=== PATIENT | female | born 1940 | race Caucasian/White ===

== ENCOUNTER → 2016-09-03 | Outpatient (CLI) | payer OTHER ==
[~2016-09-03] MED LIST: ACET1TAB84 PO; B-COTAB18 PO; BIOT1CAP3 PO; CALC600T9 PO; CHOL1TAB4 PO; DOCU-94 PO; GLUC1CHW PO; MISCCAP80 PO; MULT-884 PO; NAPR1TAB9 PO; OMEG10002 PO; RSTOPS OP
[2016-09-03 13:37] LABS: BASO % 0.6 %; BASO ABS # 0.05 K/uL (0-0.2); COMPLETE YES; HEMATOCRIT 38.9 % (37-47); IG% 0.1 %; LYMPH % 28.2 %; LYMPH ABS # 2.42 K/uL (1.2-3.4); MEAN CELL VOLUME 91.5 fL (80-100); MEAN CORPUSCULAR HEMOGLOBIN 30.8 pg (25-34); MEAN CORPUSCULAR HGB CONC 33.7 g/dl (32-36); MEAN PLATELET VOLUME 9.7 fL (7.4-10.4); MONO % 9.8 %; NEUT % 57.3 %; PLATELET COUNT 311 K/uL (130-400); RED BLOOD COUNT 4.25 M/uL (4.2-5.4); WHITE BLOOD COUNT 8.58 K/uL (4.8-10.8)
[2016-09-03 13:53] LABS: FERRITIN 21.4 ng/ml (8.0-388.0)
== END | disposition home or self-care (01) ==
LOC: C.LABBC 09:55
PROVIDERS: ATTEND Internal Medicine
DX: L29.9 Pruritus, unspecified (principal)

== ENCOUNTER → 2016-09-22 | Outpatient (CLI) | payer OTHER ==
[2016-09-22 15:11] LABS: URINE APPEARANCE TURBID (CLEAR); URINE BILIRUBIN NEG (NEG); URINE COLOR YELLOW; URINE NITRITE POS (NEG); URINE PH 6.5 (4.5-7.5); URINE SPECIFIC GRAVITY 1.006 (1.000-1.030); UROBILINOGEN NEG (NEG)
[2016-09-22 15:17] LABS: MANUAL MICROSCOPIC REQUIRED? YES; REVIEW REQ? NO
[2016-09-22 15:46] LABS: URINE BACTERIA 3+ (NEG); URINE WBC >30 /hpf (0-5)
== END | disposition home or self-care (01) ==
LOC: C.LABBC 11:16
PROVIDERS: ATTEND Internal Medicine
DX: N39.0 Urinary tract infection, site not specified (principal); A49.8 Other bacterial infections of unspecified site

== ENCOUNTER → 2016-09-23 | Outpatient (CLI) | payer OTHER ==
--- NOTE | 2016-09-23 14:42 | MAMMOGRAPHY REPORT ---
BILATERAL DIGITAL SCREENING MAMMOGRAM WITH CAD: 09/23/2016 CLINICAL HISTORY: Routine screening. Patient has no complaints. TECHNIQUE: Current study was also evaluated with a Computer Aided Detection (CAD) system. Bilatera l CC and MLO views were obtained. COMPARISON: Comparison is made to exams dated: 09/23/2015 mammogram, 09/20/2014 mammogram, 09/19/2013 claude mogram, 09/13/2012 mammogram, 09/08/2011 mammogram, and 08/21/2010 mammogram - [facility]. BREAST COMPOSITION: There are scattered areas of fibroglandular density in both breasts. FINDINGS: No suspicious masses, calcifications, or areas of architectural distortion are noted in e ither breast. There has been no significant interval change compared to prior exams. IMPRESSION: ACR BI-RADS CATEGORY 1: NEGATIVE There is no mammographic evidence of malignancy. A 1 year screening mammogram is recommended. The p atient will receive written notification of the results. Approximately 10% of breast cancers are not detected with mammography. A negative mammographic repor t should not delay biopsy if a clinically suggestive mass is present. Kerri Luis M.D. ah/:09/23/2016 11:53:25 Elevator Repair Mechanic: Lynnette MODI(R)(M), [facility] letter sent: Normal 1/2 BI-RADS Code: ACR BI-RADS Category 1: Negative
== END | disposition home or self-care (01) ==
LOC: C.MAMM 11:30
PROVIDERS: ATTEND Obstetrics & Gynecology
DX: Z12.31 Encounter for screening mammogram for malignant neoplasm of breast (principal)

== ENCOUNTER → 2017-04-28 | Outpatient (CLI) | payer OTHER | END | disposition home or self-care (01) | LOC: C.PAPS 09:39 | PROVIDERS: ATTEND Obstetrics & Gynecology | DX: R87.610 Atypical squamous cells of undetermined significance on cytologic smear of cervix (ASC-US) (principal); N95.2 Postmenopausal atrophic vaginitis ==

== ENCOUNTER → 2017-04-30 | Outpatient (CLI) | payer OTHER ==
--- NOTE | 2017-04-30 08:56 | DIAGNOSTIC IMAGING REPORT ---
TWO VIEW CHEST CLINICAL HISTORY: Chronic cough. FINDINGS: PA and lateral chest radiographs are compared to study dated 07/21/2010 and correlated with chest CT dated 11/02/2012. The heart is mildly enlarged and there is atherosclerotic calcification of the thoracic ureter. The pulmonary vasculature is noncongested. Chronic interstitial thickening is similar to previous. There is multifocal nodularity with more focal airspace opacities at the right lung base. A calcification containing nodule in the left lower lung measures 12 mm and was also seen by CT in 2013. Apical scarring is observed. There is no pleural effusion or pneumothorax. The skeletal structures are osteopenic. Degenerative change and S-shaped thoracal lumbar scoliosis are noted in the spine. IMPRESSION: 1. Chronic interstitial thickening and nodularity are identified and similar in appearance to the 11/02/2012 CT scan. 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 Pulmonology follow-up is recommended. 2. More streaky airspace opacities at the right lung base may represent atelectasis versus superimposed pneumonia. Radiographic follow-up to resolution is recommended. 3. Cardiomegaly and additional chronic findings as above. Electronically signed by: Betito Read M.D. 04/30/2017 8:55 AM Dictated Date/Time: 04/30/2017 8:43 AM
[2017-04-30 11:03] LABS: BASO % 0.7 %; BASO ABS # 0.05 K/uL (0-0.2); COMPLETE YES; EOS % 5.4 %; HEMATOCRIT 41.4 % (37-47); IG% 0.4 %; LYMPH % 33.9 %; LYMPH ABS # 2.57 K/uL (1.2-3.4); MEAN CELL VOLUME 92.8 fL (80-100); MEAN CORPUSCULAR HEMOGLOBIN 30.9 pg (25-34); MEAN CORPUSCULAR HGB CONC 33.3 g/dl (32-36); MEAN PLATELET VOLUME 9.4 fL (7.4-10.4); MONO % 7.6 %; PLATELET COUNT 287 K/uL (130-400); RED BLOOD COUNT 4.46 M/uL (4.2-5.4); WHITE BLOOD COUNT 7.59 K/uL (4.8-10.8)
[2017-04-30 11:31] LABS: ALT/SGPT 34 U/L (12-78); AST/SGOT 30 U/L (15-37); BLOOD UREA NITROGEN 13 mg/dl (7-18); BUN/CREATININE RATIO 19.1 (10-20); CARBON DIOXIDE 29 mmol/L (21-32); CHLORIDE 106 mmol/L (98-107); CREATININE 0.68 mg/dl (0.60-1.20); GLUCOSE 81 mg/dl (70-99); SODIUM 139 mmol/L (136-145)
[2017-04-30 11:42] LABS: ALB/GLOB RATIO 0.8 (0.9-2); ALKALINE PHOSPHATASE 107 U/L (45-117); CHOLESTEROL 181 mg/dl (0-200); CHOLESTEROL/HDL RATIO 3.1; HDL CHOLESTEROL 58 mg/dl; LDL CHOLESTEROL CALCULATED 107 mg/dl; TRIGLYCERIDES 82 mg/dl (0-150); VERY LOW DENSITY LIPOPROT CALC 16 mg/dl
== END | disposition home or self-care (01) ==
LOC: C.RADBC 08:12
PROVIDERS: ATTEND Internal Medicine
DX: R05 Cough (principal); R91.8 Other nonspecific abnormal finding of lung field; I51.7 Cardiomegaly; M85.80 Other specified disorders of bone density and structure, unspecified site; E78.5 Hyperlipidemia, unspecified; F32.9 Major depressive disorder, single episode, unspecified

== ENCOUNTER → 2017-05-10 | Outpatient (CLI) | payer OTHER ==
[2017-05-10 17:14] LABS: MANUAL MICROSCOPIC REQUIRED? YES; URINE APPEARANCE CLEAR (CLEAR); URINE BILIRUBIN NEG (NEG); URINE COLOR YELLOW; URINE NITRITE NEG (NEG); URINE PH 6.5 (4.5-7.5); URINE SPECIFIC GRAVITY <= 1.005 (1.000-1.030); UROBILINOGEN NEG (NEG)
[2017-05-10 17:18] LABS: REVIEW REQ? NO
[2017-05-10 18:12] LABS: URINE BACTERIA 1+ (NEG); URINE RBC 0-4 /hpf (0-4)
== END | disposition home or self-care (01) ==
LOC: C.LABBC 14:20
PROVIDERS: ATTEND Physician Assistant
DX: R39.9 Unspecified symptoms and signs involving the genitourinary system (principal)

== ENCOUNTER → 2017-07-15 | Outpatient (CLI) | payer OTHER ==
--- NOTE | 2017-07-15 12:20 | DIAGNOSTIC IMAGING REPORT ---
CT OF THE CHEST WITHOUT IV CONTRAST CLINICAL HISTORY: Arthritis. Cough. COMPARISON STUDY: Chest CT November 02, 2012. CT DOSE: 232.00 mGy.cm TECHNIQUE: Axial images of the chest were obtained without IV contrast. Images were reviewed in the axial, sagittal, and coronal planes. IV contrast was not administered for this examination. A dose lowering technique was utilized adhering to the principles of ALARA. FINDINGS: There has been interval development of bulky mediastinal lymphadenopathy since CT of November 02, 2012. A precarinal lymph node measures 3.9 x 2.9 cm. A subcarinal lymph node measures 3.4 x 1.8 cm. There is no axillary lymphadenopathy. The size of the heart is at upper limits of normal. There is no pericardial effusion. No pneumothorax or pleural effusion is present. There are multifocal nodular opacities, many of which are in a tree-in-bud distribution, throughout the lungs with mild bronchiectasis. Similar findings were shown on exam of October 31, 2012. A few areas have improved while others have progressed. There is no cavitation. A 1.2 cm calcified left lower lobe nodule has decreased in size. No suspicious osseous lesions are present. Upper abdomen is unremarkable on this unenhanced exam. IMPRESSION: 1. Interval development of moderate mediastinal lymphadenopathy since CT of November 02, 2012. The degree of lymphadenopathy is greater than expected for reactive lymphadenopathy. The findings are suspicious for a neoplastic process such as lymphoma. Further evaluation with tissue sampling might be considered. 2. Multifocal nodular opacities throughout the lungs, many of which are in a tree-in-bud distribution, similar to prior CTs with a waxing and waning appearance. The findings favor an atypical mycobacterial infection. Mild bronchiectasis. Electronically signed by: Bonilla Blair M.D. 07/15/2017 12:19 PM Dictated Date/Time: 07/15/2017 10:23 AM
== END | disposition home or self-care (01) ==
LOC: C.CTS 09:58
PROVIDERS: ATTEND Internal Medicine Critical Care Medicine
DX: M19.90 Unspecified osteoarthritis, unspecified site (principal); R59.0 Localized enlarged lymph nodes; R91.1 Solitary pulmonary nodule

== ENCOUNTER → 2017-09-01 | Outpatient (CLI) | payer OTHER ==
[~2017-09-01] MED LIST changes: -ACET1TAB84 PO; -CHOL1TAB4 PO; +CHOL20007 PO; +CYCL0.052 OP; +FEXO1TAB49 PO; +LOTEMAX OPB; -OMEG10002 PO; +OMEG10007 PO; +PSYL0.524 PO; -RSTOPS OP; +TRMO2580 TOP; +ZANTAC PO; +[UNRECOGNIZED DRUG - CODE] TOP
--- NOTE | 2017-09-01 10:59 | DIAGNOSTIC IMAGING REPORT ---
PET/CT HISTORY: NON SMALL CELL LUNG CANCER TECHNIQUE: PET/CT was performed from the base of the skull through the pelvis following the intravenous administration of 13.6 mCi of F18-FDG. Non-contrast CT imaging was performed over the same range without breath-hold for attenuation correction of PET images and anatomic correlation, but not for primary interpretation as it is not of standard diagnostic quality. CT DOSE: COMPARISON: Chest CT 07/15/2017. PET/CT 11/19/2010. FINDINGS: HEAD AND NECK: There is no FDG-avid disease or significant lymphadenopathy in the imaged portions of the head and the neck. CHEST: There is again noted a dominant 3.9 cm precarinal lymph node demonstrating abnormal FDG uptake with an SUV max of 10. There are 2 subcarinal lymph nodes also demonstrating abnormal FDG uptake with an SUV max of 12. No FDG avid hilar, axillary, or supraclavicular lymphadenopathy. Calcified granuloma within the left lower lobe. Scattered reticulonodular interstitial thickening is slightly improved. This favors chronic infectious process. No pleural or pericardial effusions. ABDOMEN/PELVIS: There is a 1 cm focus of moderate FDG uptake within the right hepatic dome demonstrating an SUV max of 4. No corresponding abnormality on CT. However, this concerning for an underlying hepatic lesion. Best seen on image 149 there is a 4 cm irregular hypodense lesion within the inferior aspect of the right hepatic lobe. This demonstrates an SUV max of 5.3. This is highly suspicious for metastatic focus. Possible 1 cm retrocaval FDG avid lymph node on image 152. This demonstrates an SUV max of 5. FDG avid foci in the portacaval location measuring up to 1.3 cm. These demonstrate an SUV max of 5. These are suspicious for FDG avid lymph nodes. Focus of FDG uptake along the right side the bladder on image 204 is nonspecific. This could be related to the distal ureter. MUSCULOSKELETAL: There is no FDG-avid or destructive bone lesion. IMPRESSION: 1. FDG avid mediastinal lymphadenopathy is unchanged in size. 2. A 4 cm FDG avid mass within the inferior aspect of the right hepatic lobe. This is highly suspicious for a metastatic lesion. There is also a 1 cm focus of moderate FDG uptake within the right hepatic dome. No definite corresponding lesion by CT. However, this remains suspicious for an additional metastatic lesion. 3. A few FDG avid portacaval and retroperitoneal lymph nodes as described above also likely representing metastatic disease. Electronically signed by: Rhett Serrato M.D. 09/01/2017 10:57 AM Dictated Date/Time: 09/01/2017 10:34 AM
== END | disposition home or self-care (01) ==
LOC: C.PET 08:09
PROVIDERS: ATTEND Internal Medicine Critical Care Medicine
DX: C34.92 Malignant neoplasm of unspecified part of left bronchus or lung (principal); R05 Cough

== ENCOUNTER → 2017-09-02 | Outpatient (CLI) | payer OTHER ==
--- NOTE | 2017-09-02 15:23 | DIAGNOSTIC IMAGING REPORT ---
R KNEE 3 VIEWS CLINICAL HISTORY: OSTEOARTHRITIS OF BOTH KNEES pain COMPARISON: None. DISCUSSION: Severe degenerative narrowing medial joint compartment left knee. Mild degenerative narrowing medial joint compartment right knee. Severe degenerative changes of patellofemoral joints bilaterally. Partial lateral degenerative subluxation of the right patella. Sclerosis of the articular services throughout. There is no evidence for soft tissue swelling. IMPRESSION: 1. Severe degenerative change of the patellofemoral joints bilaterally with partial lateral degenerative subluxation of the right patella as compared to the left. 2. Severe degenerative narrowing left knee medial joint compartment. The above report was generated using voice recognition software. It may contain grammatical, syntax or spelling errors. Electronically signed by: Brandon Harden M.D. 09/02/2017 3:22 PM Dictated Date/Time: 09/02/2017 3:20 PM
== END | disposition home or self-care (01) ==
LOC: C.RDSM 12:47
PROVIDERS: ATTEND Physician Assistant
DX: M17.0 Bilateral primary osteoarthritis of knee (principal)

== ENCOUNTER → 2017-09-14 | Outpatient (CLI) | payer OTHER ==
--- NOTE | 2017-09-14 08:47 | DIAGNOSTIC IMAGING REPORT ---
ABDOMINAL ULTRASOUND, RIGHT UPPER QUADRANT HISTORY: Lung cancer. Possible right lobe liver lesion. Evaluate for possible biopsy. COMPARISON: PET/CT September 01, 2017. FINDINGS: Liver morphology is normal. Note is made of a 3.9 x 3.7 x 3.5 cm predominantly echogenic inferior right hepatic lobe lesion with small anechoic focus. This corresponds to the FDG avid lesion shown on PET/CT of September 01, 2017. No additional hepatic lesions are present. The suspected right hepatic dome lesion shown on PET/CT is not visualized on this exam, likely due to technique. Pancreas is within normal limits. There is no right hydronephrosis. There is no biliary ductal dilatation status post cholecystectomy. IMPRESSION: 1. 3.9 x 3.7 x 3.5 cm inferior right hepatic lobe lesion which corresponds to the lesion shown on prior PET/CT. This is suggestive of metastatic disease. Ultrasound-guided biopsy may be difficult but could be attempted. 2. No biliary ductal dilatation status post cholecystectomy. Electronically signed by: Bonilla Blair M.D. 09/14/2017 8:46 AM Dictated Date/Time: 09/14/2017 8:33 AM
== END | disposition home or self-care (01) ==
LOC: C.ULTR 07:39
PROVIDERS: ATTEND Internal Medicine Hematology & Oncology
DX: C34.80 Malignant neoplasm of overlapping sites of unspecified bronchus and lung (principal)

== ENCOUNTER → 2017-09-29 | Outpatient (CLI) | payer OTHER ==
--- NOTE | 2017-09-30 07:56 | MAMMOGRAPHY REPORT ---
BILATERAL DIGITAL SCREENING MAMMOGRAM TOMOSYNTHESIS WITH CAD: 09/29/2017 CLINICAL HISTORY: Routine screening. Patient has no complaints. TECHNIQUE: Breast tomosynthesis in addition to standard 2D mammography was performed. Current study was also evaluated with a Computer Aided Detection (CAD) system. COMPARISON: Comparison is made to exams dated: 09/23/2016 mammogram, 09/23/2015 mammogram, 09/20/2014 mamm ogram, 09/19/2013 mammogram, 09/13/2012 mammogram, and 09/08/2011 mammogram - [facility] BREAST COMPOSITION: There are scattered areas of fibroglandular density in both breasts. FINDINGS: No suspicious masses, calcifications, or areas of architectural distortion are noted in ei ther breast. There has been no significant interval change compared to prior exams. IMPRESSION: ACR BI-RADS CATEGORY 1: NEGATIVE There is no mammographic evidence of malignancy. A 1 year screening mammogram is recommended. The pa tient will receive written notification of the results. Approximately 10% of breast cancers are not detected with mammography. A negative mammographic report should not delay biopsy if a clinically suggestive mass is present. Kerri Luis M.D. ah/:09/29/2017 12:20:25 Animal Rescuer: Sejal MODI(Shy)(M), [facility] letter sent: Normal 1/2 BI-RADS Code: ACR BI-RADS Category 1: Negative
== END | disposition home or self-care (01) ==
LOC: C.MAMM 11:04
PROVIDERS: ATTEND Obstetrics & Gynecology
DX: Z12.31 Encounter for screening mammogram for malignant neoplasm of breast (principal)

== ENCOUNTER → 2017-10-20 | Outpatient (CLI) | payer OTHER ==
[~2017-10-20] MED LIST changes: +CLBPO15 TOP
== END | disposition home or self-care (01) ==
LOC: C.PATHSPEC 10:33
PROVIDERS: ATTEND Internal Medicine Hematology & Oncology
DX: R59.0 Localized enlarged lymph nodes (principal); R91.1 Solitary pulmonary nodule

== ENCOUNTER → 2017-10-30 | Outpatient (CLI) | payer OTHER ==
[2017-10-30 11:03] LABS: BASO % 0.4 %; BASO ABS # 0.03 K/uL (0-0.2); EOS % 5.5 %; EOS ABS # 0.39 K/uL (0-0.5); HEMATOCRIT 39.5 % (37-47); HEMOGLOBIN 13.7 g/dL (12.0-16.0); IG# 0.01 K/uL (0.00-0.02); LYMPH % 32.6 %; LYMPH ABS # 2.33 K/uL (1.2-3.4); MEAN CELL VOLUME 89.4 fL (80-100); MEAN CORPUSCULAR HGB CONC 34.7 g/dl (32-36); MEAN PLATELET VOLUME 8.7 fL (7.4-10.4); MONO % 8.4 %; NEUT ABS # 3.78 K/uL (1.4-6.5); PLATELET COUNT 251 K/uL (130-400); RED CELL DISTRIBUTION WIDTH CV 14.2 % (11.5-14.5); WHITE BLOOD COUNT 7.14 K/uL (4.8-10.8)
[2017-10-30 11:18] LABS: PTT PATIENT 24.6 SECONDS (21.0-31.0)
[2017-10-30 11:31] LABS: ALT/SGPT 31 U/L (12-78); AST/SGOT 35 U/L (15-37); BLOOD UREA NITROGEN 15 mg/dl (7-18); CALCIUM 9.3 mg/dl (8.5-10.1); CARBON DIOXIDE 28 mmol/L (21-32); CREATININE 0.69 mg/dl (0.60-1.20); GLUCOSE 84 mg/dl (70-99); POTASSIUM 3.7 mmol/L (3.5-5.1); SODIUM 137 mmol/L (136-145)
[2017-10-30 11:36] LABS: ALKALINE PHOSPHATASE 98 U/L (45-117); TOTAL PROTEIN 8.4 gm/dl (6.4-8.2)
== END | disposition home or self-care (01) ==
LOC: C.LAB 10:25
PROVIDERS: ATTEND Internal Medicine Hematology & Oncology
DX: R91.1 Solitary pulmonary nodule (principal); M35.00 Sjogren syndrome, unspecified; R59.0 Localized enlarged lymph nodes

== ENCOUNTER 2018-01-31 06:20 | Day surgery (SDC) | payer OTHER ==
[2018-01-26 09:28] VITALS: BMI 32.0
[~2018-01-31] VITALS: Ht 158.8 cm; Wt 81.4 kg
[~2018-01-31 06:20] MED LIST changes: -B-COTAB18 PO; -BIOT1CAP3 PO; -CALC600T9 PO; +CEFAZOLIN 2000MG IV PUSH 15 ML IV SCH; -CLBPO15 TOP; -CYCL0.052 OP; -DOCU-94 PO; -FEXO1TAB49 PO; -GLUC1CHW PO; +LACTATED RINGER'S 1000ML 1,000 ML IV SCH; -MISCCAP80 PO; -MULT-884 PO; -NAPR1TAB9 PO
[2018-01-31 06:47] VITALS: BP 100/64; PULSE 73; TEMP 37; O2SAT 95; Ht 158.8 cm; Wt 81.4 kg
[2018-01-31] MEDS ORDERED: LIDOCAINE HCL 2% 2 ML VIAL (20MG/ML) ONE (08:12)
[2018-01-31] MEDS ORDERED: FENTANYL CITRATE INJ 50 MCG/1 ML 2 ML VIAL ONE (08:12)
[2018-01-31] MEDS ORDERED: PROPOFOL IV EMULSION 10 MG/ML 20 ML VIAL ONE (08:12)
[2018-01-31] MEDS ORDERED: MIDAZOLAM HCL 1 MG/ML 2ML VIAL ONE (08:12)
[2018-01-31] MEDS ORDERED: CEFAZOLIN SOD 1 GM VIAL ONE (08:35)
[2018-01-31] MEDS ORDERED: LIDOCAINE HCL 1% 20 ML VIAL ONE (08:35)
[2018-01-31] MEDS ORDERED: HEPARIN SOD (PORCINE) 1000 UNIT/ML 10 ML VIAL ONE (08:35)
[2018-01-31] MEDS ORDERED: THROMBIN FOR SOLN 20000 UNIT KIT ONE (08:35)
--- NOTE | 2018-01-31 08:40 | History & Physical Bridge Note ---
H&P Re-Evaluation Bridge Note: I have examined the patient, reviewed the History & Physical and in the interval since the performance of the History & Physical I have noted the following changes of clinical significance: No changes noted
[2018-01-31] MEDS ORDERED: EpHEDrine SULFATE INJ 50 MG/ML AMP IV PRN (09:00)
[2018-01-31] MEDS ORDERED: ONDANSETRON INJ 2 MG/ML 2 ML VIAL IV PRN ×2 (09:00→09:45)
[2018-01-31] MEDS ORDERED: FENTANYL CITRATE INJ 50 MCG/1 ML 2 ML VIAL IV PRN (09:00)
[2018-01-31] MEDS ORDERED: PROMETHAZINE HCL INJ 6.25 MG in SODIUM CHLORIDE 0.9% 50ML 50 ML IV PRN (09:00)
[2018-01-31] MEDS ORDERED: ATROPINE SULFATE 0.1 MG/ML 5ML SYR IV PRN (09:00)
[2018-01-31] MEDS ORDERED: ONDANSETRON INJ 2 MG/ML 2 ML VIAL ONE (09:27)
[2018-01-31] MEDS ORDERED: HYDR-5688 PO (09:34)
--- NOTE | 2018-01-31 09:34 | [facility] Operative Report ---
Operative Report Operative Date Jan 31, 2018. Pre-Operative Diagnosis Need for Long-Term Intravenous Access Post-Operative Diagnosis Need for Long-Term Intravenous Access Procedure(s) Performed Insertion of Infusaport Right Subclavian Surgeon Dr. Martínez Hat Ironer Surgeon(s) none Estimated Blood Loss 5 ml Specimens none per surgeon Drains None Anesthesia Type MAC Complication(s) none Disposition Recovery Room / PACU I attest to the content of the Intraoperative Record and any orders documented therein. Any exceptions are noted below.
--- NOTE | 2018-01-31 09:35 | Discharge Instructions ---
Discharge Instructions Date of Service Jan 31, 2018. Visit Reason for Visit: Lung Cancer Discharge Discharge Diagnosis / Problem: A-port Discharge Goals Goal(s): Therapeutic intervention Activity Recommendations Activity Limitations: as noted below Shower/Bathe: keep incision dry (for 2 days) Driving or Machine Use: resume 1 day after discharge Anesthesia . Post Anesthesia Instructions: If you have had General Anesthesia or IV Sedation: * Do not drive today. * Resume driving when surgeon permits. * Do not make important decisions or sign legal documents today. * Call surgeon for: 1. Temperature elevations greater than 101 degrees F. 2. Uncontrollable pain. 3. Excessive bleeding. 4. Persistent nausea and vomiting. 5. Medication intolerance (nausea, vomiting or rash). * For nausea and vomiting use only clear liquids such as: tea, soda, bouillon until nausea subsides, then gradually increase diet as tolerated. * If you have any concerns or questions, call your surgeon's office. If physician is unavailable and it is an emergency, call 911 or go to the nearest emergency room. . Instructions / Follow-Up Instructions / Follow-Up Dr. Martínez's office in 2 weeks for suture removal, call [phone] if you do not have an appt or have any questions Diet Recommendations Recommended Home Diet: no limitations Procedures Procedures Performed: Insertion of Infusaport Right Subclavian Pending Studies Studies pending at discharge: no Medical Emergencies . Who to Call and When: Medical Emergencies: If at any time you feel your situation is an emergency, please call 911 immediately. . Non-Emergent Contact Non-Emergency issues call your: Surgeon Call Non-Emergent contact if: you have a fever, temperature is above 101.5, your pain is not controlled, wound has increased redness, wound has increased pain, you have any medication questions . . "Provider Documentation" section prepared by Josep Jauregui. .
[2018-01-31] MEDS ORDERED: ACETAMINOPHEN 325 MG TAB PO PRN (09:45)
[2018-01-31] MEDS ORDERED: HYDROCODONE/ACETAMIN 5/325MG TAB PO PRN ×2 (09:45)
--- NOTE | 2018-01-31 10:02 | DIAGNOSTIC IMAGING REPORT ---
CHEST ONE VIEW PORTABLE CLINICAL HISTORY: port dyspnea COMPARISON STUDY: 04/30/2017 FINDINGS: Central catheter placed in the superior vena cava. No evidence for pneumothorax. All remaining components of the study are unchanged. IMPRESSION: Central catheter placed in the superior vena cava. No evidence for pneumothorax. The above report was generated using voice recognition software. It may contain grammatical, syntax or spelling errors. Electronically signed by: Brandon Harden M.D. 01/31/2018 10:00 AM Dictated Date/Time: 01/31/2018 10:00 AM
--- NOTE | 2018-01-31 10:07 | OPERATIVE REPORT ---
DATE OF OPERATION: 01/31/2018 Patient was having her port placed, and I used fluoroscopy during the procedure. I attest to the content of the Intraoperative Record and any orders documented therein. Any exception s are noted below.
--- NOTE | 2018-01-31 10:12 | OPERATIVE REPORT ---
DATE OF OPERATION: 01/31/2018 NAME OF OPERATION: Access port. PREOPERATIVE DIAGNOSIS: Adenocarcinoma. POSTOPERATIVE DIAGNOSIS: Adenocarcinoma. STAFF SURGEON: Dr. Martínez. ANESTHESIA: 1% plain lidocaine with sedation. PROCEDURE: The patient was brought in the operating room and placed on the operating table in supine position. Her chest was prepped and draped in usual fashion. A roll placed between her shoulders. 1% plain lidocaine was used to anesthetize skin and subcutaneous tissue over the right deltopectoral groove. Incision made carrying dissection down identifying a very small cephalic vein, which I was unable to use. At this point, the patient was placed in Trendelenburg position. Using a puncture technique, the right subclavian vein was localized and then a wire passed under fluoroscopy. The needle then removed. The dilator and introducer passed over the wire under fluoroscopy. The dilator and wire removed and then the catheter passed through the introducer. The introducer removed. Catheter positioned appropriately, aspirated and flushed with heparinized solution. Pocket was fashioned in the subcutaneous tissue and then the port attached using 3-0 Prolene suture to the pectoralis muscle and then irrigated with antibiotic solution. The port was aspirated and flushed with heparinized solution. Deep tissue reapproximated using 2-0 chromic suture and then the skin reapproximated using 4-0 nylon suture. The patient tolerated the procedure well and was transferred to recovery room in stable condition. I attest to the content of the Intraoperative Record and any orders documented therein. Any exception s are noted below.
--- NOTE | 2018-01-31 10:21 | Anesthesiology Progress Note ---
Anesthesia Post Op Note Date & Time Jan 31, 2018 at 10:21 Vital Signs Pain Intensity: 0 Vital Signs Past 12 Hours Date Time Temp Pulse Resp B/P (MAP) Pulse Ox O2 Delivery O2 Flow Rate FiO2 01/31/18 10:12 72 13 94 01/31/18 10:12 73 13 01/31/18 10:11 109/66 01/31/18 10:07 67 16 01/31/18 10:07 74 16 97 01/31/18 10:06 114/68 01/31/18 10:06 36.3 99 Room Air 01/31/18 10:02 76 21 01/31/18 10:02 73 21 93 01/31/18 10:01 106/62 01/31/18 10:00 73 18 01/31/18 10:00 77 18 94 01/31/18 09:56 105/65 01/31/18 09:55 76 17 96 01/31/18 09:55 74 17 01/31/18 09:51 97/66 01/31/18 09:50 77 19 93 01/31/18 09:50 74 19 01/31/18 09:46 108/63 01/31/18 09:45 75 17 98 01/31/18 09:45 74 17 01/31/18 09:41 106/62 01/31/18 09:40 76 16 01/31/18 09:40 36.3 75 16 106/62 100 Oxymask 5 01/31/18 09:40 77 16 100 01/31/18 06:47 37 73 18 100/64 (76) 95 Room Air Notes Mental Status: alert / awake / arousable, participated in evaluation Pt Amnestic to Procedure: Yes Nausea / Vomiting: adequately controlled Pain: adequately controlled Airway Patency, RR, SpO2: stable & adequate BP & HR: stable & adequate Hydration State: stable & adequate Anesthetic Complications: no major complications apparent
[2018-01-31 10:25] VITALS: BP 105/67; PULSE 75; TEMP 36.4; O2SAT 97
[2018-01-31 10:55] VITALS: BP 102/65; PULSE 83; TEMP 36.4; O2SAT 99
[2018-02-07] MEDS ORDERED: CLBPO15 TOP (09:24)
[2018-02-07] MEDS ORDERED: NAPR1TAB9 PO (09:51)
[2018-02-07] MEDS ORDERED: CYCL0.052 OPB (09:55)
[2018-02-07] MEDS ORDERED: FEXO1TAB49 PO (09:55)
[2018-02-07] MEDS ORDERED: B-COTAB18 PO (09:57)
[2018-02-07] MEDS ORDERED: CALC600T9 PO (12:04)
[2018-02-07] MEDS ORDERED: GLUC1CHW PO (12:04)
[2018-02-07] MEDS ORDERED: MULT-884 PO (12:04)
[2018-02-07] MEDS ORDERED: DOCU-94 PO (12:04)
[2018-02-07] MEDS ORDERED: MISCCAP80 PO (12:04)
[2018-02-07] MEDS ORDERED: BIOT1CAP3 PO (15:11)
== END 2018-01-31 11:20 | disposition home or self-care (01) ==
LOC: C.ACU 06:20
PROVIDERS: ATTEND Surgery
DX: C34.90 Malignant neoplasm of unspecified part of unspecified bronchus or lung (principal); K21.9 Gastro-esophageal reflux disease without esophagitis; M19.90 Unspecified osteoarthritis, unspecified site; F32.9 Major depressive disorder, single episode, unspecified; E78.5 Hyperlipidemia, unspecified; Z87.440 Personal history of urinary (tract) infections; Z88.0 Allergy status to penicillin

== ENCOUNTER 2018-02-07 18:55 | Inpatient (IN) | payer OTHER ==
[~2018-02-07] VITALS: Ht 158.8 cm; Wt 82.7 kg
[~2018-02-07 18:55] MED LIST changes: +B-COTAB18 PO; +BIOT1CAP3 PO; +CALC600T9 PO; -CEFAZOLIN 2000MG IV PUSH 15 ML IV SCH; +CLBPO15 TOP; +CYCL0.052 OPB; +DOCU-94 PO; +FEXO1TAB49 PO; +GLUC1CHW PO; +HYDR-5688 PO; -LACTATED RINGER'S 1000ML 1,000 ML IV SCH; +MISCCAP80 PO; +MULT-884 PO; +NAPR1TAB9 PO
--- NOTE | 2018-02-07 20:02 | DIAGNOSTIC IMAGING REPORT ---
CHEST ONE VIEW PORTABLE CLINICAL HISTORY: Respiratory distress. Dyspnea. Lung cancer. COMPARISON STUDY: Chest CT November 11, 2017 and chest radiograph January 31, 2018. FINDINGS: A right subclavian [id number] is in place. Cardiomediastinal silhouette is stable. No pneumothorax or pleural effusion is noted. A calcified left lower lobe lesion is again noted. Lower lung predominant reticulonodular interstitial thickening is unchanged. IMPRESSION: No significant change in appearance of the chest. Persistent lower lung reticulonodular interstitial thickening. Electronically signed by: Bonilla Blair M.D. 02/07/2018 8:01 PM Dictated Date/Time: 02/07/2018 7:59 PM
[2018-02-07] MEDS ORDERED: OPTIRAY 320 IV PRN (20:15)
[2018-02-07 20:21] LABS: ALBUMIN 3.4 gm/dl (3.4-5.0); ALKALINE PHOSPHATASE 109 U/L (45-117); ALT/SGPT 27 U/L (12-78); AST/SGOT 28 U/L (15-37); BLOOD UREA NITROGEN 15 mg/dl (7-18); CARBON DIOXIDE 26 mmol/L (21-32); CREATININE 0.78 mg/dl (0.60-1.20); GLUCOSE 90 mg/dl (70-99); HEMATOCRIT 28.3 % (37-47); HEMOGLOBIN 9.5 g/dL (12.0-16.0); MEAN CELL VOLUME 92.5 fL (80-100); MEAN CORPUSCULAR HGB CONC 33.6 g/dl (32-36); MEAN PLATELET VOLUME 8.7 fL (7.4-10.4); PLATELET COUNT 389 K/uL (130-400); RED CELL DISTRIBUTION WIDTH CV 16.8 % (11.5-14.5); RED CELL DISTRIBUTION WIDTH SD 55.6 fL (36.4-46.3); SODIUM 136 mmol/L (136-145); TOTAL PROTEIN 7.6 gm/dl (6.4-8.2); WHITE BLOOD COUNT 2.65 K/uL (4.8-10.8)
--- NOTE | 2018-02-07 21:16 | EMERGENCY ROOM VISIT NOTE ---
History First contact with patient: 19:15 Chief Complaint: SHORTNESS OF BREATH Stated Complaint: LOW OXYGEN SOB Nursing Triage Summary: Pt ambulatory to triage stating, "I was sent by Dr. Camacho because my oxygen level was low and I am sob. 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 My last treatment was a week ago ." Denies cough or fever/chills. Sx began Th. BLE edema, states worsened since she started chemo. Denies chest/abdominal discomfort. Denies sob with rest, states very sob with exertion, "especially when walking up stairs" History of Present Illness The patient is a 77 year old female who presents to the Emergency Room with complaints of shortness of breath. 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 She was being seen by Dr. Camacho in pulmonology today. An ambulatory pulse ox was performed and she states that her levels dropped into the 80s. Given this he was concerned and sent her to the emergency department for additional evaluation. The patient states she is undergoing chemotherapy. She has been dealing with her legs swelling. She denies any other symptoms. Last chemotherapy was a week ago. She does feel better with rest. She denies any pain. Pt denies LOC, headache, fevers, chills, diaphoresis, visual changes, neck pain, chest pain, nausea, vomiting, abdominal pain, back pain, melena, hematochezia, urinary symptoms, numbness, weakness, lymphadenopathy, rash, or other complaints. Review of Systems See HPI for pertinent positives and negatives. A total of ten systems were reviewed and were otherwise negative. Past Medical/Surgical History Medical Problems: (1) Cancer (2) Deep venous thrombosis of left popliteal vein (3) Pulmonary embolism Social History Smoking Status: Never Smoker Current/Historical Medications Scheduled B-Complex Vitamins (Vitamin B Complex), 1 TAB PO QPM Biotin (Biotin), 5,000 MCG PO QPM Calcium Carbonate-Vitamin D (Calcium + D), 1 TAB PO BID Cholecalciferol (Vitamin D3), 5,000 INTER.UNIT PO QAM Cyclosporine (Ophth) (Restasis), 1 DROP OPB BID Docusate Sodium (Colace), 300 MG PO Q2D Fexofenadine Hcl (Milagros Allergy), 180 MG PO QAM Glucosamine-Chondroitin (Glucosamine Chondroitin S 500-400 mg), 1 CAP PO BID Loteprednol Etabonate (Lotemax), 1 APPLN TOP OPB Multiple Vitamin (Multi Vitamin Daily), 1 TAB PO Q2D Naproxen (Aleve), 220 MG PO QAM [place]-3 Fatty Acids (Fish Oil), 2 CAP PO BID Probiotic Product (Probiotic), 1 CAP PO QAM Psyllium (Metamucil), 1 DOSE PO Q2D Ranitidine Hcl (Zantac), 75 MG PO BID Scheduled PRN Clobetasol Propionate (Clobetasol Propionate), 1 APPLN TOP BID PRN for Itching Hydrocortisone Butyrate (Hydrocortisone Butyrate), 1 APPLN TOP DAILY PRN for Dermatitis Triamcinolone Acet (Aristocort 0.1%), 1 APPLN TOP BID PRN for Dermatitis Physical Exam Vital Signs Date Time Temp Pulse Resp B/P (MAP) Pulse Ox O2 Delivery O2 Flow Rate FiO2 02/07/18 22:18 89 16 156/91 98 Room Air 02/07/18 20:51 85 20 134/84 96 Room Air 02/07/18 19:48 93 02/07/18 19:30 96 Room Air 02/07/18 19:30 96 Room Air 02/07/18 19:30 96 Room Air 02/07/18 19:05 36.7 94 20 125/78 96 Room Air Physical Exam GENERAL: Awake, alert, well-appearing, in no acute distress HENT: Normocephalic, atraumatic. Oropharynx unremarkable. EYES: Normal conjunctiva. Sclera non-icteric. NECK: Supple. No nuchal rigidity. FROM. No JVD. RESPIRATORY: Clear to auscultation. CARDIAC: Regular rate, normal rhythm. Extremities warm and well perfused. Pulses equal. ABDOMEN: Soft, non-distended. No tenderness to palpation. No rebound or guarding. No masses. MUSCULOSKELETAL: Chest examination reveals no tenderness. The back is symmetrical on inspection without obvious abnormality. There is no CVA tenderness to palpation. No joint edema. LOWER EXTREMITIES: Calves are equal size bilaterally and non-tender. 2+ edema. No discoloration. NEURO: Normal sensorium. No sensory or motor deficits noted. SKIN: No rash or jaundice noted. Medical Decision & Procedures ER Provider Diagnostic Interpretation: Imaging studies: CHEST ONE VIEW PORTABLE CLINICAL HISTORY: Respiratory distress. Dyspnea. Lung cancer. COMPARISON STUDY: Chest CT November 11, 2017 and chest radiograph January 31, 2018. FINDINGS: A right subclavian [id number]-[id number] is in place. Cardiomediastinal silhouette is stable. No pneumothorax or pleural effusion is noted. A calcified left lower lobe lesion is again noted. Lower lung predominant reticulonodular interstitial thickening is unchanged. IMPRESSION: No significant change in appearance of the chest. Persistent lower lung reticulonodular interstitial thickening. Electronically signed by: Bonilla Blair M.D. 02/07/2018 8:01 PM Dictated Date/Time: 02/07/2018 7:59 PM Ultrasound imaging of the bilateral lower extremities reveals an occlusive left popliteal DVT. No right-sided DVT is noted. CT ANGIOGRAPHY OF THE CHEST, PULMONARY EMBOLUS PROTOCOL CLINICAL HISTORY: Shortness of breath. Hypoxia. Lung cancer. COMPARISON STUDY: Chest CT November 11, 2017 and chest radiograph performed earlier today. TECHNIQUE: Following IV administration of 91 mL of Optiray-320, helical axial images of the chest were obtained utilizing the pulmonary embolus protocol. Maximal intensity projections and sagittal and coronal reformats were viewed on an independent 3D workstation. IV contrast was administered without complication. A dose lowering technique was utilized adhering to the principles of ALARA. CT DOSE: 275.76 mGy.cm FINDINGS: Multiple segmental bilateral pulmonary emboli are noted. There is no central pulmonary embolus. No CT evidence for right heart strain. Right-sided Hlrkez-l-Dhwe is in place. There is no pericardial effusion. Multiple mediastinal lymph nodes have decreased in size since CT of November 11, 2017. A subcarinal lymph node measures approximately 2.5 x 1.7 cm. A previous measured 2.9 x 1.7 cm. A precarinal lymph node measures approximately 3 x 1.9 cm. It previously measured 3 x 2.2 cm. Lower lung predominant nodules have slightly increased since prior exam. These are indeterminate. Calcified left lower lobe nodule is noted. There is no pneumothorax or pleural effusion. No suspicious lesions within the bony thorax are noted. Bilateral hilar lymphadenopathy is similar to previous exam. IMPRESSION: 1. Multiple segmental bilateral pulmonary emboli. No CT evidence for right heart strain. 2. Mild interval decrease in mediastinal lymphadenopathy since CT of November 11, 2017. 3. Lower lung predominant nodules which have slightly increased. However, these nodules are indeterminate and the appearance raises the possibility of an infectious/inflammatory etiology. Metastatic disease remains within the differential. Electronically signed by: Bonilla Blair M.D. 02/07/2018 9:32 PM Dictated Date/Time: 02/07/2018 9:19 PM Laboratory Results 02/07/18 19:30 Red Blood Count 3.06, Mean Corpuscular Volume 92.5, Mean Corpuscular Hemoglobin 31.0, Mean Corpuscular Hemoglobin Concent 33.6, Mean Platelet Volume 8.7, Neutrophils (%) (Auto) 31.0, Lymphocytes (%) (Auto) 57.7, Monocytes (%) (Auto) 5.3, Eosinophils (%) (Auto) 2.6, Basophils (%) (Auto) 0.8, Neutrophils # (Auto) 0.82, Lymphocytes # (Auto) 1.53, Monocytes # (Auto) 0.14, Eosinophils # (Auto) 0.07, Basophils # (Auto) 0.02 02/07/18 19:30 Test 02/07/18 19:30 White Blood Count 2.65 K/uL (4.8-10.8) Red Blood Count 3.06 M/uL (4.2-5.4) Hemoglobin 9.5 g/dL (12.0-16.0) Hematocrit 28.3 % (37-47) Mean Corpuscular Volume 92.5 fL (80-100) Mean Corpuscular Hemoglobin 31.0 pg (25-34) Mean Corpuscular Hemoglobin Concent 33.6 g/dl (32-36) Platelet Count 389 K/uL (130-400) Mean Platelet Volume 8.7 fL (7.4-10.4) Neutrophils (%) (Auto) 31.0 % Lymphocytes (%) (Auto) 57.7 % Monocytes (%) (Auto) 5.3 % Eosinophils (%) (Auto) 2.6 % Basophils (%) (Auto) 0.8 % Neutrophils # (Auto) 0.82 K/uL (1.4-6.5) Lymphocytes # (Auto) 1.53 K/uL (1.2-3.4) Monocytes # (Auto) 0.14 K/uL (0.11-0.59) Eosinophils # (Auto) 0.07 K/uL (0-0.5) Basophils # (Auto) 0.02 K/uL (0-0.2) RDW Standard Deviation 55.6 fL (36.4-46.3) RDW Coefficient of Variation 16.8 % (11.5-14.5) Immature Granulocyte % (Auto) 2.6 % Immature Granulocyte # (Auto) 0.07 K/uL (0.00-0.02) Prothrombin Time 10.1 SECONDS (9.0-12.0) Prothromb Time International Ratio 1.0 (0.9-1.1) Activated Partial Thromboplast Time 24.3 SECONDS (21.0-31.0) Partial Thromboplastin Ratio 0.9 Urine Color YELLOW Urine Appearance CLEAR (CLEAR) Urine pH 7.5 (4.5-7.5) Urine Specific [place] 1.020 (1.000-1.030) Urine Protein NEG (NEG) Urine Glucose (UA) NEG (NEG) Urine Ketones NEG (NEG) Urine Occult Blood NEG (NEG) Urine Nitrite NEG (NEG) Urine Bilirubin NEG (NEG) Urine Urobilinogen NEG (NEG) Urine Leukocyte Esterase MODERATE (NEG) Urine WBC (Auto) >30 /hpf (0-5) Urine RBC (Auto) 0-4 /hpf (0-4) Urine Hyaline Casts (Auto) 1-5 /lpf (0-5) Urine Epithelial Cells (Auto) >30 /lpf (0-5) Urine Bacteria (Auto) NEG (NEG) Urine Renal Epithelial Cells 5-10 /lpf (0-5) Anion Gap 8.0 mmol/L (3-11) Est Creatinine Clear Calc Drug Dose 62.0 ml/min Estimated GFR () 85.0 Estimated GFR (Non- 73.3 BUN/Creatinine Ratio 19.7 (10-20) Calcium Level 9.0 mg/dl (8.5-10.1) Total Bilirubin 0.3 mg/dl (0.2-1) Aspartate Amino Transf (AST/SGOT) 28 U/L (15-37) Alanine Aminotransferase (ALT/SGPT) 27 U/L (12-78) Alkaline Phosphatase 109 U/L (45-117) Total Creatine Kinase 78 U/L (26-192) Creatine Kinase MB 1.0 ng/ml (0.5-3.6) Creatine Kinase MB Ratio 1.3 (0-3.0) Troponin I < 0.015 ng/ml (0-0.045) Total Protein 7.6 gm/dl (6.4-8.2) Albumin 3.4 gm/dl (3.4-5.0) Globulin 4.2 gm/dl (2.5-4.0) Albumin/Globulin Ratio 0.8 (0.9-2) Medications Administered Medications (Trade) Dose Ordered Sig/Angela Route Start Time Stop Time Status Last Admin Dose Admin Heparin Sodium/ Dextrose 500 ml @ 23 mls/hr [id number] IV 02/07/18 22:30 03/09/18 22:29 02/07/18 22:41 23 MLS/HR Heparin Sodium (Porcine) (Heparin Sq 5000 Unit/0.5ml) 5,000 unit STK-MED ONCE .ROUTE 02/07/18 22:28 02/07/18 22:29 DC 02/07/18 22:42 5,000 UNIT ECG Per My Interpretation Indication: SOB/dyspnea Rate (beats per minute): 88 Rhythm: sinus rhythm Findings: 1st degree AV block, PVC, no acute ischemic change Change: No ST elevation or depression. Medical Decision Prior records/ancillary studies reviewed. Triage Nursing notes reviewed and agree them. The patient's history was concerning for shortness of breath. Differential diagnosis: Etiologies such as pulmonary embolism,pneumonia, COPD, reactive airway disease, CHF, cardiac ischemia, pneumothorax, musculoskeletal, infections, gastrointestinal, as well as others were entertained. Physical examination: As above. Concerning for leg swelling. ER treatment provided: IV heparin drip On reassessment the patient felt better. Diagnostic interpretation by me: The electrocardiogram was negative for pathologic change. The labs revealed moderate anemia on CBC but this is not significantly different than prior. Chemistry panel unremarkable. Imaging studies: Chest x-ray, ultrasounds, and CT scan as above. The patient has a DVT and bilateral pulmonary emboli. Consultation: A consultation was placed with the hospitalist. The case was discussed and diagnostics were reviewed. The patient was evaluated in the ER for further treatment. Medication Reconcilliation Current Medication List: was personally reviewed by me Blood Pressure Screening Patient's blood pressure: Elevated blood pressure Refer to hospitalist. Impression Primary Impression: Pulmonary embolism Additional Impression: Deep venous thrombosis of left popliteal vein Critical Care I have personally spent greater than 30 minutes of critical care time in the direct management of this patient. This includes bedside care, interpretation of diagnostic studies, and testing, discussion with consultants, patient, and family members, and other required patient management activities. This 30 minutes is in excess of all separately billable procedures. Departure Information Dispostion Being Evaluated By Hospitalist Referrals Guillermo Berkowitz M.D. (PCP) Patient Instructions My [facility] Problem Qualifiers
--- NOTE | 2018-02-07 21:33 | DIAGNOSTIC IMAGING REPORT ---
CT ANGIOGRAPHY OF THE CHEST, PULMONARY EMBOLUS PROTOCOL CLINICAL HISTORY: Shortness of breath. Hypoxia. Lung cancer. COMPARISON STUDY: Chest CT November 11, 2017 and chest radiograph performed earlier today. TECHNIQUE: Following IV administration of 91 mL of Optiray-320, helical axial images of the chest were obtained utilizing the pulmonary embolus protocol. Maximal intensity projections and sagittal and coronal reformats were viewed on an independent 3D workstation. IV contrast was administered without complication. A dose lowering technique was utilized adhering to the principles of ALARA. CT DOSE: 275.76 mGy.cm FINDINGS: Multiple segmental bilateral pulmonary emboli are noted. There is no central pulmonary embolus. No CT evidence for right heart strain. Right-sided Zqjrhi-v-Kdex is in place. There is no pericardial effusion. Multiple mediastinal lymph nodes have decreased in size since CT of November 11, 2017. A subcarinal lymph node measures approximately 2.5 x 1.7 cm. A previous measured 2.9 x 1.7 cm. A precarinal lymph node measures approximately 3 x 1.9 cm. It previously measured 3 x 2.2 cm. Lower lung predominant nodules have slightly increased since prior exam. These are indeterminate. Calcified left lower lobe nodule is noted. There is no pneumothorax or pleural effusion. No suspicious lesions within the bony thorax are noted. Bilateral hilar lymphadenopathy is similar to previous exam. IMPRESSION: 1. Multiple segmental bilateral pulmonary emboli. No CT evidence for right heart strain. 2. Mild interval decrease in mediastinal lymphadenopathy since CT of November 11, 2017. 3. Lower lung predominant nodules which have slightly increased. However, these nodules are indeterminate and the appearance raises the possibility of an infectious/inflammatory etiology. Metastatic disease remains within the differential. Electronically signed by: Bonilla Blair M.D. 02/07/2018 9:32 PM Dictated Date/Time: 02/07/2018 9:19 PM
[2018-02-07 21:36] LABS: BASO % 0.8 %; BASO ABS # 0.02 K/uL (0-0.2); EOS % 2.6 %; EOS ABS # 0.07 K/uL (0-0.5); IG# 0.07 K/uL (0.00-0.02); LYMPH % 57.7 %; LYMPH ABS # 1.53 K/uL (1.2-3.4); MONO % 5.3 %; MONO ABS # 0.14 K/uL (0.11-0.59); NEUT ABS # 0.82 K/uL (1.4-6.5)
[2018-02-07 22:15] LABS: PTT PATIENT 24.3 SECONDS (21.0-31.0)
[2018-02-07] MEDS ORDERED: HEPARIN SOD 5000 UNIT/0.5 ML CARP ONE (22:28)
--- NOTE | 2018-02-07 22:29 | DIAGNOSTIC IMAGING REPORT ---
BILATERAL LOWER EXTREMITY VENOUS DOPPLER CLINICAL HISTORY: Bilateral lower extremity swelling. COMPARISON STUDY: No previous studies for comparison. TECHNIQUE: Sonography of the deep venous system of the bilateral lower extremities was performed. Compression and augmentation were evaluated. FINDINGS: There is no deep venous thrombus within the right lower extremity. Note is made of deep venous thrombus within the left popliteal vein. The vessel is expanded. This thrombus is occlusive. A small left popliteal cyst is noted. IMPRESSION: 1. Deep venous thrombus within the left popliteal vein. 2. No deep venous thrombus within the right lower extremity. Electronically signed by: Bonilla Blair M.D. 02/07/2018 10:28 PM Dictated Date/Time: 02/07/2018 10:26 PM
[2018-02-07] MEDS ORDERED: HEPARIN IV BOLUS 5,000 UNIT in SYRINGE 0 ML IV ONE (22:30)
[2018-02-07] MEDS ORDERED: HEPARIN 25,000 UNIT/500ML D5W 500 ML IV SCH (22:30)
[2018-02-07] MEDS ORDERED: PSYL48.59 PO (22:52)
[2018-02-07] MEDS ORDERED: [UNRECOGNIZED DRUG - CODE] TOP (22:52)
[2018-02-07] MEDS ORDERED: TRMCR130WC TOP (22:52)
[2018-02-07] MEDS ORDERED: [UNRECOGNIZED DRUG - CODE] TOP (22:52)
[2018-02-07] MEDS ORDERED: CHOLCAP5 PO (22:52)
[2018-02-07] MEDS ORDERED: OMEGCAP2 PO (22:52)
[2018-02-07] MEDS ORDERED: RANITAB33 PO (22:52)
[2018-02-07] MEDS ORDERED: ACETAMINOPHEN 325 MG TAB PO PRN (23:30)
[2018-02-07] MEDS ORDERED: ONDANSETRON INJ 2 MG/ML 2 ML VIAL IV PRN (23:30)
[2018-02-07] MEDS ORDERED: MAGNESIUM HYDROXIDE SUSP 30 ML UDC PO PRN (23:30)
--- NOTE | 2018-02-07 23:38 | History and Physical ---
History & Physical Date & Time of Service: Feb 07, 2018 at 23:23 Chief Complaint: Low Oxygen Sob Primary Care Physician: Guillermo Berkowitz M.D. 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 The patient states that for the last week she has been dealing with exertional shortness of breath with walking or going upstairs. She had a follow -up appointment today with Dr. Camacho of pulmonology for a recent EBUS procedure. The patient was found to be hypoxic with walking and was told to come to the emergency department. The patient also states that she has been having bilateral lower extremity swelling over the last week. Today she has been experiencing restless legs that she has not experienced before. She denies any chest pain or lower extremity pain. She has been undergoing chemotherapy since the beginning of November and has had 6 treatments. She follows with Dr. Riley of oncology. She denies any fevers, chills, palpitations, abdominal pain, or lower extremity pain. Past Medical/Surgical History Medical Problems: (1) Cancer (2) Deep venous thrombosis of left popliteal vein (3) Pulmonary embolism Family History Noncontributory Social History Smoking Status: Never Smoker Smokeless Tobacco Use: No Alcohol Use: none Drug Use: none Occupational Status: retired Immunizations History of Influenza Vaccine: Unknown History of Tetanus Vaccine?: Unknown History of Pneumococcal: Unknown History of Hepatitis B Vaccine: Unknown Allergies Coded Allergies: Tetracyclines (Verified Allergy, Intermediate, GI SYMPTOMS, RASH, SUN SENSITIVITY, 01/26/18) Tomato (Verified Allergy, Unknown, TOMATOES, CITRUS FRUIT ACIDIC FOOD-- ITCHY L EAR, HEAD, 01/26/18) Macrolides (Verified Adverse Reaction, Intermediate, GI SYMPTOMS, 01/26/18) Penicillins (Verified Adverse Reaction, Intermediate, GI SYMPTOMS, 01/26/18) Ciprofloxacin (Verified Adverse Reaction, Unknown, GI UPSET, 01/31/18) Clindamycin (Verified Adverse Reaction, Unknown, GI UPSET, 01/31/18) Levofloxacin (Verified Adverse Reaction, Unknown, tendonitis, 01/31/18) Home Medications Scheduled B-Complex Vitamins (Vitamin B Complex), 1 TAB PO QPM Biotin (Biotin), 5,000 MCG PO QPM Calcium Carbonate-Vitamin D (Calcium + D), 1 TAB PO BID Cholecalciferol (Vitamin D3), 5,000 INTER.UNIT PO QAM Cyclosporine (Ophth) (Restasis), 1 DROP OPB BID Docusate Sodium (Colace), 300 MG PO Q2D Fexofenadine Hcl (Milagros Allergy), 180 MG PO QAM Glucosamine-Chondroitin (Glucosamine Chondroitin S 500-400 mg), 1 CAP PO BID Loteprednol Etabonate (Lotemax), 1 APPLN TOP OPB Multiple Vitamin (Multi Vitamin Daily), 1 TAB PO Q2D Naproxen (Aleve), 220 MG PO QAM [place]-3 Fatty Acids (Fish Oil), 2 CAP PO BID Probiotic Product (Probiotic), 1 CAP PO QAM Psyllium (Metamucil), 1 DOSE PO Q2D Ranitidine Hcl (Zantac), 75 MG PO BID Scheduled PRN Clobetasol Propionate (Clobetasol Propionate), 1 APPLN TOP BID PRN for Itching Hydrocortisone Butyrate (Hydrocortisone Butyrate), 1 APPLN TOP DAILY PRN for Dermatitis Triamcinolone Acet (Aristocort 0.1%), 1 APPLN TOP BID PRN for Dermatitis Review of Systems Constitutional: No fever, No chills, No sweats, No weight loss, No fatigue Respiratory: + shortness of breath, + dyspnea on exertion, No cough, No sputum , No wheezing, No hemoptysis Cardiovascular: No chest pain, No orthopnea, No edema, No palpitations Abdomen: No pain, No nausea, No vomiting, No diarrhea, No constipation Musculoskeletal: + swelling (Lower extremity bilaterally), No muscle pain, No calf pain Integumentary: No rash, No new/changing skin lesions Physical Exam Vital Signs Date Time Temp Pulse Resp B/P (MAP) Pulse Ox O2 Delivery O2 Flow Rate FiO2 02/07/18 22:18 89 16 156/91 98 Room Air 02/07/18 20:51 85 20 134/84 96 Room Air 02/07/18 19:48 93 02/07/18 19:30 96 Room Air 02/07/18 19:30 96 Room Air 02/07/18 19:30 96 Room Air 02/07/18 19:05 36.7 94 20 125/78 96 Room Air General Appearance: WD/WN, no apparent distress Head: normocephalic, atraumatic Neck: supple, no carotid bruits Respiratory/Chest: chest non-tender, lungs clear, normal breath sounds, no respiratory distress, no accessory muscle use Cardiovascular: regular rate, rhythm, no edema, no gallop, no murmur Extremities/Musculoskelatal: no calf tenderness, normal range of motion, + pedal edema, + swelling (bilateral lower extremity edema, nonpiting, nontender) Neurologic/Psych: alert, normal mood/affect, oriented x 3 Skin: normal color, warm/dry, no rash Diagnostics Laboratory Results Results Past 24 Hours Test 02/07/18 19:30 Range/Units White Blood Count 2.65 4.8-10.8 K/uL Red Blood Count 3.06 4.2-5.4 M/uL Hemoglobin 9.5 12.0-16.0 g/dL Hematocrit 28.3 37-47 % Mean Corpuscular Volume 92.5 80-100 fL Mean Corpuscular Hemoglobin 31.0 25-34 pg Mean Corpuscular Hemoglobin Concent 33.6 32-36 g/dl Platelet Count 389 130-400 K/uL Mean Platelet Volume 8.7 7.4-10.4 fL Neutrophils (%) (Auto) 31.0 % Lymphocytes (%) (Auto) 57.7 % Monocytes (%) (Auto) 5.3 % Eosinophils (%) (Auto) 2.6 % Basophils (%) (Auto) 0.8 % Neutrophils # (Auto) 0.82 1.4-6.5 K/uL Lymphocytes # (Auto) 1.53 1.2-3.4 K/uL Monocytes # (Auto) 0.14 0.11-0.59 K/uL Eosinophils # (Auto) 0.07 0-0.5 K/uL Basophils # (Auto) 0.02 0-0.2 K/uL RDW Standard Deviation 55.6 36.4-46.3 fL RDW Coefficient of Variation 16.8 11.5-14.5 % Immature Granulocyte % (Auto) 2.6 % Immature Granulocyte # (Auto) 0.07 0.00-0.02 K/uL Prothrombin Time 10.1 9.0-12.0 SECONDS Prothromb Time International Ratio 1.0 0.9-1.1 Activated Partial Thromboplast Time 24.3 21.0-31.0 SECONDS Partial Thromboplastin Ratio 0.9 Urine Color YELLOW Urine Appearance CLEAR CLEAR Urine pH 7.5 4.5-7.5 Urine Specific [place] 1.020 1.000-1.030 Urine Protein NEG NEG Urine Glucose (UA) NEG NEG Urine Ketones NEG NEG Urine Occult Blood NEG NEG Urine Nitrite NEG NEG Urine Bilirubin NEG NEG Urine Urobilinogen NEG NEG Urine Leukocyte Esterase MODERATE NEG Urine WBC (Auto) >30 0-5 /hpf Urine RBC (Auto) 0-4 0-4 /hpf Urine Hyaline Casts (Auto) 1-5 0-5 /lpf Urine Epithelial Cells (Auto) >30 0-5 /lpf Urine Bacteria (Auto) NEG NEG Urine Renal Epithelial Cells 5-10 0-5 /lpf Sodium Level 136 136-145 mmol/L Potassium Level 4.0 3.5-5.1 mmol/L Chloride Level 102 98-107 mmol/L Carbon Dioxide Level 26 21-32 mmol/L Anion Gap 8.0 3-11 mmol/L Blood Urea Nitrogen 15 7-18 mg/dl Creatinine 0.78 0.60-1.20 mg/dl Est Creatinine Clear Calc Drug Dose 62.0 ml/min Estimated GFR () 85.0 Estimated GFR (Non- 73.3 BUN/Creatinine Ratio 19.7 10-20 Random Glucose 90 70-99 mg/dl Calcium Level 9.0 8.5-10.1 mg/dl Total Bilirubin 0.3 0.2-1 mg/dl Aspartate Amino Transf (AST/SGOT) 28 15-37 U/L Alanine Aminotransferase (ALT/SGPT) 27 12-78 U/L Alkaline Phosphatase 109 45-117 U/L Total Creatine Kinase 78 26-192 U/L Creatine Kinase MB 1.0 0.5-3.6 ng/ml Creatine Kinase MB Ratio 1.3 0-3.0 Troponin I < 0.015 0-0.045 ng/ml Total Protein 7.6 6.4-8.2 gm/dl Albumin 3.4 3.4-5.0 gm/dl Globulin 4.2 2.5-4.0 gm/dl Albumin/Globulin Ratio 0.8 0.9-2 Impression Assessment and Plan Patient is a 77-year-old female currently being 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 Multiple segmental bilateral pulmonary emboli. No CT evidence for right heart strain. 2. Mild interval decrease in mediastinal lymphadenopathy since CT of November 11, 2017. 3. Lower lung predominant nodules which have slightly increased. However, these nodules are indeterminate and the appearance raises the possibility of an infectious/inflammatory etiology. Metastatic disease remains within the differential - Lower Extremity Doppler US: 1. Deep venous thrombus within the left popliteal vein. 2. No deep venous thrombus within the right lower extremity. - Heparin IV Standard No Bolus - Supplemental Oxygen as needed --> Currently 96% on RA - 2-Step tomorrow to assess for home oxygen requirement - Admit Telemetry Neutropenia - secondary to current chemotherapy - Abs Neutrophil 0.82 - Neutropenic Precautions Undifferentiated Cancer - Heparin IV - Tylenol PRN for Pain - Currently following with Dr. Riley and Dr. Camacho DVT - Heparin Code Status - Full Resuscitation Attending addendum: I have physically seen this patient, have supervised the medical residents activities, and agree with the H&P unless as otherwise noted. Assessment and Plan: Bilateral pulmonary emboli/left lower extremity popliteal DVT-- Start heparin drip per protocol tonight. Convert to oral anticoagulation tomorrow. Nasal cannula 2 L oxygen titrate to keep pulse ox greater than or equal to 94%. Hypercoagulable source is likely her undifferentiated cancer. Neutropenia/chemotherapy-- Neutropenia precautions. No need for antibiotics at this time. Advanced Directives Existing Advance Directive: No Existing Living Will: No Existing Power of Salesperson Florist Supplies: No Resuscitation Status Full Code VTE Prophylaxis Will order VTE Prophylaxis: Yes Social Service Consult None Apply Resident Tracking Resident Involvement: Resident Care Provided Care Provided: Adult Hospital Medicine
[2018-02-08 00:16] VITALS: BP 145/89; PULSE 86; TEMP 36.7; O2SAT 94; Ht 158.8 cm; Wt 82.7 kg
[2018-02-08] MEDS: BACLOFEN 10 MG TAB PO SCH ×2 (01:06→08:17)
[2018-02-08 04:57] LABS: PTT PATIENT 64.4 SECONDS (21.0-31.0)
[2018-02-08 07:33] VITALS: BP 105/64; PULSE 77; TEMP 36.9; O2SAT 93
[2018-02-08] MEDS ORDERED: DOCUSATE SODIUM 100 MG CAP PO SCH (09:00)
[2018-02-08] MEDS ORDERED: FEXOFENADINE HCL 180 MG TAB PO SCH (09:00)
[2018-02-08] MEDS ORDERED: NAPROXEN 250 MG TAB PO STA (10:45)
[2018-02-08 10:56] LABS: PTT PATIENT 57.6 SECONDS (21.0-31.0)
[2018-02-08 11:29] VITALS: BP 109/66; PULSE 70; TEMP 36.5; O2SAT 96
[2018-02-08] MEDS ORDERED: RIVAROXABAN TAB 15 MG TAB PO ONE ×2 (12:02→14:30)
[2018-02-08] MEDS ORDERED: XRL15 PO ×2 (14:34→14:37)
[2018-02-08] MEDS ORDERED: RIVA1TAB4 PO (14:34)
[2018-02-08] MEDS ORDERED: OXGN (14:37)
--- NOTE | 2018-02-08 15:11 | Discharge Instructions ---
Discharge Instructions Date of Service Feb 08, 2018. Admission Reason for Admission: DVT (blood clot) Of Left Leg; Pulmonary Emboli (blood clots in lungs) Discharge Discharge Diagnosis / Problem: (1) Pulmonary embolism (2) Deep venous thrombosis of left popliteal vein VTE Date & Time Date of VTE Diagnosis: Feb 07, 2018 Time of VTE Diagnosis: 20:00 Discharge Goals Goal(s): Learn about illness, Diagnostic testing, Therapeutic intervention Activity Recommendations Activity Limitations: as noted below Over the next couple of weeks you will likely notice shortness of breath with activities. You may be limited in your activities because of the shortness of breath. Suggest light activities only; no heavy exertional activity for now. Driving is ok. . Instructions / Follow-Up Instructions / Follow-Up From Dr. Hercules: 1. DVT of left leg and pulmonary emboli - You have been diagnosed with blood clots of the left leg and the lungs. These occurred as a result of your cancer. The cancer makes you more susceptible to forming blood clots by "thickening" your blood. At this time we are treating the blood clots with "XARELTO". This is your anticoagulant (also known as a "blood thinner"). Medication Instructions: Your condition is typically treated with an anticoagulant. Anticoagulants will thin your blood to help prevent new clots. * You should take her medication exactly as directed. * Never skip a dose. * Never take a double dose. If you miss a dose, take it as soon as you remember. * TONIGHT - 02/08/18 - take the xarelto 15mg tablet that was supplied by [facility]; I would take this about 11 to 1130pm * TOMORROW - 02/09/18 - purchase/sweet pickled fruit maker the xarelto 30-day "starter pack" from [facility] * you will take 15mg twice a day for 21 days, then 20mg once daily for 9 days; simply follow the instructions in the starter pack * once the starter pack is complete please fill the xarelto 20mg prescription and take the 20mg daily thereafter * be sure to bring the xarelto 30-day free supply card to [facility] tomorrow Call your Primary Care doctor or Cancer doctor if you experience any of the following: * Swelling or Pain in your leg * Sudden, continuous pain deep in a muscle * Pain that worsens when you are active or when you stand still for a long time * Chest Pain * Sudden Shortness of Breath * Rapid or pounding heart beat * Fainting * Dizziness * Cough with blood or bloody sputum * Sweating more than normal * Bruises * Heavy or uncontrolled bleeding * Blood in your urine, stool or vomit * Black or tarry stools * Heavy nosebleeding Caring for Your Self at Home: * Avoid sitting, standing or lying down for long periods without moving your legs and feet * When traveling by car, stop to get out and move around at least once every 3 hours * On long airplane, train or bus rides, get up and move around when possible * If you can't get up, wiggle your toes and tighten your calves to keep your blood moving * When shaving your legs or underarms please use an electric shaver rather than a traditional razor; the electric shaver will be safer to use and prevent bleeding 2. Oxygen - you have been prescribed oxygen 3 liters with ACTIVITY/AMBULATION. It is most important to use the oxygen when you leave your home for appointments and errands. You can take the oxygen off when you are sitting. 3. Follow-up appointments - see separate section. 4. Return to [facility] if - * you have fever over 100.5 degrees * you have gastrointestinal or urinary bleeding * you have an uncontrollable nosebleed * you are having worsening shortness of breath or chest pain * any other concerns Current Hospital Diet Patient's current hospital diet: Regular Diet Discharge Diet Recommended Diet: Regular Diet Procedures Procedures Performed: CAT scan of lungs showing multiple blood clots. Dopplers of legs showing DVT blood clots in the left leg. Pending Studies Studies pending at discharge: no Medical Emergencies . Who to Call and When: Medical Emergencies: If at any time you feel your situation is an emergency, please call 911 immediately. . Non-Emergent Contact Non-Emergency issues call your: Primary Care Provider, Oncologist, Chief Controller Call Non-Emergent contact if: temperature is above 100.5, your pain is not controlled, your pain is worsening, your pain is unusual for you, your pain is concerning you, you have any medication questions . . "Provider Documentation" section prepared by Cosme Hercules. .
[2018-02-08 15:55] VITALS: BP 97/60; PULSE 70; TEMP 36.7; O2SAT 94
[2018-02-08 15:58] VITALS: BP 97/60; PULSE 70; TEMP 36.7; O2SAT 94
[2018-02-08] MEDS ORDERED: RIVAROXABAN TAB 15 MG TAB PO SCH (21:00)
--- NOTE | 2018-02-16 22:37 | Discharge Summary ---
Discharge Summary Date of Service Feb 16, 2018. 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 CTA chest - IMPRESSION: 1. Multiple segmental bilateral pulmonary emboli. No CT evidence for right heart strain. 2. Mild interval decrease in mediastinal lymphadenopathy since CT of November 11, 2017. 3. Lower lung predominant nodules which have slightly increased. However, these nodules are indeterminate and the appearance raises the possibility of an infectious/inflammatory etiology. Metastatic disease remains within the differential. 2. b/l LE venous dopplers - IMPRESSION: 1. Deep venous thrombus within the left popliteal vein. 2. No deep venous thrombus within the right lower extremity. Medication Reconciliation New Medications: Home O2 Therapy (Oxygen) Gas 3 LITERS NA with activity, #1 UNIT 0 Refills Rivaroxaban (Xarelto) 20 Mg Tab 1 TAB PO DAILY for 30 Days, #30 TAB 11 Refills do not begin until your 30-day "starter pack" has been completed. Rivaroxaban (Xarelto) 15 Mg Tab 15 MG PO BID for 21 Days, #42 TAB 0 Refills then 20mg po daily x 9 days (patient receiving a 30-day "starter pack") Continued Medications: B-Complex Vitamins (Vitamin B Complex) 1 Tab Tab 1 TAB PO QPM Biotin (Biotin) 5,000 Mcg Cap 5000 MCG PO QPM Calcium Carbonate-Vitamin D (Calcium + D) 1 Tab Tab 1 TAB PO BID Cholecalciferol (Vitamin D3) 5,000 Unit Cap 5000 INTER.UNIT PO QAM Clobetasol Propionate (Clobetasol Propionate) 45 Appln/15 Gm Oint 1 APPLN TOP BID PRN for Itching, GM Cyclosporine (Ophth) (Restasis) 0.05 % Emu 1 DROP OPB BID, BTL Docusate Sodium (Colace) 100 Mg Cap 300 MG PO Q2D TAKE THIS MEDICATION AT BEDTIME Fexofenadine Hcl (Milagros Allergy) 180 Mg Tab 180 MG PO QAM, TAB Glucosamine-Chondroitin (Glucosamine Chondroitin S 500-400 mg) 1 Chw Chw 1 CAP PO BID Hydrocortisone Butyrate (Hydrocortisone Butyrate) 0.1 % Cre 1 APPLN TOP DAILY PRN for Dermatitis APPLY SPARINGLY TO AFFECTED AREA(S) IN EARS DAILY IF NEEDED Loteprednol Etabonate (Lotemax) 0.5 % Oin 1 APPLN TOP OPB APPLY TO EYELIDS AT BEDTIME Multiple Vitamin (Multi Vitamin Daily) 1 Tab Tab 1 TAB PO Q2D Naproxen (Aleve) 220 Mg Tab 220 MG PO QAM, TAB [place]-3 Fatty Acids (Fish Oil) 1 Cap Cap 2 CAP PO BID Probiotic Product (Probiotic) 1 Cap Cap 1 CAP PO QAM Psyllium (Metamucil) 48.57 % Pow 1 DOSE PO Q2D ALTERNATE WITH DOCUSATE Ranitidine Hcl (Zantac) 75 Mg Tab 75 MG PO BID, TAB Triamcinolone Acet (Aristocort 0.1%) 90 Appln/30 Gm Cr 1 APPLN TOP BID PRN for Dermatitis APPLY DIRECTED TO AFFECTED AREA(S) Discharge Exam Physical Exam: General Appearance: no apparent distress ENT: pharynx normal Neck: no JVD Respiratory/Chest: lungs clear, no respiratory distress, no accessory muscle use Cardiovascular: regular rate, rhythm, no gallop, no murmur, normal peripheral pulses Abdomen / GI: normal bowel sounds, non tender, soft, no organomegaly Extremities: no pedal edema Neurologic/Psychiatric: alert, oriented x 3 Hospital Course HISTORY OF PRESENT ILLNESS: Patient is a 77-year-old female currently being 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 The patient states that for the last week she has been dealing with exertional shortness of breath with walking or going upstairs. She had a follow -up appointment today with Dr. Camacho of pulmonology for a recent EBUS procedure. The patient was found to be hypoxic with walking and was told to come to the emergency department. The patient also states that she has been having bilateral lower extremity swelling over the last week. Today she has been experiencing restless legs that she has not experienced before. She denies any chest pain or lower extremity pain. She has been undergoing chemotherapy since the beginning of November and has had 6 treatments. She follows with Dr. Riley of oncology. She denies any fevers, chills, palpitations, abdominal pain, or lower extremity pain. Work-up in the ER showed DVT of the LLE and multiple PEs on CTA chest. HOSPITAL COURSE: The patient was initially treated with heparin infusion for her DVT/PEs and was then transitioned to oral xarelto. Her VTE was felt to be due to hypercoagulability from her cancer. She remained hemodynamically stable throughout her brief stay. Social work was involved in securing ambulatory oxygen for her for after discharge. She will need 3 liters of [place] O2 with activity only. All other medical problems remained stable while hospitalized. Ms. Levy will take xarelto 15mg BID x 21 days, followed by 20mg once daily thereafter. She will likely need anticoagulation indefinitely in light of her cancer. Total Time Spent: Greater than 30 minutes This includes examination of the patient, discharge planning, medication reconciliation, and communication with other providers. Discharge Instructions Please refer to the electronic Patient Visit Report (Discharge Instructions) for additional information. Follow-Up 1. Dr. Barry Camacho on February 10 at 9:[address] Guillermo Berkowitz on WednesdayFebruary 15 at 4:15 pm. Additional Copies To Guillermo Berkowitz M.D.; Alexandru Riley MD; Collin Camacho MD
== END 2018-02-08 18:05 | disposition home or self-care (01) | DRG 814 ==
LOC: C.EDB 18:56 → C.MED 23:21 → ENRESERV 23:52
PROVIDERS: ADMIT Student in an Organized Health Care Education/Training Program; ATTEND Internal Medicine
DX: D68.69 Other thrombophilia (principal); I26.99 Other pulmonary embolism without acute cor pulmonale; I82.432 Acute embolism and thrombosis of left popliteal vein; C80.1 Malignant (primary) neoplasm, unspecified; D70.1 Agranulocytosis secondary to cancer chemotherapy; G25.81 Restless legs syndrome; T45.1X5A Adverse effect of antineoplastic and immunosuppressive drugs, initial encounter; Z79.899 Other long term (current) drug therapy; Z88.0 Allergy status to penicillin; Z88.1 Allergy status to other antibiotic agents

== ENCOUNTER 2019-04-04 12:24 | Inpatient (IN) ==
[2019-04-04] MEDS ORDERED: SODIUM CHLORIDE 0.9% 500 ML IV SCH (12:45)
--- NOTE | 2019-04-04 13:07 | XRay Report ---
XR chest 1V portable CLINICAL HISTORY: Chest Pain dyspnea COMPARISON STUDY: 03/30/2019 FINDINGS: Central catheter in the superior vena cava. Stable diffuse bilateral parenchymal interstiti al and reticulonodular type change. Diaphragms are smooth. There is slight blunting of the lateral co stophrenic angles. A component of pulmonary vascular congestion is present. IMPRESSION: 1. Pulmonary vascular congestion. 2. Trace pleural fluid lung bases. 3. Chronic interstitial and reticular nodular type change unaltered from the prior study. The above report was generated using voice recognition software. It may contain grammatical, syntax or spelling errors. Electronically signed by: Brandon Harden M.D. 04/04/2019 1:06 PM
[2019-04-04 13:19] LABS: Basophils # (auto) 0.02 K/uL (0-0.2); Basophils % (auto) 0.3 %; Eosinophils # (auto) 0.09 K/uL (0-0.5); Eosinophils % (auto) 1.3 %; Hematocrit (blood only) 28.7 % (37-47); Hemoglobin 9.3 g/dL (12.0-16.0); Immature Granulocytes # (auto) 0.02 K/uL (0.00-0.02); Immature Granulocytes % (auto) 0.3 %; Lymphocytes # (auto) 1.42 K/uL (1.2-3.4); Lymphocytes % (auto) 21.3 %; Mean Corpuscular Hemoglobin 33.8 pg (25-34); Mean Corpuscular Hgb Conc 32.4 g/dL (32-36); Mean Corpuscular Volume 104.4 fL (80-100); Mean Platelet Volume 9.3 fL (7.4-10.4); Monocytes # (auto) 0.83 K/uL (0.11-0.59); Monocytes % (auto) 12.4 %; Neutrophils # (auto) 4.29 K/uL (1.4-6.5); Neutrophils % (auto) 64.4 %; Platelet Count 209 K/uL (130-400); RDW Coefficient of Variation 14.8 % (11.5-14.5); RDW Standard Deviation 56.3 fL (36.4-46.3); Red Blood Count 2.75 M/uL (4.2-5.4); White Blood Count 6.67 K/uL (4.8-10.8)
[2019-04-04 13:31] LABS: INR 1.3 (0.9-1.1); Partial Thromboplastin Ratio 1.5; Partial Thromboplastin Time 41.2 Seconds (21.0-31.0); Prothrombin Time 13.3 Seconds (9.0-12.0)
[2019-04-04 13:35] LABS: Alanine Aminotransferase 19 U/L (12-78); Aspartate Aminotransferase 40 U/L (15-37); BUN Creatinine Ratio 16.7 (10-20); Blood Urea Nitrogen 12 mg/dl (7-18); Calcium 10.1 mg/dl (8.5-10.1); Carbon Dioxide 26 mmol/L (21-32); Chloride 102 mmol/L (98-107); Creatinine Clr Calc Pharmacy 65.4 ml/min; Est GFR (African American) 96.2; Glucose 95 mg/dl (70-99); Lipase 89 U/L (73-393); Potassium 3.5 mmol/L (3.5-5.1); Sodium 135 mmol/L (136-145)
[2019-04-04 13:40] LABS: Albumin Globulin Ratio 0.6 (0.9-2); Alkaline Phosphatase 140 U/L (45-117); Bilirubin,Total 0.5 mg/dl (0.2-1); Globulin 4.9 gm/dl (2.5-4.0); Total Protein 7.9 gm/dl (6.4-8.2); Troponin I < 0.015 ng/ml (0-0.045)
--- NOTE | 2019-04-04 14:07 | Ultrasound Report ---
US venous doppler LE BI CLINICAL HISTORY: Recent pulmonary embolism. EVALUATE FOR DVT COMPARISON STUDY: February 07, 2018 FINDINGS: Real-time and color flow Doppler imaging were performed. Flow was seen within the femoral, popliteal and calf veins with no intraluminal thrombus demonstrated. The saphenous vein is patent. Th e previously identified left popliteal vein DVT has resolved. There is a 5 cm left popliteal cyst. IMPRESSION: No evidence of lower extremity DVT. Electronically signed by: Jass Jensen M.D. 04/04/2019 2:05 PM
[2019-04-04] MEDS ORDERED: Heparin IV Standard *NO* Bolus IV ONE (15:15)
[2019-04-04] MEDS ORDERED: HEPARIN SODIUM/DEXTROSE 25,000 UNITS/500 ML BAG IV SCH (15:15)
[2019-04-04] MEDS ORDERED: HEPARIN IV BOLUS 5,000 UNITS in SYRINGE 0 ML IV ONE (15:45)
--- NOTE | 2019-04-04 16:55 | History & Physical Report ---
Date of Service April 04, 2019 Assessment & Plan (1) Pulmonary embolism on long-term anticoagulation therapy: patient found to have small lingular PE on 03/30 on CTA chest no other PE seen, this was found while on Xarelto, considered failed therapy started on Lovenox and Coumadin, INR 1.3 today back with continued dyspnea, could be that she was just hypoxic doubt the PE is contributing to hypoxia no DVT on venous doppler continue on heparin drip started by ED, continue Coumadin (2) Hypoxia: multifactorial with worsening metastatic adenocarcinoma on recent CT and some possible pneumonitis/pneumonia will use supplemental oxygen assess home need for oxygen tomorrow with two step she admits to feeling better on 2L NC here in the ED (3) Bronchial pneumonia: on Cefdinir, giving her diarrhea, has a nonproductive cough place on Rocephin for now unfortunately she has a lot of allergies, would likely benefit from Macrolide or Levaquin but cannot use Duonebs PRN (4) Metastatic adenocarcinoma: most recent CT on 03/30 with enlarging mass, bilateral nodules, increased lymphadenopathy will consult Dr. Riley she had been on Keytruda she is eating well, maintaining her weight History of Present Illness Chief Complaint: I still feel short of breath Primary Care Provider: Guillermo Berkowitz MD Patient is a 78 yo female with history of metastatic adenocarcinoma with unknown primary, evidence of disease in her lungs, who was recently diagnosed with a small acute pulmonary embolism in her lingula lobe on 03/30/19. At that time she presented to the ED with complaints of shortness of breath. She had developed the PE despite being on Xarelto for a history of DVT. Hematology was contacted from the ED, recommended Lovenox and transition to Warfarin. Incidentally, the CTA of the chest on 03/30/19 showed progression of her disease in her lungs despite ongoing chemotherapy with Keytruda. She was discharged on the Lovenox and Coumadin with plans to follow with coagulation clinic. The patient was also started on Cefdinir for a mild cough with some evidence of pneumonitis and bronchial thickening on the CT. She took the Cefdinir and developed diarrhea which initially was quite bothersome but then improved to just a small amount of loose stools. She returned to the ED today because she continued to feel short of breath despite the anticoagulation and antibiotics. She would be okay at rest but would immediately experience dyspnea with just minimal exertion. No fever or chills, no chest pain, still with the mild cough. Her appetite has been okay, no vomiting. The diarrhea has lessened in frequency and volume, no blood seen, no overwhelming foul odor. In the ED she was slightly hypoxic, low 80's saturation on room air. She says that she has been on oxygen before. She would be open to trying it again if needed. She says that she has an upcoming appointment with Dr. Riley to discuss her treatment since her CT showed some progression of disease. CBC and BMP were normal. CXR with some infiltrative changes but they are consistent with the changes seen on CT 5 days prior. Allergies Allergy/AdvReac Type Severity Reaction Status Date / Time Tetracyclines Allergy Intermediate GI Verified 04/04/19 14:10 SYMPTOMS, RASH, SUN SENSITIVITY tomato Allergy Unknown TOMATOES, Verified 04/04/19 14:10 CITRUS FRUIT ACIDIC FOOD--ITCHY L EAR, HEAD amoxicillin Allergy Verified 04/04/19 14:10 erythromycin base Allergy Verified 04/04/19 14:10 Macrolide Antibiotics AdvReac Intermediate GI SYMPTOMS Verified 04/04/19 14:10 Penicillins AdvReac Intermediate GI SYMPTOMS Verified 04/04/19 14:10 Cipro AdvReac Unknown GI UPSET Verified 01/31/18 06:42 ciprofloxacin AdvReac Unknown GI UPSET Verified 04/04/19 14:10 clindamycin AdvReac Unknown GI UPSET Verified 04/04/19 14:10 levofloxacin AdvReac Unknown tendonitis Verified 04/04/19 14:10 Home Medications Home Medications Medication Instructions Recorded Confirmed Type biotin 5 mg PO HS 06/03/18 04/04/19 History calcium carb and citrate-vitD3 600 mg PO BID 06/03/18 04/04/19 History clobetasol 1 applic TOPICAL BID PRN 06/03/18 04/04/19 History cyclosporine [Restasis] 1 drp OPB Q12H 06/03/18 04/04/19 History docusate sodium 100 mg PO HS PRN 06/03/18 04/04/19 History glucosamine-chondroitin 1 tab PO BID 06/03/18 04/04/19 History hydrocortisone butyrate 1 applic TOPICAL DAILY PRN 06/03/18 04/04/19 History lactobacillus combination no.4 0 mmu cells PO QAM 06/03/18 04/04/19 History [Probiotic] loteprednol etabonate [Lotemax] 1 applic OPB HS 06/03/18 04/04/19 History magnesium 250 mg PO HS 06/03/18 04/04/19 History multivitamin 1 tab PO Q OTHER DAY 06/03/18 04/04/19 History psyllium husk [Metamucil] 1 dose PO HS PRN 06/03/18 04/04/19 History vitamin B complex 1 tab PO QDD 06/03/18 04/04/19 History cholecalciferol (vitamin D3) 5,000 unit PO QAM 11/03/18 04/04/19 History [Vitamin D3] folic acid 1 mg PO QDD 11/03/18 04/04/19 History omega 3-[id number]-juo-fish oil [Fish Oil] 2 cap PO BID 11/03/18 04/04/19 History acetaminophen ER 650 mg 1,300 mg PO BID tab 01/30/19 04/04/19 History tablet,extended release fexofenadine 180 mg tablet 180 mg PO DAILY PRN 01/30/19 04/04/19 History triamcinolone acetonide 0.1 % 1 appln TOPICAL BID PRN gm 01/30/19 04/04/19 History topical cream cefdinir 300 mg PO BID 7 Days #14 cap 03/30/19 04/04/19 Rx omeprazole magnesium [Prilosec OTC] 20 mg PO BID 03/30/19 04/04/19 History enoxaparin [Lovenox] 120 mg SQ DAILY@1100 04/04/19 04/04/19 History warfarin 4 mg tablet 4 mg PO DAILY 30 Days #40 tab 04/04/19 04/04/19 Rx Past Med/Surg History Medical History Pneumonia (Acute) Stage 4 lung cancer Deep venous thrombosis of left popliteal vein Pulmonary embolism Anemia (Acute) Deep vein thrombosis (Acute) Depression (Acute) Hearing deficit (Acute) On anticoagulant therapy (Acute) Osteoarthritis (Acute) Urinary tract infection (Acute) Atypical squamous cells of undetermined significance (ASC-US) on cervical Pap smear History of ascites History of lymphoma History of malignant neoplasm breast Pneumonia due to Pseudomonas Surgical History H/O tubal ligation History of bronchoscopy (Acute) History of cholecystectomy (Acute) History of colonoscopy (Acute) History of cystoscopy (Acute) Hx of oral surgery S/P breast biopsy S/P bunionectomy S/P cholecystectomy Family History Daughter Breast cancer metastatic, diagnosed in 1993 and now is stage IV with salvage chemotherapy Daughter Breast cancer, Onset Age: 27 metastatic breast cancer at age 27 Brother , age 53 MVA MVA Family/Other Essential familial hypercholesterolemia Glaucoma Heart disease Macular degeneration Stroke Mother , age 85 Hypertension Hyperlipidemia Meningioma Father , "old age" 95 Hypertension Son Kidney stones Other Cancer Stroke syndrome Social History Preferred Language: British Communication Ability: Effective Director Automotive Required: No Beliefs That Will Affect Care: None Current Living Situation: Alone current occupational status: retired Other Information That Helps Us Care for You: No Feels Safe at Home: Yes Safety Concerns: Feels Safe At This Time Smoking Status: Never smoker Hx Alcohol Use: Yes Alcohol type: wine Alcohol Intake Frequency Comment: monthly Hx Substance Use: No Review of Systems Review of Systems: All systems reviewed & are unremarkable except as noted in HPI & below Physical Exam Constitutional: WD/WN, vitals as above no acute distress Eyes: PERRL, conjunctivae normal, anicteric sclerae ENMT: external ear and nose normal, oropharynx normal Neck: trachea midline, no thyromegaly Respiratory: normal respiratory effort; no respiratory distress Auscultation: + diminished lung sounds, + crackles and + rhonchi; no wheezes Cardiovascular: RRR, no murmur, no edema Gastrointestinal (Abdomen): normal bowel sounds, soft, nontender, no hepatosplenomegaly Musculoskeletal: no cyanosis or clubbing, extremities motor strength 5/5 Skin: no rashes, warm and dry Neurologic: patellar DTR's 2+ bilat, sensation intact and PERRL, EOMI, accommodation nl, no face palsy, no dysarthria Psychiatric: A+Ox3, euthymic affect Lymphatic: no cervical or axillary lymphadenopathy Results & Data Vital Signs (Past 12 Hours) Vital Signs Temp Pulse Pulse Resp BP BP Pulse Ox 04/04/19 14:46 83 L 04/04/19 14:23 95 04/04/19 14:22 87 125/74 94 04/04/19 12:40 98 04/04/19 12:25 36.5 C 101 H 20 135/81 84 L Laboratory Results Laboratory Results - last 24 hr 04/04/19 04/04/19 04/04/19 13:06 13:06 13:06 WBC 6.67 RBC 2.75 L Hgb 9.3 L Hct 28.7 L MCV 104.4 H MCH 33.8 MCHC 32.4 RDW Std Deviation 56.3 H RDW Coeff of Mary Beth 14.8 H Plt Count 209 MPV 9.3 Immature Gran % (Auto) 0.3 Neut % (Auto) 64.4 Lymph % (Auto) 21.3 [place] % (Auto) 12.4 Eos % (Auto) 1.3 Baso % (Auto) 0.3 Immature Gran # (Auto) 0.02 Neut # (Auto) 4.29 Lymph # (Auto) 1.42 [place] # (Auto) 0.83 H Eos # (Auto) 0.09 Baso # (Auto) 0.02 PT 13.3 H INR 1.3 H APTT 41.2 H PTT Ratio 1.5 Sodium 135 L Potassium 3.5 Chloride 102 Carbon Dioxide 26 Anion Gap 8.0 BUN 12 Creatinine 0.70 Est Cr Clr Drug Dosing 65.4 Est GFR ( Amer) 96.2 Est GFR (Non-Af Amer) 83.0 BUN/Creatinine Ratio 16.7 Glucose 95 Calcium 10.1 Total Bilirubin 0.5 AST 40 H ALT 19 Alkaline Phosphatase 140 H Troponin I < 0.015 Total Protein 7.9 Albumin 3.0 L Globulin 4.9 H Albumin/Globulin Ratio 0.6 L Lipase 89 Diagnostic Findings XR chest 1V portable CLINICAL HISTORY: Chest Pain dyspnea COMPARISON STUDY: 03/30/2019 FINDINGS: Central catheter in the superior vena cava. Stable diffuse bilateral parenchymal interstitial and reticulonodular type change. Diaphragms are smooth. There is slight blunting of the lateral costophrenic angles. A component of pulmonary vascular congestion is present. IMPRESSION: 1. Pulmonary vascular congestion. 2. Trace pleural fluid lung bases. 3. Chronic interstitial and reticular nodular type change unaltered from the prior study. Code Status & VTE Plan Code Status full code discussed with patient with her son at the bedside VTE Prophylaxis Plan VTE Prophylaxis will be ordered: Yes PG Care Time/CCT Total # of Minutes Spent Total Time Spent with Patient: Total time spent is greater than 50% in coordination of care (as documented) at patient's floor/unit and/or counseling patient:
[2019-04-04] MEDS ORDERED: ALBUT/IPRATROP 3MG/0.5MG NEB 3 ML VIAL NEB PRN (17:33)
[2019-04-04] MEDS ORDERED: LOTEMAX~ORDER AWAITING ACTION SCH (18:00)
[2019-04-04] MEDS ORDERED: RESTASIS~ORDER AWAITING ACTION SCH (18:00)
[2019-04-04] MEDS: WARFARIN SOD 4 MG TAB PO SCH (19:12)
[2019-04-04] MEDS: FOLIC ACID 1 MG TAB PO SCH (19:14)
[2019-04-04] MEDS: VITAMIN B COMPLEX TAB PO SCH (19:16)
[2019-04-04] MEDS: cefTRIAXone SODIUM 2,000 MG in DEXTROSE 5% 50 ML IV SCH (19:25)
[2019-04-04] MEDS ORDERED: NON-FORMULARY MEDICATION (Biotin 5 MG) PO SCH (21:00)
--- NOTE | 2019-04-04 21:21 | Emergency Department Note ---
Entered by Katy Wynn acting as a scribe for Fish Otero DO History of Present Illness General Chief complaint: Shortness of Breath/Dyspnea Stated complaint: INFECTION/BLOOD CLOT IN LUNGS, SOB, WEAK, FEVER Source: patient Mode of arrival: ambulatory Limitations: no limitations History of Present Illness Onset (ago): day(s) 5 Location: chest Radiation: non-radiation Pain Consistency: + constant Relieved By: + none Exacerbated By: + none Associated symptoms: + cough, + fever/chills, + weakness and + other (+diarrhea, -melena, leg swelling); no chest pain Treatments prior to arrival: other (Antibiotic, Warfarin, Tylenol) The patient is a 78 year old female who presents to the Emergency Room with complaints of persistent shortness of breath 5 days ago. The patient states that 5 days ago she came to the ED and was diagnosed with a PE and an infection of her lungs. She states that she was started on Cefedinir and was started to be switched from Xarelto to Coumadin. She reports that they sent her home to follow up with her PCP and the Coumadin clinic. The patient states that since then, she hasnt felt any better. She states that she still has been short of breath and is now feeling weak. She reports that she has also been having a fever of 101 in the mornings. She notes that she takes Tylenol for it and her fever goes away. She states that she came was at the Coumadin clinic today and they upped her medicine from 3 mg of Warfarin to 4 mg. The patient complains of an intermittent dry cough and diarrhea since starting the antibiotics. The patient notes that she has had a PE before and has lung cancer currently that has spread to one lymph node and her liver. The patient denies chest pain, melena, leg swelling, and being on oxygen. Home Medications Home Medications Medication Instructions Recorded Confirmed Type biotin 5 mg PO HS 06/03/18 04/04/19 History calcium carb and citrate-vitD3 600 mg PO BID 06/03/18 04/04/19 History clobetasol 1 applic TOPICAL BID PRN 06/03/18 04/04/19 History cyclosporine [Restasis] 1 drp OPB Q12H 06/03/18 04/04/19 History docusate sodium 100 mg PO HS PRN 06/03/18 04/04/19 History glucosamine-chondroitin 1 tab PO BID 06/03/18 04/04/19 History hydrocortisone butyrate 1 applic TOPICAL DAILY PRN 06/03/18 04/04/19 History lactobacillus combination no.4 0 mmu cells PO QAM 06/03/18 04/04/19 History [Probiotic] loteprednol etabonate [Lotemax] 1 applic OPB HS 06/03/18 04/04/19 History magnesium 250 mg PO HS 06/03/18 04/04/19 History multivitamin 1 tab PO Q OTHER DAY 06/03/18 04/04/19 History psyllium husk [Metamucil] 1 dose PO HS PRN 06/03/18 04/04/19 History vitamin B complex 1 tab PO QDD 06/03/18 04/04/19 History cholecalciferol (vitamin D3) 5,000 unit PO QAM 11/03/18 04/04/19 History [Vitamin D3] folic acid 1 mg PO QDD 11/03/18 04/04/19 History omega 1-pij-jqx-fish oil [Fish Oil] 2 cap PO BID 11/03/18 04/04/19 History acetaminophen ER 650 mg 1,300 mg PO BID tab 01/30/19 04/04/19 History tablet,extended release fexofenadine 180 mg tablet 180 mg PO DAILY PRN 01/30/19 04/04/19 History triamcinolone acetonide 0.1 % 1 appln TOPICAL BID PRN gm 01/30/19 04/04/19 History topical cream cefdinir 300 mg PO BID 7 Days #14 cap 03/30/19 04/04/19 Rx omeprazole magnesium [Prilosec OTC] 20 mg PO BID 03/30/19 04/04/19 History enoxaparin [Lovenox] 120 mg SQ DAILY@1100 04/04/19 04/04/19 History warfarin 4 mg tablet 4 mg PO DAILY 30 Days #40 tab 04/04/19 04/04/19 Rx Allergies Allergy/AdvReac Type Severity Reaction Status Date / Time Tetracyclines Allergy Intermediate GI Verified 04/04/19 14:10 SYMPTOMS, RASH, SUN SENSITIVITY tomato Allergy Unknown TOMATOES, Verified 04/04/19 14:10 CITRUS FRUIT ACIDIC FOOD--ITCHY L EAR, HEAD amoxicillin Allergy Verified 04/04/19 14:10 erythromycin base Allergy Verified 04/04/19 14:10 Macrolide Antibiotics AdvReac Intermediate GI SYMPTOMS Verified 04/04/19 14:10 Penicillins AdvReac Intermediate GI SYMPTOMS Verified 04/04/19 14:10 Cipro AdvReac Unknown GI UPSET Verified 01/31/18 06:42 ciprofloxacin AdvReac Unknown GI UPSET Verified 04/04/19 14:10 clindamycin AdvReac Unknown GI UPSET Verified 04/04/19 14:10 levofloxacin AdvReac Unknown tendonitis Verified 04/04/19 14:10 Past Med/Surg History Medical History Pneumonia (Acute) Stage 4 lung cancer Deep venous thrombosis of left popliteal vein Pulmonary embolism Anemia (Acute) Deep vein thrombosis (Acute) Depression (Acute) Hearing deficit (Acute) On anticoagulant therapy (Acute) Osteoarthritis (Acute) Urinary tract infection (Acute) Atypical squamous cells of undetermined significance (ASC-US) on cervical Pap smear History of ascites History of lymphoma History of malignant neoplasm breast Pneumonia due to Pseudomonas Surgical History H/O tubal ligation History of bronchoscopy (Acute) History of cholecystectomy (Acute) History of colonoscopy (Acute) History of cystoscopy (Acute) Hx of oral surgery S/P breast biopsy S/P bunionectomy S/P cholecystectomy Family History Daughter Breast cancer metastatic, diagnosed in 1993 and now is stage IV with salvage chemotherapy Daughter Breast cancer, Onset Age: 27 metastatic breast cancer at age 27 Brother , age 53 MVA MVA Family/Other Essential familial hypercholesterolemia Glaucoma Heart disease Macular degeneration Stroke Mother , age 85 Hypertension Hyperlipidemia Meningioma Father , "old age" 95 Hypertension Son Kidney stones Other Cancer Stroke syndrome Social History Preferred Language: Citizen Of [place] Communication Ability: Effective Pharmacy Laboratory Technician Required: No Beliefs That Will Affect Care: None Current Living Situation: Alone current occupational status: retired Other Information That Helps Us Care for You: No Feels Safe at Home: Yes Safety Concerns: Feels Safe At This Time Smoking Status: Never smoker Hx Alcohol Use: Yes Alcohol type: wine Alcohol Intake Frequency Comment: monthly Hx Substance Use: No Review of Systems See HPI for pertinent positives & negatives. and A total of 10 systems reviewed and were otherwise negative Physical Exam Vital Signs Vital Signs - 24 hr 04/04/19 12:25 04/04/19 12:40 04/04/19 14:22 Temperature 36.5 C Temperature Source Oral Sepsis Recent Fever Within 48 Hours No Sepsis New/Unexplained Change in Mental Status No Sepsis Action Taken by Nursing No Action Required Oxygen Flow Rate - Titration Pulse Oximetry Post Tiitration Pulse Rate 101 H Pulse Rate [Right Finger] 87 Pulse Rhythm [Right Finger] Regular Respiratory Rate 20 Blood Pressure 135/81 Blood Pressure [Right Arm] 125/74 Blood Pressure Mean 99 Blood Pressure Mean [Right Arm] 91 Blood Pressure Position [Right Arm] Lying Pulse Oximetry 84 L 98 94 Oxygen Delivery Method Room Air Nasal Cannula Nasal Cannula Oxygen Flow Rate 3 3 04/04/19 14:23 04/04/19 14:46 04/04/19 16:15 Temperature Temperature Source Sepsis Recent Fever Within 48 Hours Sepsis New/Unexplained Change in Mental Status Sepsis Action Taken by Nursing Oxygen Flow Rate - Titration 4 Pulse Oximetry Post Tiitration 99 Pulse Rate Pulse Rate [Right Finger] 85 Pulse Rhythm [Right Finger] Respiratory Rate 20 Blood Pressure Blood Pressure [Right Arm] 120/74 Blood Pressure Mean Blood Pressure Mean [Right Arm] 89 Blood Pressure Position [Right Arm] Lying Pulse Oximetry 95 83 L 97 Oxygen Delivery Method Nasal Cannula Nasal Cannula Nasal Cannula Oxygen Flow Rate 3 2 3 GENERAL: Patient is awake, alert, and in no acute distress.Patient is resting comfortably and showing no signs of anxiety EYES: The conjunctivae are clear. The pupils are round and reactive. EARS, NOSE, MOUTH AND THROAT: The nose is without any evidence of any deformity. Mucous membranes are moist.Tongue is midline NECK: The neck is nontender and supple. RESPIRATORY: Breath sounds are diminished, scattered rhonchi noted in all lung badillo. CARDIOVASCULAR: Regular rate and rhythm noted. There no murmurs rubs or gallops normal S1 normal S2 GASTROINTESTINAL: The abdomen is soft. Bowel sounds are present in all quadrants. Abdomen is nontender. MUSCULOSKELETAL/EXTREMITIES: There is no evidence of gross deformity. Full range of motion is noted in the hips and shoulders. SKIN: There is no obvious evidence of any rash. There are no petechiae, pallor or cyanosis noted. Pedal edema bilaterally. Skin is warm and dry. NEUROLOGIC: Patient is awake alert and oriented x3. Course 1244: Past medical records reviewed. The patient was evaluated in room C8. A complete history and physical exam was performed. 1455: I reevaluated the patient. She is resting comfortably. I discussed my recommendation she remain in the hospital for further evaluation and management and she is agreeable with the plan. 1517: I discussed the patient Lorie Dennis. The patient will be further evaluated. Consultations Consultation #1: I discussed the patient Lorie Dennis. The patient will be further evaluated. Time: 15:17 Administered Medications Folic Acid (Folvite) 1 mg PO QDD [facility] Stop: 05/04/19 17:59 Last Admin: 04/04/19 19:14 Dose: 1 mg Documented by: [id number] Heparin Sodium/Dextrose (Heparin Sodium/Dextrose) 25,000 units in 500 mls @ 22 mls/hr IV .[id number] [facility]; Protocol Stop: 05/04/19 15:14 Last Titration: 04/04/19 17:33 Dose: 1,100 units/hr, 22 mls/hr Documented by: [id number] Cosigned by: [id number] Admin: 04/04/19 15:45 Dose: 1,100 units/hr, 22 mls/hr Documented by: [id number] Cosigned by: [id number] Ceftriaxone Sodium 2,000 mg/ (Dextrose) 70 mls @ 100 mls/hr IV Q24H [facility] Stop: 04/11/19 17:59 Last Infusion: 04/04/19 20:10 Dose: 0 mls/hr Documented by: [id number] Admin: 04/04/19 19:25 Dose: 100 mls/hr Documented by: [id number] Miscellaneous (Order Awaiting Action) 1 ea N/A QS [facility] Stop: 05/04/19 17:59 Last Admin: 04/04/19 20:10 Dose: Not Given Documented by: [id number] Vitamin B Complex (Vitamin B Complex) 1 tab PO QDD [facility] Stop: 05/04/19 17:59 Last Admin: 04/04/19 19:16 Dose: 1 tab Documented by: [id number] Warfarin Sodium (Coumadin) 4 mg PO DAILY@1600 [facility] Stop: 05/04/19 17:59 Last Admin: 04/04/19 19:12 Dose: 4 mg Documented by: [id number] Discontinued Medications Heparin Sodium/Dextrose () 1 ea IV ONE ONE; Protocol Stop: 04/04/19 15:16 Last Admin: 04/04/19 15:44 Dose: Not Given Documented by: [id number] Sodium Chloride (Nss) 500 mls @ 999 mls/hr IV .Q31M [facility] Stop: 04/04/19 13:15 Last Infusion: 04/04/19 13:46 Dose: 0 mls/hr Documented by: [id number] Admin: 04/04/19 13:10 Dose: 999 mls/hr Documented by: [id number] Medical Decision Making Differential Diagnosis Differential diagnoses includes but is not limited to pneumonia, bronchitis, COPD/Asthma exacerbation, pneumothorax, pulmonary embolism, congestive heart fa ilure, acute coronary syndrome. Medical Records Attestation: I reviewed the patient's medical records. Home Medications Current Medication List: was personally reviewed by me Laboratory Data Attestation: I reviewed the patient's lab results. Result diagrams: 04/04/19 13:06 04/04/19 13:06 Lab Results 04/04/19 04/04/19 04/04/19 Range/Units 13:06 13:06 13:06 WBC 6.67 (4.8-10.8) K/uL RBC 2.75 L (4.2-5.4) M/uL Hgb 9.3 L (12.0-16.0) g/dL Hct 28.7 L (37-47) % MCV 104.4 H (80-100) fL MCH 33.8 (25-34) pg MCHC 32.4 (32-36) g/dL RDW Std Deviation 56.3 H (36.4-46.3) fL RDW Coeff of Mary Beth 14.8 H (11.5-14.5) % Plt Count 209 (130-400) K/uL MPV 9.3 (7.4-10.4) fL Immature Gran % (Auto) 0.3 % Neut % (Auto) 64.4 % Lymph % (Auto) 21.3 % [place] % (Auto) 12.4 % Eos % (Auto) 1.3 % Baso % (Auto) 0.3 % Immature Gran # (Auto) 0.02 (0.00-0.02) K/uL Neut # (Auto) 4.29 (1.4-6.5) K/uL Lymph # (Auto) 1.42 (1.2-3.4) K/uL [place] # (Auto) 0.83 H (0.11-0.59) K/uL Eos # (Auto) 0.09 (0-0.5) K/uL Baso # (Auto) 0.02 (0-0.2) K/uL PT 13.3 H (9.0-12.0) Seconds INR 1.3 H (0.9-1.1) APTT 41.2 H (21.0-31.0) Seconds PTT Ratio 1.5 Sodium 135 L (136-145) mmol/L Potassium 3.5 (3.5-5.1) mmol/L Chloride 102 (98-107) mmol/L Carbon Dioxide 26 (21-32) mmol/L Anion Gap 8.0 (3-11) BUN 12 (7-18) mg/dl Creatinine 0.70 (0.6-1.2) mg/dl Est Cr Clr Drug Dosing 65.4 ml/min Est GFR ( Amer) 96.2 Est GFR (Non-Af Amer) 83.0 BUN/Creatinine Ratio 16.7 (10-20) Glucose 95 (70-99) mg/dl Calcium 10.1 (8.5-10.1) mg/dl Total Bilirubin 0.5 (0.2-1) mg/dl AST 40 H (15-37) U/L ALT 19 (12-78) U/L Alkaline Phosphatase 140 H (45-117) U/L Troponin I < 0.015 (0-0.045) ng/ml Total Protein 7.9 (6.4-8.2) gm/dl Albumin 3.0 L (3.4-5.0) gm/dl Globulin 4.9 H (2.5-4.0) gm/dl Albumin/Globulin Ratio 0.6 L (0.9-2) Lipase 89 (73-393) U/L Imaging Data Radiologist's Impression: Radiology results as stated below per my review and the radiologist's interpretation: US venous doppler LE BI CLINICAL HISTORY: Recent pulmonary embolism. EVALUATE FOR DVT COMPARISON STUDY: February 07, 2018 FINDINGS: Real-time and color flow Doppler imaging were performed. Flow was seen within the femoral, popliteal and calf veins with no intraluminal thrombus demonstrated. The saphenous vein is patent. The previously identified left popliteal vein DVT has resolved. There is a 5 cm left popliteal cyst. IMPRESSION: No evidence of lower extremity DVT. Electronically signed by: Jass Jensen M.D. 04/04/2019 2:05 PM XR chest 1V portable CLINICAL HISTORY: Chest Pain dyspnea COMPARISON STUDY: 03/30/2019 FINDINGS: Central catheter in the superior vena cava. Stable diffuse bilateral parenchymal interstitial and reticulonodular type change. Diaphragms are smooth. There is slight blunting of the lateral costophrenic angles. A component of pulmonary vascular congestion is present. IMPRESSION: 1. Pulmonary vascular congestion. 2. Trace pleural fluid lung bases. 3. Chronic interstitial and reticular nodular type change unaltered from the prior study. The above report was generated using voice recognition software. It may contain grammatical, syntax or spelling errors. Electronically signed by: Brandon Harden M.D. 04/04/2019 1:06 PM ECG Data Attestation: I personally reviewed and interpreted this ECG as follows: Indication: SOB/dyspnea Rate (beats per minute): 83 Rhythm: sinus rhythm Findings: + 1st degree AV block, + Q waves (Inferior) and + ST depression (Lateral) Comparison ECG Date: from (03/30/2019) Change: no significant change MDM Narrative The patient is a 78-year-old female who was recently diagnosed with pulmonary embolism and pneumonia. Unfortunately the patient has a long history of lung cancer for which he is being treated but she presented to the emergency department last week for shortness of breath and was found to have worsening lung cancer findings as well as signs of infiltrative process as well as signs of peripheral pulmonary embolism. She was started on blood thinners but continues to have worsening symptoms. The patient was switched from a newer oral anticoagulant to Coumadin and Lovenox. I am unsure if the patient is having worsening pneumonia or worsening pulmonary embolism. Patient was started on IV heparin in the emergency department. Ultrasound of the lower extremities did not show any signs of acute DVT. I discussed the patient's laboratory and radiographic studies with the. She was hypoxic in the emergency department which was significantly improved with supplemental oxygen. Because the patient's findings I discussed her case with the [facility] hospitalist group. They have agreed to evaluate the patient in the emergency department for further management disposition. I discussed patient's laboratory and radiographic studies with her and her son. Impression & Plan Pulmonary embolism, Hypoxia, Lung cancer Critical Care Time Critical Care Time: Yes Total Critical Care Time: 40 I have personally spent 40 minutes of critical care time in the direct management of this patient. This includes bedside care, interpretation of diagnostic studies, and testing, discussion with consultants, patient, and family members, and other required patient management activities. This 40 minutes is in excess of all separately billable procedures. Discharge Plan Visit Data *Final* Discharge Date/Time: 04/04/19 17:13 Chief Complaint: Shortness of Breath/Dyspnea Stated Complaint: INFECTION/BLOOD CLOT IN LUNGS, SOB, WEAK, FEVER ED Provider: Fish Otero Discharge Problem: Pulmonary embolism, Hypoxia, Lung cancer Patient Disposition: Admitted As Inpatient Discharge Instructions Interventions: ED Discharge Assessment Last Done: 04/04/19 17:13 The scribe's documentation has been prepared under my direction and personally reviewed by me in its entirety. I confirm that the note above accurately reflects all work, treatment, procedures, and medical decision making performed by me.
[2019-04-04] MEDS: CALCIUM 600MG + VIT D 400 IU TAB PO SCH (21:43)
[2019-04-04] MEDS: MAGNESIUM OXIDE 400 MG TAB PO SCH (21:44)
[2019-04-04] MEDS: LOTEPREDNOL 0.5% OP SCH (21:44)
[2019-04-04] MEDS: PANTOprazole 40 MG TAB PO SCH (21:45)
[2019-04-04] MEDS: cycloSPORINE (RESTASIS) OP SCH (21:45)
[2019-04-04] MEDS: ACETAMINOPHEN 325 MG TAB PO PRN ×2 (21:52→23:46)
[2019-04-04 22:04] LABS: Partial Thromboplastin Ratio 2.8
[2019-04-04 22:15] LABS: Partial Thromboplastin Time 76.7 Seconds (21.0-31.0)
[2019-04-05 04:28] LABS: Hematocrit (blood only) 25.4 % (37-47); Hemoglobin 8.3 g/dL (12.0-16.0); Mean Corpuscular Hgb Conc 32.7 g/dL (32-36); Mean Corpuscular Volume 104.1 fL (80-100); Mean Platelet Volume 9.1 fL (7.4-10.4); Platelet Count 176 K/uL (130-400); RDW Standard Deviation 56.8 fL (36.4-46.3); Red Blood Count 2.44 M/uL (4.2-5.4); White Blood Count 6.38 K/uL (4.8-10.8)
[2019-04-05 04:45] LABS: BUN Creatinine Ratio 16.1 (10-20); Calcium 9.3 mg/dl (8.5-10.1); Creatinine Clr Calc Pharmacy 62.7 ml/min; Est GFR (African American) 91.4; Est GFR (Non-African American) 78.9; Potassium 3.5 mmol/L (3.5-5.1)
[2019-04-05 04:50] LABS: INR 1.4 (0.9-1.1); Partial Thromboplastin Ratio 3.2; Prothrombin Time 14.2 Seconds (9.0-12.0)
[2019-04-05 04:54] LABS: Partial Thromboplastin Time 86.1 Seconds (21.0-31.0)
[2019-04-05] MEDS: ACETAMINOPHEN 325 MG TAB PO PRN (08:23)
[2019-04-05] MEDS: PANTOprazole 40 MG TAB PO SCH ×2 (08:24→20:34)
[2019-04-05] MEDS: CALCIUM 600MG + VIT D 400 IU TAB PO SCH ×2 (08:24→20:34)
[2019-04-05] MEDS: CHOLECALCIFEROL 1,000 UNITS TAB PO SCH (08:25)
[2019-04-05] MEDS: cycloSPORINE (RESTASIS) OP SCH ×2 (08:26→20:34)
[2019-04-05 11:51] LABS: Partial Thromboplastin Time 58.4 Seconds (21.0-31.0)
[2019-04-05] MEDS ORDERED: STOP HEPARIN ORDER ONE (12:15)
[2019-04-05] MEDS ORDERED: ENOXAPARIN INJ 120 MG/0.8 ML SYR SQ ONE (12:30)
[2019-04-05 13:32] LABS: Partial Thromboplastin Ratio 2.2
--- NOTE | 2019-04-05 15:24 | Hospitalist Progress Note ---
Date of Service April 05, 2019 Assessment & Plan (1) Pneumonitis: ground glass changes in right lower lobe possibly due to Keytruda will start on Solu Medrol 125mg IV q6 Dr. Pascal will see and give recommendations (2) Pulmonary embolism on long-term anticoagulation therapy: patient found to have small lingular PE on 03/30 on CTA chest no other PE seen, this was found while on Xarelto, considered failed therapy started on Lovenox and Coumadin continue Lovenox 120mg daily at 1100 no DVT on venous doppler (3) Hypoxia: multifactorial with worsening metastatic adenocarcinoma on recent CT and some possible pneumonitis will use supplemental oxygen likely due to the pneumonitis, will treat two step shows she needs 2L at rest and 3L on exertion (4) Bronchial pneumonia: on Cefdinir, giving her diarrhea, has a nonproductive cough place on Rocephin at admission to limit side effects unfortunately she has a lot of allergies, would likely benefit from Macrolide or Levaquin but cannot use Duonebs PRN will stop antibiotics for time being as I doubt she has bacterial infection (5) Metastatic adenocarcinoma: most recent CT on 03/30 with enlarging mass, bilateral nodules, increased lymphadenopathy will consult Dr. Riley she had been on Keytruda she is eating well, maintaining her weight Subjective patient feeling better on oxygen, minimal cough she ambulated with respiratory therapy, needed 2L at rest and 3L on exertion discussed CT findings with Dr. Riley, concerns for pneumonitis in right lower lobe with ground glass opacities discussed that this could be related to Keytruda discussed with Dr. Pascal, he will see patient reviewed labs, stable less diarrhea today, doubt infectious cause, will stop Rocephin Review of Systems Review of Systems: All systems reviewed & are unremarkable except as noted in HPI & below Constitutional: + fatigue and + weakness; no fever Respiratory: + cough, + dyspnea and + dyspnea on exertion; no hemoptysis and no sputum production Physical Exam Constitutional: WD/WN, vitals as above no acute distress Eyes: PERRL, conjunctivae normal, anicteric sclerae ENMT: external ear and nose normal, oropharynx normal Neck: trachea midline, no thyromegaly Respiratory: normal respiratory effort; no respiratory distress Auscultation: + diminished lung sounds, + crackles and + rhonchi; no wheezes Cardiovascular: RRR, no murmur, no edema Gastrointestinal (Abdomen): normal bowel sounds, soft, nontender, no hepatosplenomegaly Musculoskeletal: no cyanosis or clubbing, extremities motor strength 5/5 Skin: no rashes, warm and dry Neurologic: patellar DTR's 2+ bilat, sensation intact and PERRL, EOMI, accommodation nl, no face palsy, no dysarthria Psychiatric: A+Ox3, euthymic affect Lymphatic: no cervical or axillary lymphadenopathy Results & Data Vital Signs (Past 12 Hours) Vital Signs Temp Pulse Pulse Pulse Pulse Pulse Pulse 04/05/19 12:40 96 H 118 H 116 H 110 H 92 H 04/05/19 07:16 36.7 C 81 04/05/19 04:04 36.8 C 83 Resp Resp Resp Resp Resp Resp BP 04/05/19 12:40 16 18 18 18 16 04/05/19 07:16 18 118/77 04/05/19 04:04 18 103/65 Pulse Ox Pulse Ox Pulse Ox Pulse Ox Pulse Ox Pulse Ox 04/05/19 12:40 97 90 86 L 91 86 L 04/05/19 07:16 99 04/05/19 04:04 96 Laboratory Results Laboratory Results - last 24 hr 04/04/19 04/05/19 04/05/19 21:33 04:04 04:04 WBC RBC Hgb Hct MCV MCH MCHC RDW Std Deviation RDW Coeff of Mary Beth Plt Count MPV PT 14.2 H INR 1.4 H APTT 76.7 H* 86.1 H* PTT Ratio 2.8 3.2 Sodium 137 Potassium 3.5 Chloride 104 Carbon Dioxide 29 Anion Gap 4.0 BUN 12 Creatinine 0.73 Est Cr Clr Drug Dosing 62.7 Est GFR ( Amer) 91.4 Est GFR (Non-Af Amer) 78.9 BUN/Creatinine Ratio 16.1 Glucose 93 Calcium 9.3 04/05/19 04/05/19 04:05 11:11 WBC 6.38 RBC 2.44 L Hgb 8.3 L Hct 25.4 L MCV 104.1 H MCH 34.0 MCHC 32.7 RDW Std Deviation 56.8 H RDW Coeff of Mary Beth 15.0 H Plt Count 176 MPV 9.1 PT INR APTT 58.4 H* PTT Ratio 2.2 Sodium Potassium Chloride Carbon Dioxide Anion Gap BUN Creatinine Est Cr Clr Drug Dosing Est GFR ( Amer) Est GFR (Non-Af Amer) BUN/Creatinine Ratio Glucose Calcium Medications Administered Current Inpatient Medications Acetaminophen (Tylenol) 650 mg PO Q4H PRN PRN Reason: pain/fever Stop: 05/04/19 17:32 Last Admin: 04/05/19 08:23 Dose: 650 mg Documented by: Acetaminophen (Tylenol) 1,000 mg PO BID [facility] Stop: 05/05/19 20:59 Albuterol (Duoneb) 3 ml NEB Q2R PRN PRN Reason: Dyspnea Stop: 05/04/19 17:32 Cyclosporine (Restasis) 1 drops OP BID [facility] Stop: 05/04/19 20:59 Last Admin: 04/05/19 08:26 Dose: 1 drops Documented by: Folic Acid (Folvite) 1 mg PO QDD [facility] Stop: 05/04/19 17:59 Last Admin: 04/04/19 19:14 Dose: 1 mg Documented by: Ceftriaxone Sodium 2,000 mg/ (Dextrose) 70 mls @ 100 mls/hr IV Q24H [facility] Stop: 04/11/19 17:59 Last Infusion: 04/04/19 20:10 Dose: Infused Documented by: Methylprednisolone 125 mg/ (Syringe) 2 mls @ 1.5 mls/min IV Q6 [facility] Stop: 05/05/19 17:59 Magnesium Oxide (Mag-Ox) 400 mg PO HS [facility] Stop: 05/04/19 20:59 Last Admin: 04/04/19 21:44 Dose: 400 mg Documented by: Multivitamins/Minerals (Caltrate Plus) 1 tab PO BID [facility] Stop: 05/04/19 20:59 Last Admin: 04/05/19 08:24 Dose: 1 tab Documented by: Lotemax 0.5% Eye Oint - Non-Formulary Patient's Own Med 1 ea OP HS [facility] Stop: 05/04/19 20:59 Last Admin: 04/04/19 21:44 Dose: 1 dose Documented by: Pantoprazole Sodium (Protonix) 40 mg PO BID [facility] Stop: 05/04/19 20:59 Last Admin: 04/05/19 08:24 Dose: 40 mg Documented by: Vitamin B Complex (Vitamin B Complex) 1 tab PO QDD [facility] Stop: 05/04/19 17:59 Last Admin: 04/04/19 19:16 Dose: 1 tab Documented by: Vitamin D (Vitamin D3) 5,000 units PO QAM [facility] Stop: 05/05/19 08:59 Last Admin: 04/05/19 08:25 Dose: 5,000 units Documented by: Warfarin Sodium (Coumadin) 4 mg PO DAILY@1600 [facility] Stop: 05/04/19 17:59 Last Admin: 04/04/19 19:12 Dose: 4 mg Documented by: PG Care Time/CCT Total # of Minutes Spent Total Time Spent with Patient: Total time spent is greater than 50% in coordination of care (as documented) at patient's floor/unit and/or counseling patient:
--- NOTE | 2019-04-05 16:20 | Pulmonary Consultation ---
Date of Consultation April 05, 2019 Assessment & Plan (1) Pneumonitis: Impression: 78-year-old female with adenocarcinoma which appears to be metastatic of unclear primary origin. She is currently on chemotherapy and is presenting with pulmonary infiltrates which appear both fibrotic, nodular, and some groundglass opacities. The differential is broad and would include infections including atypical infections, pulmonary hemorrhage, atypical pulmonary edema, and chemotherapy/immunotherapy induced pulmonary toxicity. Recommendations: 1. I recommended the patient undergo fiberoptic bronchoscopy with bronchioloalveolar lavage. Given her anticoagulation we will pursue an oral route. She is expressed understanding and is agreement with the plan. We will plan on performing that in the morning. N.p.o. after midnight. BAL will be sent for cytologic evaluation as well as microbiologic analysis and cell counts and differential. 2. In light of the potential diagnosis of immunotherapy related pulmonary toxicity I recommended steroids be initiated at Solu-Medrol 125 mg every 6. Look for other etiologies by sending a repeat BNP (her BNP a week ago was 550 in the emergency room), and a procalcitonin. She was initiated on antibiotics in the form of Rocephin by the admitting hospitalist service. 3. It is possible the patient may have some underlying interstitial lung disea se such as UIP/NSIP although the radiographic pattern is not entirely consistent. Again hopefully bronchoscopy may be beneficial. We will hold on serologies for now pending bronchoscopy results. 4. Pulmonary embolism: Anticoagulation under the direction of hematology oncology. (2) Bronchial pneumonia: (3) Pulmonary embolism on long-term anticoagulation therapy: (4) Lung cancer: History of Present Illness Attending Physician: Michele Polanco DO History of Present Illness Asked by the hospitalist service to evaluate this patient with a history of adenocarcinoma of unknown primary on Keytruda immunotherapy admitted with pulmonary infiltrates, cough, and hypoxemia. History is obtained from review the electronic medical record and discussion with the patient at the bedside. The patient is a very pleasant 78-year-old female who in July 2017 was diagnosed with adenocarcinoma from a endobronchial ultrasound transbronchial needle aspiration of level 4R and level 7 lymph node stations. She also had a liver biopsy at that time of a PET positive lesion which also demonstrated adenocarcinoma. Immunohistochemical typing was unable to differentiate a definitive origin, however lung was favored with cholangiocarcinoma also being in the differential. The patient was initiated on cisplatin and gemcitabine November 2017 and completed 8 cycles but did have some issues with bone marrow suppression. Repeat scans performed September of this year demonstrated progressive disease and given the fact that they tumor cells were 40% positive for PDL 1, she was initiated on carbo [place], pemetrexed, and Keytruda on September 2018. The patient reports that she had pulmonary issues with shortness of breath and a dry nonproductive cough going on for several weeks. She was seen in the emergency room on March 30 for these complaints and diagnosed with bronchopneumonia and given a prescription for second-generation cephalosporin. She was also to found to have a small acute filling defect within the pulmonary artery concerning for PE and she was placed on anticoagulation. She took the antibiotics but had continued issues with the nonproductive cough and shortness of breath. She did not complain of any syncope or presyncope. She did experience significant diarrhea associated with the antibiotics. Due to the failure of her symptoms to improve, she presented back to the emergency room where chest x-ray showed some progression of the interstitial process and the patient was admitted to the hospital. Oncology was consulted given the potential for chemotherapy/immunotherapy related pulmonary toxicity and recommended pulmonary consultation. The patient has not had bronchoscopy previously. She is never had hemoptysis. She denies any syncope presyncope or significant lower extremity edema. She does not report fevers chills although she has had some occasional night sweats. Her appetite and energy level have been stable. Allergies Allergy/AdvReac Type Severity Reaction Status Date / Time Tetracyclines Allergy Intermediate GI Verified 04/04/19 14:10 SYMPTOMS, RASH, SUN SENSITIVITY tomato Allergy Unknown TOMATOES, Verified 04/04/19 14:10 CITRUS FRUIT ACIDIC FOOD--ITCHY L EAR, HEAD amoxicillin Allergy Verified 04/04/19 14:10 erythromycin base Allergy Verified 04/04/19 14:10 Macrolide Antibiotics AdvReac Intermediate GI SYMPTOMS Verified 04/04/19 14:10 Penicillins AdvReac Intermediate GI SYMPTOMS Verified 04/04/19 14:10 Cipro AdvReac Unknown GI UPSET Verified 01/31/18 06:42 ciprofloxacin AdvReac Unknown GI UPSET Verified 04/04/19 14:10 clindamycin AdvReac Unknown GI UPSET Verified 04/04/19 14:10 levofloxacin AdvReac Unknown tendonitis Verified 04/04/19 14:10 Home Medications Home Medications Medication Instructions Recorded Confirmed Type biotin 5 mg PO HS 06/03/18 04/04/19 History calcium carb and citrate-vitD3 600 mg PO BID 06/03/18 04/04/19 History clobetasol 1 applic TOPICAL BID PRN 06/03/18 04/04/19 History cyclosporine [Restasis] 1 drp OPB Q12H 06/03/18 04/04/19 History docusate sodium 100 mg PO HS PRN 06/03/18 04/04/19 History glucosamine-chondroitin 1 tab PO BID 06/03/18 04/04/19 History hydrocortisone butyrate 1 applic TOPICAL DAILY PRN 06/03/18 04/04/19 History lactobacillus combination no.4 0 mmu cells PO QAM 06/03/18 04/04/19 History [Probiotic] loteprednol etabonate [Lotemax] 1 applic OPB HS 06/03/18 04/04/19 History magnesium 250 mg PO HS 06/03/18 04/04/19 History multivitamin 1 tab PO Q OTHER DAY 06/03/18 04/04/19 History psyllium husk [Metamucil] 1 dose PO HS PRN 06/03/18 04/04/19 History vitamin B complex 1 tab PO QDD 06/03/18 04/04/19 History cholecalciferol (vitamin D3) 5,000 unit PO QAM 11/03/18 04/04/19 History [Vitamin D3] folic acid 1 mg PO QDD 11/03/18 04/04/19 History omega 3-xhb-fkx-fish oil [Fish Oil] 2 cap PO BID 11/03/18 04/04/19 History acetaminophen ER 650 mg 1,300 mg PO BID tab 01/30/19 04/04/19 History tablet,extended release fexofenadine 180 mg tablet 180 mg PO DAILY PRN 01/30/19 04/04/19 History triamcinolone acetonide 0.1 % 1 appln TOPICAL BID PRN gm 01/30/19 04/04/19 History topical cream cefdinir 300 mg PO BID 7 Days #14 cap 03/30/19 04/04/19 Rx omeprazole magnesium [Prilosec OTC] 20 mg PO BID 03/30/19 04/04/19 History enoxaparin [Lovenox] 120 mg SQ DAILY@1100 04/04/19 04/04/19 History warfarin 4 mg tablet 4 mg PO DAILY 30 Days #40 tab 04/04/19 04/04/19 Rx Patient History Medical History Pneumonia (Acute) Stage 4 lung cancer Deep venous thrombosis of left popliteal vein Pulmonary embolism Anemia (Acute) Deep vein thrombosis (Acute) Depression (Acute) Hearing deficit (Acute) On anticoagulant therapy (Acute) Osteoarthritis (Acute) Urinary tract infection (Acute) Atypical squamous cells of undetermined significance (ASC-US) on cervical Pap smear History of ascites History of lymphoma History of malignant neoplasm breast Pneumonia due to Pseudomonas Surgical History H/O tubal ligation History of bronchoscopy (Acute) History of cholecystectomy (Acute) History of colonoscopy (Acute) History of cystoscopy (Acute) Hx of oral surgery S/P breast biopsy S/P bunionectomy S/P cholecystectomy Family History Daughter Breast cancer metastatic, diagnosed in 1993 and now is stage IV with salvage c hemotherapy Daughter Breast cancer, Onset Age: 27 metastatic breast cancer at age 27 Brother , age 53 MVA MVA Family/Other Essential familial hypercholesterolemia Glaucoma Heart disease Macular degeneration Stroke Mother , age 85 Hypertension Hyperlipidemia Meningioma Father , "old age" 95 Hypertension Son Kidney stones Other Cancer Stroke syndrome Social History Preferred Language: Macedonian Communication Ability: Effective 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 Required: No Beliefs That Will Affect Care: None Current Living Situation: Alone current occupational status: retired Other Information That Helps Us Care for You: No Feels Safe at Home: Yes Safety Concerns: Feels Safe At This Time Smoking Status: Never smoker Hx Alcohol Use: Yes Alcohol type: wine Alcohol Intake Frequency Comment: monthly Hx Substance Use: No Review of Systems Review of Systems: All systems reviewed & are unremarkable except as noted in HPI & below Physical Exam Constitutional: WD/WN, vitals as above ENMT: external ear and nose normal, oropharynx normal Mallampati Class: II Neck: trachea midline, no thyromegaly Respiratory: Coarse breath sounds bilaterally with faint inspiratory squeaks in the right lower lobe Cardiovascular: RRR, no murmur, no edema Gastrointestinal (Abdomen): normal bowel sounds, soft, nontender, no hepatosplenomegaly Skin: no rashes, warm and dry Neurologic: Nonfocal exam Psychiatric: A+Ox3, euthymic affect Results & Data Vital Signs (Past 12 Hours) Vital Signs Temp Pulse Pulse Pulse Pulse Pulse Pulse 04/05/19 12:40 96 H 118 H 116 H 110 H 92 H 04/05/19 07:16 36.7 C 81 Resp Resp Resp Resp Resp Resp BP 04/05/19 12:40 16 18 18 18 16 04/05/19 07:16 18 118/77 Pulse Ox Pulse Ox Pulse Ox Pulse Ox Pulse Ox Pulse Ox 04/05/19 12:40 97 90 86 L 91 86 L 04/05/19 07:16 99 Laboratory Results 04/05/19 04:05 04/05/19 04:[address] of the chest independently reviewed CT ANGIOGRAM OF THE CHEST CLINICAL HISTORY: Shortness of breath. History of carcinoma. History of pulmonary embolism. History of pneumonia. COMPARISON STUDY: 12/26/2018, 11/03/2018 TECHNIQUE: Following the IV administration of 119 mL of Optiray-320, CT angiogram of the thorax was performed from the thoracic inlet to the lung bases utilizing the pulmonary embolus protocol. Images are reviewed in the axial, sagittal, and coronal planes. IV contrast was administered without complication. MIP imaging was performed. A dose lowering technique was utilized adhering to the principles of ALARA. CT DOSE: 268.02 mGy.cm FINDINGS: There is persistent mediastinal and bilateral hilar adenopathy. There was no evidence of thoracic aortic dilatation. There is a small lingular pulmonary artery filling defect indicative of a pul monary embolus. This is not visualized on the prior CT angiogram performed in October 2018. No pleural effusions are visualized. There is progressive multifocal subpleural nodularity. There are scattered groundglass pulmonary opacities. There is increasing 19 x 7 mm pleural-based opacity within the right upper lobe. There is a new more extensive area of groundglass opacity within the superior segment of the right lower lobe suspicious for a pneumonia. There is a new 11 mm right lower lobe pulmonary nodule. There is a new right lower lobe paraspinal area of parenchymal consolidation IMPRESSION: 1. New small lingular pulmonary artery filling defect consistent with an acute embolus. 2. Persistent mediastinal lymphadenopathy. 3. Increasing right hilar lymphadenopathy. 4. Enlarging 19 x 7 mm right upper lobe pleural-based opacity. 5. New multiple new/progressive nodules including an 11 mm right lower lobe pulmonary nodule. 6. Scattered groundglass pulmonary opacities including a more focal area of groundglass attenuation within the right lower lobe suspicious for a pneumonitis. 7. New right lower lobe paraspinal area of parenchymal consolidation 8. The new and enlarging bilateral pulmonary nodules must be viewed as suspicious for metastatic disease although an atypical infectious process could potentially appear similar. Clinical correlation and follow-up is advocated PG Care Time/CCT Total # of Minutes Spent Total Time Spent with Patient: Total time spent is greater than 50% in c oordination of care (as documented) at patient's floor/unit and/or counseling patient:
[2019-04-05] MEDS: WARFARIN SOD 4 MG TAB PO SCH (16:30)
[2019-04-05] MEDS ORDERED: SODIUM CHLORIDE 0.9% 500 ML IV SCH (16:30)
[2019-04-05] MEDS ORDERED: WARFARIN SOD 4 MG TAB PO ONE (16:30)
[2019-04-05] MEDS: FOLIC ACID 1 MG TAB PO SCH (18:07)
[2019-04-05] MEDS: methylPREDNISolone 125 MG in SYRINGE 0 ML IV SCH ×2 (18:08→23:44)
[2019-04-05] MEDS: VITAMIN B COMPLEX TAB PO SCH (18:08)
[2019-04-05] MEDS: cefTRIAXone SODIUM 2,000 MG in DEXTROSE 5% 50 ML IV SCH (18:12)
[2019-04-05] MEDS: ACETAMINOPHEN 500 MG TAB PO SCH (20:33)
[2019-04-05] MEDS: MAGNESIUM OXIDE 400 MG TAB PO SCH (20:33)
[2019-04-05] MEDS: LOTEPREDNOL 0.5% OP SCH (20:35)
[2019-04-06] MEDS: methylPREDNISolone 125 MG in SYRINGE 0 ML IV SCH ×2 (05:39→12:42)
[2019-04-06] MEDS: cycloSPORINE (RESTASIS) OP SCH (08:15)
[2019-04-06] MEDS: ACETAMINOPHEN 500 MG TAB PO SCH (08:22)
--- NOTE | 2019-04-06 08:48 | History & Physical Bridge Note ---
Date of Service April 06, 2019 History & Physical Bridge Note I have examined the patient, reviewed the History & Physical and in the interval since the performance of the History & Physical I have noted the following changes of clinical significance: no changes noted
--- NOTE | 2019-04-06 08:49 | Pre Anesthesia Assessment ---
Date of Service April 06, 2019 Pre Sedation Assessment Vital Signs Temp Pulse Pulse Pulse Pulse Pulse Pulse 04/06/19 08:09 36.3 C L 04/06/19 05:25 36.3 C L 78 04/05/19 22:53 36.6 C 62 04/05/19 16:16 37.0 C 88 04/05/19 12:40 96 H 118 H 116 H 110 H 92 H Pulse Resp Resp Resp Resp Resp Resp 04/06/19 08:09 72 16 04/06/19 05:25 18 04/05/19 22:53 18 04/05/19 16:16 18 04/05/19 12:40 16 18 18 18 16 BP Pulse Ox Pulse Ox Pulse Ox Pulse Ox Pulse Ox Pulse Ox 04/06/19 08:09 108/69 96 04/06/19 05:25 131/81 98 04/05/19 22:53 113/70 98 04/05/19 16:16 106/72 98 04/05/19 12:40 97 90 86 L 91 86 L Pre-Sedation Airway Assessment Smoking Status: Never smoker Hx Sleep Apnea: No Short, Thick Neck: No Thyromental Distance: > or= 3.5 Finger Breadths Oral Cavity: + WNL Mallampati Class: II ASA: ASA3 NPO Status Date of Last Intake of Fluids: 04/05/19 Time of Last Intake of Fluids: 22:30 Date of Last Intake of Solid Food: 04/06/19 Time of Last Intake of Solid Foods: 00:00 Last Intake of Solids Comment: atleast since midnight Notes The planned sedation has been discussed with the patient. Informed Consent was obtained. I have identified the patient, determined the appropriateness of sedation and have assessed the patient immediately prior to the procedure. All medicine(s) and interventions are by my order.
[2019-04-06] MEDS ORDERED: fentaNYL citrate 100 MCG/2 ML VIAL IV STA (09:20)
[2019-04-06] MEDS ORDERED: MIDAZOLAM HCL 1 MG/ML 2ML VIAL IV STA (09:20)
[2019-04-06] MEDS ORDERED: LIDOCAINE HCL 2% (LOCAL) INJ 50 ML VIAL INSTIL STA (09:20)
[2019-04-06] MEDS ORDERED: LIDOCAINE 4% INH SOLN 4 ML BTL NEB STA (09:20)
[2019-04-06] MEDS ORDERED: LIDOCAINE HCL VISCOUS SOLN 2% 15 ML UDC TOP ONE (09:20)
--- NOTE | 2019-04-06 09:26 | Post Anesthesia Assessment ---
Date of Service April 06, 2019 Post Sedation Assessment Vital Signs Temp Pulse Pulse Pulse Pulse Pulse Pulse 04/06/19 09:20 89 04/06/19 09:15 90 04/06/19 09:10 94 H 04/06/19 09:05 86 04/06/19 09:00 83 04/06/19 08:55 81 04/06/19 08:09 36.3 C L 04/06/19 05:25 36.3 C L 04/05/19 22:53 36.6 C 04/05/19 16:16 37.0 C 04/05/19 12:40 96 H 118 H 116 H 110 H 92 H Pulse Pulse Resp Resp Resp Resp Resp 04/06/19 09:20 22 04/06/19 09:15 20 04/06/19 09:10 24 04/06/19 09:05 18 04/06/19 09:00 18 04/06/19 08:55 18 04/06/19 08:09 72 16 04/06/19 05:25 78 18 04/05/19 22:53 62 18 04/05/19 16:16 88 18 04/05/19 12:40 16 18 18 18 Resp BP Pulse Ox Pulse Ox Pulse Ox Pulse Ox Pulse Ox 04/06/19 09:20 120/58 L 95 04/06/19 09:15 125/83 95 04/06/19 09:10 144/93 H 95 04/06/19 09:05 110/70 96 04/06/19 09:00 117/77 100 04/06/19 08:55 124/77 100 04/06/19 08:09 108/69 96 04/06/19 05:25 131/81 98 04/05/19 22:53 113/70 98 04/05/19 16:16 106/72 98 04/05/19 12:40 16 97 90 86 L 91 Pulse Ox 04/06/19 09:20 04/06/19 09:15 04/06/19 09:10 04/06/19 09:05 04/06/19 09:00 04/06/19 08:55 04/06/19 08:09 04/06/19 05:25 04/05/19 22:53 04/05/19 16:16 04/05/19 12:40 86 L Recovery Score Activity: Moves 4 extremities Respiration: Deep Breath/Cough Circulation: +/-20% PreAnes Value Consciousness: Arouseable (by name) Oxygen Saturation: O2 needed for >90% Post Anesthesia Score: 8 Discharge Sedation Level of Care: Fast Track Phase II Post Sedation Plan On clinical assessment, the patient appears to have tolerated the sedation without complications. Patient is recovering as anticipated. Patient will continue to be monitored by nursing and may be discharged when sedation discharge criteria are met per below protocol. Upon Completions of procedure and additional 15 minutes continue every 5 minute vital signs and the P.A.R. score; then discharge to a Phase I or Fast Track to Phase II per the following guidelines: * Discharge Patient to appropriate Phase II area if PAR is 8 or greater or return to pre- procedure baseline. The post - procedure orders will be as directed. * If PAR score is less than 8 or not return to pre-procedure baseline then patient will follow Phase I monitoring till PAR is reached for Phase II. The Phase I may be done in procedure room or may call to secure a Phase I area. * If naloxone or flumazenil are used for reversal, hold in Phase I for continued monitoring from when last reversal dose was given for a minimum of 60 minutes or longer pending the nurse and/or physician discretion of patient condition before discharge to Phase II. Please call the Sedation Physician to re-evaluate and complete post-note for discharge to Phase II area. Do NOT discharge from procedure sedation or Phase 1 until post- sedation evaluation note is complete by procedure /sedation MD Sedation Discharge Instructions to be given to the patient at discharge to home.
--- NOTE | 2019-04-06 09:44 | Procedure Note ---
Procedure Note: Bronchoscopy Procedure Procedure: Fiberoptic bronchoscopy Bronchoalveolar lavage, anterior segment right upper lobe Conscious sedation Provider: Jaydon Pascal MD Consent: Signed by patient and timeout verified prior to procedure. Sedation start: 858 Sedation end: 915 Conscious sedation: 3 mg Versed, 75 mcg fentanyl, topical lidocaine per RT protocol Procedure: Patient was brought to the bronchoscopy suite. Consent was verified. Appropriate radiographic studies had been reviewed prior to the procedure. St andard monitoring was applied. Oxygen was administered. After topical anesthesia of the airways per respiratory therapy protocol, the fiberoptic scope was advanced through the oropharynx by the bite-block. Oropharynx was unremarkable. Vocal cords were visualized and were normal and functioning.. Topical anesthesia of the cords was achieved with instillation of lidocaine through the scope. Scope was then passed through the vocal cords. The trachea was midline. Main reta was sharp. Anesthesia of the lower airways was achieved with instillation of lidocaine through the scope. A sequential and systematic examination of the lower airways was conducted. The right-sided airways were widely patent and the mucosa appeared normal with scant mucoid secretions. Left-sided airways were widely patent and the mucosa appeared a few thin secretions. The bronchoscope was then removed from the airways. The patient tolerated the procedure well without obvious complication. Patient was returned to the recovery room. Impression: 1. Normal inspection bronchoscopy. 2. Successful BAL anterior segment right upper lobe. No evidence of pulmonary hemorrhage. Fluid was sent for appropriate microbiologic and cytologic analysis. Continue steroids
--- NOTE | 2019-04-06 10:06 | Pulmonology Progress Note ---
Date of Service April 06, 2019 Assessment & Plan (1) Pneumonitis: Impression: 78-year-old female with adenocarcinoma which appears to be metastatic of unclear primary origin. She is currently on chemotherapy and is presenting with pulmonary infiltrates which appear both fibrotic, nodular, and some groundglass opacities. The differential is broad and would include infections including atypical infections, pulmonary hemorrhage, atypical pulmonary edema, and chemotherapy/immunotherapy induced pulmonary toxicity. Recommendations: 1. Fiberoptic bronchoscopy performed this morning. Airways were patent. Scant mucoid secretions present in the airways. BAL was conducted in the anterior segment of the upper lobe. Return was not consistent with pulmonary hemorrhage and did not appear overtly purulent. 2. In light of the potential diagnosis of immunotherapy related pulmonary [place] made more likely by a negative BNP and procalcitonin. Continue steroids for now. If transition to oral, prednisone 40 mg a day and P BIA prophylaxis would be appropriate. She should continue this until outpatient follow-up. I would be happy to see her back in clinic in 2 to 3 weeks with complete pulmonary function tests. Follow-up CT scan may be appropriate as well. Defer additional chemotherapy to Dr. Riley although I would avoid additional immunotherapy currently 3. It is possible the patient may have some underlying interstitial lung disease such as UIP/NSIP although the radiographic pattern is not entirely consistent. Again hopefully bronchoscopy may be beneficial. We will hold on serologies for now pending bronchoscopy results. She is not a candidate for surgical lung biopsy. 4. Pulmonary embolism: Anticoagulation under the direction of hematology oncology. From a pulmonary perspective, if she is doing well she can be dismissed from the hospital with outpatient pulmonary follow-up. Discussed with hospitalist (2) Bronchial pneumonia: (3) Pulmonary embolism on long-term anticoagulation therapy: (4) Lung cancer: Subjective Patient seen and examined prior to bronchoscopy. She had no events overnight. She remains on oxygen. She is not coughing or expectorating phlegm no chest pain or palpitations. No fevers or chills. Physical Exam Constitutional: WD/WN, vitals as above ENMT: Mallampati Class: II Neck: trachea midline, no thyromegaly Respiratory: Few coarse rhonchi bilaterally. No wheezing Cardiovascular: RRR, no murmur, no edema Gastrointestinal (Abdomen): normal bowel sounds, soft, nontender, no hepatosplenomegaly Skin: no rashes, warm and dry Psychiatric: A+Ox3, euthymic affect Results & Data Vital Signs (Past 12 Hours) Vital Signs Temp Pulse Pulse Pulse Resp BP Pulse Ox 04/06/19 09:50 36.2 C L 82 24 96/63 L 96 04/06/19 09:30 86 20 127/62 95 04/06/19 09:25 87 22 103/75 95 04/06/19 09:20 89 22 120/58 L 95 04/06/19 09:15 90 20 125/83 95 04/06/19 09:10 94 H 24 144/93 H 95 04/06/19 09:05 86 18 110/70 96 04/06/19 09:00 83 18 117/77 100 04/06/19 08:55 81 18 124/77 100 04/06/19 08:09 36.3 C L 72 16 108/69 96 04/06/19 05:25 36.3 C L 78 18 131/81 98 04/05/19 22:53 36.6 C 62 18 113/70 98 Laboratory Results 04/05/19 04:05 04/05/19 04:04 BNP 232 Procalcitonin undetectable PG Care Time/CCT Total # of Minutes Spent Total Time Spent with Patient: Total time spent is greater than 50% in coordination of care (as documented) at patient's floor/unit and/or counseling patient:
[2019-04-06 11:40] LABS: INR 2.4 (0.9-1.1); Prothrombin Time 23.5 Seconds (9.0-12.0)
[2019-04-06] MEDS: PANTOprazole 40 MG TAB PO SCH (12:06)
[2019-04-06] MEDS: CHOLECALCIFEROL 1,000 UNITS TAB PO SCH (12:06)
[2019-04-06] MEDS: CALCIUM 600MG + VIT D 400 IU TAB PO SCH (12:06)
[2019-04-06 12:09] LABS: Eosinophil Body Fluid Man 5 %; Fluid Mono/Macrophage 75 %; Lymphocyte Body Fluid Man 10 %; Neutrophil Body Fluid Man 10 %
--- NOTE | 2019-04-06 12:58 | Oncology Consultation ---
Date of Consultation April 06, 2019 Assessment & Plan (1) Pneumonitis: I suspect she has pneumonitis that is likely related to her pembrolizumab therapy. This is an immune pneumonitis that is often quite responsive to steroids, particularly if they are instituted within the first 2 weeks of symptoms. I would recommend treating her with 1 mg/kg of prednisone daily. Once her symptoms improve, we can begin a taper over 4-6 weeks, though sometimes longer, slower tapers are necessary. I agree with pulmonology that she should also be on PCP prophylaxis during this time. We will stop the pembrolizumab for now and will delay her chemotherapy next week as well. We will see her back in the office on the day of her infusion in 2 weeks to assess her progress on steroids. Present on Admission?: Yes History of Present Illness Reason for Consultation: Pneumonitis Lung cancer Attending Physician: Michele Polanco, DO History of Present Illness Ms. Levy is a 78 year old woman who is under my care for a metastatic non-small cell lung cancer. She has been receiving maintenance therapy with pemetrexed and Keytruda with her last treatment on 03/12. In the last 2 weeks or so, she has had increasing symptoms of cough and shortness of breath. She was seen in the ER on 03/30 for this issue and had a CTA that showed a small lingular PE and some changes concerning for disease progression vs pneumonia vs pneumonitis. She was started on anticoagulation and a course of cefdinir and discharged. However, she did not improve with the antibiotics and was readmitted 2 days ago. She required 2 L of nasal cannula oxygen which has made her much more comfortable. Given the appearance of her scans, I suggested we consult pulmonology for a bronch and BAL. This was done this morning and did not show any evidence of infection, though the BAL specimens are pending. She also has not had any fevers or purulent sputum. She had some diarrhea from the antibiotics. She denies any rashes, vision changes, or new or worsening headaches. Allergies Allergy/AdvReac Type Severity Reaction Status Date / Time Tetracyclines Allergy Intermediate GI Verified 04/04/19 14:10 SYMPTOMS, RASH, SUN SENSITIVITY tomato Allergy Unknown TOMATOES, Verified 04/04/19 14:10 CITRUS FRUIT ACIDIC FOOD--ITCHY L EAR, HEAD amoxicillin Allergy Verified 04/04/19 14:10 erythromycin base Allergy Verified 04/04/19 14:10 Macrolide Antibiotics AdvReac Intermediate GI SYMPTOMS Verified 04/04/19 14:10 Penicillins AdvReac Intermediate GI SYMPTOMS Verified 04/04/19 14:10 Cipro AdvReac Unknown GI UPSET Verified 01/31/18 06:42 ciprofloxacin AdvReac Unknown GI UPSET Verified 04/04/19 14:10 clindamycin AdvReac Unknown GI UPSET Verified 04/04/19 14:10 levofloxacin AdvReac Unknown tendonitis Verified 04/04/19 14:10 Home Medications Home Medications Medication Instructions Recorded Confirmed Type biotin 5 mg PO HS 06/03/18 04/04/19 History calcium carb and citrate-vitD3 600 mg PO BID 06/03/18 04/04/19 History clobetasol 1 applic TOPICAL BID PRN 06/03/18 04/04/19 History cyclosporine [Restasis] 1 drp OPB Q12H 06/03/18 04/04/19 History docusate sodium 100 mg PO HS PRN 06/03/18 04/04/19 History glucosamine-chondroitin 1 tab PO BID 06/03/18 04/04/19 History hydrocortisone butyrate 1 applic TOPICAL DAILY PRN 06/03/18 04/04/19 History lactobacillus combination no.4 0 mmu cells PO QAM 06/03/18 04/04/19 History [Probiotic] loteprednol etabonate [Lotemax] 1 applic OPB HS 06/03/18 04/04/19 History magnesium 250 mg PO HS 06/03/18 04/04/19 History multivitamin 1 tab PO Q OTHER DAY 06/03/18 04/04/19 History psyllium husk [Metamucil] 1 dose PO HS PRN 06/03/18 04/04/19 History vitamin B complex 1 tab PO QDD 06/03/18 04/04/19 History cholecalciferol (vitamin D3) 5,000 unit PO QAM 11/03/18 04/04/19 History [Vitamin D3] folic acid 1 mg PO QDD 11/03/18 04/04/19 History omega 3-zof-ahe-fish oil [Fish Oil] 2 cap PO BID 11/03/18 04/04/19 History acetaminophen ER 650 mg 1,300 mg PO BID tab 01/30/19 04/04/19 History tablet,extended release fexofenadine 180 mg tablet 180 mg PO DAILY PRN 01/30/19 04/04/19 History triamcinolone acetonide 0.1 % 1 appln TOPICAL BID PRN gm 01/30/19 04/04/19 History topical cream omeprazole magnesium [Prilosec OTC] 20 mg PO BID 03/30/19 04/04/19 History enoxaparin [Lovenox] 120 mg SQ DAILY@1100 04/04/19 04/04/19 History warfarin 4 mg tablet 4 mg PO DAILY 30 Days #40 tab 04/04/19 04/04/19 Rx Patient History Medical History Pneumonia (Acute) Deep venous thrombosis of left popliteal vein Pulmonary embolism Anemia (Acute) Deep vein thrombosis (Acute) Depression (Acute) Hearing deficit (Acute) On anticoagulant therapy (Acute) Osteoarthritis (Acute) Urinary tract infection (Acute) Atypical squamous cells of undetermined significance (ASC-US) on cervical Pap smear History of ascites History of lymphoma History of malignant neoplasm breast Pneumonia due to Pseudomonas Surgical History H/O tubal ligation History of bronchoscopy (Acute) History of cholecystectomy (Acute) History of colonoscopy (Acute) History of cystoscopy (Acute) Hx of oral surgery S/P breast biopsy S/P bunionectomy S/P cholecystectomy Family History Daughter Breast cancer metastatic, diagnosed in 1993 and now is stage IV with salvage chemotherapy Daughter Breast cancer, Onset Age: 27 metastatic breast cancer at age 27 Brother , age 53 MVA MVA Family/Other Essential familial hypercholesterolemia Glaucoma Heart disease Macular degeneration Stroke Mother , age 85 Hypertension Hyperlipidemia Meningioma Father , "old age" 95 Hypertension Son Kidney stones Other Cancer Stroke syndrome Social History Preferred Language: Kyrgyz Communication Ability: Effective 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 Beliefs That Will Affect Care: None Current Living Situation: Alone current occupational status: retired Feels Safe at Home: Yes Smoking Status: Never smoker Hx Alcohol Use: Yes Alcohol type: wine Alcohol Intake Frequency Comment: monthly Hx Substance Use: No Review of Systems Constitutional: + fatigue; no fever Eyes: no worsening vision Respiratory: as per Subjective / HPI Cardiovascular: + edema (chronic and stable); no chest pain and no palpitations Gastrointestinal: + diarrhea/loose stools (since starting antibiotics, now improving); no abdominal pain and no nausea Genitourinary: no dysuria and no hematuria Integumentary: no rash Neurologic: no dizziness and no headache(s) Physical Exam Constitutional: + ill appearing (chronically) and comfortable; no acute distress Eyes: + anicteric sclerae and EOM intact bilaterally ENMT: external ear and nose normal, oropharynx normal Respiratory: no respiratory distress and does not use accessory muscles Auscultation: + rhonchi (scattered); no wheezes Cardiovascular: Rate/Rhythm: regular rate and regular rhythm Heart Sounds: no murmur Extremities: + edema (in her ankles bilaterally) Gastrointestinal (Abdomen): Inspection/Auscultation: normal bowel sounds Percussion/Palpation: abdomen soft; abdomen nontender Skin: no rashes, warm and dry Psychiatric: A+Ox3, euthymic affect Lymphatic: no cervical or axillary lymphadenopathy Results & Data Vital Signs (Past 12 Hours) Vital Signs Temp Pulse Pulse Pulse Resp BP Pulse Ox 04/06/19 11:20 36.4 C L 76 20 105/67 100 04/06/19 10:50 36.2 C L 78 24 107/69 96 04/06/19 10:20 36.4 C L 78 18 99/66 L 98 04/06/19 09:50 36.2 C L 82 24 96/63 L 96 04/06/19 09:30 86 20 127/62 95 04/06/19 09:25 87 22 103/75 95 04/06/19 09:20 89 22 120/58 L 95 04/06/19 09:15 90 20 125/83 95 04/06/19 09:10 94 H 24 144/93 H 95 04/06/19 09:05 86 18 110/70 96 04/06/19 09:00 83 18 117/77 100 04/06/19 08:55 81 18 124/77 100 04/06/19 08:09 36.3 C L 72 16 108/69 96 04/06/19 05:25 36.3 C L 78 18 131/81 98 Laboratory Results Laboratory Results - last 24 hr 04/05/19 04/05/19 04/05/19 11:11 16:46 16:47 PT INR PTT Ratio 2.2 NT-Pro-B Natriuret Pep 232 Procalcitonin < 0.05 Fluid Neutrophils % Fluid Lymphocytes % Fluid Eosinophils % Fl Monocyt/Macrophag % Stl C. diff Tox B Gene 04/06/19 04/06/19 04/06/19 08:37 09:10 10:57 PT 23.5 H INR 2.4 H PTT Ratio NT-Pro-B Natriuret Pep Procalcitonin Fluid Neutrophils % 10 Fluid Lymphocytes % 10 Fluid Eosinophils % 5 Fl Monocyt/Macrophag % 75 Stl C. diff Tox B Gene Negative Cdiff Gene Diagnostic Findings I reviewed her CT and concur with the impression that she has pneumonitis. It is involving more than 50% of her lung parenchyma. The areas read as concerning for progressive disease could also represent pneumonitic changes.
[2019-04-06] MEDS ORDERED: ENOXAPARIN INJ 120 MG/0.8 ML SYR SQ ONE (13:00)
--- NOTE | 2019-04-06 13:58 | Discharge Summary ---
Date of Service April 06, 2019 Admission HPI Per Admitting Provider Patient is a 78 yo female with history of metastatic adenocarcinoma with unknown primary, evidence of disease in her lungs, who was recently diagnosed with a small acute pulmonary embolism in her lingula lobe on 03/30/19. At that time she presented to the ED with complaints of shortness of breath. She had developed the PE despite being on Xarelto for a history of DVT. Hematology was contacted from the ED, recommended Lovenox and transition to Warfarin. Incidentally, the CTA of the chest on 03/30/19 showed progression of her disease in her lungs despite ongoing chemotherapy with Keytruda. She was discharged on the Lovenox and Coumadin with plans to follow with coagulation clinic. The patient was also started on Cefdinir for a mild cough with some evidence of pneumonitis and bronchial thickening on the CT. She took the Cefdinir and developed diarrhea which initially was quite bothersome but then improved to just a small amount of loose stools. She returned to the ED today because she continued to feel short of breath despite the anticoagulation and antibiotics. She would be okay at rest but would immediately experience dyspnea with just minimal exertion. No fever or chills, no chest pain, still with the mild cough. Her appetite has been okay, no vomiting. The diarrhea has lessened in frequency and volume, no blood seen, no overwhelming foul odor. In the ED she was slightly hypoxic, low 80's saturation on room air. She says that she has been on oxygen before. She would be open to trying it again if needed. She says that she has an upcoming appointment with Dr. Riley to discuss her treatment since her CT showed some progression of disease. CBC and BMP were normal. CXR with some infiltrative changes but they are consistent with the changes seen on CT 5 days prior. Principal Diagnosis Pneumonitis, suspected to be due to Keytruda Discharge Exam Constitutional WD/WN, vitals as above no acute distress Eyes PERRL, conjunctivae normal, anicteric sclerae ENMT external ear and nose normal, oropharynx normal Neck trachea midline, no thyromegaly Respiratory normal respiratory effort; no respiratory distress Auscultation: + diminished lung sounds; no wheezes Cardiovascular RRR, no murmur, no edema Gastrointestinal (Abdomen) normal bowel sounds, soft, nontender, no hepatosplenomegaly Musculoskeletal no cyanosis or clubbing, extremities motor strength 5/5 Skin no rashes, warm and dry Neurologic patellar DTR's 2+ bilat, sensation intact and PERRL, EOMI, accommodation nl, no face palsy, no dysarthria Psychiatric A+Ox3, euthymic affect Lymphatic no cervical or axillary lymphadenopathy Discharge Data Allergies Allergy/AdvReac Type Severity Reaction Status Date / Time Tetracyclines Allergy Intermediate GI Verified 04/04/19 14:10 SYMPTOMS, RASH, SUN SENSITIVITY tomato Allergy Unknown TOMATOES, Verified 04/04/19 14:10 CITRUS FRUIT ACIDIC FOOD--ITCHY L EAR, HEAD amoxicillin Allergy Verified 04/04/19 14:10 erythromycin base Allergy Verified 04/04/19 14:10 Macrolide Antibiotics AdvReac Intermediate GI SYMPTOMS Verified 04/04/19 14:10 Penicillins AdvReac Intermediate GI SYMPTOMS Verified 04/04/19 14:10 Cipro AdvReac Unknown GI UPSET Verified 01/31/18 06:42 ciprofloxacin AdvReac Unknown GI UPSET Verified 04/04/19 14:10 clindamycin AdvReac Unknown GI UPSET Verified 04/04/19 14:10 levofloxacin AdvReac Unknown tendonitis Verified 04/04/19 14:10 Consultations 04/04/19 15:17 ED Decision to Admit Stat 04/05/19 15:20 Consult Pulmonology Routine 04/05/19 15:29 Consult Oncology Routine Procedures Performed Operation Date: 04/06/19 09:00 Actual Procedures p Bronchoscopy (Bilateral) - Jaydon Pascal MD Ordered Studies 04/04/19 12:49 US venous doppler [facility] Stat Hospital Course (1) Pneumonitis: ground glass changes in right lower lobe possibly due to Keytruda s/p bronchoscopy with lavage and cultures on 04/[address] Pascal treated initially with Solu Medrol 125mg IV q6 Dr. Riley would like the patient to receive 1mg/kg of Prednisone initially will send home on Prednisone 40mg BID and can be tapered under direction of Dr. Pascal or Dr. Riley will follow up on bronchial lavage cultures will be on PCP prophylaxis with Bactrim MWF (2) Pulmonary embolism on long-term anticoagulation therapy: patient found to have small lingular PE on 03/30 on CTA chest no other PE seen, this was found while on Xarelto, considered failed therapy started on Lovenox and Coumadin continue Lovenox 120mg daily at 1100 no DVT on venous doppler continue Coumadin 4mg daily, check INR tomorrow has appt with the coagulation clinic on 04/11 (3) Hypoxia: multifactorial with possible worsening metastatic adenocarcinoma on recent CT and ground glass changes consistent with pneumonitis two step shows she needs 2L at rest and 3L on exertion arranged for home oxygen (4) Metastatic adenocarcinoma: most recent CT on 03/30 with enlarging mass, bilateral nodules, increased lymphadenopathy will consult Dr. Riley she had been on Keytruda she is eating well, maintaining her weight per Dr. Riley, hold on scheduled chemotherapy next week, will follow up in two weeks and decide on further treatment plan to hold Keytruda Total Time Total Time Spent Total Time Spent (In Minutes): 35 minutes Total Time Includes: Examination of the Patient, Discharge Planning and Medication Reconciliation Discharge Plan Discharge Items Patient Disposition: Home - Self-Care Reason For Visit: HYPOXIA Discharge Diagnosis: Hypoxia Pneumonitis Condition on Discharge: Good Goals: improve breathing on Prednisone follow up with Dr. Pascal for culture results and further testing Activity: Resume your previous activity Non-emergency contact: Primary Care Provider, Oncologist and Correction Officer [employer] Call non-emergency contact if: you have any medication questions, your symptoms worsen and you have a fever Follow-up/Referrals: [facility] [Provider Group] - 04/11/19 1:00 pm (Please, follow up at [facility] (Coumadin Clinic) on WednesdayApril 11 at 1:00 pm. *The clinic is located in the rear of [facility]. Park behind the hospital in [address] and enter via [facility]. If you need to change this appointment, call the clinic at [phone].) Guillermo Berkowitz MD [Primary Care Provider] - 04/14/19 8:15 am (Please, follow up with Dr. Guillermo Berkowitz on WednesdayApril 14 at 8:15 am. *If you need to change this appointment, call the office at [phone].) Jaydon Pascal MD [Physician] - 04/11/19 2:15 pm (Please, follow up at the [facility] Pulmonology Office with Dr. Pascal on WednesdayApril 11 at 2:15 pm. *If you need to change this appointment, call the office at [phone].) Diet: Regular Addtl Attending Provider Instructions: Medications: - PREDNISONE: take 40mg (two tablets) twice a day until told to decrease by either Dr. Riley or Dr. Pascal - BACTRIM: take one tablet on mornings - COUMADIN: take 4mg this afternoon/early evening and then follow up with coagulation clinic tomorrow for INR - LOVENOX: continue on 120mg SC daily at 11am, next dose due tomorrow Pneumonitis, hypoxia still determining if this is due to Keytruda, this is a diagnosis of exclusion thus Dr. Pascal will follow up on the testing he performed during bronchoscopy, need to exclude infection will continue on Prednisone, high dose at first and then likely taper back approved for 2L of oxygen at rest and 3L on exertion Recent diagnosis of pulmonary embolism INR is still not at goal, continue Coumadin 4mg, follow up INR tomorrow continue on Lovenox 120mg daily Adenocarcinoma: no treatment next week, Dr. Riley recommends follow up in office for transfusion in two weeks Pending Studies at Discharge: Yes Studies:: bronchial lavage, cultures Stand-Alone Forms: My [facility] Medications and DC Order Prescriptions: New prednisone 20 mg tablet 40 mg PO BID 28 Days Qty: 112 RF: 0 sulfamethoxazole-trimethoprim [Bactrim DS] 800-160 mg tablet 1 tab PO 3XWK 30 Days Qty: 30 RF: 0 Continued warfarin 4 mg tablet 4 mg PO DAILY 30 Days Qty: 40 RF: 2 triamcinolone acetonide 0.1 % cream 1 appln topical BID PRN (Reason: PRN) RF: 0 folic acid 1 mg tablet 1 mg PO QDD RF: 0 cholecalciferol (vitamin D3) [Vitamin D3] 5,000 unit Tablet 5,000 unit PO QAM RF: 0 omega 0-fsy-svr-fish oil [Fish Oil] 1,000 mg (120 mg-180 mg) Capsule 2 cap PO BID RF: 0 acetaminophen [Tylenol Arthritis Pain] 650 mg tablet extended release 1,300 mg PO BID RF: 0 enoxaparin [Lovenox] 120 mg/0.8 mL syringe 120 mg SQ DAILY@1100 RF: 0 vitamin B complex Tablet 1 tab PO QDD RF: 0 multivitamin Tablet 1 tab PO Q OTHER DAY RF: 0 biotin 5 mg Capsule 5 mg PO HS RF: 0 docusate sodium 100 mg Capsule 100 mg PO HS PRN (Reason: Constipation) RF: 0 magnesium 250 mg Tablet 250 mg PO HS RF: 0 hydrocortisone butyrate 0.1 % Cream 1 applic TOPICAL DAILY PRN (Reason: Skin Irritation) RF: 0 glucosamine-chondroitin 500-400 mg Tablet 1 tab PO BID RF: 0 Restasis 0.05 % Dropperette 1 drp OPB Q12H RF: 0 Lotemax 0.5 % ointment 1 applic OPB HS RF: 0 calcium carb and citrate-vitD3 600 mg calcium- 500 unit Tablet Extended Release 600 mg PO BID RF: 0 Probiotic 3 billion cell Capsule PO QAM RF: 0 Metamucil 3.4 gram/5.4 gram Powder 1 dose PO HS PRN (Reason: Constipation) RF: 0 clobetasol 0.025 % Cream 1 applic TOPICAL BID PRN (Reason: dermatitis) RF: 0 fexofenadine [Milagros Allergy] 180 mg tablet 180 mg PO DAILY PRN (Reason: Allergy Symptoms) RF: 0 Prilosec OTC 20 mg Tablet,Delayed Release (Dr/Ec) 20 mg PO BID RF: 0 Discharge Orders: Discharge Order (Routine); Ordered 04/06/19 Ordered By: Michele Polanco Admission Data Admit Date/Time: 04/05/19 15:23 Attending Provider: Michele Polanco Admit Provider: Michele Polanco Primary Care Provider: Guillermo Berkowitz Other Providers: Josafat Dennis ; Jaydon Pascal ; Alexandru Riley Other Interventions: Discharge Summary Assessment (RN) Last Done: 04/06/19 13:45
== END 2019-04-06 14:36 | disposition home or self-care (01) | DRG 193 ==
LOC: 4W 12:24 → ED 12:24 → 4W 17:13

== ENCOUNTER 2019-04-21 19:49 | Inpatient (IN) ==
[2019-04-21] MEDS ORDERED: ONDANSETRON INJ 2 MG/ML 2 ML VIAL IV STA (20:06)
[2019-04-21] MEDS ORDERED: SODIUM CHLORIDE 0.9% 1000ML 1,000 ML IV SCH (20:15)
[2019-04-21 20:26] LABS: Basophils # (auto) 0.01 K/uL (0-0.2); Basophils % (auto) 0.1 %; Hematocrit (blood only) 30.7 % (37-47); Hemoglobin 10.1 g/dL (12.0-16.0); Immature Granulocytes # (auto) 0.07 K/uL (0.00-0.02); Immature Granulocytes % (auto) 0.4 %; Lymphocytes # (auto) 1.66 K/uL (1.2-3.4); Lymphocytes % (auto) 9.2 %; Mean Corpuscular Hemoglobin 34.1 pg (25-34); Mean Corpuscular Hgb Conc 32.9 g/dL (32-36); Mean Corpuscular Volume 103.7 fL (80-100); Mean Platelet Volume 8.8 fL (7.4-10.4); Monocytes # (auto) 0.17 K/uL (0.11-0.59); Monocytes % (auto) 0.9 %; Neutrophils # (auto) 16.14 K/uL (1.4-6.5); Neutrophils % (auto) 89.4 %; Platelet Count 284 K/uL (130-400); RDW Coefficient of Variation 15.9 % (11.5-14.5); RDW Standard Deviation 60.5 fL (36.4-46.3); Red Blood Count 2.96 M/uL (4.2-5.4); White Blood Count 18.05 K/uL (4.8-10.8)
[2019-04-21 20:36] LABS: INR 2.8 (0.9-1.1); Partial Thromboplastin Time 28.2 Seconds (21.0-31.0); Prothrombin Time 26.6 Seconds (9.0-12.0)
[2019-04-21 20:43] LABS: Alanine Aminotransferase 39 U/L (12-78); Albumin Level 3.3 gm/dl (3.4-5.0); Aspartate Aminotransferase 25 U/L (15-37); BUN Creatinine Ratio 26.5 (10-20); Blood Urea Nitrogen 31 mg/dl (7-18); Carbon Dioxide 21 mmol/L (21-32); Chloride 95 mmol/L (98-107); Est GFR (African American) 51.7; Est GFR (Non-African American) 44.6; Glucose 261 mg/dl (70-99); Lipase 120 U/L (73-393); Potassium 4.7 mmol/L (3.5-5.1); Sodium 130 mmol/L (136-145)
[2019-04-21 20:48] LABS: Albumin Globulin Ratio 0.9 (0.9-2); Alkaline Phosphatase 83 U/L (45-117); Bilirubin,Total 0.9 mg/dl (0.2-1); Globulin 3.6 gm/dl (2.5-4.0); Total Protein 6.9 gm/dl (6.4-8.2); Troponin I 0.038 ng/ml (0-0.045)
[2019-04-21] MEDS ORDERED: OPTIRAY 320 125ml IV PRN (20:52)
[2019-04-21] MEDS ORDERED: PHYTONADIONE 10 MG in SODIUM CHLORIDE 0.9% 50 ML IV ONE (21:25)
--- NOTE | 2019-04-21 21:25 | CT Scan Report ---
CT OF THE ABDOMEN AND PELVIS WITH CONTRAST CLINICAL HISTORY: Right-sided abdominal pain and swelling. Non-small cell lung cancer. COMPARISON STUDY: CT of the abdomen and pelvis December 26, 2018. TECHNIQUE: Following IV administration of 118 mL of Optiray-320, axial images of the abdomen and pelv is were obtained from the lung bases to the proximal femurs. Images were reviewed in the axial, sagit say, and coronal planes. IV contrast was administered without complication. Automated exposure contr ol was utilized for the study. A dose lowering technique was utilized adhering to the principles of ALARA. CT DOSE: 802.97 mGy.cm FINDINGS: Please note that the chest CT will be reported separately. An inferior right hepatic lobe m ass measures approximately 4.4 x 4.3 cm. This has likely increased in size since CT of December 26, 2018 a lthough comparison is difficult as this lesion is better visualized on this exam. No additional hepat ic lesions are present. There is no biliary or pancreatic ductal dilatation. The spleen, adrenal glan ds, kidneys and pancreas are unremarkable. There is no biliary ductal dilatation status post cholecys tectomy. There is no evidence for a bowel obstruction. No pneumatosis, free air or portal venous gas is present. A large acute right rectus sheath hematoma is noted. This contains a focus of active extr avasation. This hematoma measures approximately 15 x 11.5 x 5.4 cm. There is hemorrhage within the ad jacent extraperitoneal space. A pessary device is in place. There is no evidence for a bowel obstruct ion. No suspicious osseous lesions are noted. There is no abdominal or pelvic lymphadenopathy. Major vasculature is patent. IMPRESSION: 1. Large acute right rectus sheath hematoma that measures approximately 15 x 11.5 x 5.4 cm. This cont ains a focus of active extravasation. Moderate adjacent extraperitoneal hemorrhage. Discussed with Dr Rosalind Rangel at time of dictation. 2. Suspected slight increase in size of a 4.4 x 4.3 cm inferior right hepatic lobe mass since CT of J [email or web address]. Electronically signed by: Bonilla Blair M.D. 04/21/2019 9:24 PM
--- NOTE | 2019-04-21 21:25 | CT Scan Report ---
CT ANGIOGRAPHY OF THE CHEST, PULMONARY EMBOLUS PROTOCOL CLINICAL HISTORY: Chest pain. History of lung cancer. COMPARISON STUDY: Chest CT March 30, 2019. TECHNIQUE: Following IV administration of 118 mL of Optiray-320, helical axial images of the chest we re obtained utilizing the pulmonary embolus protocol. Maximal intensity projections and sagittal and coronal reformats were viewed on an independent 3D workstation. IV contrast was administered withou t complication. Automated exposure control was utilized for the study. A dose lowering technique wa s utilized adhering to the principles of ALARA. FINDINGS: No pulmonary emboli are identified. The pulmonary embolus shown on CT of March 30, 2019 is no longer visualized. The heart is mildly enlarged. There is no pericardial effusion. Mediastinal and bilateral hilar lymph nodes have decreased in size since CT of March 30, 2019. These are now no rmal in size. Multiple pulmonary nodules have also decreased in size since prior exam. An index right lower lobe nodule on image 116 of 293 measures 7 mm lung this exam. It previously measured 10 mm. No pneumothorax or pleural effusion is noted. No suspicious osseous lesions are noted. The abdomen and pelvis will be reported separately. IMPRESSION: 1. No pulmonary emboli identified. 2. Interval decrease in mediastinal and bilateral hilar lymphadenopathy and interval decrease in size of numerous pulmonary nodules. The findings favor a treatment response. Electronically signed by: Bonilla Blair M.D. 04/21/2019 9:23 PM
--- NOTE | 2019-04-21 21:38 | Emergency Department Note ---
Entered by Sandy Chen acting as a scribe for Raul Rangel DO History of Present Illness General Chief complaint: Tachycardia Stated complaint: DEHYDRATION, RAPID HEARTRATE, SWELLING/TENDER ABD Time Seen by Provider: 04/21/19 19:57 Source: patient Mode of arrival: wheelchair Limitations: no limitations History of Present Illness Onset (ago): day(s) 1 Location: chest Radiation: non-radiation Pain Consistency: + constant Maximum Pain Intensity: 0 Relieved By: + none Exacerbated By: + movement Associated symptoms: no cough, no fever/chills and no nausea/vomiting Treatments prior to arrival: none The patient is a 78 year old female who presents to the ED with complaints of shortness of breath. She notes her breathing is worsened by any exertion. She states this morning she woke up with right sided abdominal pain. She is currently on chemotherapy and had her last treatment 3 days [employer]. She can occasionally experience constipation after her treatments, but states she has had 5 bowel movements so far today. She denies any recent fevers or cough. The patient does take daily Brilinta. She admits to chronic swelling in her legs. She denies any calf pain. She denies any recent nausea or vomiting. Home Medications Home Medications Medication Instructions Recorded Confirmed Type Lotemax 1 applic OPB HS 06/03/18 04/21/19 History Metamucil 1 dose PO HS PRN 06/03/18 04/21/19 History Probiotic 0 mmu cells PO QAM 06/03/18 04/21/19 History Restasis 1 drp OPB Q12H 06/03/18 04/21/19 History biotin 5 mg PO HS 06/03/18 04/21/19 History calcium carb and citrate-vitD3 600 mg PO BID 06/03/18 04/21/19 History clobetasol 1 applic TOPICAL BID PRN 06/03/18 04/21/19 History docusate sodium 100 mg PO HS PRN 06/03/18 04/21/19 History glucosamine-chondroitin 1 tab PO BID 06/03/18 04/21/19 History hydrocortisone butyrate 1 applic TOPICAL DAILY PRN 06/03/18 04/21/19 History magnesium 250 mg PO HS 06/03/18 04/21/19 History multivitamin 1 tab PO Q OTHER DAY 06/03/18 04/21/19 History vitamin B complex 1 tab PO QDD 06/03/18 04/21/19 History cholecalciferol (vitamin D3) 5,000 unit PO QAM 11/03/18 04/21/19 History [Vitamin D3] folic acid 1 mg PO QDD 11/03/18 04/21/19 History omega 3-jwq-tcg-fish oil [Fish Oil] 2 cap PO BID 11/03/18 04/21/19 History acetaminophen ER 650 mg 1,300 mg PO BID tab 01/30/19 04/21/19 History tablet,extended release fexofenadine 180 mg tablet 180 mg PO DAILY PRN 01/30/19 04/21/19 History triamcinolone acetonide 0.1 % 1 appln TOPICAL BID PRN gm 01/30/19 04/21/19 History topical cream Prilosec OTC 20 mg PO BID 03/30/19 04/21/19 History prednisone 40 mg PO BID 28 Days #112 tab 04/06/19 04/21/19 Rx sulfamethoxazole-trimethoprim 1 tab PO 3XWK 30 Days #30 tab 04/06/19 04/21/19 Rx [Bactrim DS] warfarin 4 mg tablet 4 mg PO QPM tab 04/10/19 04/21/19 History escitalopram 10 mg tablet 10 mg PO DAILY #30 tab 04/14/19 04/21/19 Rx Allergies Allergy/AdvReac Type Severity Reaction Status Date / Time Tetracyclines Allergy Intermediate GI Verified 04/21/19 21:33 SYMPTOMS, RASH, SUN SENSITIVITY tomato Allergy Unknown TOMATOES, Verified 04/21/19 21:33 CITRUS FRUIT ACIDIC FOOD--ITCHY L EAR, HEAD amoxicillin Allergy Verified 04/21/19 21:33 erythromycin base Allergy Verified 04/21/19 21:33 Macrolide Antibiotics AdvReac Intermediate GI SYMPTOMS Verified 04/21/19 21:33 Penicillins AdvReac Intermediate GI SYMPTOMS Verified 04/21/19 21:33 Cipro AdvReac Unknown GI UPSET Verified 01/31/18 06:42 ciprofloxacin AdvReac Unknown GI UPSET Verified 04/21/19 21:33 clindamycin AdvReac Unknown GI UPSET Verified 04/21/19 21:33 levofloxacin AdvReac Unknown tendonitis Verified 04/21/19 21:33 Past Med/Surg History Medical History Pneumonia (Acute) Deep venous thrombosis of left popliteal vein Pulmonary embolism Anemia (Acute) Deep vein thrombosis (Acute) Depression (Acute) Hearing deficit (Acute) On anticoagulant therapy (Acute) Osteoarthritis (Acute) Urinary tract infection (Acute) Atypical squamous cells of undetermined significance (ASC-US) on cervical Pap smear History of ascites History of lymphoma History of malignant neoplasm breast Pneumonia due to Pseudomonas Surgical History H/O tubal ligation History of bronchoscopy (Acute) History of cholecystectomy (Acute) History of colonoscopy (Acute) History of cystoscopy (Acute) Hx of oral surgery S/P breast biopsy S/P bunionectomy S/P cholecystectomy Family History Daughter Breast cancer metastatic, diagnosed in 1993 and now is stage IV with salvage chemotherapy Daughter Breast cancer, Onset Age: 27 metastatic breast cancer at age 27 Brother , age 53 MVA MVA Family/Other Essential familial hypercholesterolemia Glaucoma Heart disease Macular degeneration Stroke Mother , age 85 Hypertension Hyperlipidemia Meningioma Father , "old age" 95 Hypertension Son Kidney stones Other Cancer Stroke syndrome Social History Preferred Language: Irish Communication Ability: Effective Visual Impairment: Limited Hearing Ability: Use of Hearing Aid Changeover Operator Required: No Beliefs That Will Affect Care: None Current Living Situation: Alone current occupational status: retired Feels Safe at Home: Yes Smoking Status: Never smoker Hx Alcohol Use: Yes Alcohol type: wine Alcohol Intake Frequency Comment: monthly Hx Substance Use: No Childhood Exposure to Second-Hand Smoke: Yes Dental Care, Regularly: Yes Physical Activity Frequency: 1-2 Times per Week Seatbelt Use: always Sunscreen Use: Yes Review of Systems See HPI for pertinent positives & negatives. and A total of 10 systems reviewed and were otherwise negative Physical Exam Vital Signs Vital Signs - 24 hr 04/21/19 19:50 04/21/19 21:08 Temperature Source Oral Sepsis Recent Fever Within 48 Hours No Sepsis Action Taken by Nursing No Action Required Pulse Rate 107 H Pulse Rate [Right Finger] 70 Pulse Rhythm Regular Pulse Strength Normal Respiratory Rate 18 18 Respiratory Effort / Characteristics Non-Labored Spontaneous Respiratory Depth Normal Blood Pressure 104/78 Blood Pressure [Right Arm] 137/73 Blood Pressure Mean 86 Blood Pressure Mean [Right Arm] 94 Blood Pressure Position Sitting Pulse Oximetry 100 100 Oxygen Delivery Method Room Air Room Air CONSTITUTIONAL/VITAL SIGNS: Reviewed / noted above. GENERAL: Non-toxic in appearance. INTEGUMENTARY: Warm, dry, and [place]. HEAD: Normocephalic. EYES: without scleral icterus or trauma. ENT/OROPHARYNX: clear and moist. LYMPHADENOPATHY/NECK: Is supple without lymphadenopathy or meningismus. RESPIRATORY: Lungs clear and equal. CARDIOVASCULAR: Mild tachycardia. Regular rhythm. GI/ABDOMEN: Soft. Swelling and tenderness to right mid-abdominal region. No organomegaly or pulsatile mass. No rebound or guarding. Normal bowel sounds. EXTREMITIES: Warm and well perfused. BACK: No CVA tenderness. NEUROLOGICAL: Intact without focal deficits. PSYCHIATRIC: normal affect. MUSCULOSKELETAL: Normally developed with good muscle tone. Course 1958: The patient was evaluated in room C1B and a complete history and physical were performed. 2119: I reevaluated the patient. She is resting comfortably. I discussed my recommendation she remain in the hospital for further evaluation and management and she is agreeable with the plan. 2122: I discussed the patients case with Dr. Domingo, [facility]. She recommends Vitamin K and an evaluation by the hospital medicine team. 2131: I discussed the patients case with Dr. Kamara, [facility]. The patient will be further evaluated. Consultations Consultation #1: I discussed the patients case with Dr. Domingo, [facility]. She recommends Vitamin K and an evaluation by the hospital medicine team. Time: 21:23 Consultation #2: I discussed the patients case with Dr. Kamara [facility]. The patient will be further evaluated. Time: 21:32 Administered Medications Ioversol (Optiray 320 125ml) 118 ml IV ONCE PRN PRN Reason: Interaction Checking Stop: 04/25/19 20:51 Last Admin: 04/21/19 20:52 Dose: 118 ml Documented by: [id number] Discontinued Medications Sodium Chloride (Nss 1000ml) 1,000 mls @ 999 mls/hr IV .Q1H1M CHANO Stop: 04/21/19 21:15 Last Infusion: 04/21/19 21:17 Dose: 0 mls/hr Documented by: [id number] Admin: 11/01/19 20:22 Dose: 999 mls/hr Documented by: [id number] Ondansetron HCl (Zofran) 4 mg IV NOW STA Stop: 04/21/19 20:07 Last Admin: 04/21/19 20:22 Dose: Not Given Documented by: [id number] Medical Decision Making Differential Diagnosis Differential diagnoses includes but is not limited to pneumonia, bronchitis, COPD/Asthma exacerbation, pneumothorax, pulmonary embolism, congestive heart failure, acute coronary syndrome. Medical Records Attestation: I reviewed the patient's medical records. Home Medications Current Medication List: was personally reviewed by mn Laboratory Data Attestation: I reviewed the patient's lab results. Result diagrams: 04/21/19 20:17 04/21/19 20:17 Lab Results 04/21/19 04/21/19 04/21/19 Range/Units 20:17 20:17 20:17 WBC 18.05 H (4.8-10.8) K/uL RBC 2.96 L (4.2-5.4) M/uL Hgb 10.1 L (12.0-16.0) g/dL Hct 30.7 L (37-47) % MCV 103.7 H (80-100) fL MCH 34.1 H (25-34) pg MCHC 32.9 (32-36) g/dL RDW Std Deviation 60.5 H (36.4-46.3) fL RDW Coeff of Mary Beth 15.9 H (11.5-14.5) % Plt Count 284 (130-400) K/uL MPV 8.8 (7.4-10.4) fL Immature Gran % (Auto) 0.4 % Neut % (Auto) 89.4 % Lymph % (Auto) 9.2 % [place] % (Auto) 0.9 % Eos % (Auto) 0.0 % Baso % (Auto) 0.1 % Immature Gran # (Auto) 0.07 H (0.00-0.02) K/uL Neut # (Auto) 16.14 H (1.4-6.5) K/uL Lymph # (Auto) 1.66 (1.2-3.4) K/uL [place] # (Auto) 0.17 (0.11-0.59) K/uL Eos # (Auto) 0.00 (0-0.5) K/uL Baso # (Auto) 0.01 (0-0.2) K/uL PT 26.6 H (9.0-12.0) Seconds INR 2.8 H (0.9-1.1) APTT 28.2 (21.0-31.0) Seconds PTT Ratio 1.0 Sodium 130 L (136-145) mmol/L Potassium 4.7 (3.5-5.1) mmol/L Chloride 95 L (98-107) mmol/L Carbon Dioxide 21 (21-32) mmol/L Anion Gap 14.0 H (3-11) BUN 31 H (7-18) mg/dl Creatinine 1.17 (0.6-1.2) mg/dl Est Cr Clr Drug Dosing Not Reportable Est GFR ( Amer) 51.7 Est GFR (Non-Af Amer) 44.6 BUN/Creatinine Ratio 26.5 H (10-20) Glucose 261 H (70-99) mg/dl Calcium 9.0 (8.5-10.1) mg/dl Total Bilirubin 0.9 (0.2-1) mg/dl AST 25 (15-37) U/L ALT 39 (12-78) U/L Alkaline Phosphatase 83 (45-117) U/L Troponin I 0.038 (0-0.045) ng/ml Total Protein 6.9 (6.4-8.2) gm/dl Albumin 3.3 L (3.4-5.0) gm/dl Globulin 3.6 (2.5-4.0) gm/dl Albumin/Globulin Ratio 0.9 (0.9-2) Lipase 120 (73-393) U/L Imaging Data Radiologist's Impression: Radiology results as stated below per my review and the radiologist's interpretation: CT ANGIOGRAPHY OF THE CHEST, PULMONARY EMBOLUS PROTOCOL CLINICAL HISTORY: Chest pain. History of lung cancer. COMPARISON STUDY: Chest CT March 30, 2019. TECHNIQUE: Following IV administration of 118 mL of Optiray-320, helical axial images of the chest were obtained utilizing the pulmonary embolus protocol. Maximal intensity projections and sagittal and coronal reformats were viewed on an independent 3D workstation. IV contrast was administered without complication. Automated exposure control was utilized for the study. A dose lowering technique was utilized adhering to the principles of ALARA. FINDINGS: No pulmonary emboli are identified. The pulmonary embolus shown on CT of March 30, 2019 is no longer visualized. The heart is mildly enlarged. There is no pericardial effusion. Mediastinal and bilateral hilar lymph nodes have decreased in size since CT of March 30, 2019. These are now normal in size. Mu ltiple pulmonary nodules have also decreased in size since prior exam. An index right lower lobe nodule on image 116 of 293 measures 7 mm lung this exam. It previously measured 10 mm. No pneumothorax or pleural effusion is noted. No suspicious osseous lesions are noted. The abdomen and pelvis will be reported separately. IMPRESSION: 1. No pulmonary emboli identified. 2. Interval decrease in mediastinal and bilateral hilar lymphadenopathy and interval decrease in size of numerous pulmonary nodules. The findings favor a treatment response. Electronically signed by: Bonilla Blair M.D. 04/21/2019 9:[address] OF THE ABDOMEN AND PELVIS WITH CONTRAST CLINICAL HISTORY: Right-sided abdominal pain and swelling. Non-small cell lung cancer. COMPARISON STUDY: CT of the abdomen and pelvis December 26, 2018. TECHNIQUE: Following IV administration of 118 mL of Optiray-320, axial images of the abdomen and pelvis were obtained from the lung bases to the proximal femurs. Images were reviewed in the axial, sagittal, and coronal planes. IV contrast was administered without complication. Automated exposure control was utilized for the study. A dose lowering technique was utilized adhering to the principles of ALARA. CT DOSE: 802.97 mGy.cm FINDINGS: Please note that the chest CT will be reported separately. An inferior right hepatic lobe mass measures approximately 4.4 x 4.3 cm. This has likely increased in size since CT of December 26, 2018 although comparison is difficult as this lesion is better visualized on this exam. No additional hepatic lesions are present. There is no biliary or pancreatic ductal dilatation. The spleen, adrenal glands, kidneys and pancreas are unremarkable. There is no biliary ductal dilatation status post cholecystectomy. There is no evidence for a bowel obstruction. No pneumatosis, free air or portal venous gas is present. A large acute right rectus sheath hematoma is noted. This contains a focus of active extravasation. This hematoma measures approximately 15 x 11.5 x 5.4 cm. There is hemorrhage within the adjacent extraperitoneal space. A pessary device is in place. There is no evidence for a bowel obstruction. No suspicious osseous lesions are noted. There is no abdominal or pelvic lymphadenopathy. Major vasculature is patent. IMPRESSION: 1. Large acute right rectus sheath hematoma that measures approximately 15 x 11.5 x 5.4 cm. This contains a focus of active extravasation. Moderate adjacent extraperitoneal hemorrhage. Discussed with Dr. Rangel at time of dictation. 2. Suspected slight increase in size of a 4.4 x 4.3 cm inferior right hepatic lobe mass since CT of December 26, 2018. Electronically signed by: Bonilla Blair M.D. 04/21/2019 9:24 PM ECG Data Indication: + SOB/dyspnea Rate (beats per minute): 86 Rhythm: + sinus rhythm ECG ST segments: no ST elevation ECG Findings: no PACs Comparison ECG Date: from (04/04/2019) Change: no significant change Blood Pressure Blood Pressure Findings: Elevated blood pressure Blood Pressure Disposition: further management by hospitalist MADHURI Boles The patient is a 78-year-old female who presents to the ED with a chief complaint of shortness of breath with minimal exertion. She reports that she has stage IV lung cancer and states that the symptoms are new or worse than baseline. The patient also reports some right-sided abdominal pain that started last evening. She states that she thought she was constipated but has had 5 bowel movements a day. Her pain persist. Her vital signs revealed tachycardia with a heart rate of 107. She is not hypoxic. She does have history of PE and is on Coumadin. She has not missed any doses. The patient's lungs are clear on my exam. She does appear short of breath and tachypneic with minimal exertion but after resting she is breathing comfortably. The abdomen and pelvis exam reveals tenderness to palpation as well as a mass in the right mid abdominal region. She does not want anything for pain. She does request something for nausea and feels dehydrated. A CBC reveals a white blood cell count of 18 and a hemoglobin of 10.1. The INR is 2.8. She is on Coumadin. Complete metabolic panel was unremarkable and an EKG shows a sinus rhythm at a rate of 86. The patient's has a CT scan which reveals a large right rectus sheath hematoma with some active extravasation. The patient was treated with IV Zofran and IV fluids. The patient also was given IV vitamin K. I spoke with the hospitalist, who will see the patient for further inpatient evaluation and care. Impression & Plan Rectus sheath hematoma, Dyspnea Discharge Plan Visit Data Chief Complaint: Tachycardia Stated Complaint: DEHYDRATION, RAPID HEARTRATE, SWELLING/TENDER ABD ED Provider: Raul Rangel Discharge Problem: Rectus sheath hematoma, Dyspnea Patient Disposition: Being Evaluated by Hospitalist Forms Stand Alone Forms: My [facility] Prescriptions Prescriptions: No Action warfarin 4 mg tablet 4 mg PO QPM RF: 0 escitalopram oxalate 10 mg tablet 10 mg PO DAILY Qty: 30 RF: 2 triamcinolone acetonide 0.1 % cream 1 appln topical BID PRN (Reason: PRN) RF: 0 folic acid 1 mg tablet 1 mg PO QDD RF: 0 cholecalciferol (vitamin D3) [Vitamin D3] 5,000 unit Tablet 5,000 unit PO QAM RF: 0 omega 8-for-naq-fish oil [Fish Oil] 1,000 mg (120 mg-180 mg) Capsule 2 cap PO BID RF: 0 acetaminophen [Tylenol Arthritis Pain] 650 mg tablet extended release 1,300 mg PO BID RF: 0 prednisone 20 mg tablet 40 mg PO BID 28 Days Qty: 112 RF: 0 sulfamethoxazole-trimethoprim [Bactrim DS] 800-160 mg tablet 1 tab PO 3XWK 30 Days Qty: 30 RF: 0 vitamin B complex Tablet 1 tab PO QDD RF: 0 multivitamin Tablet 1 tab PO Q OTHER DAY RF: 0 biotin 5 mg Capsule 5 mg PO HS RF: 0 docusate sodium 100 mg Capsule 100 mg PO HS PRN (Reason: Constipation) RF: 0 magnesium 250 mg Tablet 250 mg PO HS RF: 0 hydrocortisone butyrate 0.1 % Cream 1 applic TOPICAL DAILY PRN (Reason: Skin Irritation) RF: 0 glucosamine-chondroitin 500-400 mg Tablet 1 tab PO BID RF: 0 Restasis 0.05 % Dropperette 1 drp OPB Q12H RF: 0 Lotemax 0.5 % ointment 1 applic OPB HS RF: 0 calcium carb and citrate-vitD3 600 mg calcium- 500 unit Tablet Extended Release 600 mg PO BID RF: 0 Probiotic 3 billion cell Capsule PO QAM RF: 0 Metamucil 3.4 gram/5.4 gram Powder 1 dose PO HS PRN (Reason: Constipation) RF: 0 clobetasol 0.025 % Cream 1 applic TOPICAL BID PRN (Reason: dermatitis) RF: 0 fexofenadine [Milagros Allergy] 180 mg tablet 180 mg PO DAILY PRN (Reason: Allergy Symptoms) RF: 0 Prilosec OTC 20 mg Tablet,Delayed Release (Dr/Ec) 20 mg PO BID RF: 0 Referrals Referrals: Guillermo Berkowitz MD [Primary Care Provider] - The scribe's documentation has been prepared under my direction and personally reviewed by me in its entirety. I confirm that the note above accurately reflects all work, treatment, procedures, and medical decision making performed by me.
--- NOTE | 2019-04-21 21:52 | History & Physical Report ---
Date of Service April 21, 2019 Assessment & Plan (1) Rectus sheath hematoma: Ms. 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 Domingo who advised using vitamin K to bring INR down ER doctor also spoke with ICU physician Dr. Lema who advised admitting patient to PCU and transferring down to ICU if any signs of instability develop and radiology who advised that likelihood of need for IR is low Hemoglobin on admission was 10.1 down from 11.6 one week ago, now down to 8.8 at midnight Patient remains hemodynamically stable though does get quite fatigued and short of breath with any activity Will admit to PCU, check serial H and H q6h, type and hold 2 Units PRBC's Abdominal Binder ordered and in place Will recheck INR on AM labs Dr. Domingo consulted History of VTE Patient with history of VTE secondary to being hypercoagulable with her stage IV lung cancer On therapeutic warfarin currently which will need to be held Decision of resuming therapy vs. placing IVC filter will need to be made Dr. Domingo her anticoagulation physician and Dr. Pascal her materials and corrosion engineer have been consulted Mechanical VTE prophylaxis will be ordered and bilateral lower extremity dopplers pending Stage IV Non Small Cell Lung Cancer Patient with history of metastatic lung cancer followed by Dr. Riley Is currently on keytruda and pemetrexed infusions. 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 Pembrolizumab ceased, and she was placed on daily prednisone and bactrim prophylaxis Received Keytruda on wednesday CTA showing possible treatment response though CT pelvis shows possible interval enlargement of liver mass F/E/N: Regular Diet DVT PPx: SCD's Dispo: PCU, if patient were to have any acute decompensation will transfuse and move to ICU and Dr. Lema is aware of patient FULL CODE (2) Dyspnea: (3) Seasonal affective disorder: (4) Pneumonitis: (5) Metastatic adenocarcinoma: (6) Pulmonary embolism: (7) Hypoxia: (8) Lung cancer: History of Present Illness Chief Complaint: SHortness of breath Primary Care Provider: Guillermo Berkowitz MD Patient had chemo for her lung cancer wednesday, last night she had pain in her side, had been having regular bowel motions wasn't sure what the pain was. Mid afternoon she noticed she was getting short of breath and her heart would race as she walked. Pain has continued throughout. Thought she was constipated but kept having bowel movements. Otherwise feels like herself. Pain is located on the right side. Pain is located top to bottom on the right middle of her abdomen. She denies any other symptoms at this time, No fevers, chills, weakness, lightheadedness or prescyncope, no GI symptoms. 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 Patient follows with Dr. Riley and is on keytruda and pemetrexed infusions. She recently had one on Wednesday. 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 Pembrolizumab ceased, and she was placed on daily prednisone and bactrim prophylaxis and following with Dr. Pascal for pulmonology. Patient is on coumadin secondary to two pulmonary embolisms the most recently discovered one on March 30. Lives alone Here with son. Non smoker, Doesn't drink much alcohol. In emergency department patient remained hemodynamically stable, was alert and talkative, and had bruising and swelling over right aspect of abdomen. Labwork significant for hemoglobin of 10.1 down from baseline of 11.6 elevated white count of 18.05, INR 2.8 CT was ordered which showed a large rectus sheath hematoma measuring 15 x 11.5 x 5.4 cm with a focus of active extravasation of contrast. CTA showing no evidence of current PE ED spoke with Dr. Domingo who advised holding coumadin and administering vitamin K and admitting for observation/serial monitoring of her H and H. Allergies Allergy/AdvReac Type Severity Reaction Status Date / Time Tetracyclines Allergy Intermediate GI Verified 04/21/19 21:33 SYMPTOMS, RASH, SUN SENSITIVITY tomato Allergy Unknown TOMATOES, Verified 04/21/19 21:33 CITRUS FRUIT ACIDIC FOOD--ITCHY L EAR, HEAD levofloxacin AdvReac Intermediate tendonitis Verified 04/22/19 16:05 Macrolide Antibiotics AdvReac Intermediate GI SYMPTOMS Verified 04/21/19 21:33 Penicillins AdvReac Intermediate GI SYMPTOMS Verified 04/21/19 21:33 amoxicillin AdvReac Mild Gastrointestinal Verified 04/22/19 16:05 Upset ciprofloxacin AdvReac Mild GI UPSET Verified 04/22/19 16:05 clindamycin AdvReac Mild GI UPSET Verified 04/22/19 16:05 erythromycin base AdvReac Mild Gastrointestinal Verified 04/22/19 16:05 Upset Cipro AdvReac Unknown GI UPSET Verified 01/31/18 06:42 Home Medications Home Medications Medication Instructions Recorded Confirmed Type Lotemax 1 applic OPB HS 06/03/18 04/21/19 History Metamucil 1 dose PO HS PRN 06/03/18 04/21/19 History Probiotic 0 mmu cells PO QAM 06/03/18 04/21/19 History Restasis 1 drp OPB Q12H 06/03/18 04/21/19 History biotin 5 mg PO HS 06/03/18 04/21/19 History calcium carb and citrate-vitD3 600 mg PO BID 06/03/18 04/21/19 History clobetasol 1 applic TOPICAL BID PRN 06/03/18 04/21/19 History docusate sodium 100 mg PO HS PRN 06/03/18 04/21/19 History glucosamine-chondroitin 1 tab PO BID 06/03/18 04/21/19 History hydrocortisone butyrate 1 applic TOPICAL DAILY PRN 06/03/18 04/21/19 History magnesium 250 mg PO HS 06/03/18 04/21/19 History multivitamin 1 tab PO Q OTHER DAY 06/03/18 04/21/19 History vitamin B complex 1 tab PO QDD 06/03/18 04/21/19 History cholecalciferol (vitamin D3) 5,000 unit PO QAM 11/03/18 04/21/19 History [Vitamin D3] folic acid 1 mg PO QDD 11/03/18 04/21/19 History omega [id number]-fish oil [Fish Oil] 2 cap PO BID 11/03/18 04/21/19 History acetaminophen ER 650 mg 1,300 mg PO BID tab 01/30/19 04/21/19 History tablet,extended release fexofenadine 180 mg tablet 180 mg PO DAILY PRN 01/30/19 04/21/19 History triamcinolone acetonide 0.1 % 1 appln TOPICAL BID PRN gm 01/30/19 04/21/19 History topical cream Prilosec OTC 20 mg PO BID 03/30/19 04/21/19 History prednisone 40 mg PO BID 28 Days #112 tab 04/06/19 04/21/19 Rx sulfamethoxazole-trimethoprim 1 tab PO 3XWK 30 Days #30 tab 04/06/19 04/21/19 Rx [Bactrim DS] warfarin 4 mg tablet 4 mg PO QPM tab 04/10/19 04/21/19 History escitalopram 10 mg tablet 10 mg PO DAILY #30 tab 04/14/19 04/21/19 Rx Past Med/Surg History Medical History Pneumonia (Acute) Deep venous thrombosis of left popliteal vein Pulmonary embolism Anemia (Acute) Deep vein thrombosis (Acute) Depression (Acute) Hearing deficit (Acute) On anticoagulant therapy (Acute) Osteoarthritis (Acute) Urinary tract infection (Acute) Atypical squamous cells of undetermined significance (ASC-US) on cervical Pap smear History of ascites History of lymphoma History of malignant neoplasm breast Pneumonia due to Pseudomonas Surgical History H/O tubal ligation History of bronchoscopy (Acute) History of cholecystectomy (Acute) History of colonoscopy (Acute) History of cystoscopy (Acute) Hx of oral surgery S/P breast biopsy S/P bunionectomy S/P cholecystectomy Family History Daughter Breast cancer metastatic, diagnosed in 1993 and now is stage IV with salvage chemotherapy Daughter Breast cancer, Onset Age: 27 metastatic breast cancer at age 27 Brother , age 53 MVA MVA Family/Other Essential familial hypercholesterolemia Glaucoma Heart disease Macular degeneration Stroke Mother , age 85 Hypertension Hyperlipidemia Meningioma Father , "old age" 95 Hypertension Son Kidney stones Other Cancer Stroke syndrome Social History Preferred Language: Arabic Communication Ability: Effective Visual Impairment: Limited Hearing Ability: Use of Hearing Aid 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 Steward Required: No Beliefs That Will Affect Care: None Current Living Situation: Alone current occupational status: retired Feels Safe at Home: Yes Safety Concerns: Feels Safe At This Time Smoking Status: Never smoker Hx Alcohol Use: No Hx Substance Use: No Childhood Exposure to Second-Hand Smoke: Yes Dental Care, Regularly: Yes Physical Activity Frequency: 1-2 Times per Week Seatbelt Use: always Sunscreen Use: Yes Review of Systems Constitutional: no fever, no chills and no sweats Eyes: no problem reported Respiratory: + dyspnea on exertion; no cough, no hemoptysis and no sputum production Cardiovascular: + dyspnea on exertion and + palpitations (Feels heart racing with activity); no chest pain, no chest pain with activity, no radiating jaw, neck or arm pain, no dyspnea at rest, no lightheadedness and no syncope Gastrointestinal: + abdominal pain (Right abdomen top to bottom); no nausea, no vomiting, no constipation and no diarrhea/loose stools Integumentary: New swollen bruising lesion of right side of abdomen Physical Exam Physical Exam: Constitutional: Well-appearing 70-year-old woman appears stated age resting in bed in no apparent distress Eyes: Anicteric sclerae pupils equal round reactive to light extraocular muscle motions intact bilaterally ENMT no abnormalities detected and oropharynx Neck: No lymph nodes detected, supple with no masses Respiratory: Chest expansion equal bilaterally, and no apparent respiratory distress, lung sounds vesicular in all lung badillo Cardiovascular: Heart sounds dual, regular rate and rhythm, no murmurs rubs skips or gallops, no lower limb edema Gastrointestinal: Right-sided abdominal swelling and palpable mass just under the skin over rectus abdominal muscles. No peritoneal signs no rebound tenderness no pain away from mass Integumentary: Bruising over right abdomen Results & Data Vital Signs (Past 12 Hours) Vital Signs Pulse Pulse Resp BP BP Pulse Ox 04/21/19 21:08 70 18 137/73 100 04/21/19 19:50 107 H 18 104/[address] ANGIOGRAPHY OF THE CHEST, PULMONARY EMBOLUS PROTOCOL CLINICAL HISTORY: Chest pain. History of lung cancer. COMPARISON STUDY: Chest CT March 30, 2019. TECHNIQUE: Following IV administration of 118 mL of Optiray-320, helical axial images of the chest were obtained utilizing the pulmonary embolus protocol. Maximal intensity projections and sagittal and coronal reformats were viewed on an independent 3D workstation. IV contrast was administered without complication. Automated exposure control was utilized for the study. A dose lowering technique was utilized adhering to the principles of ALARA. FINDINGS: No pulmonary emboli are identified. The pulmonary embolus shown on CT of March 30, 2019 is no longer visualized. The heart is mildly enlarged. There is no pericardial effusion. Mediastinal and bilateral hilar lymph nodes have decreased in size since CT of March 30, 2019. These are now normal in size. Multiple pulmonary nodules have also decreased in size since prior exam. An index right lower lobe nodule on image 116 of 293 measures 7 mm lung this exam. It previously measured 10 mm. No pneumothorax or pleural effusion is noted. No suspicious osseous lesions are noted. The abdomen and pelvis will be reported separately. IMPRESSION: 1. No pulmonary emboli identified. 2. Interval decrease in mediastinal and bilateral hilar lymphadenopathy and interval decrease in size of numerous pulmonary nodules. The findings favor a treatment response. Electronically signed by: Bonilla Blair M.D. 04/21/2019 9:[address] OF THE ABDOMEN AND PELVIS WITH CONTRAST CLINICAL HISTORY: Right-sided abdominal pain and swelling. Non-small cell lung cancer. COMPARISON STUDY: CT of the abdomen and pelvis December 26, 2018. TECHNIQUE: Following IV administration of 118 mL of Optiray-320, axial images of the abdomen and pelvis were obtained from the lung bases to the proximal femurs. Images were reviewed in the axial, sagittal, and coronal planes. IV contrast was administered without complication. Automated exposure control was utilized for the study. A dose lowering technique was utilized adhering to the principles of ALARA. CT DOSE: 802.97 mGy.cm FINDINGS: Please note that the chest CT will be reported separately. An inferior right hepatic lobe mass measures approximately 4.4 x 4.3 cm. This has likely increased in size since CT of December 26, 2018 although comparison is difficult as this lesion is better visualized on this exam. No additional hepatic lesions are present. There is no biliary or pancreatic ductal dilatation. The spleen, adrenal glands, kidneys and pancreas are unremarkable. There is no biliary ductal dilatation status post cholecystectomy. There is no evidence for a bowel obstruction. No pneumatosis, free air or portal venous gas is present. A large acute right rectus sheath hematoma is noted. This contains a focus of active extravasation. This hematoma measures approximately 15 x 11.5 x 5.4 cm. There is hemorrhage within the adjacent extraperitoneal space. A pessary device is in place. There is no evidence for a bowel obstruction. No suspicious osseous lesions are noted. There is no abdominal or pelvic lymphadenopathy. Major vasculature is patent. IMPRESSION: 1. Large acute right rectus sheath hematoma that measures approximately 15 x 11.5 x 5.4 cm. This contains a focus of active extravasation. Moderate adjacent extraperitoneal hemorrhage. Discussed with Dr. Rangel at time of dictation. 2. Suspected slight increase in size of a 4.4 x 4.3 cm inferior right hepatic lobe mass since CT of December 26, 2018. Electronically signed by: Bonilla Blair M.D. 04/21/2019 9:24 PM Code Status & VTE Plan Code Status Full code per discussion with patient VTE Prophylaxis Plan VTE Prophylaxis will be ordered: Yes Reason for no VTE drug order: Contraindicated Supervising Physician Co-Signing Physician Notes Attending addendum: I have physically seen this patient, have supervised the medical residents activities, and agree with the H&P unless as otherwise noted. Assessment and Plan: Rectus sheath hematoma 15 x 11 x 5 cm with evidence of active active extravasation- Hold warfarin, and reverse with Kcentra. H&H every 6 hours. Type and screen Patient will need to be followed very closely in the PCU. She can certainly be considered an ICU candidate with a relatively minor change in function. Continue abdominal binder begun in ED. Radiology consulted by ED here, feels patient is stable and can remain at [facility]. Dr. Domingo from the anticoagulation clinic, primarily recommends reversal with Kcentra and monitoring at [facility] in PCU. Will transfer to ICU if sudden drop in BP or increase in HR or any other instability, transfuse and use pressors as needed. The majority of these bleeds can be managed without IR intervention, but if significantly worsens, will transfer to tertiary facility for IR. Remainder of orders and notations as noted. PG Care Time/CCT Total # of Minutes Spent Total Time Spent with Patient: Total time spent is greater than 50% in coordination of care (as documented) at patient's floor/unit and/or counseling patient: Resident Activity Tracking Resident Involvement: Resident Care Provided Care Provided: Adult [facility]
[2019-04-21 23:55] LABS: Hematocrit (blood only) 25.7 % (37-47); Hemoglobin 8.8 g/dL (12.0-16.0)
[2019-04-22] MEDS ORDERED: HYDROCORTISONE 1% CRM 30 GM TUBE EXT PRN (00:28)
[2019-04-22] MEDS ORDERED: FEXOFENADINE HCL 180 MG TAB PO PRN (00:28)
[2019-04-22] MEDS ORDERED: SODIUM CHLORIDE 0.9% 250 ML IV PRN ×2 (00:28→05:45)
[2019-04-22] MEDS ORDERED: PSYLLIUM 58.6% POWDER PACKET PO PRN (00:28)
[2019-04-22] MEDS ORDERED: TRIAMCINOLONE ACET 0.1% CR 15 GM TUBE TOP PRN (00:28)
[2019-04-22] MEDS ORDERED: ONDANSETRON INJ 2 MG/ML 2 ML VIAL IV PRN (00:28)
[2019-04-22] MEDS ORDERED: DOCUSATE SODIUM 100 MG CAP PO PRN (00:28)
[2019-04-22] MEDS ORDERED: ACETAMINOPHEN 325 MG TAB PO PRN (00:28)
[2019-04-22] MEDS ORDERED: CLOBETASOL PROPIONATE 0.05% OINT 15 GM TUBE EXT PRN (00:28)
[2019-04-22 02:58] LABS: Hematocrit (blood only) 25.8 % (37-47); Hemoglobin 8.8 g/dL (12.0-16.0)
[2019-04-22 03:09] LABS: INR 1.5 (0.9-1.1); Partial Thromboplastin Ratio 0.9; Partial Thromboplastin Time 23.6 Seconds (21.0-31.0); Prothrombin Time 15.2 Seconds (9.0-12.0)
[2019-04-22] MEDS ORDERED: SODIUM CHLORIDE 0.9% 1000ML 500 ML IV ONE (04:51)
[2019-04-22 05:33] LABS: Hematocrit (blood only) 22.8 % (37-47); Hemoglobin 7.6 g/dL (12.0-16.0)
--- NOTE | 2019-04-22 06:03 | Hospitalist Progress Note ---
Date of Service April 22, 2019 Subjective Around 4 am patient became hypotensive and I came to examine patient, she was unchanged symptomatically but repeat pressures confirmed she had dropped to 90's/60's. Gave 500 ml NSS bolus rechecked hemoglobin and it had dropped to 7.6 Re-Examined patient at that time (Around 6am) and made decision at that time to transfuse 2 Units PRBC's. Second large bore IV site ordered as well. Patient's pressures have risen to 120's/60's will continue to monitor closely and sign out to the day team. Results & Data Vital Signs (Past 12 Hours) Vital Signs Temp Pulse Pulse Resp BP BP Pulse Ox 04/22/19 05:29 126/63 04/22/19 04:49 101/71 04/22/19 04:22 36.5 C 78 18 94/63 L 95 04/22/19 00:20 36.5 C 67 17 148/81 H 95 04/22/19 00:08 67 19 120/70 97 04/21/19 23:13 85 16 120/70 97 04/21/19 21:48 67 19 131/77 99 04/21/19 21:08 70 18 137/73 100 04/21/19 19:50 107 H 18 104/78 100 PG Care Time/CCT Total # of Minutes Spent Total Time Spent with Patient: Total time spent is greater than 50% in coordination of care (as documented) at patient's floor/unit and/or counseling patient:
--- NOTE | 2019-04-22 06:09 | Ultrasound Report ---
BILATERAL LOWER EXTREMITY VENOUS DOPPLER HISTORY: Acute pain and swelling of lower extremities DVT concern COMPARISON STUDY: Duplex venous Doppler study 04/04/2019. FINDINGS: There is normal compressibility, flow, and augmentation within the bilateral lower extremit y deep venous systems. IVC is mostly obscured by bowel gas. Proximal portions of the IVC appear unrem arkable and patent. Flow is noted within the bilateral iliac veins. Mildly complex left-sided Renee's cyst, 4.8 x 1.2 x 2.1 cm. IMPRESSION: No DVT within the right or left lower extremity. Electronically signed by: Louie Gordillo M.D. 04/22/2019 6:07 AM
[2019-04-22] MEDS ORDERED: DEXTROSE 50% 50 ML SYRINGE IV PRN (07:00)
[2019-04-22] MEDS ORDERED: GLUCOSE 40% GEL 15 GM TUBE PO PRN (07:00)
[2019-04-22] MEDS ORDERED: GLUCAGON FOR INJ 1 MG VIAL SQ PRN (07:00)
[2019-04-22] MEDS ORDERED: GLUCOSE 10 TABS/TUBE PO PRN (07:00)
[2019-04-22] MEDS ORDERED: CARBOHYDRATES FOR HYPOGLYCEMIA PO PRN (07:00)
[2019-04-22] MEDS: ACETAMINOPHEN 325 MG TAB PO SCH ×2 (07:35→21:16)
[2019-04-22] MEDS: ESCITALOPRAM OXALATE 10 MG TAB PO SCH (07:36)
[2019-04-22] MEDS: CHOLECALCIFEROL 1,000 UNITS TAB PO SCH (07:37)
[2019-04-22] MEDS: PANTOprazole 40 MG TAB PO SCH ×2 (07:37→21:18)
[2019-04-22] MEDS: MULTIVITAMIN TAB PO SCH (07:37)
[2019-04-22] MEDS: CALCIUM 600MG + VIT D 400 IU TAB PO SCH ×2 (07:38→21:17)
[2019-04-22] MEDS: LOTEMAX~ORDER AWAITING ACTION SCH ×2 (07:38→14:10)
[2019-04-22] MEDS: RESTASIS~ORDER AWAITING ACTION SCH (08:19)
[2019-04-22] MEDS: INSULIN ASPART 100 UNITS/ML 3 ML PEN SC SCH ×4 (08:57→21:27)
[2019-04-22] MEDS ORDERED: predniSONE 20 MG TAB PO SCH (09:00)
[2019-04-22] MEDS ORDERED: NON-FORMULARY MEDICATION (Glucosamine-Chondroitin 1 TAB) PO SCH (09:00)
[2019-04-22] MEDS ORDERED: OMEGA-3 (PURIFIED FISH OIL) 1 GM CAP PO SCH (09:00)
[2019-04-22] MEDS: CYCLOSPORINE OP SCH ×2 (11:14→21:18)
--- NOTE | 2019-04-22 12:29 | Oncology Consultation ---
Date of Consultation April 22, 2019 Assessment & Plan (1) Rectus sheath hematoma: Ms. Levy had a mildly supratherapeutic INR earlier this week, which may account for the hematoma. Her INR is now normal and we should keep it in the normal range for now. She had some active extravasation into the hematoma on the CT, but she looks comfortable today and her symptoms do not seem to be worsening. Her hemoglobin dropped a bit today. Her hemoglobin may still be settling out from the blood loss she experienced, rather than her having ongoing blood loss. She also had chemotherapy on Wednesday, so her counts may be down a bit as a result of that. We will need to monitor her counts closely in the coming days, including both her hemoglobin and her platelets, because of her recent treatment. That being said, rectus sheath hematomas are usually self- limited as the potential space they fill is smaller than that seen in other sites, like intraperitoneal or thigh hematomas. If we get a sense that her bleeding is worse, we could send her out for an embolization procedure, but it seems as though this will not be necessary. For now, she is off of anticoagulation. The reason we switched from Xarelto to warfarin in the first place was because of a very small filling defect noted on the CT that diagnosed her pneumonitis. Now that she has had an issue with warfarin, one question we may need to address is whether that truly represented a failure of Xarelto. We can discuss this more once she is ready to resume anticoagulation. Present on Admission?: Yes History of Present Illness Reason for Consultation: Rectus sheath hematoma Metastatic NSCLC Immune pneumonitis Attending Physician: Fly Mathews MD History of Present Illness Ms. Levy is a 78 year old never smoker with a metastatic non-small cell lung cancer that was diagnosed in early 2017. Her diagnosis was initially unclear, so she was originally treated as a cholangiocarcinoma. Her response was good to upfront therapy, but we had to stop in May 2018 due to toxicity. She had progressive disease in September, and we decided to treat her with a more lung cancer-specific regimen, including immunotherapy with pembrolizumab. She had a good response to her initial induction course and started maintenance therapy with pemetrexed and pembrolizumab in December. She had a worsening cough and shortness of breath earlier this month. A CT chest revealed evidence of pneumonitis and so we startedtreatment for an immunotherapy-related pneumonitis with high-dose prednisone, along with prophylactic Bactrim. That same scan revealed a very small lingular filling defect suggestive of a PE. She was already on Xarelto at the time and so we decided to switch to warfarin. Her INR on 04/10 was 2.2 and on 04/18 was 3.9. The anticoagulation clinic had her hold a dose that day and restart at a lower dose the following day. She called my office yesterday complaining of some vague soreness in her right abdomen. She described it as feeling like a large bruise. Given all of the above issues, I asked her to come to the ER. There, a CT revealed a large acute right rectus sheath hematoma that measures approximately 15 x 11.5 x 5.4 cm. She got FFP last night. Her hemoglobin dropped about 2 grams from before and was 7.6 later this morning, so she is now also getting a blood transfusion. She feels sore at the site but is not in severe pain. She was transiently, mildly hypotensive over the night but her pressures are normal today. She denies any evidence of bleeding elsewhere. She also denies any headaches, vision changes, nausea, weakness, shortness of breath, chest pain, or new calf or leg swelling. Allergies Allergy/AdvReac Type Severity Reaction Status Date / Time Tetracyclines Allergy Intermediate GI Verified 04/21/19 21:33 SYMPTOMS, RASH, SUN SENSITIVITY tomato Allergy Unknown TOMATOES, Verified 04/21/19 21:33 CITRUS FRUIT ACIDIC FOOD--ITCHY L EAR, HEAD amoxicillin Allergy Verified 04/21/19 21:33 erythromycin base Allergy Verified 04/21/19 21:33 Macrolide Antibiotics AdvReac Intermediate GI SYMPTOMS Verified 04/21/19 21:33 Penicillins AdvReac Intermediate GI SYMPTOMS Verified 04/21/19 21:33 Cipro AdvReac Unknown GI UPSET Verified 01/31/18 06:42 ciprofloxacin AdvReac Unknown GI UPSET Verified 04/21/19 21:33 clindamycin AdvReac Unknown GI UPSET Verified 04/21/19 21:33 levofloxacin AdvReac Unknown tendonitis Verified 04/21/19 21:33 Home Medications Home Medications Medication Instructions Recorded Confirmed Type Lotemax 1 applic OPB HS 06/03/18 04/21/19 History Metamucil 1 dose PO HS PRN 06/03/18 04/21/19 History Probiotic 0 mmu cells PO QAM 06/03/18 04/21/19 History Restasis 1 drp OPB Q12H 06/03/18 04/21/19 History biotin 5 mg PO HS 06/03/18 04/21/19 History calcium carb and citrate-vitD3 600 mg PO BID 06/03/18 04/21/19 History clobetasol 1 applic TOPICAL BID PRN 06/03/18 04/21/19 History docusate sodium 100 mg PO HS PRN 06/03/18 04/21/19 History glucosamine-chondroitin 1 tab PO BID 06/03/18 04/21/19 History hydrocortisone butyrate 1 applic TOPICAL DAILY PRN 06/03/18 04/21/19 History magnesium 250 mg PO HS 06/03/18 04/21/19 History multivitamin 1 tab PO Q OTHER DAY 06/03/18 04/21/19 History vitamin B complex 1 tab PO QDD 06/03/18 04/21/19 History cholecalciferol (vitamin D3) 5,000 unit PO QAM 11/03/18 04/21/19 History [Vitamin D3] folic acid 1 mg PO QDD 11/03/18 04/21/19 History omega 5-uvd-kwy-fish oil [Fish Oil] 2 cap PO BID 11/03/18 04/21/19 History acetaminophen ER 650 mg 1,300 mg PO BID tab 01/30/19 04/21/19 History tablet,extended release fexofenadine 180 mg tablet 180 mg PO DAILY PRN 01/30/19 04/21/19 History triamcinolone acetonide 0.1 % 1 appln TOPICAL BID PRN gm 01/30/19 04/21/19 History topical cream Prilosec OTC 20 mg PO BID 03/30/19 04/21/19 History prednisone 40 mg PO BID 28 Days #112 tab 04/06/19 04/21/19 Rx sulfamethoxazole-trimethoprim 1 tab PO 3XWK 30 Days #30 tab 04/06/19 04/21/19 Rx [Bactrim DS] warfarin 4 mg tablet 4 mg PO QPM tab 04/10/19 04/21/19 History escitalopram 10 mg tablet 10 mg PO DAILY #30 tab 04/14/19 04/21/19 Rx Patient History Medical History Pneumonia (Acute) Deep venous thrombosis of left popliteal vein Pulmonary embolism Anemia (Acute) Deep vein thrombosis (Acute) Depression (Acute) Hearing deficit (Acute) On anticoagulant therapy (Acute) Osteoarthritis (Acute) Urinary tract infection (Acute) Atypical squamous cells of undetermined significance (ASC-US) on cervical Pap smear History of ascites History of lymphoma History of malignant neoplasm breast Pneumonia due to Pseudomonas Surgical History H/O tubal ligation History of bronchoscopy (Acute) History of cholecystectomy (Acute) History of colonoscopy (Acute) History of cystoscopy (Acute) Hx of oral surgery S/P breast biopsy S/P bunionectomy S/P cholecystectomy Family History Daughter Breast cancer metastatic, diagnosed in 1993 and now is stage IV with salvage chemotherapy Daughter Breast cancer, Onset Age: 27 metastatic breast cancer at age 27 Brother , age 53 MVA MVA Family/Other Essential familial hypercholesterolemia Glaucoma Heart disease Macular degeneration Stroke Mother , age 85 Hypertension Hyperlipidemia Meningioma Father , "old age" 95 Hypertension Son Kidney stones Other Cancer Stroke syndrome Social History Preferred Language: Danish Communication Ability: Effective Visual Impairment: Limited Hearing Ability: 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 Beliefs That Will Affect Care: None Current Living Situation: Alone current occupational status: retired Feels Safe at Home: Yes Safety Concerns: Feels Safe At This Time Smoking Status: Never smoker Hx Alcohol Use: No Hx Substance Use: No Childhood Exposure to Second-Hand Smoke: Yes Dental Care, Regularly: Yes Physical Activity Frequency: 1-2 Times per Week Seatbelt Use: always Sunscreen Use: Yes Review of Systems Review of Systems: All systems reviewed & are unremarkable except as noted in HPI & below Physical Exam Constitutional: + ill appearing (chronically) and comfortable; no acute distress Eyes: + anicteric sclerae ENMT: external ear and nose normal, oropharynx normal Respiratory: normal respiratory effort, lungs clear to auscultation Cardiovascular: RRR, no murmur, no edema Gastrointestinal (Abdomen): Inspection/Auscultation: abdomen not distended and + abnormal bowel sounds Percussion/Palpation: + abdomen tender (over the right side of her abdomen) and abdomen soft Skin: no rashes, warm and dry Psychiatric: A+Ox3, euthymic affect Results & Data Vital Signs (Past 12 Hours) Vital Signs Temp Pulse Pulse Resp BP BP Pulse Ox 04/22/19 11:37 37.1 C 77 18 123/76 95 04/22/19 10:37 36.4 C L 75 18 133/69 96 04/22/19 10:07 37.0 C 84 18 118/69 96 04/22/19 09:52 37.0 C 82 18 127/68 95 04/22/19 09:36 36.7 C 81 18 131/77 96 04/22/19 09:28 73 04/22/19 09:22 36.8 C 82 18 112/63 96 04/22/19 08:52 36.9 C 77 18 132/77 98 04/22/19 07:52 36.9 C 82 18 132/77 96 04/22/19 07:22 36.5 C 86 16 116/65 96 04/22/19 07:07 36.5 C 78 18 100/61 97 04/22/19 06:50 36.4 C L 77 20 118/64 04/22/19 05:29 126/63 04/22/19 04:49 101/71 04/22/19 04:22 36.5 C 78 18 94/63 L 95 Laboratory Results Laboratory Results - last 24 hr 04/21/19 04/21/19 04/21/19 20:17 20:17 20:17 WBC 18.05 H RBC 2.96 L Hgb 10.1 L Hct 30.7 L MCV 103.7 H MCH 34.1 H MCHC 32.9 RDW Std Deviation 60.5 H RDW Coeff of Mary Beth 15.9 H Plt Count 284 MPV 8.8 Immature Gran % (Auto) 0.4 Neut % (Auto) 89.4 Lymph % (Auto) 9.2 Menard % (Auto) 0.9 Eos % (Auto) 0.0 Baso % (Auto) 0.1 Immature Gran # (Auto) 0.07 H Neut # (Auto) 16.14 H Lymph # (Auto) 1.66 Menard # (Auto) 0.17 Eos # (Auto) 0.00 Baso # (Auto) 0.01 PT 26.6 H INR 2.8 H APTT 28.2 PTT Ratio 1.0 Sodium 130 L Potassium 4.7 Chloride 95 L Carbon Dioxide 21 Anion Gap 14.0 H BUN 31 H Creatinine 1.17 Est Cr Clr Drug Dosing Not Reportable Est GFR ( Amer) 51.7 Est GFR (Non-Af Amer) 44.6 BUN/Creatinine Ratio 26.5 H Glucose 261 H POC Glucose Calcium 9.0 Total Bilirubin 0.9 AST 25 ALT 39 Alkaline Phosphatase 83 Troponin I 0.038 Total Protein 6.9 Albumin 3.3 L Globulin 3.6 Albumin/Globulin Ratio 0.9 Lipase 120 Blood Type Antibody Screen Crossmatch 04/21/19 04/21/19 04/22/19 23:47 23:47 02:44 WBC RBC Hgb 8.8 L 8.8 L Hct 25.7 L 25.8 L MCV MCH MCHC RDW Std Deviation RDW Coeff of Mary Beth Plt Count MPV Immature Gran % (Auto) Neut % (Auto) Lymph % (Auto) Menard % (Auto) Eos % (Auto) Baso % (Auto) Immature Gran # (Auto) Neut # (Auto) Lymph # (Auto) Menard # (Auto) Eos # (Auto) Baso # (Auto) PT INR APTT PTT Ratio Sodium Potassium Chloride Carbon Dioxide Anion Gap BUN Creatinine Est Cr Clr Drug Dosing Est GFR ( Amer) Est GFR (Non-Af Amer) BUN/Creatinine Ratio Glucose POC Glucose Calcium Total Bilirubin AST ALT Alkaline Phosphatase Troponin I Total Protein Albumin Globulin Albumin/Globulin Ratio Lipase Blood Type O Negative Antibody Screen NEGATIVE Crossmatch See Detail 04/22/19 04/22/19 04/22/19 02:44 05:13 07:32 WBC RBC Hgb 7.6 L Hct 22.8 L MCV MCH MCHC RDW Std Deviation RDW Coeff of Mary Beth Plt Count MPV Immature Gran % (Auto) Neut % (Auto) Lymph % (Auto) Menard % (Auto) Eos % (Auto) Baso % (Auto) Immature Gran # (Auto) Neut # (Auto) Lymph # (Auto) Menard # (Auto) Eos # (Auto) Baso # (Auto) PT 15.2 H INR 1.5 H APTT 23.6 PTT Ratio 0.9 Sodium Potassium Chloride Carbon Dioxide Anion Gap BUN Creatinine Est Cr Clr Drug Dosing Est GFR ( Amer) Est GFR (Non-Af Amer) BUN/Creatinine Ratio Glucose POC Glucose 138 H Calcium Total Bilirubin AST ALT Alkaline Phosphatase Troponin I Total Protein Albumin Globulin Albumin/Globulin Ratio Lipase Blood Type Antibody Screen Crossmatch 04/22/19 11:27 WBC RBC Hgb Hct MCV MCH MCHC RDW Std Deviation RDW Coeff of Mary Beth Plt Count MPV Immature Gran % (Auto) Neut % (Auto) Lymph % (Auto) Menard % (Auto) Eos % (Auto) Baso % (Auto) Immature Gran # (Auto) Neut # (Auto) Lymph # (Auto) Menard # (Auto) Eos # (Auto) Baso # (Auto) PT INR APTT PTT Ratio Sodium Potassium Chloride Carbon Dioxide Anion Gap BUN Creatinine Est Cr Clr Drug Dosing Est GFR ( Amer) Est GFR (Non-Af Amer) BUN/Creatinine Ratio Glucose POC Glucose 129 H Calcium Total Bilirubin AST ALT Alkaline Phosphatase Troponin I Total Protein Albumin Globulin Albumin/Globulin Ratio Lipase Blood Type Antibody Screen Crossmatch Diagnostic Findings CT Chest with contrast, 04/21/19: IMPRESSION: 1. No pulmonary emboli identified. 2. Interval decrease in mediastinal and bilateral hilar lymphadenopathy and interval decrease in size of numerous pulmonary nodules. The findings favor a treatment response. CT A/P with contrast, 04/21/19: IMPRESSION: 1. Large acute right rectus sheath hematoma that measures approximately 15 x 11.5 x 5.4 cm. This contains a focus of active extravasation. Moderate adjacent extraperitoneal hemorrhage. Discussed with Dr. Rangel at time of dictation. 2. Suspected slight increase in size of a 4.4 x 4.3 cm inferior right hepatic lobe mass since CT of December 26, 2018.
[2019-04-22 15:15] LABS: Hematocrit (blood only) 29.2 % (37-47); Hemoglobin 9.9 g/dL (12.0-16.0)
--- NOTE | 2019-04-22 15:56 | History & Physical Bridge Note ---
Date of Service April 22, 2019 History & Physical Bridge Note Patient stable today. Hgb bumped appropriately with transfusions. Discussed with Dr. Riley re: next steps. Will clearly reverse her warfarin. Trend H&H. These may fall along with WBC and platelets due to chemotherapy. Monitor abdominal exam; still benign throughout the day.
--- NOTE | 2019-04-22 16:04 | Hospitalist Progress Note ---
Date of Service April 22, 2019 Assessment & Plan (1) Rectus sheath hematoma: Noted on CT a/p on 04/21 and was 15 x 11.5 x 5.4 cm with active extravasation. However, doing well today. - Hgb bumped to 9.9 with 2 units of PRBCs - Reversed warfarin - Continue with vitamin K - Monitor closely (2) Metastatic adenocarcinoma: Lung cancer. Currently on chemotherapy with last dose last week. - Discussed with Dr. Riley - Concern that her counts will continue to drop given her recent chemo. Will transfuse RBCs and platelets - Monitor (3) Pulmonary embolism: Was on Xarelto - Had a small possible PE while on it seen on CTA on 03/30/2019. Switched to warfarin at that time. - Warfarin reversed on 04/21 - Will need to restart anticoagulation eventually. - SCDs for DVT prophylaxis while bleeding Subjective Doing quite well throughout the day. Overall, no major concerns. Some light abdominal pain. Reports no fevers/chills, chest pain, shortness of breath, nausea, or vomiting. Physical Exam Constitutional: WD/WN, vitals as above Eyes: EOM intact bilaterally; no conjunctival abnormality ENMT: external ear and nose normal, oropharynx normal Neck: trachea midline, no thyromegaly normal visual inspection Respiratory: normal respiratory effort, lungs clear to auscultation no respiratory distress Cardiovascular: RRR, no murmur, no edema Gastrointestinal (Abdomen): Inspection/Auscultation: + abdominal wall ecchymosis (Mild); abdomen not distended Percussion/Palpation: + abdomen tender (Mild) and abdomen soft; no guarding and abdomen not rigid Musculoskeletal: no cyanosis or clubbing, extremities motor strength 5/5 Skin: no rashes, warm and dry Neurologic: moves all extremities and awake Psychiatric: Orientation: alert, oriented to person and cooperative Results & Data Vital Signs (Past 12 Hours) Vital Signs Temp Pulse Pulse Resp BP BP Pulse Ox 04/22/19 15:16 36.8 C 87 18 124/74 95 04/22/19 14:45 86 04/22/19 11:44 37.1 C 77 18 123/76 95 04/22/19 10:37 36.4 C L 75 18 133/69 96 04/22/19 10:07 37.0 C 84 18 118/69 96 04/22/19 09:52 37.0 C 82 18 127/68 95 04/22/19 09:36 36.7 C 81 18 131/77 96 04/22/19 09:28 73 04/22/19 09:22 36.8 C 82 18 112/63 96 04/22/19 08:52 36.9 C 77 18 132/77 98 04/22/19 07:52 36.9 C 82 18 132/77 96 04/22/19 07:22 36.5 C 86 16 116/65 96 04/22/19 07:07 36.5 C 78 18 100/61 97 04/22/19 06:50 36.4 C L 77 20 118/64 04/22/19 05:29 126/63 04/22/19 04:49 101/71 04/22/19 04:22 36.5 C 78 18 94/63 L 95 PG Care Time/CCT Total # of Minutes Spent Total Time Spent with Patient: Total time spent is greater than 50% in coordination of care (as documented) at patient's floor/unit and/or counseling patient:
[2019-04-22] MEDS: FOLIC ACID 1 MG TAB PO SCH (16:51)
[2019-04-22] MEDS: VITAMIN B COMPLEX TAB PO SCH (16:51)
[2019-04-22] MEDS ORDERED: CALCIUM CARBONATE 500 MG CHEWABLE TAB PO PRN (17:57)
[2019-04-22] MEDS ORDERED: Nursing to Pharmacy Communication ONE (20:13)
[2019-04-22] MEDS ORDERED: NON-FORMULARY MEDICATION (Biotin 5 MG) PO SCH (21:00)
[2019-04-22] MEDS: DOCUSATE SODIUM 100 MG CAP PO PRN (21:16)
[2019-04-22] MEDS: predniSONE 10 MG TABLET PO SCH (21:17)
[2019-04-22] MEDS: MAGNESIUM OXIDE 400 MG TAB PO SCH (21:19)
[2019-04-23] MEDS: LOTEMAX~ORDER AWAITING ACTION SCH ×4 (00:02→23:06)
[2019-04-23] MEDS ORDERED: HEPARIN 100 UNIT/ML 5ML FLUSH FLUSH PRN (00:03)
[2019-04-23 06:39] LABS: INR 1.1 (0.9-1.1); Prothrombin Time 11.1 Seconds (9.0-12.0)
[2019-04-23 06:43] LABS: BUN Creatinine Ratio 34.8 (10-20); Calcium 8.4 mg/dl (8.5-10.1); Creatinine Clr Calc Pharmacy 71.3 ml/min; Est GFR (African American) 99.6; Est GFR (Non-African American) 85.9; Phosphorus 2.8 mg/dl (2.5-4.9); Potassium 3.7 mmol/L (3.5-5.1)
[2019-04-23 07:10] LABS: Hematocrit (blood only) 25.7 % (37-47); Hemoglobin 8.8 g/dL (12.0-16.0); Mean Corpuscular Hemoglobin 32.5 pg (25-34); Mean Corpuscular Hgb Conc 34.2 g/dL (32-36); Mean Corpuscular Volume 94.8 fL (80-100); Mean Platelet Volume 8.5 fL (7.4-10.4); Platelet Count 159 K/uL (130-400); Platelet Estimate Normal (Normal); RDW Coefficient of Variation 18.3 % (11.5-14.5); Red Blood Count 2.71 M/uL (4.2-5.4); White Blood Count 11.77 K/uL (4.8-10.8)
[2019-04-23] MEDS: INSULIN ASPART 100 UNITS/ML 3 ML PEN SC SCH ×4 (09:13→21:15)
[2019-04-23] MEDS: predniSONE 20 MG TAB PO SCH (09:14)
[2019-04-23] MEDS: PANTOprazole 40 MG TAB PO SCH ×2 (09:15→21:07)
[2019-04-23] MEDS: CYCLOSPORINE OP SCH ×2 (09:15→21:09)
[2019-04-23] MEDS: ACETAMINOPHEN 325 MG TAB PO SCH ×2 (09:15→21:07)
[2019-04-23] MEDS: ESCITALOPRAM OXALATE 10 MG TAB PO SCH (09:16)
[2019-04-23] MEDS: CALCIUM 600MG + VIT D 400 IU TAB PO SCH ×2 (09:16→21:06)
[2019-04-23] MEDS: CHOLECALCIFEROL 1,000 UNITS TAB PO SCH (09:17)
[2019-04-23] MEDS: PHYTONADIONE 5 MG TAB PO SCH (09:21)
--- NOTE | 2019-04-23 11:52 | Hospitalist Progress Note ---
Date of Service April 23, 2019 Assessment & Plan (1) Rectus sheath hematoma: Noted on CT a/p on 04/21 and was 15 x 11.5 x 5.4 cm with active extravasation. However, doing well today. - Hgb bumped to 9.9 with 2 units of PRBCs on 04/22. - Reversed warfarin - Continue with vitamin K x 3 doses. - Hgb down to 8.8 on 04/23, though no further abdominal pain. As in "adenocarcinoma" problem, Dr. Riley feels a gradual fall in her hgb is likely expected due to her chemotherapy, less likely further bleeding. If she remains hemodynamically stable and has no abdominal symptoms, I would have a higher threshold for further imaging. Would still transfuse though. (2) Metastatic adenocarcinoma: Lung cancer. Currently on chemotherapy with last dose last week. - Discussed with Dr. Riley - Concern that her counts will continue to drop given her recent chemo. Will transfuse RBCs and platelets for hgb > 8 and plts > 50. - Monitor (3) Pulmonary embolism: Was on Xarelto - Had a small possible PE while on it seen on CTA on 03/30/2019. Switched to warfarin at that time. - Warfarin reversed on 04/21 - Will need to restart anticoagulation eventually. - SCDs for DVT prophylaxis while bleeding Subjective Doing very well this morning. No further abdominal pain. Reports no fevers/chills, chest pain, shortness of breath, abdominal pain, nausea, or vomiting. Physical Exam Constitutional: WD/WN, vitals as above Eyes: EOM intact bilaterally; no conjunctival abnormality ENMT: external ear and nose normal, oropharynx normal Neck: trachea midline, no thyromegaly normal visual inspection Respiratory: normal respiratory effort, lungs clear to auscultation no respiratory distress Cardiovascular: RRR, no murmur, no edema Gastrointestinal (Abdomen): Inspection/Auscultation: + abdominal wall ecchymosis (Mild); abdomen not distended Percussion/Palpation: + abdomen tender (Mild) and abdomen soft; no guarding and abdomen not rigid Musculoskeletal: no cyanosis or clubbing, extremities motor strength 5/5 Skin: no rashes, warm and dry Neurologic: moves all extremities and awake Psychiatric: Orientation: alert, oriented to person and cooperative Results & Data Vital Signs (Past 12 Hours) Vital Signs Temp Pulse Pulse Resp BP BP Pulse Ox 04/23/19 10:25 69 04/23/19 08:03 36.7 C 82 18 146/88 H 96 04/23/19 04:04 36.6 C 78 20 129/72 94 PG Care Time/CCT Total # of Minutes Spent Total Time Spent with Patient: Total time spent is greater than 50% in coordina tion of care (as documented) at patient's floor/unit and/or counseling patient:
--- NOTE | 2019-04-23 13:07 | Hematology/Oncology Prog Note ---
Date of Service April 23, 2019 Assessment & Plan (1) Rectus sheath hematoma: Ms. Levy looks well today and her symptoms are stable to mildly improved. She has no evidence of further bleeding and her hemoglobin is stable. W had a mildly supratherapeutic INR earlier this week, which may account for the hematoma. Her INR is now normal and we should keep it in the normal range for now. The laureano question now will be how long to keep her off of anticoagulation. The PE that was described on the scan that led us to switch from Xarelto to warfarin was not appreciated on the scan she had Wednesday. It is also not clear how acute that clot was, given that her symptoms were more in keeping with her pneumonitis. I will review her scans with radiology tomorrow and discuss the situation with pulmonology and Dr. Domingo. For now, it is encouraging that we have not seen any further issues. Over the next few days, I would anticipate a drift downward in her platelets due to chemo. We will need to monitor that closely and give her a transfusion if she bleeds further or falls too low. Present on Admission?: Yes Subjective Ms. Levy is seated comfortably in bed. She is still sore but has not had any worsening pain. She denies any bleeding elsewhere. She is breathing comfortably. Her pedal edema and neuropathy are stable. She denies any headaches, vision changes, or chest pain. Review of Systems Review of Systems: All systems reviewed & are unremarkable except as noted in HPI & below Physical Exam Constitutional: + ill appearing (chronically) and comfortable; no acute distress Eyes: + anicteric sclerae ENMT: external ear and nose normal, oropharynx normal Respiratory: normal respiratory effort, lungs clear to auscultation Cardiovascular: RRR, no murmur, no edema Gastrointestinal (Abdomen): Inspection/Auscultation: abdomen not distended and + abnormal bowel sounds Percussion/Palpation: + abdomen tender (over the right side of her abdomen) and abdomen soft Skin: no rashes, warm and dry Psychiatric: A+Ox3, euthymic affect Results & Data Vital Signs (Past 12 Hours) Vital Signs Temp Pulse Pulse Resp BP BP Pulse Ox 04/23/19 11:57 36.4 C L 93 H 18 132/74 95 04/23/19 10:25 69 04/23/19 08:03 36.7 C 82 18 146/88 H 96 04/23/19 04:04 36.6 C 78 20 129/72 94 Laboratory Results Laboratory Results - last 24 hr 04/21/19 04/22/19 04/22/19 23:47 14:59 16:31 WBC RBC Hgb 9.9 L Hct 29.2 L MCV MCH MCHC RDW Std Deviation RDW Coeff of Mary Beth Plt Count MPV Platelet Estimate PT INR Sodium Potassium Chloride Carbon Dioxide Anion Gap BUN Creatinine Est Cr Clr Drug Dosing Est GFR ( Amer) Est GFR (Non-Af Amer) BUN/Creatinine Ratio Glucose POC Glucose 112 H Calcium Phosphorus Magnesium Crossmatch See Detail 04/22/19 04/23/19 04/23/19 20:08 05:47 05:47 WBC 11.77 H RBC 2.71 L Hgb 8.8 L Hct 25.7 L MCV 94.8 D MCH 32.5 MCHC 34.2 RDW Std Deviation 64.0 H RDW Coeff of Mary Beth 18.3 H Plt Count 159 MPV 8.5 Platelet Estimate Normal PT 11.1 INR 1.1 Sodium Potassium Chloride Carbon Dioxide Anion Gap BUN Creatinine Est Cr Clr Drug Dosing Est GFR ( Amer) Est GFR (Non-Af Amer) BUN/Creatinine Ratio Glucose POC Glucose 102 H Calcium Phosphorus Magnesium Crossmatch 04/23/19 04/23/19 04/23/19 05:47 07:20 11:33 WBC RBC Hgb Hct MCV MCH MCHC RDW Std Deviation RDW Coeff of Mary Beth Plt Count MPV Platelet Estimate PT INR Sodium 138 D Potassium 3.7 D Chloride 104 Carbon Dioxide 27 Anion Gap 7.0 BUN 22 H Creatinine 0.63 D Est Cr Clr Drug Dosing 71.3 Est GFR ( Amer) 99.6 Est GFR (Non-Af Amer) 85.9 BUN/Creatinine Ratio 34.8 H Glucose 107 H POC Glucose 107 H 122 H Calcium 8.4 L Phosphorus 2.8 Magnesium 2.0 Crossmatch
[2019-04-23] MEDS: VITAMIN B COMPLEX TAB PO SCH (16:01)
[2019-04-23] MEDS: FOLIC ACID 1 MG TAB PO SCH (16:01)
[2019-04-23] MEDS: RESTASIS~ORDER AWAITING ACTION SCH ×2 (17:55→23:06)
[2019-04-23] MEDS: DOCUSATE SODIUM 100 MG CAP PO PRN (21:05)
[2019-04-23] MEDS: POLYETHYLENE (MIRALAX) 17 GM PACK PO PRN (21:05)
[2019-04-23] MEDS: MAGNESIUM OXIDE 400 MG TAB PO SCH (21:06)
[2019-04-23] MEDS: predniSONE 10 MG TABLET PO SCH (21:06)
[2019-04-24] MEDS: HEPARIN 100 UNIT/ML 5ML FLUSH FLUSH PRN (05:36)
[2019-04-24 06:23] LABS: Hematocrit (blood only) 24.4 % (37-47); Hemoglobin 8.3 g/dL (12.0-16.0); Mean Corpuscular Hemoglobin 32.8 pg (25-34); Mean Corpuscular Volume 96.4 fL (80-100); Mean Platelet Volume 8.5 fL (7.4-10.4); Platelet Count 116 K/uL (130-400); RDW Coefficient of Variation 17.9 % (11.5-14.5); RDW Standard Deviation 63.6 fL (36.4-46.3); Red Blood Count 2.53 M/uL (4.2-5.4); White Blood Count 8.57 K/uL (4.8-10.8)
[2019-04-24 07:00] LABS: BUN Creatinine Ratio 42.1 (10-20); Calcium 8.6 mg/dl (8.5-10.1); Creatinine Clr Calc Pharmacy 78.8 ml/min; Est GFR (African American) 102.9; Est GFR (Non-African American) 88.8; Magnesium 1.9 mg/dl (1.8-2.4); Phosphorus 2.9 mg/dl (2.5-4.9); Potassium 3.5 mmol/L (3.5-5.1)
[2019-04-24] MEDS: RESTASIS~ORDER AWAITING ACTION SCH ×3 (08:41→20:44)
[2019-04-24] MEDS: LOTEMAX~ORDER AWAITING ACTION SCH (08:41)
[2019-04-24] MEDS: ESCITALOPRAM OXALATE 10 MG TAB PO SCH (08:42)
[2019-04-24] MEDS: CALCIUM 600MG + VIT D 400 IU TAB PO SCH ×2 (08:42→20:07)
[2019-04-24] MEDS: PANTOprazole 40 MG TAB PO SCH ×2 (08:44→20:07)
[2019-04-24] MEDS: predniSONE 20 MG TAB PO SCH (08:44)
[2019-04-24] MEDS: MULTIVITAMIN TAB PO SCH (08:44)
[2019-04-24] MEDS: ACETAMINOPHEN 325 MG TAB PO SCH ×2 (08:45→20:43)
[2019-04-24] MEDS: SULFAMETHOXAZOLE/TRIMETHOPRIM DS 800/160MG TAB PO SCH (08:45)
[2019-04-24] MEDS: CHOLECALCIFEROL 1,000 UNITS TAB PO SCH (08:46)
[2019-04-24] MEDS: INSULIN ASPART 100 UNITS/ML 3 ML PEN SC SCH ×4 (08:53→20:42)
[2019-04-24] MEDS: PHYTONADIONE 5 MG TAB PO SCH (09:37)
--- NOTE | 2019-04-24 10:52 | Hospitalist Progress Note ---
Date of Service April 24, 2019 Assessment & Plan (1) Rectus sheath hematoma: * Improving - no further abdominal pain/discomfort * Noted on CT a/p on 04/21 and was 15 x 11.5 x 5.4 cm with active extravasation. INR 2.8. Patient given Vit K for reversal. 2 units PRBCs on 04/22 with hgb increased to 9.9 * Hgb/hct down to 8.3/24.4 today from 8.8/25.7. * INR 1.1 * As in "adenocarcinoma" problem, Dr. Riley feels a gradual fall in her hgb is likely expected due to her chemotherapy, less likely further bleeding. If she remains hemodynamically stable and has no abdominal symptoms, I would have a higher threshold for further imaging--> would still transfuse though. (2) Metastatic adenocarcinoma: * Lung, liver cancer. Currently on chemotherapy -- last dose last Wednesday. * Case discussed with Dr. Riley - Concern that her counts will continue to drop given her recent chemo. Will transfuse RBCs and platelets for hgb > 8 and plts > 50. * Suspected increased size of 4.4 x 4.3 cm inferior right hepatic lobe mass since CT 12/26/18. * Will continue to monitor (3) Pulmonary embolism: * Was on Xarelto - Had a small possible PE while on it seen on CTA on 03/30/2019. Switched to warfarin at that time. Repeat imaging without PE this admission * Warfarin reversed on 04/21 - Will need to restart anticoagulation eventually. --> Per Dr. Ni's note, discussion to occur with pulmonology/Dr. Domingo prior to re-initiation of anticoagulant therapy (4) Acute blood loss anemia: * Warfarin therapy related spontaneous rectus sheath hematoma treated with Kaycentra and 2 units PRBCs on 04/22/19. * Daily CBC. (5) Acid fast bacillus: (6) Thrombocytopenia: (7) DVT prophylaxis: * SCDs for DVT prophylaxis while bleeding Supervising Physician Co-Signing Physician Notes Attending Attestation: Chart reviewed in detail, care plan d/w SABI Flaherty. I agree w/ the laureano components of her documentation. Spontaneous rectus sheath hematoma that is warfarin therapy related. s/p kaycentra for emergent reversal of warfarin. s/p 2 units PRBCs on 04/22 for acute blood loss anemia. H/H have remained stable last 24 hours. CBC in am. As for chronic PE that was discovered earlier this month the PE is already not visible on repeat CTA study obtained this admission. Need to discuss anticoagulation moving forward with pulmonary & heme/onc given the shear size of this rectus sheath hematoma. Also need to discuss AFB that is growing on AFB culture from bronch that was performed in mid-March. NICK? other non-TB AFB? Remains on prednisone daily as advised by Dr Pascal. Cosme Hercules MD Subjective Patient evaluated this morning up in chair. Patient states hematoma has gotten much smaller, decreased in tenderness. She states she feels bad taking advantage at "[facility]" because she states she feels generally well. She states she was told by heme/onc that she may not have had a blood clot in her lung when they switched her from xarelto to coumadin and she states Dr. Riley was going to talk with pulmonology and the [facility] about anticoagulation moving forward. The patient does voice some concern about recurrence of hematoma in same location. Lives alone on 3rd floor with laundry in basement. She states she has a son who lives in [facility] who is able to help carry laundry upstairs. Review of Systems Constitutional: no fever and no chills Eyes: no blind spots and no diplopia Ear, Nose, Mouth, Throat: no ear pain, no tinnitus and no dizziness Respiratory: + dyspnea on exertion; no cough, no hemoptysis and no sputum production Cardiovascular: no chest pain and no edema Additional Comments: no chest pain, no chest pain with activity, no radiating jaw, neck or arm pain, no dyspnea at rest, no lightheadedness and no syncope + palpitations (Feels heart racing with activity) Gastrointestinal: no nausea, no vomiting, no constipation and no diarrhea/loose stools RLQ minimally tender to palpation. Genitourinary: no dysuria and no urinary frequency Musculoskeletal: no myalgia and no muscle weakness Integumentary: no rash and no lesions Neurologic: no headache(s) and no confusion Psychiatric: no depression and no anxiety Hematologic / Lymphatic: + night sweats Physical Exam Constitutional: WD/WN, vitals as above Eyes: PERRL, conjunctivae normal, anicteric sclerae ENMT: external ear and nose normal, oropharynx normal Neck: trachea midline, no thyromegaly Respiratory: normal respiratory effort, lungs clear to auscultation Cardiovascular: RRR, no murmur, no edema Gastrointestinal (Abdomen): Normoactive bowel sounds hematoma/bruising noted RLQ with abdominal binder present RLQ tender to palpation Musculoskeletal: no cyanosis or clubbing, extremities motor strength 5/5 Skin: turgor not decreased, no rashes and no lesions Neurologic: PERRL, EOMI, accommodation nl, no face palsy, no dysarthria Psychiatric: A+Ox3, euthymic affect Lymphatic: no cervical or axillary lymphadenopathy Results & Data Vital Signs (Past 12 Hours) Vital Signs Temp Pulse Resp BP Pulse Ox 04/24/19 07:48 36.9 C 80 16 127/71 95 04/24/19 00:00 95 H Laboratory Results 04/24/19 04/24/19 04/24/19 Range/Units 08:08 05:37 05:37 WBC 8.57 (4.8-10.8) K/uL RBC 2.53 L (4.2-5.4) M/uL Hgb 8.3 L (12.0-16.0) g/dL Hct 24.4 L (37-47) % MCV 96.4 (80-100) fL MCH 32.8 (25-34) pg MCHC 34.0 (32-36) g/dL RDW Std Deviation 63.6 H (36.4-46.3) fL RDW Coeff of Mary Beth 17.9 H (11.5-14.5) % Plt Count 116 L (130-400) K/uL MPV 8.5 (7.4-10.4) fL Sodium 138 (136-145) mmol/L Potassium 3.5 (3.5-5.1) mmol/L Chloride 104 (98-107) mmol/L Carbon Dioxide 27 (21-32) mmol/L Anion Gap 7.0 (3-11) BUN 24 H (7-18) mg/dl Creatinine 0.57 L (0.6-1.2) mg/dl Est Cr Clr Drug Dosing 78.8 ml/min Est GFR ( Amer) 102.9 Est GFR (Non-Af Amer) 88.8 BUN/Creatinine Ratio 42.1 H (10-20) Glucose 108 H (70-99) mg/dl POC Glucose 107 H (70-99) Calcium 8.6 (8.5-10.1) mg/dl Phosphorus 2.9 (2.5-4.9) mg/dl Magnesium 1.9 (1.8-2.4) mg/dl 04/23/19 04/23/19 Range/Units 21:06 11:33 WBC (4.8-10.8) K/uL RBC (4.2-5.4) M/uL Hgb (12.0-16.0) g/dL Hct (37-47) % MCV (80-100) fL MCH (25-34) pg MCHC (32-36) g/dL RDW Std Deviation (36.4-46.3) fL RDW Coeff of Mary Beth (11.5-14.5) % Plt Count (130-400) K/uL MPV (7.4-10.4) fL Sodium (136-145) mmol/L Potassium (3.5-5.1) mmol/L Chloride (98-107) mmol/L Carbon Dioxide (21-32) mmol/L Anion Gap (3-11) BUN (7-18) mg/dl Creatinine (0.6-1.2) mg/dl Est Cr Clr Drug Dosing ml/min Est GFR ( Amer) Est GFR (Non-Af Amer) BUN/Creatinine Ratio (10-20) Glucose (70-99) mg/dl POC Glucose 122 H 122 H (70-99) Calcium (8.5-10.1) mg/dl Phosphorus (2.5-4.9) mg/dl Magnesium (1.8-2.4) mg/dl PG Care Time/CCT Total # of Minutes Spent Total Time Spent with Patient: Total time spent is greater than 50% in coordination of care (as documented) at patient's floor/unit and/or counseling patient: (1) Pulmonary embolism Pulmonary embolism type: unspecified Chronicity: chronic Acute cor pulmonale presence: without acute cor pulmonale Qualified Code(s): I27.82 - Chronic pulmonary embolism (2) Rectus sheath hematoma Encounter type: subsequent encounter Qualified Code(s): S30.1XXD - Contusion of abdominal wall, subsequent encounter
[2019-04-24] MEDS: VITAMIN B COMPLEX TAB PO SCH (16:57)
[2019-04-24] MEDS: FOLIC ACID 1 MG TAB PO SCH (16:57)
[2019-04-24] MEDS: MAGNESIUM OXIDE 400 MG TAB PO SCH (20:07)
[2019-04-24] MEDS: DOCUSATE SODIUM 100 MG CAP PO PRN (20:11)
[2019-04-24] MEDS: POLYETHYLENE (MIRALAX) 17 GM PACK PO PRN (20:11)
[2019-04-24] MEDS: predniSONE 10 MG TABLET PO SCH (20:43)
[2019-04-24] MEDS: LOTEMAX OP SCH (22:49)
[2019-04-25] MEDS: HEPARIN 100 UNIT/ML 5ML FLUSH FLUSH PRN ×2 (05:48→08:20)
[2019-04-25 06:23] LABS: Hematocrit (blood only) 24.3 % (37-47); Hemoglobin 8.3 g/dL (12.0-16.0); Mean Corpuscular Hemoglobin 32.9 pg (25-34); Mean Corpuscular Hgb Conc 34.2 g/dL (32-36); Mean Corpuscular Volume 96.4 fL (80-100); Mean Platelet Volume 8.8 fL (7.4-10.4); Platelet Count 105 K/uL (130-400); RDW Coefficient of Variation 17.1 % (11.5-14.5); Red Blood Count 2.52 M/uL (4.2-5.4); White Blood Count 6.47 K/uL (4.8-10.8)
[2019-04-25 06:57] LABS: BUN Creatinine Ratio 40.6 (10-20); Calcium 8.8 mg/dl (8.5-10.1); Creatinine Clr Calc Pharmacy 71.3 ml/min; Est GFR (African American) 99.6; Est GFR (Non-African American) 85.9; Potassium 3.7 mmol/L (3.5-5.1)
[2019-04-25] MEDS: INSULIN ASPART 100 UNITS/ML 3 ML PEN SC SCH ×2 (08:39→13:17)
[2019-04-25 08:44] LABS: Prothrombin Time 10.2 Seconds (9.0-12.0)
[2019-04-25] MEDS: CALCIUM 600MG + VIT D 400 IU TAB PO SCH ×2 (08:48→19:58)
[2019-04-25] MEDS: CHOLECALCIFEROL 1,000 UNITS TAB PO SCH (08:48)
[2019-04-25] MEDS: ESCITALOPRAM OXALATE 10 MG TAB PO SCH (08:49)
[2019-04-25] MEDS: predniSONE 20 MG TAB PO SCH (08:49)
[2019-04-25] MEDS: PANTOprazole 40 MG TAB PO SCH ×2 (08:49→20:00)
[2019-04-25] MEDS: RESTASIS~ORDER AWAITING ACTION SCH ×2 (08:49→19:58)
[2019-04-25] MEDS: ACETAMINOPHEN 325 MG TAB PO SCH ×2 (08:50→20:01)
--- NOTE | 2019-04-25 09:10 | Hospitalist Progress Note ---
Date of Service April 25, 2019 Assessment & Plan (1) Rectus sheath hematoma: * Improving - no further abdominal pain/discomfort * Noted on CT a/p on 04/21 and was 15 x 11.5 x 5.4 cm with active extravasation. INR 2.8. Patient given Vit K for reversal. 2 units PRBCs on 04/22 with hgb increased to 9.9 * Hgb/hct remain low, but stable at 8.3/24.3 * INR 1.0 * As in "adenocarcinoma" problem, Dr. Riley feels a gradual fall in her hgb is likely expected due to her chemotherapy, less likely further bleeding. If she remains hemodynamically stable and has no abdominal symptoms, I would have a higher threshold for further imaging--> would still transfuse though. (2) Metastatic adenocarcinoma: * Lung, liver cancer. Currently on chemotherapy -- last dose last Wednesday. * Case discussed with Dr. Riley - Concern that her counts will continue to drop given her recent chemo. Will transfuse RBCs and platelets for hgb < 8 and plts < 50. * Suspected increased size of 4.4 x 4.3 cm inferior right hepatic lobe mass since CT 12/26/18. * Will continue to monitor (3) Pulmonary embolism: * ? Resolved * Was on Xarelto - Had a small possible PE while on it seen on CTA on 03/30/2019. Switched to warfarin at that time. Repeat imaging without PE this admission * Warfarin reversed on 04/21 with kaycentra * Will need to restart anticoagulation eventually. --> Discussion with Dr. Ni -- he would like to hold Coumadin for 2 weeks and likely re-initiate Coumadin after discussion with Dr. Domingo in AM, likely with lower target INR (4) Acute blood loss anemia: * Warfarin therapy related spontaneous rectus sheath hematoma treated with Kaycentra and 2 units PRBCs on 04/22/19. * Daily CBC. (5) Acid fast bacillus: * As seen on AFB culture from bronchoscopy performed by Dr Pascal on * Culture with mycobacterium avium complex * Per discussion with pulmonary team, no treatment at this time given other medical issues-- will need treatment in the future, as to be decided on by Dr. Pascal at follow-up appointment after discharge (6) Thrombocytopenia: * Platelets continue to trend down * Plt 105 from 116 yesterday * Patient received chemo one week ago today- next chemo scheduled for 05/09 (7) Prediabetes: (8) DVT prophylaxis: * SCDs for DVT prophylaxis while bleeding -- patient not currently wearing SCDs, however she has been wearing evangelist hose Dispo: possible discharge tomorrow Supervising Physician Co-Signing Physician Notes Attending Attestation: Chart reviewed in detail, care plan d/w PA Janice Flaherty. I agree w/ the laureano components of her documentation. Spontaneous rectus sheath hematoma that is warfarin therapy related resulting in acute blood loss anemia. s/p kaycentra for emergent reversal of warfarin. s/p 2 units PRBCs on 04/22 for acute blood loss anemia. H/H again have remained stable last 24 hours. Vitals including BP have remained stable. Anticoagulation NOT resumed at this time. Likely resumption of coumadin in ~2 weeks. Would start iron supplementation prior to d/c. AFB on culture from Mar - . Rx deferred at this time - Dr Pascal to discuss Rx w/ patient in the office. Remains on prednisone daily as advised by Dr Pascal. Pre-T2DM - BSGs wnl. Last A1c 5.8%. Cosme Hercules MD Subjective Patient evaluated at bedside. She states she is much less tender in the area of hematoma. She continues to use the abdominal binder, but states she has difficulty keeping it down when in the sitted position. She states she is still waiting to hear back from Dr. Ni with regards to Coumadin vs Xarelto for anticoagulation. She denies any calf tenderness, increased swelling, shortness of breath, chest pain, n/v, fevers or chills. She states she is concerned about recurrence of hematoma if she coughs or has any n/v in the future. She states she did have have a similar thing happen to her in the spring while on Xarelto but didn't think anything of it at the time. She states she was on Xarelto at that time for DVT and shortness of breath. She also had an incision in the region of her hematoma from gallbladder surgery November 1998. Review of Systems Constitutional: no fever and no chills Eyes: no diplopia and no eye pain Ear, Nose, Mouth, Throat: no dizziness and no dysphagia Respiratory: + dyspnea on exertion; no cough, no hemoptysis and no sputum production Cardiovascular: Additional Comments: no chest pain, no chest pain with activity, no radiating jaw, neck or arm pain, no dyspnea at rest, no lightheadedness and no syncope + palpitations (Feels heart racing with activity) Gastrointestinal: no nausea, no vomiting, no constipation and no diarrhea/loose stools RLQ minimally tender Genitourinary: no dysuria and no urinary frequency Integumentary: no acne and no rash Neurologic: no syncope and no confusion Hematologic / Lymphatic: + night sweats Physical Exam Constitutional: WD/WN, vitals as above Eyes: PERRL, conjunctivae normal, anicteric sclerae ENMT: external ear and nose normal, oropharynx normal Neck: trachea midline, no thyromegaly Respiratory: normal respiratory effort, lungs clear to auscultation Cardiovascular: RRR, no murmur, no edema Gastrointestinal (Abdomen): Inspection/Auscultation: abdomen normal to inspection and normal bowel sounds Percussion/Palpation: + abdomen tender (decreased hematoma, right of midline, lower quadrant); no guarding and abdomen not rigid Musculoskeletal: no cyanosis or clubbing, extremities motor strength 5/5 Skin: turgor not decreased, no rashes and no lesions Neurologic: PERRL, EOMI, accommodation nl, no face palsy, no dysarthria Psychiatric: A+Ox3, euthymic affect Lymphatic: no cervical or axillary lymphadenopathy Results & Data Vital Signs (Past 12 Hours) Vital Signs Temp Pulse Resp BP BP Pulse Ox 04/25/19 07:38 36.8 C 74 18 120/73 93 04/24/19 23:25 36.6 C 70 16 128/73 96 Laboratory Results 04/25/19 04/25/19 04/25/19 Range/Units 08:18 05:48 05:48 WBC 6.47 (4.8-10.8) K/uL RBC 2.52 L (4.2-5.4) M/uL Hgb 8.3 L (12.0-16.0) g/dL Hct 24.3 L (37-47) % MCV 96.4 (80-100) fL MCH 32.9 (25-34) pg MCHC 34.2 (32-36) g/dL RDW Std Deviation 60.0 H (36.4-46.3) fL RDW Coeff of Mary Beth 17.1 H (11.5-14.5) % Plt Count 105 L (130-400) K/uL MPV 8.8 (7.4-10.4) fL PT 10.2 (9.0-12.0) Seconds INR 1.0 (0.9-1.1) Sodium 136 (136-145) mmol/L Potassium 3.7 (3.5-5.1) mmol/L Chloride 102 (98-107) mmol/L Carbon Dioxide 30 (21-32) mmol/L Anion Gap 4.0 (3-11) BUN 26 H (7-18) mg/dl Creatinine 0.63 (0.6-1.2) mg/dl Est Cr Clr Drug Dosing 71.3 ml/min Est GFR ( Amer) 99.6 Est GFR (Non-Af Amer) 85.9 BUN/Creatinine Ratio 40.6 H (10-20) Glucose 101 H (70-99) mg/dl POC Glucose (70-99) Calcium 8.8 (8.5-10.1) mg/dl 04/24/19 04/24/19 04/24/19 Range/Units 20:33 17:13 11:59 WBC (4.8-10.8) K/uL RBC (4.2-5.4) M/uL Hgb (12.0-16.0) g/dL Hct (37-47) % MCV (80-100) fL MCH (25-34) pg MCHC (32-36) g/dL RDW Std Deviation (36.4-46.3) fL RDW Coeff of Mary Beth (11.5-14.5) % Plt Count (130-400) K/uL MPV (7.4-10.4) fL PT (9.0-12.0) Seconds INR (0.9-1.1) Sodium (136-145) mmol/L Potassium (3.5-5.1) mmol/L Chloride (98-107) mmol/L Carbon Dioxide (21-32) mmol/L Anion Gap (3-11) BUN (7-18) mg/dl Creatinine (0.6-1.2) mg/dl Est Cr Clr Drug Dosing ml/min Est GFR ( Amer) Est GFR (Non-Af Amer) BUN/Creatinine Ratio (10-20) Glucose (70-99) mg/dl POC Glucose 123 H 137 H 115 H (70-99) Calcium (8.5-10.1) mg/dl PG Care Time/CCT Total # of Minutes Spent Total Time Spent with Patient: Total time spent is greater than 50% in coordination of care (as documented) at patient's floor/unit and/or counseling patient: (1) Pulmonary embolism Acute cor pulmonale presence: without acute cor pulmonale Chronicity: chronic Pulmonary embolism type: unspecified Qualified Code(s): I27.82 - Chronic pulmonary embolism (2) Rectus sheath hematoma Encounter type: subsequent encounter Qualified Code(s): S30.1XXD - Contusion of abdominal wall, subsequent encounter
[2019-04-25] MEDS: VITAMIN B COMPLEX TAB PO SCH (17:50)
[2019-04-25] MEDS: FOLIC ACID 1 MG TAB PO SCH (18:31)
[2019-04-25] MEDS: MAGNESIUM OXIDE 400 MG TAB PO SCH (19:58)
[2019-04-25] MEDS: LOTEMAX OP SCH (19:59)
[2019-04-25] MEDS: predniSONE 10 MG TABLET PO SCH (20:00)
[2019-04-25] MEDS: POLYETHYLENE (MIRALAX) 17 GM PACK PO PRN (22:26)
[2019-04-25] MEDS: DOCUSATE SODIUM 100 MG CAP PO PRN (22:26)
[2019-04-26] MEDS: RESTASIS~ORDER AWAITING ACTION SCH ×2 (01:06→07:01)
[2019-04-26] MEDS: HEPARIN 100 UNIT/ML 5ML FLUSH FLUSH PRN (05:38)
[2019-04-26 06:51] LABS: Hematocrit (blood only) 23.8 % (37-47); Hemoglobin 8.2 g/dL (12.0-16.0); Mean Corpuscular Hemoglobin 33.2 pg (25-34); Mean Corpuscular Hgb Conc 34.5 g/dL (32-36); Mean Corpuscular Volume 96.4 fL (80-100); RDW Standard Deviation 60.5 fL (36.4-46.3); Red Blood Count 2.47 M/uL (4.2-5.4); White Blood Count 5.54 K/uL (4.8-10.8)
[2019-04-26 07:01] LABS: Prothrombin Time 10.3 Seconds (9.0-12.0)
[2019-04-26 07:04] LABS: Mean Platelet Volume 8.5 fL (7.4-10.4); Platelet Count 91 K/uL (130-400)
[2019-04-26 07:13] LABS: Immature Granulocytes # (auto) 0.05 K/uL (0.00-0.02); Immature Granulocytes % (auto) 0.9 %; Lymphocytes % (auto) 19.9 %; Monocytes # (auto) 0.26 K/uL (0.11-0.59); Monocytes % (auto) 4.7 %; Neutrophils # (auto) 4.13 K/uL (1.4-6.5); Neutrophils % (auto) 74.5 %
[2019-04-26 07:25] LABS: Albumin Level 2.7 gm/dl (3.4-5.0); BUN Creatinine Ratio 29.5 (10-20); Calcium 9.2 mg/dl (8.5-10.1); Creatinine Clr Calc Pharmacy 54.1 ml/min; Est GFR (African American) 78.3; Est GFR (Non-African American) 67.5; Potassium 3.6 mmol/L (3.5-5.1)
[2019-04-26 07:28] LABS: Albumin Globulin Ratio 0.9 (0.9-2); Bilirubin,Total 0.8 mg/dl (0.2-1); Globulin 3.1 gm/dl (2.5-4.0); Total Protein 5.8 gm/dl (6.4-8.2)
[2019-04-26] MEDS: CHOLECALCIFEROL 1,000 UNITS TAB PO SCH (08:37)
[2019-04-26] MEDS: predniSONE 20 MG TAB PO SCH (08:37)
[2019-04-26] MEDS: CALCIUM 600MG + VIT D 400 IU TAB PO SCH (08:38)
[2019-04-26] MEDS: PANTOprazole 40 MG TAB PO SCH (08:38)
[2019-04-26] MEDS: ESCITALOPRAM OXALATE 10 MG TAB PO SCH (08:38)
[2019-04-26] MEDS: SULFAMETHOXAZOLE/TRIMETHOPRIM DS 800/160MG TAB PO SCH (08:38)
[2019-04-26] MEDS: MULTIVITAMIN TAB PO SCH (08:38)
[2019-04-26] MEDS: ACETAMINOPHEN 325 MG TAB PO SCH (08:39)
--- NOTE | 2019-04-26 10:11 | Hospitalist Progress Note ---
Date of Service April 26, 2019 Subjective Patient evaluated at bedside this morning. She states she is feeling generally well. She states she should be up walking more than she has been, but does get some shortness of breath if she tries to over exert herself. Her abdominal pain is much improved, but is still slightly tender to the touch. She is awaiting decision on coumadin moving forward from Dr. Ni and is hopeful to be discharged later today. Results & Data Vital Signs (Past 12 Hours) Vital Signs Temp Pulse Resp BP Pulse Ox 04/26/19 07:42 36.8 C 69 18 132/73 94 04/25/19 23:50 36.6 C 69 16 128/81 96 PG Care Time/CCT Total # of Minutes Spent Total Time Spent with Patient: Total time spent is greater than 50% in coordination of care (as documented) at patient's floor/unit and/or counseling patient:
[2019-04-26] MEDS: FOLIC ACID 1 MG TAB PO SCH (15:28)
[2019-04-26] MEDS: VITAMIN B COMPLEX TAB PO SCH (15:28)
--- NOTE | 2019-04-26 15:48 | Discharge Summary ---
Date of Service April 26, 2019 Admission HPI Per Admitting Provider Patient had chemo for her lung cancer wednesday, last night she had pain in her side, had been having regular bowel motions wasn't sure what the pain was. Mid afternoon she noticed she was getting short of breath and her heart would race as she walked. Pain has continued throughout. Thought she was constipated but kept having bowel movements. Otherwise feels like herself. Pain is located on the right side. Pain is located top to bottom on the right middle of her abdomen. She denies any other symptoms at this time, No fevers, chills, weakness, lightheadedness or prescyncope, no GI symptoms. 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 Patient follows with Dr. Riley and is on keytruda and pemetrexed infusions. She recently had one on Wednesday. 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 Pembrolizumab ceased, and she was placed on daily prednisone and bactrim prophylaxis and following with Dr. Pascal for pulmonology. Patient is on coumadin secondary to two pulmonary embolisms the most recently discovered one on March 30. Lives alone Here with son. Non smoker, Doesn't drink much alcohol. In emergency department patient remained hemodynamically stable, was alert and talkative, and had bruising and swelling over right aspect of abdomen. Labwork significant for hemoglobin of 10.1 down from baseline of 11.6 elevated white count of 18.05, INR 2.8 CT was ordered which showed a large rectus sheath hematoma measuring 15 x 11.5 x 5.4 cm with a focus of active extravasation of contrast. CTA showing no evidence of current PE ED spoke with Dr. Domingo who advised holding coumadin and administering vitamin K and admitting for observation/serial monitoring of her H and H. Admission Exam Per Admitting Provider Constitutional: Well-appearing 70-year-old woman appears stated age resting in bed in no apparent distress Eyes: Anicteric sclerae pupils equal round reactive to light extraocular muscle motions intact bilaterally ENMT no abnormalities detected and oropharynx Neck: No lymph nodes detected, supple with no masses Respiratory: Chest expansion equal bilaterally, and no apparent respiratory distress, lung sounds vesicular in all lung badillo Cardiovascular: Heart sounds dual, regular rate and rhythm, no murmurs rubs skips or gallops, no lower limb edema Gastrointestinal: Right-sided abdominal swelling and palpable mass just under the skin over rectus abdominal muscles. No peritoneal signs no rebound tenderness no pain away from mass Integumentary: Bruising over right abdomen Principal Diagnosis Rectus Sheath Hemorrhage and Hematoma Discharge Exam Constitutional: WD/WN, vitals as above Eyes: PERRL, conjunctivae normal, anicteric sclerae ENMT: external ear and nose normal, oropharynx normal Neck: trachea midline, no thyromegaly Respiratory: normal respiratory effort, lungs clear to auscultation Cardiovascular: RRR, no murmur, no edema Gastrointestinal (Abdomen): Inspection/Auscultation: abdomen normal to inspection and normal bowel sounds Percussion/Palpation: + abdomen tender (decreased hematoma, right of midline, lower quadrant); no guarding and abdomen not rigid Musculoskeletal: no cyanosis or clubbing, extremities motor strength 5/5 Skin: turgor not decreased, no rashes and no lesions. +A-port present Neurologic: PERRL, EOMI, accommodation nl, no face palsy, no dysarthria Psychiatric: A+Ox3, euthymic affect Lymphatic: no cervical or axillary lymphadenopathy Constitutional WD/WN, vitals as above Eyes PERRL, conjunctivae normal, anicteric sclerae ENMT external ear and nose normal, oropharynx normal Neck trachea midline, no thyromegaly Respiratory normal respiratory effort, lungs clear to auscultation Cardiovascular RRR, no murmur, no edema Gastrointestinal (Abdomen) Inspection/Auscultation: abdomen normal to inspection and normal bowel sounds Percussion/Palpation: + abdomen tender (decreased hematoma, right of midline, lower quadrant); no guarding and abdomen not rigid Musculoskeletal no cyanosis or clubbing, extremities motor strength 5/5 Skin turgor not decreased, no rashes and no lesions Neurologic PERRL, EOMI, accommodation nl, no face palsy, no dysarthria Psychiatric A+Ox3, euthymic affect Lymphatic no cervical or axillary lymphadenopathy Discharge Data Allergies Allergy/AdvReac Type Severity Reaction Status Date / Time Tetracyclines Allergy Intermediate GI Verified 04/28/19 16:37 SYMPTOMS, RASH, SUN SENSITIVITY tomato Allergy Unknown TOMATOES, Verified 04/28/19 16:37 CITRUS FRUIT ACIDIC FOOD--ITCHY L EAR, HEAD levofloxacin AdvReac Intermediate tendonitis Verified 04/28/19 16:37 Macrolide Antibiotics AdvReac Intermediate GI SYMPTOMS Verified 04/28/19 16:37 Penicillins AdvReac Intermediate GI SYMPTOMS Verified 04/28/19 16:37 amoxicillin AdvReac Mild Gastrointestinal Verified 04/28/19 16:37 Upset ciprofloxacin AdvReac Mild GI UPSET Verified 04/28/19 16:37 clindamycin AdvReac Mild GI UPSET Verified 04/28/19 16:37 erythromycin base AdvReac Mild Gastrointestinal Verified 04/28/19 16:37 Upset Cipro AdvReac Unknown GI UPSET Verified 01/31/18 06:42 Consultations 04/21/19 21:34 ED Decision to Admit Stat 04/22/19 00:28 Consult Hematology Routine Ordered Studies 04/21/19 20:06 CT abd pelvis IV con only Stat 04/21/19 20:08 CT angio chest PE protocol Stat 04/22/19 00:28 US venous doppler [facility] Urgent Hospital Course (1) Rectus sheath hematoma: * Improving - no further abdominal pain/discomfort * Noted on CT a/p on 04/21 and was 15 x 11.5 x 5.4 cm with active extravasation. INR 2.8. Patient given Vit K for reversal. 2 units PRBCs on 04/22 with hgb increased to 9.9 * Hgb/hct remained low, but stable at 8.3/24. INR 1.0 * As in "adenocarcinoma" problem, Dr. Riley feels a gradual fall in her hgb is likely expected due to her chemotherapy, less likely further bleeding. If she remains hemodynamically stable and has no abdominal symptoms, I would have a higher threshold for further imaging--> would still transfuse though. (2) Metastatic adenocarcinoma: * Lung, liver cancer. Currently on chemotherapy -- last dose last Wednesday. * Case discussed with Dr. Riley - Concern that her counts will continue to drop given her recent chemo. No further transfusion as hgb remained >8 and plt >50 * Suspected increased size of 4.4 x 4.3 cm inferior right hepatic lobe mass since CT 12/26/18. (3) Pulmonary embolism: * Resolved * Was on Xarelto - Had a small possible PE while on it seen on CTA on 03/30/2019. Switched to warfarin at that time. Repeat imaging without PE this admission * Warfarin reversed on 04/21 with kaycentra * Will need to restart anticoagulation eventually. --> Discussion with Dr. Ni -- he would like to hold Coumadin for 2 weeks and likely re-initiate Coumadin after discussion with Dr. Domingo, likely with lower target INR (4) Acute blood loss anemia: * Warfarin therapy related spontaneous rectus sheath hematoma treated with Kaycentra and 2 units PRBCs on 04/22/19. * Daily CBC. (5) Acid fast bacillus: * As seen on AFB culture from bronchoscopy performed by Dr Pascal on * Culture with mycobacterium avium complex * Per discussion with pulmonary team, no treatment at this time given other medical issues-- will need treatment in the future, as to be decided on by Dr. Pascal at follow-up appointment after discharge (6) Thrombocytopenia: * Platelets continued to trend down, continue to trend down from 284-91 - likely secondary to consumption as well as chemo * Patient received chemo one week ago today- next chemo scheduled for 05/09 (7) Prediabetes: (8) DVT prophylaxis: * SCDs - patient not wearing during admission, however did have evangelist hose Total Time Total Time Spent Total Time Spent (In Minutes): 40 Discharge Plan Discharge Items Patient Disposition: Home - Self-Care Reason For Visit: RECTUS SHEATH HEMORRHAGE Discharge Diagnosis: Rectus Sheath Hematoma Activity: As commented below Activity Comment: As tolerated Lifting: Wait until after follow-up appointment Lifting Comment: No more than ten pounds- gradually increase as tolerated Non-emergency contact: Primary Care Provider Call non-emergency contact if: you have any medication questions and your pain is not controlled Follow-up/Referrals: Guillermo Berkowitz MD [Primary Care Provider] - 05/01/19 11:00 am (Please, follow up at Dr. Guillermo Berkowitz's office with his associate, Shira Waller PA-C, on WednesdayMay 01 at 11:00 am. *If you need to change this appointment, call the office at [phone].) Jaydon Pascal MD [Physician] - 05/12/19 8:30 am (Please, follow up at [facility] Office on WednesdayMay 12 at 8:30 am for testing and at 10:[address] Pascal. *The office is located in [address] of [facility], next to this hospital. If you need to change this appointment, call the office at [phone].) Alexandru Riley [Physician] - 05/09/19 1:30 pm (Please, follow up with Dr. Riley on WednesdayMay 09 at 1:30 pm. *If you need to change this appointment, call the office at [phone].) Diet: Carb Consistent or DM2 and Heart Healthy Addtl Attending Provider Instructions: You should HOLD your COUMADIN until Dr. Riley calls to restart this medication. You are scheduled to follow up with him on May 09. You are being given a prescription for iron supplementation (ferrous sulfate). Please continue to take this twice a day until directed otherwise by your oncologist. This may cause constipation as well as dark stools. You may take an over the counter stool softener like colace if that occurs. You should also continue your prednisone taper as directed by Dr. Pascal. He would like you to continue taking the same dose (80mg daily) until seen in the office on May 12, 2019. He will address antibiotics moving forward for the infection we discussed after your current issue has resolved. Given that you have had some swelling, which can be due to steroid (prednisone) use, you have been sent prescriptions for lasix (furosemide) 20mg to take as needed for fluid retention. This can cause your potassium level to decrease, so you have also been sent a prescription for potassium (10 MEQ) to take when you take a lasix. Your hemoglobin A1c was found to be slightly elevated. This measures the average sugar level over the past three months, and your level is 5.8. This is considered to be "pre-diabetes". Given your course of prolonged steroids, it is likely that this result may be reflective of that. Recommendation to follow up with Dr. Berkowitz in the next week. With your history of blood clots, it is recommended to continue to ambulate as much as possible and continue to wear compression stockings, since you are not on anticoagulation at this time. Please go to all follow up appointments as scheduled. Call your primary care provider for all non-emergent concerns. If you develop worsening shortness of breath, blood tinged sputum, or swollen tender red calfs, please report to the emergency room. Please report to the emergency room for any additional symptoms that are concerning for you. It has been a pleasure being apart of the medical team taking care of you during this hospitalization. Thank you very much! Pending Studies at Discharge: No Stand-Alone Forms: My [facility] Medications and DC Order Prescriptions: New ferrous sulfate 325 mg (65 mg iron) tablet 325 mg PO BID Qty: 60 RF: 0 Continued escitalopram oxalate 10 mg tablet 10 mg PO DAILY Qty: 30 RF: 2 triamcinolone acetonide 0.1 % cream 1 appln topical BID PRN (Reason: PRN) RF: 0 folic acid 1 mg tablet 1 mg PO QAM RF: 0 cholecalciferol (vitamin D3) [Vitamin D3] 5,000 unit Tablet 5,000 unit PO QAM RF: 0 omega 1-qro-gpg-fish oil [Fish Oil] 1,000 mg (120 mg-180 mg) Capsule 2 cap PO BID RF: 0 acetaminophen [Tylenol Arthritis Pain] 650 mg tablet extended release 1,300 mg PO BID RF: 0 sulfamethoxazole-trimethoprim [Bactrim DS] 800-160 mg tablet 1 tab PO 3XWK 30 Days Qty: 30 RF: 0 vitamin B complex Tablet 1 tab PO QDD RF: 0 multivitamin Tablet 1 tab PO Q OTHER DAY RF: 0 biotin 5 mg Capsule 5 mg PO HS RF: 0 docusate sodium 100 mg Capsule 100 mg PO HS PRN (Reason: Constipation) RF: 0 magnesium 250 mg Tablet 250 mg PO HS RF: 0 hydrocortisone butyrate 0.1 % Cream 1 applic TOPICAL DAILY PRN (Reason: Skin Irritation) RF: 0 glucosamine-chondroitin 500-400 mg Tablet 1 tab PO BID RF: 0 Restasis 0.05 % Dropperette 1 drp OPB Q12H RF: 0 Lotemax 0.5 % ointment 1 applic OPB HS RF: 0 calcium carb and citrate-vitD3 600 mg calcium- 500 unit Tablet Extended Release 600 mg PO BID RF: 0 Probiotic 3 billion cell Capsule PO QAM RF: 0 Metamucil 3.4 gram/5.4 gram Powder 1 dose PO HS PRN (Reason: Constipation) RF: 0 clobetasol 0.025 % Cream 1 applic TOPICAL BID PRN (Reason: dermatitis) RF: 0 fexofenadine [Milagros Allergy] 180 mg tablet 180 mg PO DAILY PRN (Reason: Allergy Symptoms) RF: 0 Prilosec OTC 20 mg Tablet,Delayed Release (Dr/Ec) 20 mg PO BID RF: 0 Discontinued warfarin 4 mg tablet 4 mg PO QPM RF: 0 No Action prednisone 20 mg tablet 40 mg PO QAM RF: 0 Discharge Orders: Discharge Order (Routine); Ordered 04/26/19 Ordered By: Janice Flaherty Admission Data Admit Date/Time: 04/21/19 23:39 Attending Provider: Cosme Hercules Admit Provider: Uvaldo Dickinson Primary Care Provider: Guillermo Berokwitz Other Providers: Fly Mathews ; Jeanmarie Kamara ; Alexandru Riley Other Interventions: Discharge Summary Assessment (RN) Last Done: 04/26/19 15:55 DC Date/Time DO NOT enter until pt leaves facility: 04/26/19 17:23 Supervising Physician Co-Signing Physician Notes Attending Attestation and Discharge Note: Pt seen/examined, chart reviewed, discharge care plan d/w PA Janice Flaherty. I agree w/ the laureano components of her discharge summary. 78yo female with stage 4 metastatic lung adenocarcinoma who presented with rectus sheath hematoma. This was a warfarin therapy related spontaneous bleeding event. Warfarin was reversed with vitamin K and kaycentra. She required 2 units of PRBCs for her acute blood loss anemia. Discharge Hb was 8.2 and had been in the 8 to 8.5 range for 48 hours prior to discharge. She had mild soreness related to the rectus sheath hematoma but it was controlled. Plan at discharge - hold coumadin for at least 2 weeks and then re-eval clinically in the [facility] with Dr Riley. Lastly, recent bronch AFB culture grew NICK. Pulmonary aware, and they will ad dress in follow-up at the pulmonary clinic. She had no fever or other systemic signs of NICK while hospitalized. Discharge exam: gen - NAD mouth - no thrush neck - no JVD heart - RRR, s1 s2 lungs - mild rales b/l, no wheezes abd - soft NT ND BS+ ext - 1-2+ edema b/l, TEDs in place Cosme Hercules MD
== END 2019-04-26 17:23 | disposition home or self-care (01) | DRG 813 ==
LOC: ED 19:49 → 2E 23:39 → SUATTDRO 23:39 → 2E 04-22 00:08 → 3N 04-23 13:12

== ENCOUNTER 2019-08-24 11:03 | Inpatient (IN) ==
[2019-08-24] MEDS ORDERED: SODIUM CHLORIDE 0.9% 1000ML 500 ML IV ONE (11:19)
--- NOTE | 2019-08-24 11:34 | Emergency Department Note ---
Entered by Santo Garcia acting as a scribe for Fish Otero DO History of Present Illness General Chief complaint: Seizure Time Seen by Provider: 08/24/19 11:16 Source: patient and family (son) Limitations: no limitations History of Present Illness Onset (ago): hour(s) 1 Location: chest Radiation: extremity (right upper) Pain Consistency: + intermittent Associated symptoms: + denies other symptoms (falls, trauma, ) and + nausea/vomiting (nausea. No vomiting); no fever/chills and no shortness of breath The patient is a 79 year old female who presents to the Emergency Room with complaints of seizure-like activity starting about an hour ago. The patient states she had some chest pain that radiated to her right arm this morning. The patient's son states the patient called him this morning and stated she was having some heart problems. He states he went to her house at 1030 and she was short of breath. He states she then had seizure-like activity for about 30 seconds. He states afterwards she started responding after about 5 minutes. He states she was sitting on the couch the whole time and did not hit her head. The patient states she does not remember the seizure-like activity. She states she has been having intermittent chest pain. She states her last chest pain was about an hour ago, and notes she does not have chest pain right now. She states she has been having intermittent nausea. The patient denies having headaches, trauma, falls, fevers, chills, and vomiting. She states she has been eating and drinking okay. She denies having SOB when she has the chest pain. She states she took Lovenox today for her previous lung clots. She states she is getting chemotherapy for her lungs. She denies having a history of heart problems and a history of seizures. Home Medications Home Medications Medication Instructions Recorded Confirmed Type Lotemax 1 applic OPB HS 06/03/18 08/24/19 History Metamucil 1 dose PO HS PRN 06/03/18 08/24/19 History Probiotic 0 mmu cells PO QAM 06/03/18 08/24/19 History Restasis 1 drp OPB Q12H 06/03/18 08/24/19 History biotin 5 mg PO QDD 06/03/18 08/24/19 History calcium carb and citrate-vitD3 600 mg PO BID 06/03/18 08/24/19 History clobetasol 1 applic TOPICAL BID PRN 06/03/18 08/24/19 History docusate sodium 100 mg PO HS PRN 06/03/18 08/24/19 History glucosamine-chondroitin 1 tab PO BID 06/03/18 08/24/19 History hydrocortisone butyrate 1 applic TOPICAL DAILY PRN 06/03/18 08/24/19 History magnesium 250 mg PO QDD 06/03/18 08/24/19 History multivitamin 1 tab PO Q OTHER DAY 06/03/18 08/24/19 History vitamin B complex 1 tab PO QDD 06/03/18 08/24/19 History cholecalciferol (vitamin D3) 5,000 unit PO QAM 11/03/18 08/24/19 History [Vitamin D3] folic acid 1 mg PO QAM 11/03/18 08/24/19 History omega 5-gzb-yus-fish oil [Fish Oil] 2 cap PO BID 11/03/18 08/24/19 History fexofenadine 180 mg tablet 180 mg PO DAILY PRN 01/30/19 08/24/19 History triamcinolone acetonide 0.1 % 1 appln TOPICAL BID PRN gm 01/30/19 08/24/19 History topical cream Prilosec OTC 20 mg PO BID 03/30/19 08/24/19 History prednisone 20 mg tablet 10 mg PO QDB tab 06/29/19 08/24/19 History azithromycin 500 mg tablet 500 mg PO MOWEFR 90 Days #18 tab 07/18/19 08/24/19 Rx ethambutol 400 mg tablet 1,200 mg PO MOWEFR 60 Days #180 tab 07/18/19 08/24/19 Rx rifampin 300 mg capsule 600 mg PO MOWEFR 90 Days #30 cap 07/18/19 08/24/19 Rx enoxaparin 120 mg SQ DAILY@0800 08/24/19 08/24/19 History escitalopram oxalate 10 mg PO QAM 08/24/19 08/24/19 History Allergies Allergy/AdvReac Type Severity Reaction Status Date / Time Tetracyclines Allergy Intermediate GI Verified 08/24/19 11:47 SYMPTOMS, RASH, SUN SENSITIVITY tomato Allergy Unknown TOMATOES, Verified 08/24/19 11:47 CITRUS FRUIT ACIDIC FOOD--ITCHY L EAR, HEAD levofloxacin AdvReac Intermediate tendonitis Verified 08/24/19 11:47 Macrolide Antibiotics AdvReac Intermediate GI SYMPTOMS Verified 08/24/19 11:47 Penicillins AdvReac Intermediate GI SYMPTOMS Verified 08/24/19 11:47 amoxicillin AdvReac Mild Gastrointestinal Verified 08/24/19 11:47 Upset ciprofloxacin AdvReac Mild GI UPSET Verified 08/24/19 11:47 clindamycin AdvReac Mild GI UPSET Verified 08/24/19 11:47 erythromycin base AdvReac Mild Gastrointestinal Verified 08/24/19 11:47 Upset Cipro AdvReac Unknown GI UPSET Verified 01/31/18 06:42 Past Med/Surg History Medical History Anemia (Acute) Atypical squamous cells of undetermined significance (ASC-US) on cervical Pap smear Deep vein thrombosis (Acute) Deep venous thrombosis of left popliteal vein Depression (Acute) Drug-induced pneumonitis (Acute) Hearing deficit (Acute) History of ascites History of lymphoma History of malignant neoplasm breast Metastatic adenocarcinoma (Chronic) On anticoagulant therapy (Acute) Osteoarthritis (Acute) Pneumonia (Acute) Pneumonia due to Pseudomonas Pulmonary embolism Seasonal affective disorder (Chronic) Thrombocytopenia Urinary tract infection (Acute) Surgical History H/O tubal ligation History of bronchoscopy (Acute) History of cholecystectomy (Acute) History of colonoscopy (Acute) History of cystoscopy (Acute) Hx of oral surgery S/P breast biopsy S/P bunionectomy S/P cholecystectomy Family History Daughter Breast cancer metastatic, diagnosed in 1993 and now is stage IV with salvage chemotherapy Daughter Breast cancer, Onset Age: 27 metastatic breast cancer at age 27 Brother , age 53 MVA MVA Family/Other Essential familial hypercholesterolemia Glaucoma Heart disease Macular degeneration Stroke Mother , age 85 Hypertension Hyperlipidemia Meningioma Father , "old age" 95 Hypertension Son Kidney stones Other Cancer Stroke syndrome Social History Preferred Language: French Communication Ability: Effective Visual Impairment: Limited Hearing Ability: Use of Hearing Aid Security Dispatcher Required: No Beliefs That Will Affect Care: None marital status: Current Living Situation: Alone current occupational status: retired Other Information That Helps Us Care for You: No Feels Safe at Home: Yes Safety Concerns: Feels Safe At This Time Smoking Status: Never smoker Do You Dip or Chew Tobacco: No ; Second Hand Exposure: No ; Tobacco Cessation Education Requested by Patient: No Hx Alcohol Use: No Hx Substance Use: No Childhood Exposure to Second-Hand Smoke: Yes Dental Care, Regularly: Yes Physical Activity Frequency: 1-2 Times per Week Seatbelt Use: always Sunscreen Use: Yes Review of Systems See HPI for pertinent positives & negatives. and A total of 10 systems reviewed and were otherwise negative Physical Exam Vital Signs Vital Signs - 24 hr 08/24/19 11:05 08/24/19 11:07 08/24/19 11:12 Temperature 36.8 C Temperature Source Oral Pulse Rate 109 H 125 H 186 H Pulse Rate from SpO2 Sensor 107 H 105 H Respiratory Rate 18 13 20 Blood Pressure 115/66 115/66 Blood Pressure Mean 74 82 Pulse Oximetry 97 96 97 Oxygen Delivery Method Room Air Sepsis Recent Fever Within 48 Hours No Sepsis New/Unexplained Change in Mental Status No Sepsis Action Taken by Nursing No Action Required 08/24/19 11:15 08/24/19 11:25 08/24/19 11:30 Temperature Temperature Source Pulse Rate 126 H 176 H Pulse Rate from SpO2 Sensor 109 H 108 H Respiratory Rate 19 20 Blood Pressure 93/65 L Blood Pressure Mean 69 Pulse Oximetry 97 97 92 Oxygen Delivery Method Room Air Sepsis Recent Fever Within 48 Hours Sepsis New/Unexplained Change in Mental Status Sepsis Action Taken by Nursing 08/24/19 11:31 08/24/19 11:45 08/24/19 11:47 Temperature Temperature Source Pulse Rate 109 H 101 H 98 H Pulse Rate from SpO2 Sensor 93 H 92 H Respiratory Rate 23 20 Blood Pressure 99/58 L 108/66 Blood Pressure Mean 62 73 Pulse Oximetry 95 95 Oxygen Delivery Method Sepsis Recent Fever Within 48 Hours Sepsis New/Unexplained Change in Mental Status Sepsis Action Taken by Nursing 08/24/19 12:00 08/24/19 12:01 08/24/19 12:15 Temperature Temperature Source Pulse Rate 115 H 98 H 134 H Pulse Rate from SpO2 Sensor 107 H 98 H 95 H Respiratory Rate 16 22 24 Blood Pressure 118/79 Blood Pressure Mean 89 Pulse Oximetry 92 96 93 Oxygen Delivery Method Sepsis Recent Fever Within 48 Hours Sepsis New/Unexplained Change in Mental Status Sepsis Action Taken by Nursing 08/24/19 12:30 08/24/19 12:31 08/24/19 12:45 Temperature Temperature Source Pulse Rate 106 H 185 H 98 H Pulse Rate from SpO2 Sensor 100 H 96 H Respiratory Rate 23 18 17 Blood Pressure 102/69 Blood Pressure Mean 81 Pulse Oximetry 96 97 Oxygen Delivery Method Sepsis Recent Fever Within 48 Hours Sepsis New/Unexplained Change in Mental Status Sepsis Action Taken by Nursing 08/24/19 13:00 08/24/19 13:01 08/24/19 13:15 Temperature Temperature Source Pulse Rate 179 H 134 H 130 H Pulse Rate from SpO2 Sensor 97 H 100 H 128 H Respiratory Rate 24 17 20 Blood Pressure 106/65 Blood Pressure Mean 82 Pulse Oximetry 95 95 98 Oxygen Delivery Method Sepsis Recent Fever Within 48 Hours Sepsis New/Unexplained Change in Mental Status Sepsis Action Taken by Nursing 08/24/19 13:30 08/24/19 13:31 08/24/19 13:45 Temperature Temperature Source Pulse Rate 99 H 100 H 163 H Pulse Rate from SpO2 Sensor 88 87 93 H Respiratory Rate 15 23 19 Blood Pressure 98/70 L Blood Pressure Mean 89 Pulse Oximetry 94 94 94 Oxygen Delivery Method Sepsis Recent Fever Within 48 Hours Sepsis New/Unexplained Change in Mental Status Sepsis Action Taken by Nursing 08/24/19 14:00 08/24/19 14:01 08/24/19 14:15 Temperature Temperature Source Pulse Rate 105 H 137 H 126 H Pulse Rate from SpO2 Sensor 95 H 89 85 Respiratory Rate 21 19 23 Blood Pressure 101/66 Blood Pressure Mean 80 Pulse Oximetry 93 92 93 Oxygen Delivery Method Sepsis Recent Fever Within 48 Hours Sepsis New/Unexplained Change in Mental Status Sepsis Action Taken by Nursing 08/24/19 14:30 08/24/19 14:31 Temperature Temperature Source Pulse Rate 104 H 91 H Pulse Rate from SpO2 Sensor 96 H 87 Respiratory Rate 20 21 Blood Pressure 108/59 L Blood Pressure Mean 69 Pulse Oximetry 93 93 Oxygen Delivery Method Sepsis Recent Fever Within 48 Hours Sepsis New/Unexplained Change in Mental Status Sepsis Action Taken by Nursing GENERAL: Patient is awake alert in no acute distress patient is resting comfortably and showing no signs of anxiety EYES: The conjunctivae are clear. The pupils are round and reactive. EARS, NOSE, MOUTH AND THROAT: The nose is without any evidence of any deformity. Mucous membranes are moist. Tongue is midline. NECK: The neck is nontender and supple. RESPIRATORY: Diminished breath sounds are noted at both bases. There is no tachypnea or conversational dyspnea noted. CARDIOVASCULAR: Irregular rhythm was noted to auscultation. At times rhythm was very tachycardic. No definite murmur was noted. GASTROINTESTINAL: The abdomen is soft. Abdomen is nontender. MUSCULOSKELETAL/EXTREMITIES: There is no evidence of gross deformity full range of motion is noted in the hips and shoulders. SKIN: Pedal edema was noted bilaterally. There is no calf tenderness. NEUROLOGIC: Patient is awake alert and oriented x3 strength is symmetric patellar reflexes are 2+ bilaterally Course Course 1117: The patient was evaluated in room C10, and a complete history and physical examination were performed. 1217: I discussed the patient's case with Dr. Florentino [facility]. She will evaluate the patient for further management. Administered Medications Amiodarone HCl/Dextrose (Nexterone / D5w) 360 mg in 200 mls @ 33.333 mls/hr IV .Q6H CHANO Stop: 08/24/19 18:59 Last Admin: 08/24/19 13:19 Dose: 1 mg/min, 33.3 mls/hr Documented by: [id number] Cosigned by: [id number] Discontinued Medications Sodium Chloride (Nss 1000ml) 500 mls @ 999 mls/hr IV .Q31M ONE Stop: 08/24/19 11:49 Last Infusion: 08/24/19 12:49 Dose: 0 mls/hr Documented by: [id number] Admin: 08/24/19 11:49 Dose: 999 mls/hr Documented by: [id number] Critical Care Time Critical Care Time: Yes Total Critical Care Time: 61 I have personally spent 61 minutes of critical care time in the direct management of this patient. This includes bedside care, interpretation of diagnostic studies, and testing, discussion with consultants, patient, and family members, and other required patient management activities. This 61 mi nutes is in excess of all separately billable procedures. Medical Decision Making Differential Diagnosis Differential diagnosis includes etiologies such as premature contractions, electrolyte abnormality, cardiac dysrhythmia, thyroid dysfunction, pulmonary embolism, infection, gastrointestinal, as well as others were entertained. Medical Records Attestation: I reviewed the patient's medical records. Home Medications Current Medication List: was personally reviewed by me Laboratory Data Attestation: I reviewed the patient's lab results. Result diagrams: 08/24/19 17:16 08/24/19 11:21 Lab Results 08/24/19 08/24/19 08/24/19 Range/Units 11:21 11:21 11:21 WBC 8.33 (4.8-10.8) K/uL RBC 3.18 L (4.2-5.4) M/uL Hgb 11.7 L (12.0-16.0) g/dL Hct 36.2 L (37-47) % MCV 113.8 H (80-100) fL MCH 36.8 H (25-34) pg MCHC 32.3 (32-36) g/dL RDW Std Deviation 59.5 H (36.4-46.3) fL RDW Coeff of Mary Beth 14.5 (11.5-14.5) % Plt Count 218 (130-400) K/uL MPV 9.2 (7.4-10.4) fL Immature Gran % (Auto) 0.4 % Neut % (Auto) 75.8 % Lymph % (Auto) 20.2 % [place] % (Auto) 3.0 % Eos % (Auto) 0.4 % Baso % (Auto) 0.2 % Immature Gran # (Auto) 0.03 H (0.00-0.02) K/uL Neut # (Auto) 6.32 (1.4-6.5) K/uL Lymph # (Auto) 1.68 (1.2-3.4) K/uL [place] # (Auto) 0.25 (0.11-0.59) K/uL Eos # (Auto) 0.03 (0-0.5) K/uL Baso # (Auto) 0.02 (0-0.2) K/uL Macrocytosis Present PT 10.4 (9.0-12.0) Seconds INR 1.0 (0.9-1.1) APTT 30.5 (21.0-31.0) Seconds PTT Ratio 1.1 Sodium 138 (136-145) mmol/L Potassium 3.4 L (3.5-5.1) mmol/L Chloride 105 (98-107) mmol/L Carbon Dioxide 25 (21-32) mmol/L Anion Gap 8.0 (3-11) BUN 15 (7-18) mg/dl Creatinine 0.74 (0.6-1.2) mg/dl Est Cr Clr Drug Dosing 62.9 ml/min Est GFR ( Amer) 89.3 Est GFR (Non-Af Amer) 77.1 BUN/Creatinine Ratio 20.1 H (10-20) Glucose 113 H (70-99) mg/dl Calcium 10.0 (8.5-10.1) mg/dl Magnesium 1.8 (1.8-2.4) mg/dl Total Bilirubin 0.9 (0.2-1) mg/dl AST 47 H (15-37) U/L ALT 39 (12-78) U/L Alkaline Phosphatase 72 (45-117) U/L Troponin I < 0.015 (0-0.045) ng/ml NT-Pro-B Natriuret Pep (0-1800) pg/ml Total Protein 7.4 (6.4-8.2) gm/dl Albumin 3.2 L (3.4-5.0) gm/dl Globulin 4.1 H (2.5-4.0) gm/dl Albumin/Globulin Ratio 0.8 L (0.9-2) Procalcitonin (0-0.5) ng/ml TSH 3.570 (0.300-4.500) uIu/ml Urine Color Urine Appearance (Clear) Urine pH (4.5-7.5) Ur Specific [place] (1.000-1.030) Urine Protein (Negative) Urine Glucose (UA) (Negative) Urine Ketones (Negative) Urine Blood (Negative) Urine Nitrite (Negative) Urine Bilirubin (Negative) Urine Urobilinogen (Negative) Ur Leukocyte Esterase (Negative) Urine RBC (0-4) /hpf Urine WBC (0-5) /hpf Ur Epithelial Cells (0-5) /lpf Urine Bacteria (Negative) 08/24/19 08/24/19 08/24/19 Range/Units 11:21 11:21 14:20 WBC (4.8-10.8) K/uL RBC (4.2-5.4) M/uL Hgb (12.0-16.0) g/dL Hct (37-47) % MCV (80-100) fL MCH (25-34) pg MCHC (32-36) g/dL RDW Std Deviation (36.4-46.3) fL RDW Coeff of Mary Beth (11.5-14.5) % Plt Count (130-400) K/uL MPV (7.4-10.4) fL Immature Gran % (Auto) % Neut % (Auto) % Lymph % (Auto) % [place] % (Auto) % Eos % (Auto) % Baso % (Auto) % Immature Gran # (Auto) (0.00-0.02) K/uL Neut # (Auto) (1.4-6.5) K/uL Lymph # (Auto) (1.2-3.4) K/uL [place] # (Auto) (0.11-0.59) K/uL Eos # (Auto) (0-0.5) K/uL Baso # (Auto) (0-0.2) K/uL Macrocytosis PT (9.0-12.0) Seconds INR (0.9-1.1) APTT (21.0-31.0) Seconds PTT Ratio Sodium (136-145) mmol/L Potassium (3.5-5.1) mmol/L Chloride (98-107) mmol/L Carbon Dioxide (21-32) mmol/L Anion Gap (3-11) BUN (7-18) mg/dl Creatinine (0.6-1.2) mg/dl Est Cr Clr Drug Dosing ml/min Est GFR ( Amer) Est GFR (Non-Af Amer) BUN/Creatinine Ratio (10-20) Glucose (70-99) mg/dl Calcium (8.5-10.1) mg/dl Magnesium (1.8-2.4) mg/dl Total Bilirubin (0.2-1) mg/dl AST (15-37) U/L ALT (12-78) U/L Alkaline Phosphatase (45-117) U/L Troponin I (0-0.045) ng/ml NT-Pro-B Natriuret Pep 372 (0-1800) pg/ml Total Protein (6.4-8.2) gm/dl Albumin (3.4-5.0) gm/dl Globulin (2.5-4.0) gm/dl Albumin/Globulin Ratio (0.9-2) Procalcitonin < 0.05 (0-0.5) ng/ml TSH (0.300-4.500) uIu/ml Urine Color [place] Urine Appearance Slightly Cloudy (Clear) Urine pH 7.0 (4.5-7.5) Ur Specific [place] 1.015 (1.000-1.030) Urine Protein Negative (Negative) Urine Glucose (UA) Negative (Negative) Urine Ketones Negative (Negative) Urine Blood Negative (Negative) Urine Nitrite Negative (Negative) Urine Bilirubin Negative (Negative) Urine Urobilinogen Negative (Negative) Ur Leukocyte Esterase 3+ H (Negative) Urine RBC 0-4 (0-4) /hpf Urine WBC 10-30 H (0-5) /hpf Ur Epithelial Cells 10-20 H (0-5) /lpf Urine Bacteria 1+ H (Negative) Imaging Data Radiologist's Impression: Radiology results as stated below per my review and the radiologist's interpretation: CT OF THE HEAD WITHOUT CONTRAST CLINICAL HISTORY: possible seizure COMPARISON STUDY: MRI of the brain January 05, 2019. CT DOSE: 537.48 mGy.cm TECHNIQUE: Helical axial images of the head were obtained without IV contrast. Automated exposure control was utilized for the study. A dose lowering technique was utilized adhering to the principles of ALARA. FINDINGS: No acute intracranial hemorrhage, midline shift or mass effect is present. The ventricular system is unremarkable. The basilar cisterns are patent. No extra-axial collections are present. There are no findings to suggest acute dural sinus thrombosis or acute territorial infarct. No significant calvarial abnormalities are present. Note is made of a small air-fluid level with secretions within the left sphenoid sinus. White matter hypodensity suggest small vessel disease. IMPRESSION: 1. No acute intracranial findings. 2. Small air-fluid level with secretions within the left sphenoid sinus. ACT 112: Negative or not required by law. Results electronically sent 08/24/2019 11:46 AM to: Fish Otero DO Electronically signed by: Bonilla Blair M.D. 08/24/2019 11:46 AM SINGLE VIEW CHEST CLINICAL HISTORY: Generalized weakness. FINDINGS: An AP, portable, upright chest radiograph is compared to study dated 04/28/2019 and correlated with chest CT dated 06/20/2019. The examination is degraded by portable technique and patient rotation. A right subclavian central venous infusion port is unchanged in position. The heart is enlarged and there is atherosclerotic calcification of the thoracic aorta. There is prominence of the pulmonary vasculature. Chronic interstitial thickening and nodularity is similar to previous. A large calcified granuloma is again seen in the left lower lobe. Chronic patchy airspace consolidation is seen at both lung bases, right greater than left. Small pleural effusions are suspected. No pneumothorax is seen. The skeletal structures are osteopenic. The bony thorax is grossly intact. IMPRESSION: 1. Cardiomegaly with prominence of the central pulmonary vasculature. Correlate clinically for evidence of mild congestive failure. 2. Patchy airspace consolidation is seen at both lung bases. This appears increased from prior studies. Correlate clinically for evidence pneumonia/aspiration pneumonitis. Radiographic follow-up to resolution is luis mmended. 3. Suspect small pleural effusions. Results electronically sent 08/24/2019 11:45 AM to: Fish Otero DO Electronically signed by: Betito Read M.D. 08/24/2019 11:45 AM ECG Data Attestation: I personally reviewed and interpreted this ECG as follows: Indication: + weakness Rate (beats per minute): 120 Rhythm: + sinus tachycardia ECG Intervals/blocks: + First degree AV block ECG Findings: + Other (Runs of A-Fib with RVR); no PVCs Comparison ECG Date: from (04/28/19) Change: the following changes noted (A-Fib is new) Additional Comments: 2nd EKG: Atrial Fibrillation with RVR. 140 BPM. Increased r ate from prior. Blood Pressure Blood Pressure Findings: Normal blood pressure Blood Pressure Disposition: further management by hospitalist MADHURI Boles Continuous Cardiac Monitoring: An order was placed for continuous cardiac monitoring. The monitor shows a rate of 120 with an atrial fibrillation rhythm. The patient is a 79-year-old female who presented to the emergency department for an evaluation. The patient an episode of possible seizure episode which was witnessed by her son. The patient was at rest when she had an episode of shaking. This was perceived to be seizure activity by her son however she did not have a prolonged postictal phase. The patient was found to have episodes of paroxysmal atrial fibrillation. She even had some wider complex tachycardia as well. I would wonder if the patient was actually having a significant dysrhythm ia when this episode occurred. I discussed the patient's laboratory and radiographic studies with her. She did not appear to have signs of abnormal neurologic activity while she was in the emergency department. I discussed her case with the on-call [facility]. They have agreed to evaluate the patient in the emergency department for further management and disposition. The patient was treated with IV amiodarone in the emergency department. She was feeling much better on subsequent reevaluation. Impression & Plan Atrial fibrillation with RVR, Syncope, Seizure-like activity, Meningioma Discharge Plan Visit Data *Final* Discharge Date/Time: 08/24/19 16:05 Chief Complaint: Seizure ED Provider: Fish Otero Discharge Problem: Atrial fibrillation with RVR, Syncope, Seizure-like activity, Meningioma Patient Disposition: Admitted As Inpatient Discharge Instructions Interventions: ED Discharge Assessment Last Done: 08/24/19 16:05 Discharge Problem: Syncope Qualifiers: Syncope type: unspecified Qualified Code(s): R55 - Syncope and collapse The scribe's documentation has been prepared under my direction and personally reviewed by me in its entirety. I confirm that the note above accurately reflects all work, treatment, procedures, and medical decision making performed by me.
[2019-08-24 11:45] LABS: Basophils # (auto) 0.02 K/uL (0-0.2); Basophils % (auto) 0.2 %; Eosinophils # (auto) 0.03 K/uL (0-0.5); Eosinophils % (auto) 0.4 %; Hematocrit (blood only) 36.2 % (37-47); Hemoglobin 11.7 g/dL (12.0-16.0); Immature Granulocytes # (auto) 0.03 K/uL (0.00-0.02); Immature Granulocytes % (auto) 0.4 %; Lymphocytes # (auto) 1.68 K/uL (1.2-3.4); Lymphocytes % (auto) 20.2 %; Mean Corpuscular Hemoglobin 36.8 pg (25-34); Mean Corpuscular Hgb Conc 32.3 g/dL (32-36); Mean Corpuscular Volume 113.8 fL (80-100); Mean Platelet Volume 9.2 fL (7.4-10.4); Monocytes # (auto) 0.25 K/uL (0.11-0.59); Neutrophils # (auto) 6.32 K/uL (1.4-6.5); Neutrophils % (auto) 75.8 %; Platelet Count 218 K/uL (130-400); RDW Coefficient of Variation 14.5 % (11.5-14.5); RDW Standard Deviation 59.5 fL (36.4-46.3); Red Blood Count 3.18 M/uL (4.2-5.4); White Blood Count 8.33 K/uL (4.8-10.8)
--- NOTE | 2019-08-24 11:47 | XRay Report ---
SINGLE VIEW CHEST CLINICAL HISTORY: Generalized weakness. FINDINGS: An AP, portable, upright chest radiograph is compared to study dated 04/28/2019 and correlat ed with chest CT dated 06/20/2019. The examination is degraded by portable technique and patient rota tion. A right subclavian central venous infusion port is unchanged in position. The heart is enlarged and there is atherosclerotic calcification of the thoracic aorta. There is prominence of the pulmona ry vasculature. Chronic interstitial thickening and nodularity is similar to previous. A large calcif ied granuloma is again seen in the left lower lobe. Chronic patchy airspace consolidation is seen at both lung bases, right greater than left. Small pleural effusions are suspected. No pneumothorax is s een. The skeletal structures are osteopenic. The bony thorax is grossly intact. IMPRESSION: 1. Cardiomegaly with prominence of the central pulmonary vasculature. Correlate clinically for eviden ce of mild congestive failure. 2. Patchy airspace consolidation is seen at both lung bases. This appears increased from prior studie s. Correlate clinically for evidence pneumonia/aspiration pneumonitis. Radiographic follow-up to reso lution is recommended. 3. Suspect small pleural effusions. Results electronically sent 08/24/2019 11:45 AM to: Fish Otero DO Electronically signed by: Betito Read M.D. 08/24/2019 11:45 AM
--- NOTE | 2019-08-24 11:48 | CT Scan Report ---
CT OF THE HEAD WITHOUT CONTRAST CLINICAL HISTORY: possible seizure COMPARISON STUDY: MRI of the brain January 05, 2019. CT DOSE: 537.48 mGy.cm TECHNIQUE: Helical axial images of the head were obtained without IV contrast. Automated exposure con trol was utilized for the study. A dose lowering technique was utilized adhering to the principles o f ALARA. FINDINGS: No acute intracranial hemorrhage, midline shift or mass effect is present. The ventricular system is unremarkable. The basilar cisterns are patent. No extra-axial collections are present. Ther e are no findings to suggest acute dural sinus thrombosis or acute territorial infarct. No significan t calvarial abnormalities are present. Note is made of a small air-fluid level with secretions within the left sphenoid sinus. White matter hypodensity suggest small vessel disease. IMPRESSION: 1. No acute intracranial findings. 2. Small air-fluid level with secretions within the left sphenoid sinus. ACT 112: Negative or not required by law. Results electronically sent 08/24/2019 11:46 AM to: Fish Otero DO Electronically signed by: Bonilla Blair M.D. 08/24/2019 11:46 AM
[2019-08-24 12:02] LABS: Partial Thromboplastin Ratio 1.1; Partial Thromboplastin Time 30.5 Seconds (21.0-31.0); Prothrombin Time 10.4 Seconds (9.0-12.0)
[2019-08-24 12:11] LABS: Macrocytosis Present
[2019-08-24 12:16] LABS: Alanine Aminotransferase 39 U/L (12-78); Albumin Globulin Ratio 0.8 (0.9-2); Albumin Level 3.2 gm/dl (3.4-5.0); Alkaline Phosphatase 72 U/L (45-117); BUN Creatinine Ratio 20.1 (10-20); Bilirubin,Total 0.9 mg/dl (0.2-1); Blood Urea Nitrogen 15 mg/dl (7-18); Carbon Dioxide 25 mmol/L (21-32); Chloride 105 mmol/L (98-107); Creatinine Clr Calc Pharmacy 62.9 ml/min; Est GFR (African American) 89.3; Est GFR (Non-African American) 77.1; Globulin 4.1 gm/dl (2.5-4.0); Glucose 113 mg/dl (70-99); Total Protein 7.4 gm/dl (6.4-8.2); Troponin I < 0.015 ng/ml (0-0.045)
[2019-08-24 12:27] LABS: Aspartate Aminotransferase 47 U/L (15-37); Magnesium 1.8 mg/dl (1.8-2.4); Potassium 3.4 mmol/L (3.5-5.1); Sodium 138 mmol/L (136-145)
[2019-08-24] MEDS ORDERED: 0.2 MICRON FILTER SET 1 EA IV ONE (12:52)
[2019-08-24] MEDS ORDERED: AMIODARONE / D5W 360 MG/200 ML BAG IV SCH (13:00)
[2019-08-24 14:36] LABS: Appearance Urine Slightly Cloudy (Clear); Bilirubin Urine Negative (Negative); Blood Urine Negative (Negative); Color Urine Amber; Glucose Urine UA Negative (Negative); Ketones Urine Negative (Negative); Leukocyte Esterase Urine 3+ (Negative); Nitrite Urine Negative (Negative); Protein Urine Negative (Negative); Specific Gravity Urine 1.015 (1.000-1.030); Urobilinogen Urine Negative (Negative)
[2019-08-24 14:46] LABS: RBC Urine 0-4 /hpf (0-4)
[2019-08-24 14:47] LABS: Bacteria Urine 1+ (Negative)
--- NOTE | 2019-08-24 14:48 | History & Physical Report ---
Date of Service August 24, 2019 Assessment & Plan (1) Syncope: Admit to PCU on tele for possibly seizure like activity( nobody witnessed it), VS Q4 hr, TTE pending, referred to cardiology for SVT-s, Started in the ER on Amiodarone drip, Pt is on Lovenox 120 mg sc Qd for PE. DVT pph Lovenox Full Code Present on Admission?: Yes (2) Seizure-like activity: It is not clear what occurred today while pt was apparently "seizing" Continuously observe for seizures.Pt is not started on antiseizure medication since it is not clear if she really had a seizure. Present on Admission?: Yes (3) Prediabetes: A1c pending, Diet controlled. 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 Pt is tapering her steroids. Present on Admission?: Yes (6) Pulmonary embolism: Cont anticoagulation with Lovenox as the above discussed. Present on Admission?: Yes (7) SVT (supraventricular tachycardia): as discussed above. 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 The patient states she had some chest pain that radiated to her right arm this morning. The patient's son states the patient called him this morning and stated she was having some heart problems. He states he went to her house at 1030 and she was short of breath. He states she then had seizure-like activity for about 30 seconds. He states afterwards she started responding after about 5 minutes. He states she was sitting on the couch the whole time and did not hit her head. The patient states she does not remember the seizure-like activity. She states she has been having intermittent chest pain. She states her last chest pain was about an hour ago, and notes she does not have chest pain right now. She states she has been having intermittent nausea. The patient denies having headaches, trauma, falls, fevers, chills, and vomiting. She states she leon s been eating and drinking okay. She denies having SOB when she has the chest pain. She states she took Lovenox today for her previous lung clots. She states she is getting chemotherapy for her lungs. She denies having a history of heart problems and a history of seizures. The labs are reviewed: WBCs 7.18, hemoglobin 10.5, hematocrit 33.2, platelets 237, PT 10.4, INR 1, APTT 30.5, sodium 138, potassium 3.4, chloride 105, carbon dioxide 25, anion gap 8, BUN 15, creatinine 0.74, GFR 77.1, glucose 113, calcium 10, magnesium 1.8, total bilirubin 0.9, AST 47, ALT 39, alkaline phosphatase 72, troponin less than 0.015, Albumin 3.2, globulin 4.1, pro calcitonin less than 0.05, TSH 3.57. Urine jean-claude, slightly cloudy, urine pH 7, urine protein negative ketones negative nitrates negative urobilinogen negative leukocyte Estrace 3+, urine WBCs 10-30, urine placed cells 10-20, urine bacteria 1+. CT of the head no acute intracranial finding, small air-fluid level with secretion in the left sphenoid sinus. Chest x-ray cardiomegaly with prominence of the central pulmonary vasculature. Correlate clinically for evidence of mild congestive failure. Patchy airspace consolidation is seen at both lung bases. This appears increased from the prior study. Correlate clinically for evidence pneumonia/aspiration pneumonitis. Radiographic follow-up to resolution is recommended. Suspect small pleural effusion. EKG shows normal sinus rhythm with SVTs. Possible left atrial enlargement. Septal infarct age undetermined. T wave inversion no longer evident in the inferior leads T wave inversion no longer evident in the lateral leads. Nonspecific change in ST segment in inferior leads. The decision was made to admit patient to PCU on telemetry for further evaluation and treatment of seizure-like activity, new onset of SVTs/A. fib's. Primary Care Provider: Guillermo Berkowitz MD Allergies Allergy/AdvReac Type Severity Reaction Status Date / Time Tetracyclines Allergy Intermediate GI Verified 08/24/19 11:47 SYMPTOMS, RASH, SUN SENSITIVITY tomato Allergy Unknown TOMATOES, Verified 08/24/19 11:47 CITRUS FRUIT ACIDIC FOOD--ITCHY L EAR, HEAD levofloxacin AdvReac Intermediate tendonitis Verified 08/24/19 11:47 Macrolide Antibiotics AdvReac Intermediate GI SYMPTOMS Verified 08/24/19 11:47 Penicillins AdvReac Intermediate GI SYMPTOMS Verified 08/24/19 11:47 amoxicillin AdvReac Mild Gastrointestinal Verified 08/24/19 11:47 Upset ciprofloxacin AdvReac Mild GI UPSET Verified 08/24/19 11:47 clindamycin AdvReac Mild GI UPSET Verified 08/24/19 11:47 erythromycin base AdvReac Mild Gastrointestinal Verified 08/24/19 11:47 Upset Cipro AdvReac Unknown GI UPSET Verified 01/31/18 06:42 Home Medications Home Medications Medication Instructions Recorded Confirmed Type Lotemax 1 applic OPB HS 06/03/18 08/24/19 History Metamucil 1 dose PO HS PRN 06/03/18 08/24/19 History Probiotic 0 mmu cells PO QAM 06/03/18 08/24/19 History Restasis 1 drp OPB Q12H 06/03/18 08/24/19 History biotin 5 mg PO QDD 06/03/18 08/24/19 History calcium carb and citrate-vitD3 600 mg PO BID 06/03/18 08/24/19 History clobetasol 1 applic TOPICAL BID PRN 06/03/18 08/24/19 History docusate sodium 100 mg PO HS PRN 06/03/18 08/24/19 History glucosamine-chondroitin 1 tab PO BID 06/03/18 08/24/19 History hydrocortisone butyrate 1 applic TOPICAL DAILY PRN 06/03/18 08/24/19 History magnesium 250 mg PO QDD 06/03/18 08/24/19 History multivitamin 1 tab PO Q OTHER DAY 06/03/18 08/24/19 History vitamin B complex 1 tab PO QDD 06/03/18 08/24/19 History cholecalciferol (vitamin D3) 5,000 unit PO QAM 11/03/18 08/24/19 History [Vitamin D3] folic acid 1 mg PO QAM 11/03/18 08/24/19 History omega 3-rdu-lrx-fish oil [Fish Oil] 2 cap PO BID 11/03/18 08/24/19 History fexofenadine 180 mg tablet 180 mg PO DAILY PRN 01/30/19 08/24/19 History triamcinolone acetonide 0.1 % 1 appln TOPICAL BID PRN gm 01/30/19 08/24/19 History topical cream Prilosec OTC 20 mg PO BID 03/30/19 08/24/19 History prednisone 20 mg tablet 10 mg PO QDB tab 06/29/19 08/24/19 History azithromycin 500 mg tablet 500 mg PO MOWEFR 90 Days #18 tab 07/18/19 08/24/19 Rx ethambutol 400 mg tablet 1,200 mg PO MOWEFR 60 Days #180 tab 07/18/19 08/24/19 Rx rifampin 300 mg capsule 600 mg PO MOWEFR 90 Days #30 cap 07/18/19 08/24/19 Rx enoxaparin 120 mg SQ DAILY@0800 08/24/19 08/24/19 History escitalopram oxalate 10 mg PO QAM 08/24/19 08/24/19 History Past Med/Surg History Medical History Anemia (Acute) Atypical squamous cells of undetermined significance (ASC-US) on cervical Pap smear Deep vein thrombosis (Acute) Deep venous thrombosis of left popliteal vein Depression (Acute) Drug-induced pneumonitis (Acute) Hearing deficit (Acute) History of ascites History of lymphoma History of malignant neoplasm breast Metastatic adenocarcinoma (Chronic) On anticoagulant therapy (Acute) Osteoarthritis (Acute) Pneumonia (Acute) Pneumonia due to Pseudomonas Pulmonary embolism Seasonal affective disorder (Chronic) Thrombocytopenia Urinary tract infection (Acute) Surgical History H/O tubal ligation History of bronchoscopy (Acute) History of cholecystectomy (Acute) History of colonoscopy (Acute) History of cystoscopy (Acute) Hx of oral surgery S/P breast biopsy S/P bunionectomy S/P cholecystectomy Family History Daughter Breast cancer metastatic, diagnosed in 1993 and now is stage IV with salvage chemotherapy Daughter Breast cancer, Onset Age: 27 metastatic breast cancer at age 27 Brother , age 53 MVA MVA Family/Other Essential familial hypercholesterolemia Glaucoma Heart disease Macular degeneration Stroke Mother , age 85 Hypertension Hyperlipidemia Meningioma Father , "old age" 95 Hypertension Son Kidney stones Other Cancer Stroke syndrome Social History Preferred Language: Japanese Communication Ability: Effective Visual Impairment: Limited Hearing Ability: Use of Hearing Aid Hat Copyist Required: No Beliefs That Will Affect Care: None marital status: Current Living Situation: Alone current occupational status: retired Other Information That Helps Us Care for You: No Feels Safe at Home: Yes Safety Concerns: Feels Safe At This Time Smoking Status: Never smoker Do You Dip or Chew Tobacco: No ; Second Hand Exposure: No ; Tobacco Cessation Education Requested by Patient: No Hx Alcohol Use: No Hx Substance Use: No Childhood Exposure to Second-Hand Smoke: Yes Dental Care, Regularly: Yes Physical Activity Frequency: 1-2 Times per Week Seatbelt Use: always Sunscreen Use: Yes Review of Systems Review of Systems: All systems reviewed & are unremarkable except as noted in HPI & below Physical Exam Constitutional: WD/WN, vitals as above well developed and + ill appearing Eyes: PERRL, conjunctivae normal, anicteric sclerae ENMT: Ears: + hearing impairment Neck: trachea midline Respiratory: Auscultation: + crackles and + wheezes Cardiovascular: Rate/Rhythm: + tachycardic and + irregularly irregular Vessels: dorsalis pedis pulses present Gastrointestinal (Abdomen): normal bowel sounds, soft, nontender, no hepatosplenomegaly Musculoskeletal: no cyanosis or clubbing, extremities motor strength 5/5 Skin: no rashes, warm and dry Neurologic: patellar DTR's 2+ bilat, sensation intact Psychiatric: A+Ox3, euthymic affect Lymphatic: no cervical or axillary lymphadenopathy Results & Data Vital Signs (Past 12 Hours) Vital Signs Temp Pulse Resp BP Pulse Ox 08/24/19 14:31 91 H 21 93 08/24/19 14:30 104 H 20 108/59 L 93 08/24/19 14:15 126 H 23 93 08/24/19 14:01 137 H 19 92 08/24/19 14:00 105 H 21 101/66 93 08/24/19 13:45 163 H 19 94 08/24/19 13:31 100 H 23 94 08/24/19 13:30 99 H 15 98/70 L 94 08/24/19 13:15 130 H 20 98 08/24/19 13:01 134 H 17 95 08/24/19 13:00 179 H 24 106/65 95 08/24/19 12:45 98 H 17 97 08/24/19 12:31 185 H 18 96 08/24/19 12:30 106 H 23 102/69 08/24/19 12:15 134 H 24 93 08/24/19 12:01 98 H 22 96 08/24/19 12:00 115 H 16 118/79 92 08/24/19 11:47 98 H 20 108/66 95 08/24/19 11:45 101 H 08/24/19 11:31 109 H 23 99/58 L 95 08/24/19 11:30 176 H 20 93/65 L 92 08/24/19 11:25 97 08/24/19 11:15 126 H 19 97 08/24/19 11:12 36.8 C 186 H 20 115/66 97 08/24/19 11:07 125 H 13 96 08/24/19 11:05 109 H 18 115/66 97 Code Status & VTE Plan Code Status Full code VTE Prophylaxis Plan VTE Prophylaxis will be ordered: Yes PG Care Time/CCT Total # of Minutes Spent Total Time Spent with Patient: Total time spent is greater than 50% in coordination of care (as documented) at patient's floor/unit and/or counseling patient: Coding Level of Care Code 78487 Initial Inpt Care Lvl 3 Diagnoses Syncope R55 Syncope type: unspecified Seizure-like activity R56.9 Prediabetes R73.03 Mycobacterium avium intracellulare colonization Z22.39 Metastatic adenocarcinoma C79.9 Pulmonary embolism I26.99 SVT (supraventricular tachycardia) I47.1 Depression F32.9 (1) Syncope Syncope type: unspecified Qualified Code(s): R55 - Syncope and collapse
[2019-08-24] MEDS ORDERED: ACETAMINOPHEN 325 MG TAB PO PRN (16:47)
[2019-08-24] MEDS ORDERED: FEXOFENADINE HCL 180 MG TAB PO PRN (16:47)
[2019-08-24] MEDS ORDERED: ALUMINUM/MAGNESIUM SUSP 30 ML UDC PO PRN (16:47)
[2019-08-24] MEDS ORDERED: POLYETHYLENE (MIRALAX) 17 GM PACK PO PRN (16:47)
[2019-08-24] MEDS ORDERED: NON-FORMULARY MEDICATION (Biotin 5 MG) PO SCH (16:47)
[2019-08-24] MEDS ORDERED: MAGNESIUM HYDROXIDE SUSP 30 ML UDC PO PRN (16:47)
[2019-08-24] MEDS ORDERED: TRIAMCINOLONE ACET 0.1% CR 15 GM TUBE TOP PRN (16:47)
[2019-08-24] MEDS ORDERED: DOCUSATE SODIUM 100 MG CAP PO PRN (16:47)
[2019-08-24] MEDS ORDERED: PSYLLIUM 58.6% POWDER PACKET PO PRN (17:10)
[2019-08-24] MEDS ORDERED: HYDROCORTISONE 1% CRM 30 GM TUBE EXT PRN (17:15)
[2019-08-24 17:37] LABS: Basophils # (auto) 0.01 K/uL (0-0.2); Basophils % (auto) 0.1 %; Eosinophils # (auto) 0.02 K/uL (0-0.5); Eosinophils % (auto) 0.3 %; Hematocrit (blood only) 33.2 % (37-47); Hemoglobin 10.5 g/dL (12.0-16.0); Immature Granulocytes # (auto) 0.02 K/uL (0.00-0.02); Immature Granulocytes % (auto) 0.3 %; Lymphocytes # (auto) 1.71 K/uL (1.2-3.4); Lymphocytes % (auto) 23.8 %; Mean Corpuscular Hemoglobin 35.7 pg (25-34); Mean Corpuscular Hgb Conc 31.6 g/dL (32-36); Mean Corpuscular Volume 112.9 fL (80-100); Mean Platelet Volume 8.9 fL (7.4-10.4); Monocytes # (auto) 0.34 K/uL (0.11-0.59); Monocytes % (auto) 4.7 %; Neutrophils # (auto) 5.08 K/uL (1.4-6.5); Neutrophils % (auto) 70.8 %; Platelet Count 237 K/uL (130-400); RDW Coefficient of Variation 14.7 % (11.5-14.5); RDW Standard Deviation 60.1 fL (36.4-46.3); Red Blood Count 2.94 M/uL (4.2-5.4); White Blood Count 7.18 K/uL (4.8-10.8)
[2019-08-24 18:10] LABS: Macrocytosis Present
[2019-08-24] MEDS ORDERED: Nursing to Pharmacy Communication ONE (18:14)
[2019-08-24] MEDS: ESCITALOPRAM OXALATE 10 MG TAB PO SCH (18:19)
[2019-08-24] MEDS: VITAMIN B COMPLEX TAB PO SCH (18:19)
[2019-08-24] MEDS: MAGNESIUM OXIDE 400 MG TAB PO SCH (18:19)
[2019-08-24] MEDS ORDERED: predniSONE 10 MG TABLET PO SCH (18:45)
[2019-08-24] MEDS: OMEGA-3 (PURIFIED FISH OIL) 1 GM CAP PO SCH (21:12)
[2019-08-24] MEDS: PANTOprazole 40 MG TAB PO SCH (21:12)
[2019-08-24] MEDS: CALCIUM 600MG + VIT D 400 IU TAB PO SCH (21:13)
[2019-08-24] MEDS: GLUCOSAMINE SULFATE 500 MG CAP PO SCH (21:13)
--- NOTE | 2019-08-24 21:41 | Electrocardiogram Report ---
Test Reason : Blood Pressure : / mmHG Vent. Rate : 120 BPM Atrial Rate : 120 BPM P-R Int : 218 ms QRS Dur : 072 ms QT Int : 302 ms P-R-T Axes : 071 026 053 degrees QTc Int : 426 ms Sinus tachycardia with 1st degree A-V block with frequent , and consecutive Premature atrial complexe s Possible Left atrial enlargement Nonspecific T wave abnormality Abnormal ECG When compared with ECG of 28-APR-2019 15:24, Premature atrial complexes are now Present Vent. rate has increased BY 48 BPM Nonspecific T wave abnormality now evident in Anterolateral leads Confirmed by Johnnie Keating ([id number]) on 08/24/2019 9:40:58 PM Referred By: Confirmed By:Johnnie Keating
--- NOTE | 2019-08-24 21:54 | Electrocardiogram Report ---
Test Reason : Blood Pressure : / mmHG Vent. Rate : 141 BPM Atrial Rate : 110 BPM P-R Int : 216 ms QRS Dur : 072 ms QT Int : 270 ms P-R-T Axes : 000 033 -89 degrees QTc Int : 413 ms Poor data quality, interpretation may be adversely affected Sinus tachycardia with 1st degree AV block with SVT / atrial tachycardia Premature atrial complexes Nonspecific ST and T wave abnormality Abnormal ECG When compared with ECG of 24-AUG-2019 11:05, No significant change Confirmed by Johnnie Keating ([id number]) on 08/24/2019 9:54:40 PM Referred By: Confirmed By:Johnnie Keating
--- NOTE | 2019-08-24 22:15 | Communication Note ---
Date of Service: August 24, 2019 S: I was called to the room at approximately 9:30 PM to evaluate the patient. She did present to the hospital and been in A. fib with RVR placed on amiodarone and subsequently converted to normal sinus rhythm. She acutely went back into A. fib with RVR heart rate in the 140s, increasing shortness of breath, and hypotension. I asked the nurse to grab an EKG and proceeded to evaluate the patient at the bedside. Upon my arrival the patient's abnormal rhythm had broken and she was intermittently jumping between atrial fibrillation and normal sinus rhythm. The patient was alert and oriented in no acute distress reporting she does not have a history of PAF, normal blood pressures are 120/80 and she has a history of lung cancer on Lovenox and pneumonitis secondary to chemotherapy. She reports that she feels dehydrated, having only consumed 1 glass of water today. O: General: Lying in bed in no acute distress nasal cannula in place on 2 L Cardiac: Intermittently irregularly irregular rhythm without significant murmurs, rubs, gallops, normal S1, normal S2, I did not appreciate significant pedal edema, no calf tenderness Respiratory: Bilateral rhonchi with questionable rales, symmetrical chest expansion, no increased work of breathing Extremities: Skin appears dry, mucous membranes appear dryish, slightly delayed capillary refill A/P: A. fib with RVR Patient with new onset A. fib with RVR. Upon conversation with the patient she did relate a history where she may have had episodes of RVR while at home that spontaneously converted on their own. On presentation this evening to the emergency department she was given an amiodarone drip for total of 360 mg of amiodarone causing her to spontaneously convert to normal sinus rhythm. She subsequently went back in atrial fibrillation which point I was called to assess. Given the fact that she is intermittently converting in and out of normal sinus rhythm on her own I am reluctant to provide additional amiodarone as I do not think this is an appropriate chronic medication for this patient given her history of chemotherapy-induced pneumonitis. Given her dehydrated status, I am hopeful that a fluid bolus will be sufficient to increase her pressures and hopefully maintain him in a normal sinus rhythm. Should she still remain in A. fib with RVR the fluid bolus should increase her pressures allowing us to utilize diltiazem to achieve effective rate control and potentially even spontaneous conversion back to normal sinus rhythm. Diltiazem would be a much better long-term therapy for this patient. -LR at 125 x 2 L -DC amiodarone -To consider addition of diltiazem if patient converts back to A. fib with RVR #Shortness of breath Likely secondary to presumed underlying infection recovering from his recent pneumonia. Normally would be inclined to add DuoNebs every 6 scheduled, however given her predilection for developing A. fib with RVR will hold off for now. Instead will initiate budesonide 0.5 mg twice daily as well as routine respiratory therapy. Budesonide 0.5 mg twice daily Chest PT Flutter valve Incentive spirometry Cameron Murrell MD PGY 2, FCM This chart was completed utilizing [employer] voice recognition software. Grammatical errors, random word insertions, pronoun errors, and in complete sentences are an occasional consequence of the system. Any questions or concerns about the content, text, or information contained within the body of this dictation should be addressed directly to the physician for clarification. Resident Activity Tracking Resident Involvement: Resident Care Provided Care Provided: Adult Hospital Medicine
[2019-08-24] MEDS: LACTATED RINGER'S 1,000 ML IV SCH (22:18)
[2019-08-24] MEDS ORDERED: HEPARIN 100 UNIT/ML 5ML FLUSH FLUSH PRN (22:42)
[2019-08-25] MEDS: LACTATED RINGER'S 1,000 ML IV SCH (05:47)
[2019-08-25] MEDS: BUDESONIDE 0.5 MG/2 ML VIAL (PULMICORT) NEB SCH ×2 (07:15→19:38)
[2019-08-25] MEDS: predniSONE 10 MG TABLET PO SCH (08:08)
[2019-08-25] MEDS: rifAMPin 300 MG CAPSULE PO SCH ×2 (08:09→09:00)
[2019-08-25] MEDS: LACTOBACILLUS ACIDOPHILUS (FLORANEX) TAB PO SCH (08:09)
[2019-08-25] MEDS: OMEGA-3 (PURIFIED FISH OIL) 1 GM CAP PO SCH ×2 (08:09→21:08)
[2019-08-25] MEDS: ENOXAPARIN INJ 120 MG/0.8 ML SYR SQ SCH (08:09)
[2019-08-25] MEDS: GLUCOSAMINE SULFATE 500 MG CAP PO SCH ×2 (08:10→21:08)
[2019-08-25] MEDS: MULTIVITAMIN TAB PO SCH (08:10)
[2019-08-25] MEDS: CHOLECALCIFEROL 1,000 UNITS 25 MCG TAB PO SCH (08:10)
[2019-08-25] MEDS: ESCITALOPRAM OXALATE 10 MG TAB PO SCH (08:10)
[2019-08-25] MEDS: AZITHROMYCIN 250 MG TAB PO SCH (08:10)
[2019-08-25] MEDS: CALCIUM 600MG + VIT D 400 IU TAB PO SCH ×2 (08:10→21:09)
[2019-08-25] MEDS: FOLIC ACID 1 MG TAB PO SCH (08:10)
[2019-08-25] MEDS: PANTOprazole 40 MG TAB PO SCH ×2 (08:10→21:09)
[2019-08-25] MEDS: ETHAMBUTOL HCL 400 MG TAB PO SCH ×2 (08:11→09:00)
[2019-08-25 08:21] LABS: Basophils # (auto) 0.01 K/uL (0-0.2); Basophils % (auto) 0.2 %; Eosinophils # (auto) 0.03 K/uL (0-0.5); Eosinophils % (auto) 0.5 %; Hematocrit (blood only) 29.7 % (37-47); Hemoglobin 9.7 g/dL (12.0-16.0); Immature Granulocytes # (auto) 0.01 K/uL (0.00-0.02); Immature Granulocytes % (auto) 0.2 %; Lymphocytes # (auto) 1.48 K/uL (1.2-3.4); Lymphocytes % (auto) 26.9 %; Mean Corpuscular Hemoglobin 36.3 pg (25-34); Mean Corpuscular Hgb Conc 32.7 g/dL (32-36); Mean Corpuscular Volume 111.2 fL (80-100); Mean Platelet Volume 8.9 fL (7.4-10.4); Monocytes # (auto) 0.18 K/uL (0.11-0.59); Monocytes % (auto) 3.3 %; Neutrophils # (auto) 3.79 K/uL (1.4-6.5); Neutrophils % (auto) 68.9 %; Platelet Count 174 K/uL (130-400); RDW Coefficient of Variation 14.6 % (11.5-14.5); RDW Standard Deviation 58.9 fL (36.4-46.3); Red Blood Count 2.67 M/uL (4.2-5.4)
[2019-08-25 08:50] LABS: Albumin Level 2.8 gm/dl (3.4-5.0); BUN Creatinine Ratio 19.2 (10-20); Calcium 9.6 mg/dl (8.5-10.1); Creatinine Clr Calc Pharmacy 79.3 ml/min; Est GFR (African American) 100.5; Est GFR (Non-African American) 86.7; Potassium 3.4 mmol/L (3.5-5.1)
[2019-08-25 08:53] LABS: Albumin Globulin Ratio 0.8 (0.9-2); Bilirubin,Total 0.6 mg/dl (0.2-1); Globulin 3.6 gm/dl (2.5-4.0); Total Protein 6.4 gm/dl (6.4-8.2)
[2019-08-25 08:55] LABS: Macrocytosis Present
--- NOTE | 2019-08-25 09:20 | Cardiology Consultation ---
Date of Consultation August 25, 2019 Assessment & Plan (1) SVT (supraventricular tachycardia): She has been noted to have brief runs of SVT with an elevated rate over 200 bpm at times. There was concern for possible atrial fibrillation, but ECG and telemetry monitoring appear most consistent with SVT. Regardless, she is chronically anticoagulated given her history of DVT/PE. She is not experiencing palpitations, but her episode of syncope yesterday morning is concerning. Recommend treatment for the arrhythmia by resuming her amiodarone drip. Would then continue to monitor on telemetry. (2) Syncope: The etiology of her event yesterday morning is unclear, but given her episodes of SVT noted since her admission, there is concern that the episode could have been secondary to an arrhythmia. Recommend resuming amiodarone drip, as noted above, and continue to monitor on telemetry. Her echocardiogram demonstrated normal biventricular systolic function with no significant valvular abnormality. Patient discussed with Dr. Montejo, and the plan was made in collaboration with him. History of Present Illness Reason for Consultation: SVT Requesting Physician: Dr. Florentino History of Present Illness Ms. Levy is a 79-year-old female with a past medical history significant for metastatic adenocarcinoma of the lungs, microbacterium avium infection of the lungs (recently started on antibiotic therapy last week), DVT/PE on chronic anticoagulation, and depression who was admitted yesterday following a syncopal event at home. She reports that yesterday morning, she got up and was getting ready for the day and felt very short of breath. She is chronically short of breath with more vigorous exertion, but she was more short of breath yesterday than what is normal for her. She also noted a pain across her chest in association with the shortness of breath, which she had never had before. Due to concern regarding her increased shortness of breath symptoms and new chest discomfort, she called her son to take her to the hospital. She was then sitting in her chair in her bedroom when her son came into the room and witness her pass out. He apparently thought she was having a seizure as her hands were shaking. Her son believed she was unconscious for about 30 seconds. The patient states that when she awoke, she continued to have some shortness of breath and chest discomfort but was otherwise asymptomatic. Her chest discomfort resolved by the time she got to the ER and has not recurred. Her shortness of breath resolved for a period of time, but she did note some recurrent shortness of breath last evening while lying in bed. On arrival to the ER, she was found to go in and out of SVT and was initiated on an amiodarone drip, which has since been discontinued. She denies any palpitations. She denies lightheadedness or dizziness. She denies orthopnea or PND. She notes chronic lower extremity edema, which may have mildly worsened over the last couple of days. She notes a nonproductive cough. She denies wheezing or congestion. She denies abnormal bleeding such as melena, hematochezia, or hematuria. She denies cerebrovascular symptoms. Family history: No premature CAD. Social history: She is a . She lives at home alone. She has a son and granddaughter. She had a daughter who from breast cancer. 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 She denies smoking. No current alcohol use. Allergies Allergy/AdvReac Type Severity Reaction Status Date / Time Tetracyclines Allergy Intermediate GI Verified 08/24/19 11:47 SYMPTOMS, RASH, SUN SENSITIVITY tomato Allergy Unknown TOMATOES, Verified 08/24/19 11:47 CITRUS FRUIT ACIDIC FOOD--ITCHY L EAR, HEAD levofloxacin AdvReac Intermediate tendonitis Verified 08/24/19 11:47 Macrolide Antibiotics AdvReac Intermediate GI SYMPTOMS Verified 08/24/19 11:47 Penicillins AdvReac Intermediate GI SYMPTOMS Verified 08/24/19 11:47 amoxicillin AdvReac Mild Gastrointestinal Verified 08/24/19 11:47 Upset ciprofloxacin AdvReac Mild GI UPSET Verified 08/24/19 11:47 clindamycin AdvReac Mild GI UPSET Verified 08/24/19 11:47 erythromycin base AdvReac Mild Gastrointestinal Verified 08/24/19 11:47 Upset Cipro AdvReac Unknown GI UPSET Verified 01/31/18 06:42 Home Medications Home Medications Medication Instructions Recorded Confirmed Type Lotemax 1 applic OPB HS 06/03/18 08/24/19 History Metamucil 1 dose PO HS PRN 06/03/18 08/24/19 History Probiotic 0 mmu cells PO QAM 06/03/18 08/24/19 History Restasis 1 drp OPB Q12H 06/03/18 08/24/19 History biotin 5 mg PO QDD 06/03/18 08/24/19 History calcium carb and citrate-vitD3 600 mg PO BID 06/03/18 08/24/19 History clobetasol 1 applic TOPICAL BID PRN 06/03/18 08/24/19 History docusate sodium 100 mg PO HS PRN 06/03/18 08/24/19 History glucosamine-chondroitin 1 tab PO BID 06/03/18 08/24/19 History hydrocortisone butyrate 1 applic TOPICAL DAILY PRN 06/03/18 08/24/19 History magnesium 250 mg PO QDD 06/03/18 08/24/19 History multivitamin 1 tab PO Q OTHER DAY 06/03/18 08/24/19 History vitamin B complex 1 tab PO QDD 06/03/18 08/24/19 History cholecalciferol (vitamin D3) 5,000 unit PO QAM 11/03/18 08/24/19 History [Vitamin D3] folic acid 1 mg PO QAM 11/03/18 08/24/19 History omega 3-yqp-byk-fish oil [Fish Oil] 2 cap PO BID 11/03/18 08/24/19 History fexofenadine 180 mg tablet 180 mg PO DAILY PRN 01/30/19 08/24/19 History triamcinolone acetonide 0.1 % 1 appln TOPICAL BID PRN gm 01/30/19 08/24/19 History topical cream Prilosec OTC 20 mg PO BID 03/30/19 08/24/19 History prednisone 20 mg tablet 10 mg PO QDB tab 06/29/19 08/24/19 History azithromycin 500 mg tablet 500 mg PO MOWEFR 90 Days #18 tab 07/18/19 08/24/19 Rx ethambutol 400 mg tablet 1,200 mg PO MOWEFR 60 Days #180 tab 07/18/19 08/24/19 Rx rifampin 300 mg capsule 600 mg PO MOWEFR 90 Days #30 cap 07/18/19 08/24/19 Rx enoxaparin 120 mg SQ DAILY@0800 08/24/19 08/24/19 History escitalopram oxalate 10 mg PO QAM 08/24/19 08/24/19 History Patient History Medical History Anemia (Acute) Atypical squamous cells of undetermined significance (ASC-US) on cervical Pap smear Deep vein thrombosis (Acute) Deep venous thrombosis of left popliteal vein Depression (Acute) Drug-induced pneumonitis (Acute) Hearing deficit (Acute) History of ascites History of lymphoma History of malignant neoplasm breast Metastatic adenocarcinoma (Chronic) On anticoagulant therapy (Acute) Osteoarthritis (Acute) Pneumonia (Acute) Pneumonia due to Pseudomonas Pulmonary embolism Seasonal affective disorder (Chronic) Thrombocytopenia Urinary tract infection (Acute) Surgical History H/O tubal ligation History of bronchoscopy (Acute) History of cholecystectomy (Acute) History of colonoscopy (Acute) History of cystoscopy (Acute) Hx of oral surgery S/P breast biopsy S/P bunionectomy S/P cholecystectomy Family History Daughter Breast cancer metastatic, diagnosed in 1993 and now is stage IV with salvage chemotherapy Daughter Breast cancer, Onset Age: 27 metastatic breast cancer at age 27 Brother , age 53 MVA MVA Family/Other Essential familial hypercholesterolemia Glaucoma Heart disease Macular degeneration Stroke Mother , age 85 Hypertension Hyperlipidemia Meningioma Father , "old age" 95 Hypertension Son Kidney stones Other Cancer Stroke syndrome Social History Preferred Language: Slovenian Communication Ability: Effective Visual Impairment: Limited Hearing Ability: Use of Hearing Aid Clean Room Technician Required: No Beliefs That Will Affect Care: None marital status: Current Living Situation: Alone current occupational status: retired Other Information That Helps Us Care for You: No Feels Safe at Home: Yes Safety Concerns: Feels Safe At This Time Smoking Status: Never smoker Do You Dip or Chew Tobacco: No ; Second Hand Exposure: No ; Tobacco Cessation Education Requested by Patient: No Hx Alcohol Use: No Hx Substance Use: No Childhood Exposure to Second-Hand Smoke: Yes Dental Care, Regularly: Yes Physical Activity Frequency: 1-2 Times per Week Seatbelt Use: always Sunscreen Use: Yes Review of Systems Review of Systems: As noted in HPI. All other ROS are reviewed and otherwise negative at this time. Physical Exam Physical Exam: Constitutional: Alert, oriented, in no acute distress HEENT: Head is atraumatic and normocephalic. EOMs intact. Sclera non-icteric. Face is symmetric. No perioral cyanosis. Mucous membranes moist Neck: Supple, no JVD Pulmonary: Normal respiratory effort, decreased breath sounds at the bases Cardiac: Regular rate and rhythm with brief runs of tachycardia, normal S1 and S2, no gallops, no rubs, 1/6 systolic murmur Extremities: No pitting edema. No clubbing or cyanosis. Pulses 2+ and symmetric Abdomen: Normal bowel sounds, soft, non-tender, no abdominal masses palpated Skin: Normal skin color, turgor, and pigmentation. No rash or skin lesions Neurological: Oriented to person, place, and time Results & Data ([facility]) Vital Signs (Past 12 Hours) Vital Signs Temp Pulse Pulse Pulse Resp BP Pulse Ox 08/25/19 07:28 98.2 F 88 18 110/72 94 08/25/19 04:35 98.2 F 81 18 108/72 93 08/24/19 23:32 98.8 F 99 H 18 93/62 L 90 08/24/19 21:37 120 H 94/64 L 08/24/19 21:17 97.7 F 144 H 22 95/58 L 94 Laboratory Results Laboratory Results WBC 5.50 K/uL (4.8-10.8) 08/25/19 07:54 RBC 2.67 M/uL (4.2-5.4) L 08/25/19 07:54 Hgb 9.7 g/dL (12.0-16.0) L 08/25/19 07:54 Hct 29.7 % (37-47) L 08/25/19 07:54 MCV 111.2 fL (80-100) H 08/25/19 07:54 MCH 36.3 pg (25-34) H 08/25/19 07:54 MCHC 32.7 g/dL (32-36) 08/25/19 07:54 RDW Std Deviation 58.9 fL (36.4-46.3) H 08/25/19 07:54 RDW Coeff of Mary Beth 14.6 % (11.5-14.5) H 08/25/19 07:54 Plt Count 174 K/uL (130-400) 08/25/19 07:54 MPV 8.9 fL (7.4-10.4) 08/25/19 07:54 Immature Gran % (Auto) 0.2 % 08/25/19 07:54 Neut % (Auto) 68.9 % 08/25/19 07:54 Lymph % (Auto) 26.9 % 08/25/19 07:54 [place] % (Auto) 3.3 % 08/25/19 07:54 Eos % (Auto) 0.5 % 08/25/19 07:54 Baso % (Auto) 0.2 % 08/25/19 07:54 Immature Gran # (Auto) 0.01 K/uL (0.00-0.02) 08/25/19 07:54 Neut # (Auto) 3.79 K/uL (1.4-6.5) 08/25/19 07:54 Lymph # (Auto) 1.48 K/uL (1.2-3.4) 08/25/19 07:54 [place] # (Auto) 0.18 K/uL (0.11-0.59) 08/25/19 07:54 Eos # (Auto) 0.03 K/uL (0-0.5) 08/25/19 07:54 Baso # (Auto) 0.01 K/uL (0-0.2) 08/25/19 07:54 Macrocytosis Present 08/25/19 07:54 PT 10.4 Seconds (9.0-12.0) 08/24/19 11:21 INR 1.0 (0.9-1.1) 08/24/19 11:21 APTT 30.5 Seconds (21.0-31.0) 08/24/19 11:21 PTT Ratio 1.1 08/24/19 11:21 Sodium 140 mmol/L (136-145) 08/25/19 07:54 Potassium 3.4 mmol/L (3.5-5.1) L 08/25/19 07:54 Chloride 107 mmol/L (98-107) 08/25/19 07:54 Carbon Dioxide 27 mmol/L (21-32) 08/25/19 07:54 Anion Gap 6.0 (3-11) 08/25/19 07:54 BUN 12 mg/dl (7-18) 08/25/19 07:54 Creatinine 0.60 mg/dl (0.6-1.2) 08/25/19 07:54 Est Cr Clr Drug Dosing 79.3 ml/min 08/25/19 07:54 Est GFR ( Amer) 100.5 08/25/19 07:54 Est GFR (Non-Af Amer) 86.7 08/25/19 07:54 BUN/Creatinine Ratio 19.2 (10-20) 08/25/19 07:54 Glucose 90 mg/dl (70-99) 08/25/19 07:54 Calcium 9.6 mg/dl (8.5-10.1) 08/25/19 07:54 Magnesium 1.8 mg/dl (1.8-2.4) 08/24/19 11:21 Total Bilirubin 0.6 mg/dl (0.2-1) 08/25/19 07:54 AST 41 U/L (15-37) H 08/25/19 07:54 ALT 37 U/L (12-78) 08/25/19 07:54 Alkaline Phosphatase 61 U/L (45-117) 08/25/19 07:54 Troponin I < 0.015 ng/ml (0-0.045) 08/24/19 11:21 NT-Pro-B Natriuret Pep 372 pg/ml (0-1800) 08/24/19 11:21 Total Protein 6.4 gm/dl (6.4-8.2) 08/25/19 07:54 Albumin 2.8 gm/dl (3.4-5.0) L 08/25/19 07:54 Globulin 3.6 gm/dl (2.5-4.0) 08/25/19 07:54 Albumin/Globulin Ratio 0.8 (0.9-2) L 08/25/19 07:54 Procalcitonin < 0.05 ng/ml (0-0.5) 08/24/19 11:21 TSH 3.570 uIu/ml (0.300-4.500) 08/24/19 11:21 Urine Color Lolita 08/24/19 14:20 Urine Appearance Slightly Cloudy (Clear) 08/24/19 14:20 Urine pH 7.0 (4.5-7.5) 08/24/19 14:20 Ur Specific [place] 1.015 (1.000-1.030) 08/24/19 14:20 Urine Protein Negative (Negative) 08/24/19 14:20 Urine Glucose (UA) Negative (Negative) 08/24/19 14:20 Urine Ketones Negative (Negative) 08/24/19 14:20 Urine Blood Negative (Negative) 08/24/19 14:20 Urine Nitrite Negative (Negative) 08/24/19 14:20 Urine Bilirubin Negative (Negative) 08/24/19 14:20 Urine Urobilinogen Negative (Negative) 08/24/19 14:20 Ur Leukocyte Esterase 3+ (Negative) H 08/24/19 14:20 Urine RBC 0-4 /hpf (0-4) 08/24/19 14:20 Urine WBC 10-30 /hpf (0-5) H 08/24/19 14:20 Ur Epithelial Cells 10-20 /lpf (0-5) H 08/24/19 14:20 Urine Bacteria 1+ (Negative) H 08/24/19 14:20 Diagnostic Findings ECG 08/24/19 @ 11:05: Sinus tachycardia with first degree AV block with frequent and consecutive PACs, possible left atrial enlargement, nonspecific T wave abnormality. ECG 08/24/19 @ 11:09: Sinus tachycardia with first degree AV block with SVT/atrial tachycardia, PACs, nonspecific ST-T wave abnormality. ECG 08/24/19 @ 21:39: Normal sinus rhythm, possible left atrial enlargement, possible septal infarct, nonspecific T wave abnormality. Head CT: 1. No acute intracranial findings. 2. Small air-fluid level with secretions within the left sphenoid sinus. CXR: 1. Cardiomegaly with prominence of the central pulmonary vasculature. Correlate clinically for evidence of mild congestive failure. 2. Patchy airspace consolidation is seen at both lung bases. This appears increased from prior studies. Correlate clinically for evidence pneumonia/aspiration pneumonitis. Radiographic follow-up to resolution is recommended. 3. Suspect small pleural effusions. Echo preliminarily shows normal biventricular systolic function and mild TR. Telemetry monitoring: Sinus rhythm with brief runs of SVT, over 200 bpm at times. PG Care Time/CCT Total # of Minutes Spent Total Time Spent with Patient: Total time spent is greater than 50% in coordination of care (as documented) at patient's floor/unit and/or counseling patient: Coding Level of Care Code 31810 Initial Inpt Care Lvl 3 Diagnoses SVT (supraventricular tachycardia) I47.1 Syncope R55 Syncope type: unspecified (1) Syncope Syncope type: unspecified Qualified Code(s): R55 - Syncope and collapse
--- NOTE | 2019-08-25 14:28 | XCELERA ---
[id number] \\[email or web address]\[id number]_[id number]___[id number]
--- NOTE | 2019-08-25 15:49 | Electrocardiogram Report ---
Test Reason : Blood Pressure : / mmHG Vent. Rate : 095 BPM Atrial Rate : 095 BPM P-R Int : 206 ms QRS Dur : 066 ms QT Int : 316 ms P-R-T Axes : 074 011 073 degrees QTc Int : 397 ms Normal sinus rhythm Possible Left atrial enlargement Septal infarct , age undetermined Abnormal ECG When compared with ECG of 24-AUG-2019 11:09, Premature atrial complexes are no longer Present T wave inversion no longer evident in Inferior leads T wave inversion no longer evident in Lateral leads Confirmed by Fish Montejo ([id number]) on 08/25/2019 3:49:06 PM Referred By: Jaydon Pascal Confirmed By:Fish Montejo
[2019-08-25] MEDS ORDERED: POTASSIUM CHLORIDE 20 MEQ TABCR PO STA (15:51)
--- NOTE | 2019-08-25 15:51 | Hospitalist Progress Note ---
Date of Service August 25, 2019 Assessment & Plan (1) Syncope: Most likely cardiac etiology from supraventricular tachycardia and hypoperfusion Patient has significant improvement in the emergency department with amiodarone Cardiology is consulted and following Telemetry shows waxing and waning SVT throughout the afternoon Echocardiogram without wall motion abnormality and with preserved left ventricular ejection fraction greater than 70%. Left ventricle is hyperdynamic Potassium level 3.4 is being repleted -follow serial lab TSH 3.57 (2) SVT (supraventricular tachycardia): Patient symptomatic this afternoon. Will restart amiodarone drip Cardiology following Continue on telemetry (3) Mycobacterium avium intracellulare colonization: Follows with Dr. Pascal Started triple antibiotic therapy last Wednesday Does not need isolation Continue to follow outpatient in the pulmonary office (4) Pulmonary embolism: Patient with adenocarcinoma of the lung Currently on Lovenox therapy daily No shortness of breath or hemoptysis Aside from tachycardia no other symptoms of acute PE Most recent lower extremity duplex is negative for DVT No asymmetrical edema of the lower extremities (5) Lung cancer: Failed Keytruda secondary to pulmonary toxicity Now on maintenance therapy with Alimpta Further management with outpatient oncology (6) Seizure-like activity: No history of seizures No further indication of seizures during this hospital stay No indication for seizure precautions (7) Vaginal pessary present: Pessary removed, cleaned, reinserted 07/14/2019 Urine culture now with staph aureus Most likely contaminant Await sensitivities (8) Hypokalemia: Replete with 40 mg of potassium chloride p.o. Follow serial labs Please refer to Dr. Mathews's addendum for further recommendations. Admission and Anticipated Discharge Date Admission Date: August 24, 2019 Subjective Attending: Dr. Fly Mathews There is a 79-year-old female admitted yesterday for syncope. Patient was found to have SVT and started on amiodarone drip in the emergency dep artment. She has been monitored in telemetry overnight and had several episodes of SVT with rates as high as the low 200s. Patient is completely unaware of any tachyarrhythmia. There was a question about seizing yesterday. However, patient states that she is not really sure what happened and has had no history of seizures and no further episodes. Patient did recently start treatment for NICK last Wednesday. She is not aware of any adverse effects to the medication other than orange urine from the rifampin. Patient denies any chest pain or tightness. She has no pleuritic pain. She has no current lower extremity pain. Patient does have a pessary in place. Most recent vaginal examination was about 3 months ago. She has no further acute complaints. Review of Systems Review of Systems: All systems reviewed & are unremarkable except as noted in HPI & below Physical Exam Physical Exam: GENERAL : No acute distress EYES: No icterus, gaze conjugate NOSE: No evidence of epistaxis MOUTH: No lesions or candidiasis NECK: Supple LUNGS: CTA B/L, no wheezes, rales or rhonchi HEART: Regular, tachycardia currently in the 1-teens ABDOMEN: Soft, NT, ND, BS Present EXTREMITIES: No LE edema, pedal pulses intact NEURO: A&OX3. Cranial nerves II through XII appear grossly intact without focal deficit. Results & Data ([facility]) Vital Signs (Past 12 Hours) Vital Signs Temp Pulse Pulse Resp BP Pulse Ox 08/25/19 15:37 36.9 C 178 H 20 122/77 93 08/25/19 11:19 36.5 C 100 H 17 110/74 90 08/25/19 07:28 36.8 C 88 18 110/72 94 08/25/19 04:35 36.8 C 81 18 108/72 93 Laboratory Results 08/25/19 07:54 08/25/19 07:54 Diagnostic Findings SINGLE VIEW CHEST CLINICAL HISTORY: Generalized weakness. FINDINGS: An AP, portable, upright chest radiograph is compared to study dated 04/28/2019 and correlated with chest CT dated 06/20/2019. The examination is degraded by portable technique and patient rotation. A right subclavian central venous infusion port is unchanged in position. The heart is enlarged and there is atherosclerotic calcification of the thoracic aorta. There is prominence of the pulmonary vasculature. Chronic interstitial thickening and nodularity is similar to previous. A large calcified granuloma is again seen in the left lower lobe. Chronic patchy airspace consolidation is seen at both lung bases, right greater than left. Small pleural effusions are suspected. No pneumothorax is seen. The skeletal structures are osteopenic. The bony thorax is grossly intact. IMPRESSION: 1. Cardiomegaly with prominence of the central pulmonary vasculature. Correlate clinically for evidence of mild congestive failure. 2. Patchy airspace consolidation is seen at both lung bases. This appears increased from prior studies. Correlate clinically for evidence pneumonia/aspiration pneumonitis. Radiographic follow-up to resolution is recommended. 3. Suspect small pleural effusions. Results electronically sent 08/24/2019 11:45 AM to: Fish Otero DO Electronically signed by: Betito Read M.D. 08/24/2019 11:45 AM Echocardiogram 08/25/2019: Left ventricle is hyperdynamic No regional wall motion abnormalities Borderline LVH Ejection fraction is greater than or equal to 70% Mild tricuspid regurgitation No change since 04/22/2019 PG Care Time/CCT Total # of Minutes Spent Total Time Spent with Patient: Total time spent is greater than 50% in coordination of care (as documented) at patient's floor/unit and/or counseling patient: 40 minutes including discussion with patient, cardiology, and other providers. Coding Level of Care Code 29855 Subseq Hosp Care Lvl 3 Diagnoses Syncope R55 Syncope type: unspecified SVT (supraventricular tachycardia) I47.1 Mycobacterium avium intracellulare colonization Z22.39 Pulmonary embolism I26.99 Lung cancer C34.90 Laterality: unspecified laterality Lung location: unspecified part of lung Seizure-like activity R56.9 Vaginal pessary present Z96.0 Hypokalemia E87.6 (1) Syncope Syncope type: unspecified Qualified Code(s): R55 - Syncope and collapse (2) Lung cancer Laterality: unspecified laterality Lung location: unspecified part of lung Qualified Code(s): C34.90 - Malignant neoplasm of unspecified part of unspecified bronchus or lung
[2019-08-25] MEDS: MAGNESIUM OXIDE 400 MG TAB PO SCH (16:23)
[2019-08-25] MEDS: VITAMIN B COMPLEX TAB PO SCH (16:23)
[2019-08-25] MEDS ORDERED: 0.2 MICRON FILTER SET 1 EA IV ONE (17:32)
[2019-08-25] MEDS: AMIODARONE / D5W 360 MG/200 ML BAG IV SCH (17:51)
[2019-08-25] MEDS ORDERED: METOPROLOL TARTRATE 1 MG/ML VIAL IV STA (18:29)
[2019-08-25] MEDS ORDERED: METOPROLOL TARTRATE 1 MG/ML VIAL IV ONE (18:38)
[2019-08-26] MEDS: AMIODARONE / D5W 360 MG/200 ML BAG IV SCH (03:02)
[2019-08-26] MEDS ORDERED: rifAMPin 300 MG CAPSULE PO SCH ×2 (06:00→09:00)
[2019-08-26 06:41] LABS: Basophils # (auto) 0.01 K/uL (0-0.2); Basophils % (auto) 0.2 %; Eosinophils # (auto) 0.05 K/uL (0-0.5); Hematocrit (blood only) 28.1 % (37-47); Hemoglobin 8.9 g/dL (12.0-16.0); Immature Granulocytes # (auto) 0.01 K/uL (0.00-0.02); Immature Granulocytes % (auto) 0.2 %; Lymphocytes # (auto) 1.52 K/uL (1.2-3.4); Lymphocytes % (auto) 30.5 %; Mean Corpuscular Hemoglobin 35.5 pg (25-34); Mean Corpuscular Hgb Conc 31.7 g/dL (32-36); Mean Platelet Volume 8.9 fL (7.4-10.4); Monocytes # (auto) 0.11 K/uL (0.11-0.59); Monocytes % (auto) 2.2 %; Neutrophils # (auto) 3.29 K/uL (1.4-6.5); Neutrophils % (auto) 65.9 %; Platelet Count 180 K/uL (130-400); RDW Coefficient of Variation 14.3 % (11.5-14.5); RDW Standard Deviation 57.9 fL (36.4-46.3); Red Blood Count 2.51 M/uL (4.2-5.4); White Blood Count 4.99 K/uL (4.8-10.8)
[2019-08-26 07:15] LABS: Macrocytosis Present
[2019-08-26] MEDS: BUDESONIDE 0.5 MG/2 ML VIAL (PULMICORT) NEB SCH ×2 (07:23→19:20)
[2019-08-26] MEDS: GLUCOSAMINE SULFATE 500 MG CAP PO SCH ×2 (08:19→20:02)
[2019-08-26] MEDS: FOLIC ACID 1 MG TAB PO SCH (08:19)
[2019-08-26] MEDS: CALCIUM 600MG + VIT D 400 IU TAB PO SCH ×2 (08:19→20:03)
[2019-08-26] MEDS: PANTOprazole 40 MG TAB PO SCH ×2 (08:19→20:03)
[2019-08-26] MEDS: predniSONE 10 MG TABLET PO SCH (08:20)
[2019-08-26] MEDS: ESCITALOPRAM OXALATE 10 MG TAB PO SCH (08:20)
[2019-08-26] MEDS: OMEGA-3 (PURIFIED FISH OIL) 1 GM CAP PO SCH ×2 (08:20→20:03)
[2019-08-26] MEDS: ENOXAPARIN INJ 120 MG/0.8 ML SYR SQ SCH (08:21)
[2019-08-26] MEDS: LACTOBACILLUS ACIDOPHILUS (FLORANEX) TAB PO SCH (08:21)
[2019-08-26] MEDS: CHOLECALCIFEROL 1,000 UNITS 25 MCG TAB PO SCH (08:21)
[2019-08-26] MEDS ORDERED: ETHAMBUTOL HCL 400 MG TAB PO SCH (09:00)
--- NOTE | 2019-08-26 09:01 | Cardiology Progress Note ---
Date of Service August 26, 2019 Assessment & Plan (1) Syncope: She has had no further syncope since admission, whether the outpatient syncope was due to SVT or not is uncertain but the rate is very fast and it should be treated regardless. The fact that she has no sensation during the arrhythmia currently perhaps a long episode of the tachycardia would result in hypotension and syncope, but she has been in it for long periods of time here without apparent symptoms. If we treat the SVT and it does not take care of the syncope it may be seizure activity. (2) SVT (supraventricular tachycardia): She has very frequent episodes of SVT without antiarrhythmic therapy. 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 They seem to consistently start with WI prolongation, but atrial tachycardia may do that as well and the P waves are not clear enough to consistently document their location. Amiodarone has been very successful in controlling her arrhythmia. I do not think amiodarone is a bad option, the difficulty is in the logistics of getting her on it. It works well intravenously, but takes several weeks to build up on oral dosing meanwhile she will not be protected. I would recommend a trial of AV cha blocking medications. That may not work but given the marked suppression with amiodarone and the likelihood that this is a reentrant arrhythmia rather than an automatic 1 I am going to try calcium blockade. If that does not work I will try Multaq. Her left ventricular function is normal and that is the same class is amiodarone given the marked success of amiodarone it may be successful. Admission and Anticipated Discharge Date Admission Date: August 25, 2019 Subjective She feels well today, she was having a lot of trouble with SVT when her amiodarone was discontinued, then with restarting it the SVT resolved. Interestingly despite the rate she has no sensation while she is in SVT. That calls into question whether that really was a cause of syncope but is still possible. She has no other cardiac complaints today. Physical Exam Physical Exam: Constitutional: Alert, cooperative and in no distress. Pulmonary: Clear to auscultation bilaterally. Cardiac: Regular rhythm with no murmur, gallop or rub. Abdomen: Soft, nontender with normal bowel sounds. Extremities: No edema. Skin: No rash, ecchymoses or petechiae. Results & Data ([facility]) Vital Signs (Past 12 Hours) Vital Signs Temp Pulse Pulse Resp BP Pulse Ox 08/26/19 08:13 37.0 C 84 18 106/71 93 08/26/19 07:25 79 18 92 08/26/19 03:51 36.9 C 79 20 105/66 90 08/26/19 00:00 85 08/25/19 23:02 36.8 C 86 18 117/78 93 Laboratory Results CBC 08/26/19 Range/Units 06:11 WBC 4.99 (4.8-10.8) K/uL RBC 2.51 L (4.2-5.4) M/uL Hgb 8.9 L (12.0-16.0) g/dL Hct 28.1 L (37-47) % Plt Count 180 (130-400) K/uL Neut # (Auto) 3.29 (1.4-6.5) K/uL Lymph # (Auto) 1.52 (1.2-3.4) K/uL Tift # (Auto) 0.11 (0.11-0.59) K/uL Eos # (Auto) 0.05 (0-0.5) K/uL Baso # (Auto) 0.01 (0-0.2) K/uL Intake and Output 08/25/19 08/26/19 08/26/19 22:59 06:59 14:59 Intake Total 709.483 / 3419.326 699.843 / 3419.326 Balance 709.483 / 3418.326 699.843 / 3418.326 Intake: IV 19.483 / 1219.326 199.843 / 1219.326 NEXTERONE / D5W 360 mg In 200 19.483 / 219.326 199.843 / 219.326 ml @ 0.5 MG/MIN 16.667 mls/hr IV .Q12H [facility] Rx#:[id number] Oral 690 / 2200 500 / 2200 Other: # Unmeasured Voids 2 Weight 88.2 kg Diagnostic Findings Echocardiogram: Done August 25, 2019 shows concentric left ventricular hypertrophy and normal left ventricular function with a hyperdynamic left ventricle. Telemetry: She had very frequent episodes of SVT, amiodarone suppress them almost completely. Amiodarone was discontinued and SVT returned, amiodarone was restarted and SVT was suppressed. 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 PG Care Time/CCT Total # of Minutes Spent Total Time Spent with Patient: Total time spent is greater than 50% in coordination of care (as documented) at patient's floor/unit and/or counseling patient: Coding Level of Care Code 40406 Subseq Hosp Care Lvl 3 Diagnoses Syncope R55 Syncope type: unspecified SVT (supraventricular tachycardia) I47.1 (1) Syncope Syncope type: unspecified Qualified Code(s): R55 - Syncope and collapse
--- NOTE | 2019-08-26 11:37 | Hospitalist Progress Note ---
Date of Service August 26, 2019 Assessment & Plan (1) Syncope: Most likely cardiac etiology from supraventricular tachycardia and hypoperfusion Seems to be fairly controlled with Amiodarone Cardiology is consulted and following Echocardiogram completed. Discussed oral options with Dr. 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 Started triple antibiotic therapy last Wednesday Does not need isolation Continue to follow outpatient in the pulmonary office (4) Pulmonary embolism: Patient with adenocarcinoma of the lung Continue Lovenox therapy daily No shortness of breath or hemoptysis Aside from tachycardia no other symptoms of acute PE Most recent lower extremity duplex is negative for DVT No asymmetrical edema of the lower extremities (5) Lung cancer: Failed Keytruda secondary to pulmonary toxicity Now on maintenance therapy with Alimpta Further management with outpatient oncology (6) Seizure-like activity: No history of seizures No further indication of seizures during this hospital stay No indication for seizure precautions (7) Vaginal pessary present: Pessary removed, cleaned, reinserted 07/14/2019 Urine culture now with staph aureus Low counts of other mixed andrea now growing Most likely contaminant Await sensitivities (8) Hypokalemia: K+ steady at 3.4 Replete with another 40 meq of potassium chloride p.o. Will also order 1 gm of Magnesium sulfate as Mag level is 1.8 Follow serial labs Please refer to Dr. Mathews's addendum for further recommendations. Admission and Anticipated Discharge Date Admission Date: August 25, 2019 Subjective Attending: Dr. Fly Mathews Patient restarted on amiodarone last evening at approximately 6 PM. She was also given 1 dose of metoprolol tartrate 2.5 mg IV. Since that time she is only had one run of SVT at approximate 11 PM last night. She was asymptomatic and was not aware of any tachyarrhythmias. She denies any fever or chills. She has no shortness of breath. She denies any chest pain. She still has intermittent, infrequent episodes of dizziness but has not been ambulating. She has no other acute complaints. Review of Systems Review of Systems: All systems reviewed & are unremarkable except as noted in HPI & below Physical Exam Physical Exam: GENERAL : No acute distress EYES: No icterus, gaze conjugate NOSE: No evidence of epistaxis MOUTH: No lesions or candidiasis NECK: Supple LUNGS: CTA B/L, no wheezes, rales or rhonchi HEART: Regular, rate controlled in the 70s ABDOMEN: Soft, NT, ND, BS Present EXTREMITIES: No LE edema, pedal pulses intact NEURO: A&OX3 Results & Data ([facility]) Vital Signs (Past 12 Hours) Vital Signs Temp Pulse Pulse Resp BP Pulse Ox 08/26/19 08:13 37.0 C 84 18 106/71 93 08/26/19 07:25 79 18 92 08/26/19 03:51 36.9 C 79 20 105/66 90 08/26/19 00:00 85 Laboratory Results 08/26/19 06:11 08/25/19 07:54 Magnesium level is 1.8 Diagnostic Findings No further diagnostic studies since 08/25/2019 PG Care Time/CCT Total # of Minutes Spent Total Time Spent with Patient: Total time spent is greater than 50% in co ordination of care (as documented) at patient's floor/unit and/or counseling patient: 30 minutes including discussion with consulting groups. Coding Level of Care Code 77212 Subseq Hosp Care Lvl 2 Diagnoses Syncope R55 Syncope type: unspecified SVT (supraventricular tachycardia) I47.1 Mycobacterium avium intracellulare colonization Z22.39 Pulmonary embolism I26.99 Lung cancer C34.90 Laterality: unspecified laterality Lung location: unspecified part of lung Seizure-like activity R56.9 Vaginal pessary present Z96.0 Hypokalemia E87.6 (1) Syncope Syncope type: unspecified Qualified Code(s): R55 - Syncope and collapse (2) Lung cancer Laterality: unspecified laterality Lung location: unspecified part of lung Qualified Code(s): C34.90 - Malignant neoplasm of unspecified part of unspecified bronchus or lung
[2019-08-26] MEDS ORDERED: POTASSIUM CHLORIDE 20 MEQ TABCR PO STA (11:58)
[2019-08-26] MEDS ORDERED: MAGNESIUM SULFATE / D5W 1 GM/100 ML BAG IV ONE (12:01)
[2019-08-26] MEDS ORDERED: METOPROLOL TARTRATE 1 MG/ML VIAL IV STA (14:43)
[2019-08-26] MEDS ORDERED: METOPROLOL TARTRATE 1 MG/ML VIAL IV ONE (14:47)
[2019-08-26] MEDS: VITAMIN B COMPLEX TAB PO SCH (16:20)
[2019-08-26] MEDS: MAGNESIUM OXIDE 400 MG TAB PO SCH (16:22)
[2019-08-27 06:44] LABS: Basophils # (auto) 0.01 K/uL (0-0.2); Basophils % (auto) 0.2 %; Eosinophils # (auto) 0.05 K/uL (0-0.5); Eosinophils % (auto) 1.1 %; Hematocrit (blood only) 27.9 % (37-47); Hemoglobin 8.8 g/dL (12.0-16.0); Immature Granulocytes # (auto) 0.01 K/uL (0.00-0.02); Immature Granulocytes % (auto) 0.2 %; Lymphocytes # (auto) 1.25 K/uL (1.2-3.4); Mean Corpuscular Hemoglobin 35.5 pg (25-34); Mean Corpuscular Hgb Conc 31.5 g/dL (32-36); Mean Corpuscular Volume 112.5 fL (80-100); Mean Platelet Volume 8.9 fL (7.4-10.4); Monocytes # (auto) 0.14 K/uL (0.11-0.59); Monocytes % (auto) 3.1 %; Neutrophils # (auto) 3.01 K/uL (1.4-6.5); Neutrophils % (auto) 67.4 %; Platelet Count 167 K/uL (130-400); RDW Coefficient of Variation 13.9 % (11.5-14.5); RDW Standard Deviation 57.3 fL (36.4-46.3); Red Blood Count 2.48 M/uL (4.2-5.4); White Blood Count 4.47 K/uL (4.8-10.8)
[2019-08-27] MEDS: BUDESONIDE 0.5 MG/2 ML VIAL (PULMICORT) NEB SCH ×2 (07:14→19:10)
[2019-08-27 07:26] LABS: BUN Creatinine Ratio 18.2 (10-20); Calcium 9.6 mg/dl (8.5-10.1); Est GFR (African American) 98.9; Est GFR (Non-African American) 85.3; Magnesium 1.8 mg/dl (1.8-2.4); Potassium 3.5 mmol/L (3.5-5.1)
[2019-08-27 07:43] LABS: Macrocytosis Present
[2019-08-27] MEDS: GLUCOSAMINE SULFATE 500 MG CAP PO SCH ×2 (08:14→21:20)
[2019-08-27] MEDS: OMEGA-3 (PURIFIED FISH OIL) 1 GM CAP PO SCH ×2 (08:15→21:20)
[2019-08-27] MEDS: PANTOprazole 40 MG TAB PO SCH ×2 (08:15→21:21)
[2019-08-27] MEDS: predniSONE 10 MG TABLET PO SCH (08:15)
[2019-08-27] MEDS: FOLIC ACID 1 MG TAB PO SCH (08:15)
[2019-08-27] MEDS: CALCIUM 600MG + VIT D 400 IU TAB PO SCH ×2 (08:15→21:20)
[2019-08-27] MEDS: CHOLECALCIFEROL 1,000 UNITS 25 MCG TAB PO SCH (08:16)
[2019-08-27] MEDS: MULTIVITAMIN TAB PO SCH (08:16)
[2019-08-27] MEDS: ESCITALOPRAM OXALATE 10 MG TAB PO SCH (08:16)
[2019-08-27] MEDS: LACTOBACILLUS ACIDOPHILUS (FLORANEX) TAB PO SCH (08:16)
[2019-08-27] MEDS: ENOXAPARIN INJ 120 MG/0.8 ML SYR SQ SCH (09:04)
--- NOTE | 2019-08-27 11:06 | Ultrasound Report ---
BILATERAL LOWER EXTREMITY VENOUS DOPPLER HISTORY: Femoral pain L>R, LE edema COMPARISON STUDY: None. FINDINGS: There is normal compressibility, flow, and augmentation within the bilateral lower extremit y deep venous systems. A 3.3 x 2.3 x 1.0 cm left popliteal cyst. IMPRESSION: No DVT within the right or left lower extremity. ACT 112: Negative or not required by law. Electronically signed by: Rhett Serrato M.D. 08/27/2019 11:04 AM
--- NOTE | 2019-08-27 15:10 | Hospitalist Progress Note ---
Date of Service August 27, 2019 Assessment & Plan (1) Syncope: Most likely cardiac etiology from supraventricular tachycardia and hypoperfusion Amiodarone has been discontinued and patient was started on diltiazem 120 mg p.o. twice daily Since receiving her second dose of diltiazem yesterday she seems to be fairly rate controlled. She did have several hours of SVT yesterday prior to her second dose of diltiazem and was symptomatic If she remains rate controlled, most likely will discharge tomorrow Cardiology is consulted and following Echocardiogram completed. 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 Started triple antibiotic therapy last Wednesday Does not need isolation Continue to follow outpatient in the pulmonary office (4) Pulmonary embolism: Patient with adenocarcinoma of the lung Continue Lovenox therapy daily No shortness of breath or hemoptysis Lower extremity duplex negative for DVT today Aside from tachycardia no other symptoms of acute PE (5) Lung cancer: Failed Keytruda secondary to pulmonary toxicity Now on maintenance therapy with Alimpta Further management with outpatient oncology (6) Seizure-like activity: Suspect hypoperfusion from SVT leading to symptoms that were suspicious for post ictal type symptoms No history of seizures No further indication of seizures during this hospital stay No indication for seizure precautions (7) Vaginal pessary present: Pessary removed, cleaned, reinserted 07/14/2019 Urine culture now with coag negative staph not saprophytic * Asymptomatic * No indication for treatment Low counts of other mixed andrea now growing Most likely contaminant (8) Hypokalemia: K+ steady at 3.5 Replete with another 40 meq of potassium chloride p.o. Will also order 400 mg Mag Oxide PO Follow serial labs Please refer to Dr. Mathews's addendum for further recommendations. Admission and Anticipated Discharge Date Admission Date: August 25, 2019 Supervising Physician Co-Signing Physician Notes I supervised Betito Kebede PA-C on this patient's care. I examined the patient today independently of him. I discussed the plan of care with him with the plan being as written in his note except for any following changes/exceptions: None. Feeling well today. No tachycardia overnight. It appears the diltiazem is working well. However, she lives alone, and she feels she would like to stay another night to be sure she doesn't have any issue at home. If she remains stable overnight, she will be discharged home. Subjective Attending: Dr. Fly Mathews Mrs. Levy is doing better this morning. Yesterday she had some episodes of SVT and had similar feelings of lightheadedness and presyncope as at home. Rate was as high as 202. She is currently being continued diltiazem 120 mg p.o. twice daily. After receiving her second dose yesterday the SVC seems to be resolved. She has had no further episodes of presyncope. She is complaining of some bilateral thigh pain and does have some slight asymmetrical edema of the left leg. She agrees to work-up for DVT. The patient has no fever chills. She has no cough. She has no nausea or vomiting. At this point she is ambulated in the room with no dizziness or lightheaded. Anticipate discharge home tomorrow. Review of Systems Review of Systems: All systems reviewed & are unremarkable except as noted in HPI & below Physical Exam Physical Exam: GENERAL : No acute distress EYES: No icterus, gaze conjugate NOSE: No evidence of epistaxis MOUTH: No lesions or candidiasis NECK: Supple LUNGS: CTA B/L, no wheezes, rales or rhonchi HEART: Regular, rate controlled in the 70s ABDOMEN: Soft, NT, ND, BS Present EXTREMITIES: +1 lower extremity edema to the right foot and ankle. +2 lower extremity edema to the left foot and ankle. No calf pain. No pain with palpation to the rest of the legs. Pulses are equal intact bilaterally NEURO: A&OX3 Results & Data ([facility]) Vital Signs (Past 12 Hours) Vital Signs Temp Pulse Resp BP Pulse Ox 08/27/19 11:56 36.7 C 77 20 108/72 95 08/27/19 08:04 37.0 C 74 20 95/63 L 93 08/27/19 03:20 36.9 C 79 16 99/65 L 93 Laboratory Results 08/27/19 06:01 08/27/19 06:01 Diagnostic Findings BILATERAL LOWER EXTREMITY VENOUS DOPPLER HISTORY: Femoral pain L>R, LE edema COMPARISON STUDY: None. FINDINGS: There is normal compressibility, flow, and augmentation within the bilateral lower extremity deep venous systems. A 3.3 x 2.3 x 1.0 cm left popliteal cyst. IMPRESSION: No DVT within the right or left lower extremity. ACT 112: Negative or not required by law. Electronically signed by: Rhett Serrato M.D. 08/27/2019 11:04 AM PG Care Time/CCT Total # of Minutes Spent Total Time Spent with Patient: Total time spent is greater than 50% in coordination of care (as documented) at patient's floor/unit and/or counseling patient:40 Coding Level of Care Code 75906 Subseq Hosp Care Lvl 2 Diagnoses Syncope R55 Syncope type: unspecified SVT (supraventricular tachycardia) I47.1 Mycobacterium avium intracellulare colonization Z22.39 Pulmonary embolism I26.99 Lung cancer C34.90 Laterality: unspecified laterality Lung location: unspecified part of lung Seizure-like activity R56.9 Vaginal pessary present Z96.0 Hypokalemia E87.6 (1) Syncope Syncope type: unspecified Qualified Code(s): R55 - Syncope and collapse (2) Lung cancer Laterality: unspecified laterality Lung location: unspecified part of lung Qualified Code(s): C34.90 - Malignant neoplasm of unspecified part of unspecified bronchus or lung
[2019-08-27] MEDS ORDERED: POTASSIUM CHLORIDE 20 MEQ TABCR PO ONE (15:30)
[2019-08-27] MEDS ORDERED: MAGNESIUM OXIDE 400 MG TAB PO ONE (15:30)
[2019-08-27] MEDS: MAGNESIUM OXIDE 400 MG TAB PO SCH (15:54)
[2019-08-27] MEDS: VITAMIN B COMPLEX TAB PO SCH (15:55)
[2019-08-28 05:52] LABS: Basophils # (auto) 0.01 K/uL (0-0.2); Basophils % (auto) 0.2 %; Eosinophils # (auto) 0.04 K/uL (0-0.5); Eosinophils % (auto) 0.9 %; Hematocrit (blood only) 27.5 % (37-47); Hemoglobin 8.9 g/dL (12.0-16.0); Immature Granulocytes # (auto) 0.01 K/uL (0.00-0.02); Immature Granulocytes % (auto) 0.2 %; Lymphocytes # (auto) 1.43 K/uL (1.2-3.4); Lymphocytes % (auto) 31.9 %; Mean Corpuscular Hemoglobin 35.9 pg (25-34); Mean Corpuscular Hgb Conc 32.4 g/dL (32-36); Mean Corpuscular Volume 110.9 fL (80-100); Mean Platelet Volume 8.7 fL (7.4-10.4); Monocytes % (auto) 4.5 %; Neutrophils # (auto) 2.79 K/uL (1.4-6.5); Neutrophils % (auto) 62.3 %; Platelet Count 130 K/uL (130-400); RDW Coefficient of Variation 13.5 % (11.5-14.5); RDW Standard Deviation 54.5 fL (36.4-46.3); Red Blood Count 2.48 M/uL (4.2-5.4); White Blood Count 4.48 K/uL (4.8-10.8)
[2019-08-28 06:20] LABS: Macrocytosis Present
[2019-08-28 06:29] LABS: BUN Creatinine Ratio 21.5 (10-20); Calcium 9.7 mg/dl (8.5-10.1); Creatinine Clr Calc Pharmacy 76.3 ml/min; Est GFR (African American) 99.4; Est GFR (Non-African American) 85.8; Potassium 3.5 mmol/L (3.5-5.1)
[2019-08-28] MEDS: BUDESONIDE 0.5 MG/2 ML VIAL (PULMICORT) NEB SCH (07:08)
[2019-08-28 07:12] VITALS: O2SAT 95
[2019-08-28 07:15] VITALS: BP 110/74; TEMP 97.9
[2019-08-28] MEDS: ENOXAPARIN INJ 120 MG/0.8 ML SYR SQ SCH (07:37)
[2019-08-28] MEDS: OMEGA-3 (PURIFIED FISH OIL) 1 GM CAP PO SCH (07:39)
[2019-08-28] MEDS: CHOLECALCIFEROL 1,000 UNITS 25 MCG TAB PO SCH (07:39)
[2019-08-28] MEDS: predniSONE 10 MG TABLET PO SCH (07:39)
[2019-08-28] MEDS: FOLIC ACID 1 MG TAB PO SCH (07:39)
[2019-08-28] MEDS: AZITHROMYCIN 250 MG TAB PO SCH (07:39)
[2019-08-28] MEDS: ESCITALOPRAM OXALATE 10 MG TAB PO SCH (07:39)
[2019-08-28] MEDS: LACTOBACILLUS ACIDOPHILUS (FLORANEX) TAB PO SCH (07:39)
[2019-08-28] MEDS: PANTOprazole 40 MG TAB PO SCH (07:40)
[2019-08-28] MEDS: GLUCOSAMINE SULFATE 500 MG CAP PO SCH (07:40)
[2019-08-28] MEDS: CALCIUM 600MG + VIT D 400 IU TAB PO SCH (07:40)
[2019-08-28 09:54] VITALS: PULSE 83
--- NOTE | 2019-08-28 13:00 | Discharge Summary ---
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 The patient states she had some chest pain that radiated to her right arm this morning. The patient's son states the patient called him this morning and stated she was having some heart problems. He states he went to her house at 1030 and she was short of breath. He states she then had seizure-like activity for about 30 seconds. He states afterwards she started responding after about 5 minutes. He states she was sitting on the couch the whole time and did not hit her head. The patient states she does not remember the seizure-like activity. She states she has been having intermittent chest pain. She states her last chest pain was about an hour ago, and notes she does not have chest pain right now. She states she has been having intermittent nausea. The patient denies having headaches, trauma, falls, fevers, chills, and vomiting. She states she has been eating and drinking okay. She denies having SOB when she has the chest pain. She states she took Lovenox today for her previous lung clots. She states she is getting chemotherapy for her lungs. She denies having a history of heart problems and a history of seizures. The labs are reviewed: WBCs 7.18, hemoglobin 10.5, hematocrit 33.2, platelets 237, PT 10.4, INR 1, APTT 30.5, sodium 138, potassium 3.4, chloride 105, carbon dioxide 25, anion gap 8, BUN 15, creatinine 0.74, GFR 77.1, glucose 113, calcium 10, magnesium 1.8, total bilirubin 0.9, AST 47, ALT 39, alkaline phosphatase 72, troponin less than 0 .015, Albumin 3.2, globulin 4.1, pro calcitonin less than 0.05, TSH 3.57. Urine jean-claude, slightly cloudy, urine pH 7, urine protein negative ketones negative nitrates negative urobilinogen negative leukocyte Estrace 3+, urine WBCs 10-30, urine placed cells 10-20, urine bacteria 1+. CT of the head no acute intracranial finding, small air-fluid level with secretion in the left sphenoid sinus. Chest x-ray cardiomegaly with prominence of the central pulmonary vasculature. Correlate clinically for evidence of mild congestive failure. Patchy airspace consolidation is seen at both lung bases. This appears increased from the prior study. Correlate clinically for evidence pneumonia/aspiration pneumonitis. Radiographic follow-up to resolution is recommended. Suspect small pleural effusion. EKG shows normal sinus rhythm with SVTs. Possible left atrial enlargement. Septal infarct age undetermined. T wave inversion no longer evident in the inferior leads T wave inversion no longer evident in the lateral leads. Nonspecific change in ST segment in inferior leads. The decision was made to admit patient to PCU on telemetry for further evaluation and treatment of seizure-like activity, new onset of SVTs/A. fib's. Primary Care Provider: Guillermo Berkowitz MD Admission Exam Per Admitting Provider Constitutional: WD/WN, vitals as above well developed and + ill appearing Eyes: PERRL, conjunctivae normal, anicteric sclerae ENMT: Ears: + hearing impairment Neck: trachea midline Respiratory: Auscultation: + crackles and + wheezes Cardiovascular: Rate/Rhythm: + tachycardic and + irregularly irregular Vessels: dorsalis pedis pulses present Gastrointestinal (Abdomen): normal bowel sounds, soft, nontender, no hepatosplenomegaly Musculoskeletal: no cyanosis or clubbing, extremities motor strength 5/5 Skin: no rashes, warm and dry Neurologic: patellar DTR's 2+ bilat, sensation intact Psychiatric: A+Ox3, euthymic affect Lymphatic: no cervical or axillary lymphadenopathy Principal Diagnosis Supraventricular tachycardia Discharge Exam GENERAL : No acute distress EYES: No icterus, gaze conjugate NOSE: No evidence of epistaxis MOUTH: No lesions or candidiasis NECK: Supple LUNGS: CTA B/L, no wheezes, rales or rhonchi HEART: Regular, rate controlled in the 70 ABDOMEN: Soft, NT, ND, BS Present EXTREMITIES: No LE edema, pedal pulses intact NEURO: A&OX3 Discharge Data Allergies Allergy/AdvReac Type Severity Reaction Status Date / Time Tetracyclines Allergy Intermediate GI Verified 08/24/19 11:47 SYMPTOMS, RASH, SUN SENSITIVITY tomato Allergy Unknown TOMATOES, Verified 08/24/19 11:47 CITRUS FRUIT ACIDIC FOOD--ITCHY L EAR, HEAD levofloxacin AdvReac Intermediate tendonitis Verified 08/24/19 11:47 Macrolide Antibiotics AdvReac Intermediate GI SYMPTOMS Verified 08/24/19 11:47 Penicillins AdvReac Intermediate GI SYMPTOMS Verified 08/24/19 11:47 amoxicillin AdvReac Mild Gastrointestinal Verified 08/24/19 11:47 Upset ciprofloxacin AdvReac Mild GI UPSET Verified 08/24/19 11:47 clindamycin AdvReac Mild GI UPSET Verified 08/24/19 11:47 erythromycin base AdvReac Mild Gastrointestinal Verified 08/24/19 11:47 Upset Cipro AdvReac Unknown GI UPSET Verified 01/31/18 06:42 Consultations 08/24/19 12:17 ED Decision to Admit Stat 08/25/19 02:38 Consult Cardiology Routine Ordered Studies 08/24/19 11:19 CT head/brain wo con Stat 08/27/19 09:30 US venous doppler LE Routine Hospital Course (1) Syncope: Most likely cardiac etiology from supraventricular tachycardia and hypoperfusion Amiodarone has been discontinued and patient was started on diltiazem 120 mg p.o. twice daily Since receiving her second dose of diltiazem rate controlled has been well managed. Cardiology is consulted and following Echocardiogram completed. Discharge on diltiazem CD 240 mg every morning Discharge home with 2 tablets of diltiazem 120 mg to take tonight until prescription is available. (2) SVT (supraventricular tachycardia): Patient asymptomatic Amiodarone discontinued Doing well with diltiazem twice daily Discharge today On diltiazem CD 240 mg daily (3) Mycobacterium avium intracellulare colonization: Follows with Dr. Pascal Started triple antibiotic therapy last Wednesday Does not need isolation Continue to follow outpatient in the pulmonary office (4) Pulmonary embolism: Patient with adenocarcinoma of the lung Continue Lovenox therapy daily per hematology No shortness of breath or hemoptysis Lower extremity duplex negative for DVT today (5) Lung cancer: Failed Keytruda secondary to pulmonary toxicity Now on maintenance therapy with Alimpta Further management with outpatient oncology (6) Seizure-like activity: Suspect hypoperfusion from SVT leading to symptoms that were suspicious for post ictal type symptoms No evidence of myoclonic movement after admission No history of seizures No further indication of seizures during this hospital stay No indication for seizure precautions (7) Vaginal pessary present: Pessary removed, cleaned, reinserted 07/14/2019 Urine culture now with coag negative staph not saprophytic * Asymptomatic * No indication for treatment Low counts of other mixed andrea now growing Most likely contaminant (8) Hypokalemia: K+ stable Further management as an outpatient Total Time Total Time Spent Total Time Spent (In Minutes): 45 Total Time Includes: Examination of the Patient, Discharge Planning, Medication Reconciliation, Communication With Other Providers and Other (Communication with pharmacy due to the out of stock Cardizem.) Discharge Plan Discharge Items Patient Disposition: Home - Self-Care Reason For Visit: SEIZURE LIKE ACTIVITY Discharge Diagnosis: SVT With rates in the 200s NICK Condition on Discharge: Good Activity: Resume your previous activity Lifting: Gradually increase as tolerated Bathing: No limitations Sexual Activity: When tolerated Exercise/Sports: Gradually increase as tolerated Driving/Machine Use: Resume 1 day after discharge Weightbearing: Full weightbearing Non-emergency contact: Primary Care Provider Call non-emergency contact if: you have any medication questions Follow-up/Referrals: Guillermo Berkowitz MD [Primary Care Provider] - 09/04/19 9:15 am (F/U appointment will be with SABI Arango on 09/04/2019 at 9:15 a.m.) Diet: Heart Healthy Addtl Attending Provider Instructions: Call your primary care provider if you feel like your heart is racing or if you have confusion Follow up with your primary care within 7 days Pending Studies at Discharge: No Stand-Alone Forms: My [facility] Cerac, Smoking Cessation Medications and DC Order Prescriptions: New diltiazem HCl [Cardizem CD] 240 mg capsule,extended release 24hr 240 mg PO DAILY Qty: 30 RF: 0 Continued azithromycin 500 mg tablet 500 mg PO MOWEFR 90 Days Qty: 18 RF: 3 rifampin 300 mg capsule 600 mg PO MOWEFR 90 Days Qty: 30 RF: 3 ethambutol 400 mg tablet 1,200 mg PO MOWEFR 60 Days Qty: 180 RF: 3 prednisone 20 mg tablet 10 mg PO QDB RF: 0 triamcinolone acetonide 0.1 % cream 1 appln topical BID PRN (Reason: PRN) RF: 0 folic acid 1 mg tablet 1 mg PO QAM RF: 0 cholecalciferol (vitamin D3) [Vitamin D3] 5,000 unit Tablet 5,000 unit PO QAM RF: 0 omega 7-bpb-gyc-fish oil [Fish Oil] 1,000 mg (120 mg-180 mg) Capsule 2 cap PO BID RF: 0 vitamin B complex Tablet 1 tab PO QDD RF: 0 multivitamin Tablet 1 tab PO Q OTHER DAY RF: 0 biotin 5 mg Capsule 5 mg PO QDD RF: 0 docusate sodium 100 mg Capsule 100 mg PO HS PRN (Reason: Constipation) RF: 0 magnesium 250 mg Tablet 250 mg PO QDD RF: 0 hydrocortisone butyrate 0.1 % Cream 1 applic TOPICAL DAILY PRN (Reason: Skin Irritation) RF: 0 glucosamine-chondroitin 500-400 mg Tablet 1 tab PO BID RF: 0 Restasis 0.05 % Dropperette 1 drp OPB Q12H RF: 0 Lotemax 0.5 % ointment 1 applic OPB HS RF: 0 calcium carb and citrate-vitD3 600 mg calcium- 500 unit Tablet Extended Relea se 600 mg PO BID RF: 0 Probiotic 3 billion cell Capsule 0 mmu cells PO QAM RF: 0 Metamucil 3.4 gram/5.4 gram Powder 1 dose PO HS PRN (Reason: Constipation) RF: 0 clobetasol 0.025 % Cream 1 applic TOPICAL BID PRN (Reason: dermatitis) RF: 0 fexofenadine [Milagros Allergy] 180 mg tablet 180 mg PO DAILY PRN (Reason: Allergy Symptoms) RF: 0 Prilosec OTC 20 mg Tablet,Delayed Release (Dr/Ec) 20 mg PO BID RF: 0 enoxaparin 120 mg/0.8 mL syringe 120 mg SQ DAILY@0800 RF: 0 escitalopram oxalate 10 mg tablet 10 mg PO QAM RF: 0 Discharge Orders: Discharge Order (Routine); Ordered 08/28/19 Ordered By: Betito Romero/Other Patient Handouts: Understanding Supraventricular Tachycardia SVT, Treatment for Supraventricular Tachycardia SVT Admission Data Admit Date/Time: 08/25/19 18:01 Attending Provider: Fly Mathews Admit Provider: Rosalinda Florentino Primary Care Provider: Guillermo Berkowitz Other Providers: Guzman Schofield ; Fly Mathews Other Interventions: Discharge Summary Assessment (RN) Last Done: 08/28/19 09:52 DC Date/Time DO NOT enter until pt leaves facility: 08/28/19 12:03 Supervising Physician Co-Signing Physician Notes I supervised Betito Kebede PA-C on this patient's care. I examined the patient today independently of him. I discussed the plan of care with him with the plan being as written in his note except for any following changes/exceptions: None. No more tachycardia. Will adjust to Cardizem CD per pharmacy availability. Will give two doses of diltiazem until she can pick it up in the morning. Coding Level of Care Code D/C Day Management >30 mins Diagnoses Syncope R55 Syncope type: unspecified SVT (supraventricular tachycardia) I47.1 Mycobacterium avium intracellulare colonization Z22.39 Pulmonary embolism I26.99 Lung cancer C34.90 Laterality: unspecified laterality Lung location: unspecified part of lung Seizure-like activity R56.9 Vaginal pessary present Z96.0 Hypokalemia E87.6 Time Spent (min) 45
--- NOTE | 2019-09-12 16:37 | Cardiology Consultation ---
Date of Consultation September 12, 2019 Assessment & Plan (1) Syncope: She appeared to have a witnessed episode of unresponsiveness earlier today. She did not lose postural tone. There was reportedly some tonic clonic activity but likely related to cerebral hypoxia rather than seizure. It is very possible that her episode was related to hypoxia and hyperventilation. What is less clears whether there is a correlation between her known arrhythmia and her symptoms. She is known to have preserved LV systolic function. I think overall her cardiac condition presents a low risk for sudden cardiac or more severe complications. (2) SVT (supraventricular tachycardia): I had a long discussion with the patient and her son regarding options for evaluation and treatment. Patient was discharged on diltiazem which I feel is likely not affective. I suspect she has fairly frequent episodes of SVT, possibly brief in duration. It is not clear to me that her arrhythmia causes symptoms. She had lots of SVT when she was previously hospitalized that apparently did not correlate well with symptoms. It is very possible that her breathing difficulty is related to underlying lung disease. I suggested a change in medication to an antiarrhythmic, possibly dronedarone or amiodarone. Alternatively catheter based therapy could be entertained. In both circumstances it would be nice to have more definitive correlation between her arrhythmia and symptoms. Patient's son was not comfortable with her going home. While I do not believe she is at risk of sudden , it is very possible that she would return with recurrent symptoms in short order. As such, she can be admitted and placed on telemetry. She can ambulate around the mata we can monitor her symptoms and heart rhythm. We can also trial an antiarrhythmic medication for efficacy. 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 She was discovered at that time to have an SVT. She was started on medical therapy and discharged. Patient states that recently she has been having more breathing difficulty. She states that in the morning after beginning her activity she will become dyspnea. Her dyspnea always occurs with activity and does not occur at rest. It is progressive throughout the day but tends to improve as the evening approaches. She has not report symptoms while sleeping or at nighttime. No orthopnea or paroxysmal nocturnal dyspnea. She is generally not aware of palpitations. Today she felt more short of breath than usual and contacted her son who came to evaluate her and person. Upon arrival she was noted to be very dyspneic and according to the son actually lost consciousness for approximately 30 seconds. Patient was sitting in a chair at that time in afterwards appear to have all of her faculties. She did have some diaphoresis and nausea but otherwise normal mentation. She did not lose postural tone. EMS was contacted and she was brought to our facility. Patient states she felt better without any specific intervention at this time is feeling well. She otherwise claims to be eating and drinking well. She has not report any other episodes of nausea or vomiting. She was scheduled for chemotherapy today. She has an element of fatigue and general exercise intolerance. He has chronic swelling in her lower extremities which she feels is not different than usual. Allergies Allergy/AdvReac Type Severity Reaction Status Date / Time Tetracyclines Allergy Intermediate GI Verified 09/12/19 15:10 SYMPTOMS, RASH, SUN SENSITIVITY tomato Allergy Unknown TOMATOES, Verified 09/12/19 15:10 CITRUS FRUIT ACIDIC FOOD--ITCHY L EAR, HEAD levofloxacin AdvReac Intermediate tendonitis Verified 09/12/19 15:10 Macrolide Antibiotics AdvReac Intermediate GI SYMPTOMS Verified 09/12/19 15:10 Penicillins AdvReac Intermediate GI SYMPTOMS Verified 09/12/19 15:10 amoxicillin AdvReac Mild Gastrointestinal Verified 09/12/19 15:10 Upset ciprofloxacin AdvReac Mild GI UPSET Verified 09/12/19 15:10 clindamycin AdvReac Mild GI UPSET Verified 09/12/19 15:10 erythromycin base AdvReac Mild Gastrointestinal Verified 09/12/19 15:10 Upset Cipro AdvReac Unknown GI UPSET Verified 01/31/18 06:42 Home Medications Home Medications Medication Instructions Recorded Confirmed Type Lotemax 1 applic OPB HS 06/03/18 09/12/19 History Metamucil 1 dose PO HS PRN 06/03/18 09/12/19 History Probiotic 0 mmu cells PO QAM 06/03/18 09/12/19 History Restasis 1 drp OPB Q12H 06/03/18 09/12/19 History biotin 5 mg PO QDD 06/03/18 09/12/19 History calcium carb and citrate-vitD3 600 mg PO BID 06/03/18 09/12/19 History clobetasol 1 applic TOPICAL BID PRN 06/03/18 09/12/19 History docusate sodium 100 mg PO HS PRN 06/03/18 09/12/19 History glucosamine-chondroitin 1 tab PO BID 06/03/18 09/12/19 History hydrocortisone butyrate 1 applic TOPICAL DAILY PRN 06/03/18 09/12/19 History magnesium 250 mg PO QDD 06/03/18 09/12/19 History multivitamin 1 tab PO Q OTHER DAY 06/03/18 09/12/19 History vitamin B complex 1 tab PO QDD 06/03/18 09/12/19 History cholecalciferol (vitamin D3) 5,000 unit PO QAM 11/03/18 09/12/19 History [Vitamin D3] folic acid 1 mg PO QAM 11/03/18 09/12/19 History omega 7-vvo-igh-fish oil [Fish Oil] 2 cap PO BID 11/03/18 09/12/19 History fexofenadine 180 mg tablet 180 mg PO QAM PRN 01/30/19 09/12/19 History triamcinolone acetonide 0.1 % 1 appln TOPICAL BID PRN gm 01/30/19 09/12/19 History topical cream Prilosec OTC 20 mg PO BID 03/30/19 09/12/19 History azithromycin 500 mg tablet 500 mg PO MOWEFR 90 Days #18 tab 07/18/19 09/12/19 Rx enoxaparin 120 mg SQ DAILY@0800 08/24/19 09/12/19 History escitalopram oxalate 5 mg PO QAM 08/24/19 09/12/19 History diltiazem HCl [Cardizem CD] 240 mg PO DAILY #30 cap 08/28/19 09/12/19 Rx ethambutol 400 mg tablet 1,200 mg PO TUTHSA tab 08/29/19 09/12/19 History rifampin 300 mg capsule 600 mg PO TUTHSA cap 08/29/19 09/12/19 History acetaminophen [Tylenol Arthritis 1,300 mg PO Q12H 09/12/19 09/12/19 History Pain] prednisone 10 mg PO Q2D 09/12/19 09/12/19 History Patient History Medical History Anemia (Acute) Atypical squamous cells of undetermined significance (ASC-US) on cervical Pap smear Deep vein thrombosis (Acute) Deep venous thrombosis of left popliteal vein Depression (Acute) Drug-induced pneumonitis (Acute) Hearing deficit (Acute) History of ascites History of lymphoma History of malignant neoplasm breast Metastatic adenocarcinoma (Chronic) On anticoagulant therapy (Acute) Osteoarthritis (Acute) Pneumonia (Acute) Pneumonia due to Pseudomonas Pulmonary embolism Seasonal affective disorder (Chronic) Thrombocytopenia Urinary tract infection (Acute) Vaginal pessary present Surgical History H/O tubal ligation History of bronchoscopy (Acute) History of cholecystectomy (Acute) History of colonoscopy (Acute) History of cystoscopy (Acute) Hx of oral surgery S/P breast biopsy S/P bunionectomy S/P cholecystectomy Family History Daughter Breast cancer metastatic, diagnosed in 1993 and now is stage IV with salvage chemotherapy Daughter Breast cancer, Onset Age: 27 metastatic breast cancer at age 27 Brother , age 53 MVA MVA Family/Other Essential familial hypercholesterolemia Glaucoma Heart disease Macular degeneration Stroke Mother , age 85 Hypertension Hyperlipidemia Meningioma Father , "old age" 95 Hypertension Son Kidney stones Other Cancer Stroke syndrome Denies family history of Ovarian cancer Prostate cancer Diabetes Social History Preferred Language: Albanian Communication Ability: Effective Visual Impairment: Limited Hearing Ability: Use of Hearing Aid 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 Mood affect appear normal. She answered all questions appropriately. HEENT: Sclerae are anicteric. Pupils are equal and reactive to light and accommodation. Extraocular movements were intact. Neuro: Cranial nerves intact Neck: Examination of the submandibular region did not reveal any significant lymphadenopathy. Carotids are palpable bilaterally and free of bruits on auscultation. There was no evidence of jugular venous distention. The thyroid was not enlarged. Lungs: Lungs are clear to auscultation bilaterally. There are no rales wheezes or rhonchi. She has normal respiratory effort without use of accessory muscles. There is normal pulmonary excursion. Cardiac: The rhythm was regular. S1 and S2 were normal. Crescendo systolic murmur. The PMI was not markedly displaced on palpation. Abdomen: The abdomen was soft and nontender. Extremities: Patient has bilateral radial pulses that are equal in intensity. There is no evidence cyanosis or clubbing. Moderate lower extremity edema bilaterally. Skin: There are no rashes noted on examination today. Results & Data ([facility]) Diagnostic Findings Echocardiogram performed 08/25/2019: Normal LV systolic function. ECG Additional Comments: I reviewed her EKGs from her prior admission, the EKG obtained by EMS today and her current EKG. Normal sinus rhythm with occasional episodes narrow complex tachycardia. PG Care Time/CCT Total # of Minutes Spent Total Time Spent with Patient: Total time spent is greater than 50% in coordination of care (as documented) at patient's floor/unit and/or counseling patient: Coding Level of Care Code 59538 Office/OBS Consult Lvl 4 Diagnoses Syncope R55 Syncope type: unspecified SVT (supraventricular tachycardia) I47.1 (1) Syncope Syncope type: unspecified Qualified Code(s): R55 - Syncope and collapse
== END 2019-08-28 12:03 | disposition home or self-care (01) | DRG 308 ==
LOC: ED 11:03 → 2S 11:03 → SUATTDRO 14:45 → 2S 16:05

== ENCOUNTER 2019-09-12 12:48 | Inpatient (IN) ==
[2019-09-12] MEDS ORDERED: SODIUM CHLORIDE 0.9% 1000ML 500 ML IV ONE (13:25)
[2019-09-12 13:32] LABS: Basophils # (auto) 0.02 K/uL (0-0.2); Basophils % (auto) 0.2 %; Eosinophils # (auto) 0.02 K/uL (0-0.5); Eosinophils % (auto) 0.2 %; Immature Granulocytes # (auto) 0.03 K/uL (0.00-0.02); Immature Granulocytes % (auto) 0.3 %; Lymphocytes # (auto) 1.05 K/uL (1.2-3.4); Lymphocytes % (auto) 12.2 %; Mean Corpuscular Hemoglobin 36.4 pg (25-34); Mean Corpuscular Hgb Conc 32.4 g/dL (32-36); Mean Corpuscular Volume 112.6 fL (80-100); Mean Platelet Volume 8.9 fL (7.4-10.4); Monocytes # (auto) 0.88 K/uL (0.11-0.59); Monocytes % (auto) 10.3 %; Neutrophils # (auto) 6.58 K/uL (1.4-6.5); Neutrophils % (auto) 76.8 %; Platelet Count 241 K/uL (130-400); RDW Coefficient of Variation 14.4 % (11.5-14.5); RDW Standard Deviation 58.9 fL (36.4-46.3); Red Blood Count 3.02 M/uL (4.2-5.4); White Blood Count 8.58 K/uL (4.8-10.8)
[2019-09-12 13:42] LABS: INR 1.1 (0.9-1.1); Prothrombin Time 11.3 Seconds (9.0-12.0)
--- NOTE | 2019-09-12 13:43 | Emergency Department Note ---
History of Present Illness General Chief complaint: Cardiac Assessment Time Seen by Provider: 09/12/19 13:06 Source: patient Mode of arrival: EMS Limitations: no limitations History of Present Illness Provider complaint: rapid heart rate, sob Onset (ago): hour(s) Location: chest Radiation: non-radiation Severity: moderate Pain Consistency: + now resolved Maximum Pain Intensity: 0 Relieved By: + none Exacerbated By: + none Associated symptoms: + denies other symptoms Treatments prior to arrival: none This is a 79-year-old female with a significant past medical history including Mycobacterium AVM, SVT, metastatic cancer who presents today following an abrupt onset of palpitations and shortness of breath at home. Patient states she was previously seen and evaluated for similar symptoms approximately 3 weeks ago and diagnosed with a reentrant supraventricular tachycardia. Patient states she has been taking diltiazem daily has she was prescribed at discharge. Patient states no other medication changes have been made. She is otherwise been feeling in her usual state of health. Patient denies any vomiting or diarrhea, fevers or chills, or upper respiratory symptoms. Patient states she is anticoagulated due to prior history of DVT and PE. Patient states she has been eating and drinking normally. Patient states she frequently has loose stools/diarrhea secondary to her long-term antibiotic use. No recent black or bloody stools. EMS had some concern that she was perhaps taking an inappropriate dose of her diltiazem. Per EMS report, patient was initially in the 170s, and then broke down to the 90s, and when they called for medical command she had return to the 160s, during our conversation broke back down the low 100s. No additional diltiazem was given prehospital. Upon arrival here, patient was intermittently still ramping up into the 130s, but would spontaneously break after a minute. Home Medications Home Medications Medication Instructions Recorded Confirmed Type Lotemax 1 applic OPB HS 06/03/18 09/12/19 History Metamucil 1 dose PO HS PRN 06/03/18 09/12/19 History Probiotic 0 mmu cells PO QAM 06/03/18 09/12/19 History Restasis 1 drp OPB Q12H 06/03/18 09/12/19 History biotin 5 mg PO QDD 06/03/18 09/12/19 History calcium carb and citrate-vitD3 600 mg PO BID 06/03/18 09/12/19 History clobetasol 1 applic TOPICAL BID PRN 06/03/18 09/12/19 History docusate sodium 100 mg PO HS PRN 06/03/18 09/12/19 History glucosamine-chondroitin 1 tab PO BID 06/03/18 09/12/19 History hydrocortisone butyrate 1 applic TOPICAL DAILY PRN 06/03/18 09/12/19 History magnesium 250 mg PO QDD 06/03/18 09/12/19 History multivitamin 1 tab PO Q OTHER DAY 06/03/18 09/12/19 History vitamin B complex 1 tab PO QDD 06/03/18 09/12/19 History cholecalciferol (vitamin D3) 5,000 unit PO QAM 11/03/18 09/12/19 History [Vitamin D3] folic acid 1 mg PO QAM 11/03/18 09/12/19 History omega 3-glk-dps-fish oil [Fish Oil] 2 cap PO BID 11/03/18 09/12/19 History fexofenadine 180 mg tablet 180 mg PO QAM PRN 01/30/19 09/12/19 History triamcinolone acetonide 0.1 % 1 appln TOPICAL BID PRN gm 01/30/19 09/12/19 History topical cream Prilosec OTC 20 mg PO BID 03/30/19 09/12/19 History azithromycin 500 mg tablet 500 mg PO MOWEFR 90 Days #18 tab 07/18/19 09/12/19 Rx enoxaparin 120 mg SQ DAILY@0800 08/24/19 09/12/19 History escitalopram oxalate 5 mg PO QAM 08/24/19 09/12/19 History diltiazem HCl [Cardizem CD] 240 mg PO DAILY #30 cap 08/28/19 09/12/19 Rx ethambutol 400 mg tablet 1,200 mg PO TUTHSA tab 08/29/19 09/12/19 History rifampin 300 mg capsule 600 mg PO TUTHSA cap 08/29/19 09/12/19 History acetaminophen [Tylenol Arthritis 1,300 mg PO Q12H 09/12/19 09/12/19 History Pain] prednisone 10 mg PO Q2D 09/12/19 09/12/19 History Allergies Allergy/AdvReac Type Severity Reaction Status Date / Time Tetracyclines Allergy Intermediate GI Verified 09/12/19 15:10 SYMPTOMS, RASH, SUN SENSITIVITY tomato Allergy Unknown TOMATOES, Verified 09/12/19 15:10 CITRUS FRUIT ACIDIC FOOD--ITCHY L EAR, HEAD levofloxacin AdvReac Intermediate tendonitis Verified 09/12/19 15:10 Macrolide Antibiotics AdvReac Intermediate GI SYMPTOMS Verified 09/12/19 15:10 Penicillins AdvReac Intermediate GI SYMPTOMS Verified 09/12/19 15:10 amoxicillin AdvReac Mild Gastrointestinal Verified 09/12/19 15:10 Upset ciprofloxacin AdvReac Mild GI UPSET Verified 09/12/19 15:10 clindamycin AdvReac Mild GI UPSET Verified 09/12/19 15:10 erythromycin base AdvReac Mild Gastrointestinal Verified 09/12/19 15:10 Upset Cipro AdvReac Unknown GI UPSET Verified 01/31/18 06:42 Past Med/Surg History Medical History Anemia (Acute) Atypical squamous cells of undetermined significance (ASC-US) on cervical Pap smear Deep vein thrombosis (Acute) Deep venous thrombosis of left popliteal vein Depression (Acute) Drug-induced pneumonitis (Acute) Hearing deficit (Acute) History of ascites History of lymphoma History of malignant neoplasm breast Metastatic adenocarcinoma (Chronic) On anticoagulant therapy (Acute) Osteoarthritis (Acute) Pneumonia (Acute) Pneumonia due to Pseudomonas Pulmonary embolism Seasonal affective disorder (Chronic) Thrombocytopenia Urinary tract infection (Acute) Vaginal pessary present Surgical History H/O tubal ligation History of bronchoscopy (Acute) History of cholecystectomy (Acute) History of colonoscopy (Acute) History of cystoscopy (Acute) Hx of oral surgery S/P breast biopsy S/P bunionectomy S/P cholecystectomy Family History Daughter Breast cancer metastatic, diagnosed in 1993 and now is stage IV with salvage chemotherapy Daughter Breast cancer, Onset Age: 27 metastatic breast cancer at age 27 Brother , age 53 MVA MVA Family/Other Essential familial hypercholesterolemia Glaucoma Heart disease Macular degeneration Stroke Mother , age 85 Hypertension Hyperlipidemia Meningioma Father , "old age" 95 Hypertension Son Kidney stones Other Cancer Stroke syndrome Denies family history of Ovarian cancer Prostate cancer Diabetes Social History Preferred Language: Greek Communication Ability: Effective Visual Impairment: Limited Hearing Ability: Use of Hearing Aid Clerical Supervisor Required: No Beliefs That Will Affect Care: None marital status: Current Living Situation: Alone current occupational status: retired Other Information That Helps Us Care for You: No Feels Safe at Home: Yes Safety Concerns: Feels Safe At This Time Smoking Status: Never smoker Do You Dip or Chew Tobacco: No ; Second Hand Exposure: No ; Tobacco Cessation Education Requested by Patient: No Hx Alcohol Use: No Hx Substance Use: No Childhood Exposure to Second-Hand Smoke: Yes caffeine: Yes Dental Care, Regularly: Yes Physical Activity Frequency: 1-2 Times per Week Seatbelt Use: always Sunscreen Use: Yes Review of Systems See HPI for pertinent positives & negatives. and A total of 10 systems reviewed and were otherwise negative Physical Exam Vital Signs Vital Signs - 24 hr 09/12/19 12:56 09/12/19 13:00 09/12/19 14:14 Temperature 36.5 C Temperature Source Oral Pulse Rate 95 H 95 H 92 H Pulse Rate [Apical] Pulse Rate from SpO2 Sensor 93 H 93 H Pulse Rhythm [Apical] Pulse Strength [Apical] Respiratory Rate 29 H 19 27 H Respiratory Effort / Characteristics Non-Labored Spontaneous Respiratory Depth Normal Respiratory Pattern Regular Blood Pressure 104/67 104/67 128/77 Blood Pressure [Right Arm] Blood Pressure Mean 74 79 89 Blood Pressure Mean [Right Arm] Blood Pressure Position Lying Blood Pressure Position [Right Arm] Pulse Oximetry 95 96 94 Oxygen Delivery Method Room Air Sepsis Recent Fever Within 48 Hours No Sepsis New/Unexplained Change in Mental Status No Sepsis Action Taken by Nursing No Action Required 09/12/19 14:36 09/12/19 16:00 Temperature Temperature Source Pulse Rate 79 Pulse Rate [Apical] 93 H Pulse Rate from SpO2 Sensor 80 Pulse Rhythm [Apical] Regular Pulse Strength [Apical] Normal Respiratory Rate 20 22 Respiratory Effort / Characteristics Non-Labored Spontaneous Respiratory Depth Normal Respiratory Pattern Regular Blood Pressure 136/78 Blood Pressure [Right Arm] 128/77 Blood Pressure Mean 102 Blood Pressure Mean [Right Arm] 94 Blood Pressure Position Blood Pressure Position [Right Arm] Lying Pulse Oximetry 97 96 Oxygen Delivery Method Room Air Sepsis Recent Fever Within 48 Hours Sepsis New/Unexplained Change in Mental Status Sepsis Action Taken by Nursing GENERAL: alert, well appearing, well nourished, no distress, non-toxic, alopecia EYE EXAM: normal conjunctiva, PERRL and EOM's grossly intact OROPHARYNX: no exudate, no erythema, lips, buccal mucosa, and tongue normal and mucous membranes are moist NECK: supple, no nuchal rigidity, no adenopathy, non-tender LUNGS: Clear to auscultation. Normal chest wall mechanics, no w/r/r HEART: no murmurs, S1 normal and S2 normal, variable heart rate from normal sinus in the 90s to tachycardic in the 130s ABDOMEN: abdomen soft, non-tender, normo-active bowel sounds, no masses, no rebound or guarding. BACK: Back is symmetrical on inspection and there is no deformity, no midline tenderness, no CVA tenderness. SKIN: no rashes and no bruising UPPER EXTREMITIES: upper extremities are grossly normal. FROM, nml pulses b/l. LOWER EXTREMITIES: No acute pitting edema. FROM, nml pulses b/l. Mild chronic edema. NEURO EXAM: Normal sensorium, cranial nerves II-XII grossly intact, normal speech, no gross weakness of arms, no gross weakness of legs. Gross sensation intact. Course Course 1440: Patient's son was able to retrieve the pill bottle from home. Pill states they are 240 mg of Cardizem. Patient states this is the tablet she took this morning. 1512: Discussed with Dr. Schofield. No recurrent episodes of rapid heartbeats at this time, highest patient had been was on arrival when she bounced into the 130s several times but would spontaneously break. 1611: Discussed with Dr. Schofield who evaluated the patient at bedside. 1630: Discussed with Janice Butler PA-C with [facility]. They will evalute the patient. Administered Medications Discontinued Medications Sodium Chloride (Nss 1000ml) 500 mls @ 999 mls/hr IV .Q31M ONE Stop: 09/12/19 13:55 Last Infusion: 09/12/19 14:12 Dose: 0 mls/hr Documented by: [id number] Admin: 09/12/19 13:34 Dose: 999 mls/hr Documented by: [id number] Potassium Chloride (Klor-Con M20) 40 meq PO NOW STA Stop: 09/12/19 16:40 Last Admin: 09/12/19 16:54 Dose: 40 meq Documented by: [id number] Medical Decision Making Differential Diagnosis Differential diagnosis includes etiologies such as premature contractions, electrolyte abnormality, cardiac dysrhythmia, thyroid dysfunction, pulmonary embolism, infection, gastrointestinal, as well as others were entertained. Medical Records Attestation: I reviewed the patient's medical records. Home Medications Current Medication List: was personally reviewed by me Laboratory Data Attestation: I reviewed the patient's lab results. Result diagrams: 09/12/19 12:57 09/12/19 12:57 Lab Results 09/12/19 09/12/19 09/12/19 Range/Units 12:57 12:57 12:57 WBC 8.58 (4.8-10.8) K/uL RBC 3.02 L (4.2-5.4) M/uL Hgb 11.0 L (12.0-16.0) g/dL Hct 34.0 L (37-47) % MCV 112.6 H (80-100) fL MCH 36.4 H (25-34) pg MCHC 32.4 (32-36) g/dL RDW Std Deviation 58.9 H (36.4-46.3) fL RDW Coeff of Mary Beth 14.4 (11.5-14.5) % Plt Count 241 (130-400) K/uL MPV 8.9 (7.4-10.4) fL Immature Gran % (Auto) 0.3 % Neut % (Auto) 76.8 % Lymph % (Auto) 12.2 % Duchesne % (Auto) 10.3 % Eos % (Auto) 0.2 % Baso % (Auto) 0.2 % Immature Gran # (Auto) 0.03 H (0.00-0.02) K/uL Neut # (Auto) 6.58 H (1.4-6.5) K/uL Lymph # (Auto) 1.05 L (1.2-3.4) K/uL Duchesne # (Auto) 0.88 H (0.11-0.59) K/uL Eos # (Auto) 0.02 (0-0.5) K/uL Baso # (Auto) 0.02 (0-0.2) K/uL Macrocytosis Present PT 11.3 (9.0-12.0) Seconds INR 1.1 (0.9-1.1) Sodium 136 (136-145) mmol/L Potassium 3.3 L (3.5-5.1) mmol/L Chloride 106 (98-107) mmol/L Carbon Dioxide 24 (21-32) mmol/L Anion Gap 6.0 (3-11) BUN 14 (7-18) mg/dl Creatinine 0.90 (0.6-1.2) mg/dl Est Cr Clr Drug Dosing 53.3 ml/min Est GFR ( Amer) 70.5 Est GFR (Non-Af Amer) 60.8 BUN/Creatinine Ratio 15.3 (10-20) Glucose 126 H (70-99) mg/dl Calcium 9.7 (8.5-10.1) mg/dl Magnesium 1.9 (1.8-2.4) mg/dl Total Bilirubin 0.6 (0.2-1) mg/dl AST 35 (15-37) U/L ALT 27 (12-78) U/L Alkaline Phosphatase 85 (45-117) U/L Troponin I < 0.015 (0-0.045) ng/ml Total Protein 7.4 (6.4-8.2) gm/dl Albumin 3.2 L (3.4-5.0) gm/dl Globulin 4.1 H (2.5-4.0) gm/dl Albumin/Globulin Ratio 0.8 L (0.9-2) TSH 3.040 (0.300-4.500) uIu/ml Imaging Data Radiologist's Impression: XR chest 1V portable CLINICAL HISTORY: 79 years-old Female presenting with palpitations, sob. TECHNIQUE: Portable upright AP view of the chest was obtained. COMPARISON: 08/24/2019 and CTA chest from 06/20/2019. FINDINGS: Right subclavian Mediport terminates in the lower SVC. Atherosclerosis of the aortic arch. Borderline enlargement of the cardiac silhouette. Nodular density at the left lower lung is unchanged and compatible with granuloma. Persistent prominence of interstitial lung markings with reticulonodular bibasilar op acities. Blunting of the costophrenic angles. This is unchanged. No pneumothorax. Degenerative changes of the thoracic spine. Upper abdomen normal. IMPRESSION: 1. Bibasilar interstitial prominence seen to better advantage on prior CT. No new superimposed infiltrate. 2. No significant change from prior. ACT 112: Negative or not required by law. Electronically signed by: Guillermo Arteaga M.D. 09/12/2019 1:45 PM ECG Data Attestation: I personally reviewed and interpreted this ECG as follows: Indication: + palpitations Rate (beats per minute): 89 Rhythm: + normal sinus ECG Intervals/blocks: + First degree AV block, + Normal QRS and + Normal QT-c ECG Bruno: + Normal ECG ST segments: + Normal ST segments Comparison ECG Date: from (prehospital EKG today) Change: the following changes noted Additional Comments: No longer rapid rhythm Blood Pressure Blood Pressure Findings: Normal blood pressure MDM Narrative Patient well-appearing here despite significant past medical history. Patient had several episodes of tachycardia into the 130s on arrival, however this resolved spontaneously and did not recur. Patient with a recent admission for similar symptoms including the syncope experienced today. Patient did have recent evaluation with imaging, and had been started on diltiazem which she was taking at home. Case discussed with Dr. Schofield, cardiology as a precaution given patient is on multiple other medications which could interact with an antiarrhythmic or rate controlling medication including her rifampin. Patient seen and evaluated by Dr. Schofield in the emergency room who offered patient several potential treatment options. Family significant concern for the patient especially given her complicated past medical history. After much discussion, patient will be monitored as an inpatient. This was discussed with the hospitalist team. Patient and family were aware of all results and were in agreement with plan. Patient is anticoagulated, I do not suspect PE. Patient syncopal event today similar to that prior and seem to occur when she had an accelerated heart rate. I feel is likely due to a drop in her blood pressure. I do not suspect CVA, intracranial hemorrhage. Recent head CT was unremarkable. I do not suspect that this was seizure, as patient had no incontinence, no tongue biting, no postictal. Based on description of family who witnessed it. Impression & Plan Cardiac dysrhythmia, Dyspnea, Heart palpitations, Metastatic adenocarcinoma, Anticoagulated Discharge Plan Visit Data *Final* Discharge Date/Time: 09/12/19 16:56 Chief Complaint: Cardiac Assessment ED Provider: Scarlet Navarro Discharge Problem: Cardiac dysrhythmia, Dyspnea, Heart palpitations, Metastatic adenocarcinoma, Anticoagulated Patient Disposition: Admitted As Inpatient Condition: Good Discharge Instructions Interventions: ED Discharge Assessment Last Done: 09/12/19 16:56 Discharge Problem: Cardiac dysrhythmia Qualifiers: Arrhythmia type: unspecified cardiac arrhythmia Qualified Code(s): I49.9 - Cardiac arrhythmia, unspecified Dyspnea Qualifiers: Dyspnea type: shortness of breath Qualified Code(s): R06.02 - Shortness of breath
[2019-09-12 13:46] LABS: Albumin Level 3.2 gm/dl (3.4-5.0); Aspartate Aminotransferase 35 U/L (15-37); BUN Creatinine Ratio 15.3 (10-20); Blood Urea Nitrogen 14 mg/dl (7-18); Calcium 9.7 mg/dl (8.5-10.1); Carbon Dioxide 24 mmol/L (21-32); Chloride 106 mmol/L (98-107); Creatinine Clr Calc Pharmacy 53.3 ml/min; Est GFR (African American) 70.5; Est GFR (Non-African American) 60.8; Glucose 126 mg/dl (70-99); Magnesium 1.9 mg/dl (1.8-2.4); Potassium 3.3 mmol/L (3.5-5.1); Sodium 136 mmol/L (136-145)
--- NOTE | 2019-09-12 13:46 | XRay Report ---
XR chest 1V portable CLINICAL HISTORY: 79 years-old Female presenting with palpitations, sob. TECHNIQUE: Portable upright AP view of the chest was obtained. COMPARISON: 08/24/2019 and CTA chest from 06/20/2019. FINDINGS: Right subclavian Mediport terminates in the lower SVC. Atherosclerosis of the aortic arch. Borderline enlargement of the cardiac silhouette. Nodular density at the left lower lung is unchanged and anurag tible with granuloma. Persistent prominence of interstitial lung markings with reticulonodular bibasi lar opacities. Blunting of the costophrenic angles. This is unchanged. No pneumothorax. Degenerative changes of the thoracic spine. Upper abdomen normal. IMPRESSION: 1. Bibasilar interstitial prominence seen to better advantage on prior CT. No new superimposed infil trate. 2. No significant change from prior. ACT 112: Negative or not required by law. Electronically signed by: Guillermo Arteaga M.D. 09/12/2019 1:45 PM
[2019-09-12 13:49] LABS: Macrocytosis Present
[2019-09-12 13:57] LABS: Alanine Aminotransferase 27 U/L (12-78); Albumin Globulin Ratio 0.8 (0.9-2); Alkaline Phosphatase 85 U/L (45-117); Bilirubin,Total 0.6 mg/dl (0.2-1); Globulin 4.1 gm/dl (2.5-4.0); Total Protein 7.4 gm/dl (6.4-8.2); Troponin I < 0.015 ng/ml (0-0.045)
--- NOTE | 2019-09-12 14:34 | Electrocardiogram Report ---
Test Reason : Blood Pressure : / mmHG Vent. Rate : 089 BPM Atrial Rate : 089 BPM P-R Int : 214 ms QRS Dur : 074 ms QT Int : 348 ms P-R-T Axes : 077 024 034 degrees QTc Int : 423 ms Poor data quality, interpretation may be adversely affected Sinus rhythm with 1st degree A-V block Otherwise normal ECG When compared with ECG of 24-AUG-2019 21:39, Nonspecific T wave abnormality no longer evident in Lateral leads Confirmed by Waldemar Schofield ([id number]) on 09/12/2019 2:34:32 PM Referred By: Confirmed By:Kael Schofield
[2019-09-12] MEDS ORDERED: POTASSIUM CHLORIDE 20 MEQ TABCR PO STA (16:39)
--- NOTE | 2019-09-12 17:16 | History & Physical Report ---
Date of Service September 12, 2019 Assessment & Plan (1) SVT (supraventricular tachycardia): * Admit PCU * Cardiology consult -- appreciate input * Continue home diltiazem for now -- may need to trial Multaq vs other at cardiology discretion. Had previously trialed amiodarone and was on 120mg dilt until increase to 240mg earlier this month * AHA diet * Daily weights * I&O * Supplemental O2 as needed * Continue home diltiazem 240mg (2) Dyspnea: * Unclear whether related to #1 or if from underlying lung disease * Most recent ECHO 08/25/19 -- hyperdynamic left ventricle, EF >=70%, no wma, borderline LVH, mild TR * CXR without significant change from imaging 08/24/19. Bibasilar interstitial prominence * Supplemental O2 as needed * Albuterol nebs prn * Flu swab pending (3) Metastatic adenocarcinoma: * Likely from lung primary with metastatsis to liver (CT Jun 2019 without significant change in 4.3 x 4.0 cm inferior right hepatic lobe mass since CT 04/21/19) * Had been on Pemetrexed and Keytruda --> Keytruda held after 4 cycles secondary to pneumonitis * On steroid taper per pulm --> currently on 10mg every other day, continued * Supposed to have received chemo today -- will need to contact cancer center to let them know of inpatient status (4) Mycobacterium avium intracellulare colonization: * Follows locally with Dr. Pascal * Continue home medications --> Ethambutol, Rifampin, Azithromycin --> As azithromycin currently not available amidst COVID-19 epidemic, spoke with pulmonary service and instructed to give patient clarithromycin for now in place of the azithromycin (5) Hypokalemia: * 3.4 on admit - given 40meq PO. 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 Had been switched to warfarin and developed rectus sheath hematoma requiring reversal with kcentra. * Currently on Lovenox SQ -- did receive her dose today * Lovenox SQ while inpatient to be started tomororow Dispo: likely to remain inpatient 1-2 days History of Present Illness Chief Complaint: Shortness of Breath, Palpitations Primary Care Provider: Guillermo Berkowitz MD 79 year old white female with significant PMHx for metastatic adenocarcinoma (on chemo), HTN, Myocobacterium Avium Compex (follows with pulm, rotating abx), SVT, hx PE/DVT, depression presented to the emergency department with worsening shortness of breath and palpitations that occurred starting around 10am this morning. The patient states that she has had intermittent shortness of breath and palpitations since being discharged earlier this month, but states both the shortness of breath and palpitations have gotten worse recently. She states they were occurring approximately twice daily and lasting approximately 5-10 minutes in duration. She states sometimes she has associated chest pain, and sometimes this pain is more of a burning like sensation, located in her epigastric region, without radiation. No aggravating or alleviating factors, per the patient, although she notes that she is now unable to walk across her kitchen without becoming extremely short of breath. Denies PND or orthopnea. She states these attacks typically occur in the morning hours before lunch and she is usually fine by 4-5 in the afternoon. She states when she was previously discharged from the hospital she was sent with 2 120mg tablets of cardizem to take and took the 240mg dose the next morning as instructed. This morning, she states she did notice some associated nausea and vomited x 1. Denies hematochezia or coffee ground emesis. She states that following vomiting she passed out for approximately 30 seconds. She denies fevers and chills, although given her immunocompromised state, she does not typically have fever. She denies recent sick contacts and says she has been doing well to keep herself safe. She was scheduled to receive chemo today, follows with Dr. Riley. Of note, recent cardiology notes suggest trialing Multaq if cardizem unsuccessful. Patient would not like ablation at this time if possible. She follows with pulmonary locally for her MAC and is currently on azithromycin, rifampin and ethambutol. She is currently on 10mg of prednisone every other day. ER Course: 500cc NSS bolus x 1. CBC with WBC 8.5k, h/h /34, Plt 241. BMP with Na 136. K 3.3. INR 1.1. TSH 3.040. EKG with SR 1st degree AV block, 89bpm Allergies Allergy/AdvReac Type Severity Reaction Status Date / Time Tetracyclines Allergy Intermediate GI Verified 09/12/19 15:10 SYMPTOMS, RASH, SUN SENSITIVITY tomato Allergy Unknown TOMATOES, Verified 09/12/19 15:10 CITRUS FRUIT ACIDIC FOOD--ITCHY L EAR, HEAD levofloxacin AdvReac Intermediate tendonitis Verified 09/12/19 15:10 Macrolide Antibiotics AdvReac Intermediate GI SYMPTOMS Verified 09/12/19 15:10 Penicillins AdvReac Intermediate GI SYMPTOMS Verified 09/12/19 15:10 amoxicillin AdvReac Mild Gastrointestinal Verified 09/12/19 15:10 Upset ciprofloxacin AdvReac Mild GI UPSET Verified 09/12/19 15:10 clindamycin AdvReac Mild GI UPSET Verified 09/12/19 15:10 erythromycin base AdvReac Mild Gastrointestinal Verified 09/12/19 15:10 Upset Cipro AdvReac Unknown GI UPSET Verified 01/31/18 06:42 Home Medications Home Medications Medication Instructions Recorded Confirmed Type Lotemax 1 applic OPB HS 06/03/18 09/12/19 History Metamucil 1 dose PO HS PRN 06/03/18 09/12/19 History Probiotic 0 mmu cells PO QAM 06/03/18 09/12/19 History Restasis 1 drp OPB Q12H 06/03/18 09/12/19 History biotin 5 mg PO QDD 06/03/18 09/12/19 History calcium carb and citrate-vitD3 600 mg PO BID 06/03/18 09/12/19 History clobetasol 1 applic TOPICAL BID PRN 06/03/18 09/12/19 History docusate sodium 100 mg PO HS PRN 06/03/18 09/12/19 History glucosamine-chondroitin 1 tab PO BID 06/03/18 09/12/19 History hydrocortisone butyrate 1 applic TOPICAL DAILY PRN 06/03/18 09/12/19 History magnesium 250 mg PO QDD 06/03/18 09/12/19 History multivitamin 1 tab PO Q OTHER DAY 06/03/18 09/12/19 History vitamin B complex 1 tab PO QDD 06/03/18 09/12/19 History cholecalciferol (vitamin D3) 5,000 unit PO QAM 11/03/18 09/12/19 History [Vitamin D3] folic acid 1 mg PO QAM 11/03/18 09/12/19 History omega 6-[id number]-[id number]-fish oil [Fish Oil] 2 cap PO BID 11/03/18 09/12/19 History fexofenadine 180 mg tablet 180 mg PO QAM PRN 01/30/19 09/12/19 History triamcinolone acetonide 0.1 % 1 appln TOPICAL BID PRN gm 01/30/19 09/12/19 History topical cream Prilosec OTC 20 mg PO BID 03/30/19 09/12/19 History azithromycin 500 mg tablet 500 mg PO MOWEFR 90 Days #18 tab 07/18/19 09/12/19 Rx enoxaparin 120 mg SQ DAILY@0800 08/24/19 09/12/19 History escitalopram oxalate 5 mg PO QAM 08/24/19 09/12/19 History diltiazem HCl [Cardizem CD] 240 mg PO DAILY #30 cap 08/28/19 09/12/19 Rx ethambutol 400 mg tablet 1,200 mg PO TUTHSA tab 08/29/19 09/12/19 History rifampin 300 mg capsule 600 mg PO TUTHSA cap 08/29/19 09/12/19 History acetaminophen [Tylenol Arthritis 1,300 mg PO Q12H 09/12/19 09/12/19 History Pain] prednisone 10 mg PO Q2D 09/12/19 09/12/19 History Past Med/Surg History Medical History Anemia (Acute) Atypical squamous cells of undetermined significance (ASC-US) on cervical Pap smear Deep vein thrombosis (Acute) Deep venous thrombosis of left popliteal vein Depression (Acute) Drug-induced pneumonitis (Acute) Hearing deficit (Acute) History of ascites History of lymphoma History of malignant neoplasm breast Metastatic adenocarcinoma (Chronic) On anticoagulant therapy (Acute) Osteoarthritis (Acute) Pneumonia (Acute) Pneumonia due to Pseudomonas Pulmonary embolism Seasonal affective disorder (Chronic) Thrombocytopenia Urinary tract infection (Acute) Vaginal pessary present Surgical History H/O tubal ligation History of bronchoscopy (Acute) History of cholecystectomy (Acute) History of colonoscopy (Acute) History of cystoscopy (Acute) Hx of oral surgery S/P breast biopsy S/P bunionectomy S/P cholecystectomy Family History Daughter Breast cancer metastatic, diagnosed in 1993 and now is stage IV with salvage ch emotherapy Daughter Breast cancer, Onset Age: 27 metastatic breast cancer at age 27 Brother , age 53 MVA MVA Family/Other Essential familial hypercholesterolemia Glaucoma Heart disease Macular degeneration Stroke Mother , age 85 Hypertension Hyperlipidemia Meningioma Father , "old age" 95 Hypertension Son Kidney stones Other Cancer Stroke syndrome Denies family history of Ovarian cancer Prostate cancer Diabetes Social History Preferred Language: Taiwanese Communication Ability: Effective Visual Impairment: Limited Hearing Ability: Use of Hearing Aid Medical Records Secretary Required: No Beliefs That Will Affect Care: None marital status: Current Living Situation: Alone current occupational status: retired Other Information That Helps Us Care for You: No Feels Safe at Home: Yes Safety Concerns: Feels Safe At This Time Smoking Status: Never smoker Do You Dip or Chew Tobacco: No ; Second Hand Exposure: No ; Tobacco Cessation Education Requested by Patient: No Hx Alcohol Use: No Hx Substance Use: No Childhood Exposure to Second-Hand Smoke: Yes caffeine: Yes Dental Care, Regularly: Yes Physical Activity Frequency: 1-2 Times per Week Seatbelt Use: always Sunscreen Use: Yes Review of Systems Review of Systems: All systems reviewed & are unremarkable except as noted in HPI & below Constitutional: no fever and no chills Eyes: no diplopia and no worsening vision Ear, Nose, Mouth, Throat: no sore throat and no dysphagia Respiratory: + cough, + dyspnea and + dyspnea on exertion Cardiovascular: + chest pain ("burning epigastric intermittent"), + dyspnea and + edema (chronic); no calf pain Gastrointestinal: + nausea and + vomiting; no abdominal pain, no constipation and no diarrhea/loose stools Genitourinary: no dysuria and no urinary frequency Musculoskeletal: no radicular pain and no joint pain Integumentary: no rash and no lesions Neurologic: no headache(s) and no confusion Psychiatric: + depression; no suicidal ideation Endocrine: + fatigue; no flushing Hematologic / Lymphatic: hx PE/DVT on Xarelto Allergy / Immunological: + dyspnea; no wheezing Physical Exam Constitutional: well developed and well nourished; no acute distress Eyes: + anicteric sclerae and PERRL ENMT: external ear and nose normal, oropharynx normal Respiratory: normal respiratory effort and able to speak in complete sentences; no respiratory distress and no labored breathing Auscultation: + diminished lung sounds (throughout) and + crackles (bibasilar); no rales and no wheezes Cardiovascular: Rate/Rhythm: regular rate and regular rhythm Heart Sounds: normal S1 and normal S2; no murmur Extremities: + edema (1+ non pitting b/l LE) Chest (Breasts): Additional Comments: A port Gastrointestinal (Abdomen): normal bowel sounds, soft, nontender, no hepatosplenomegaly Musculoskeletal: no cyanosis or clubbing, extremities motor strength 5/5 Skin: no rashes, warm and dry Neurologic: PERRL, EOMI, accommodation nl, no face palsy, no dysarthria Psychiatric: A+Ox3, euthymic affect Lymphatic: no cervical or axillary lymphadenopathy Results & Data Vital Signs (Past 12 Hours) Vital Signs Temp Pulse Pulse Resp BP BP Pulse Ox 09/12/19 16:00 79 22 136/78 96 09/12/19 14:36 93 H 20 128/77 97 09/12/19 14:14 92 H 27 H 128/77 94 09/12/19 13:00 36.5 C 95 H 19 104/67 96 09/12/19 12:56 95 H 29 H 104/67 95 Laboratory Results 09/12/19 09/12/19 09/12/19 Range/Units 16:55 12:57 12:57 WBC (4.8-10.8) K/uL RBC (4.2-5.4) M/uL Hgb (12.0-16.0) g/dL Hct (37-47) % MCV (80-100) fL MCH (25-34) pg MCHC (32-36) g/dL RDW Std Deviation (36.4-46.3) fL RDW Coeff of Mary Beth (11.5-14.5) % Plt Count (130-400) K/uL MPV (7.4-10.4) fL Immature Gran % (Auto) % Neut % (Auto) % Lymph % (Auto) % [place] % (Auto) % Eos % (Auto) % Baso % (Auto) % Immature Gran # (Auto) (0.00-0.02) K/uL Neut # (Auto) (1.4-6.5) K/uL Lymph # (Auto) (1.2-3.4) K/uL [place] # (Auto) (0.11-0.59) K/uL Eos # (Auto) (0-0.5) K/uL Baso # (Auto) (0-0.2) K/uL Macrocytosis PT 11.3 (9.0-12.0) Seconds INR 1.1 (0.9-1.1) Sodium 136 (136-145) mmol/L Potassium 3.3 L (3.5-5.1) mmol/L Chloride 106 (98-107) mmol/L Carbon Dioxide 24 (21-32) mmol/L Anion Gap 6.0 (3-11) BUN 14 (7-18) mg/dl Creatinine 0.90 (0.6-1.2) mg/dl Est Cr Clr Drug Dosing 53.3 ml/min Est GFR ( Amer) 70.5 Est GFR (Non-Af Amer) 60.8 BUN/Creatinine Ratio 15.3 (10-20) Glucose 126 H (70-99) mg/dl Calcium 9.7 (8.5-10.1) mg/dl Magnesium 1.9 (1.8-2.4) mg/dl Total Bilirubin 0.6 (0.2-1) mg/dl AST 35 (15-37) U/L ALT 27 (12-78) U/L Alkaline Phosphatase 85 (45-117) U/L Troponin I < 0.015 (0-0.045) ng/ml Total Protein 7.4 (6.4-8.2) gm/dl Albumin 3.2 L (3.4-5.0) gm/dl Globulin 4.1 H (2.5-4.0) gm/dl Albumin/Globulin Ratio 0.8 L (0.9-2) TSH 3.040 (0.300-4.500) uIu/ml Influenza Type A (PCR) Pending Influenza Type B (PCR) Pending 09/12/19 Range/Units 12:57 WBC 8.58 (4.8-10.8) K/uL RBC 3.02 L (4.2-5.4) M/uL Hgb 11.0 L (12.0-16.0) g/dL Hct 34.0 L (37-47) % MCV 112.6 H (80-100) fL MCH 36.4 H (25-34) pg MCHC 32.4 (32-36) g/dL RDW Std Deviation 58.9 H (36.4-46.3) fL RDW Coeff of Mary Beth 14.4 (11.5-14.5) % Plt Count 241 (130-400) K/uL MPV 8.9 (7.4-10.4) fL Immature Gran % (Auto) 0.3 % Neut % (Auto) 76.8 % Lymph % (Auto) 12.2 % [place] % (Auto) 10.3 % Eos % (Auto) 0.2 % Baso % (Auto) 0.2 % Immature Gran # (Auto) 0.03 H (0.00-0.02) K/uL Neut # (Auto) 6.58 H (1.4-6.5) K/uL Lymph # (Auto) 1.05 L (1.2-3.4) K/uL [place] # (Auto) 0.88 H (0.11-0.59) K/uL Eos # (Auto) 0.02 (0-0.5) K/uL Baso # (Auto) 0.02 (0-0.2) K/uL Macrocytosis Present PT (9.0-12.0) Seconds INR (0.9-1.1) Sodium (136-145) mmol/L Potassium (3.5-5.1) mmol/L Chloride (98-107) mmol/L Carbon Dioxide (21-32) mmol/L Anion Gap (3-11) BUN (7-18) mg/dl Creatinine (0.6-1.2) mg/dl Est Cr Clr Drug Dosing ml/min Est GFR ( Amer) Est GFR (Non-Af Amer) BUN/Creatinine Ratio (10-20) Glucose (70-99) mg/dl Calcium (8.5-10.1) mg/dl Magnesium (1.8-2.4) mg/dl Total Bilirubin (0.2-1) mg/dl AST (15-37) U/L ALT (12-78) U/L Alkaline Phosphatase (45-117) U/L Troponin I (0-0.045) ng/ml Total Protein (6.4-8.2) gm/dl Albumin (3.4-5.0) gm/dl Globulin (2.5-4.0) gm/dl Albumin/Globulin Ratio (0.9-2) TSH (0.300-4.500) uIu/ml Influenza Type A (PCR) Influenza Type B (PCR) Code Status & VTE Plan VTE Prophylaxis Plan VTE Prophylaxis will be ordered: Yes Supervising Physician Co-Signing Physician Notes Attending Attestation and Admit Note: Pt seen/examined, chart reviewed, admission care plan d/w SABI Flaherty. I agree w/ the laureano components of her documentation. 79yo female with stage 4 cancer (likely lung primary vs breast), NICK, known SVT - presenting with multiple episodes of palpitations & dyspnea. No chest pain. Upon ED presentation her rhythm was NSR, and troponin was negative. Seen in ER by Dr Schofield, cardiology - multaq recommended and initiated. PMH, PSH, allergies, meds, sochx, famhx, ros - reviewed VSS, afebrile gen - NAD neck - no JVD heart - RRR, s1 s2 lungs - CTA b/l abd - soft NT BS+ ext - trace edema b/l labs - notable - K 3.3 Cr 0.75 Hb 11 EKG - NSR, no ST changes flu PCR negative A/P: 1. palpitations likely 2nd SVT - to initiate antiarrhythmic (multaq) as recommended by cardiology. Observe over night - hopefully home tomorrow. 2. NICK - cont triple-antibiotics; use bioxin in jass of azithromycin. cont prednisone. 3. stage 4 cancer 4. h/o DVT / PE - lovenox. replace eliud K. Cosme Hercules MD PG Care Time/CCT Total # of Minutes Spent Total Time Spent with Patient: Total time spent is greater than 50% in c oordination of care (as documented) at patient's floor/unit and/or counseling patient: Coding Level of Care Code 93849 Initial Inpt Care Lvl 3 Diagnoses SVT (supraventricular tachycardia) I47.1 Dyspnea R06.02 Dyspnea type: shortness of breath Metastatic adenocarcinoma C79.9 Mycobacterium avium intracellulare colonization Z22.39 Hypokalemia E87.6 Depression F32.9 Prediabetes R73.03 Acid reflux K21.9 DVT prophylaxis Z29.9 (1) Dyspnea Dyspnea type: shortness of breath Qualified Code(s): R06.02 - Shortness of breath
[2019-09-12] MEDS ORDERED: ONDANSETRON INJ 2 MG/ML 2 ML VIAL IV PRN (17:20)
[2019-09-12] MEDS ORDERED: ALBUTEROL 0.083% NEBU SOLN 3 ML VIAL NEB PRN (17:31)
[2019-09-12] MEDS ORDERED: PSYLLIUM 58.6% POWDER PACKET PO PRN (17:31)
[2019-09-12 17:59] LABS: Influenza A virus by PCR Neg for Influ A (Neg); Influenza B virus by PCR Neg for Influ B (Neg)
[2019-09-12] MEDS: PANTOprazole 40 MG TAB PO SCH (20:20)
[2019-09-12] MEDS: ACETAMINOPHEN 325 MG TAB PO SCH (20:24)
[2019-09-12] MEDS ORDERED: DRONEDARONE HCL 400 MG TAB PO SCH (21:00)
[2019-09-12] MEDS: RESTASIS-ORDER AWAITING ACTION SCH (23:12)
[2019-09-13 06:12] LABS: Estimated Average Glucose 108 mg/dl; Hemoglobin 9.7 g/dL (12.0-16.0); Hemoglobin A1C 5.4 % (4.5-5.6); Mean Corpuscular Hemoglobin 36.1 pg (25-34); Mean Corpuscular Hgb Conc 32.3 g/dL (32-36); Mean Corpuscular Volume 111.5 fL (80-100); Mean Platelet Volume 8.7 fL (7.4-10.4); Platelet Count 201 K/uL (130-400); RDW Coefficient of Variation 14.6 % (11.5-14.5); RDW Standard Deviation 59.5 fL (36.4-46.3); Red Blood Count 2.69 M/uL (4.2-5.4)
[2019-09-13 06:49] LABS: BUN Creatinine Ratio 14.4 (10-20); Calcium 9.6 mg/dl (8.5-10.1); Creatinine Clr Calc Pharmacy 63.3 ml/min; Est GFR (African American) 87.9; Est GFR (Non-African American) 75.8; Magnesium 1.9 mg/dl (1.8-2.4); Potassium 3.7 mmol/L (3.5-5.1)
[2019-09-13] MEDS ORDERED: CLARITHROMYCIN 500 MG TAB PO SCH (09:00)
[2019-09-13] MEDS ORDERED: dilTIAZem HCL 240 MG CAPCR PO SCH (09:00)
[2019-09-13] MEDS: PANTOprazole 40 MG TAB PO SCH ×2 (09:06→20:14)
[2019-09-13] MEDS: RESTASIS-ORDER AWAITING ACTION SCH ×3 (09:06→23:03)
[2019-09-13] MEDS: ENOXAPARIN INJ 120 MG/0.8 ML SYR SQ SCH (09:07)
[2019-09-13] MEDS: ESCITALOPRAM OXALATE 10 MG TAB PO SCH (09:07)
[2019-09-13] MEDS: FOLIC ACID 1 MG TAB PO SCH (09:08)
[2019-09-13] MEDS: ACETAMINOPHEN 325 MG TAB PO SCH ×2 (09:08→20:13)
--- NOTE | 2019-09-13 10:35 | Hospitalist Progress Note ---
Date of Service September 13, 2019 Assessment & Plan (1) SVT (supraventricular tachycardia): * Continue to monitor on telemetry * Daily weights, I&O * Cardiology consult -- appreciate input --> originally placed on Multaq 400mg BID, however given concerns with interactions with abx for NICK, patient placed back on diltiazem 240mg this morning. Per discussion with cardiology, we are going to monitor on telemetry as patient up and about today to see if correlation between SVT and symptoms. May need to increase dose of diltiazem vs different agent vs ablation (patient would prefer against ablation if possible) * Supplemental O2 as needed * Continue home diltiazem 240mg as above * 12 seconds atrial tachycardia/SVT this morning around ~10am. Associated dyspnea, however not solely occuring with this feature. * Discussed with cardiology --> patient may benefit from ablation which could possibly be done tomorrow () vs starting amiodarone. Of note, multaq interaction primarily with Biaxin, however patient to resume her azithromycin at discharge as she had been taking. Less risk of QT prolongation with azithromycin vs clarithromycin. Could consider utilizing this and monitoring QT. Will await further discussion from cardiology with patient about which she would prefer to proceed with. (2) Dyspnea: * Unclear whether related to #1 or if from underlying lung disease * Most recent ECHO 08/25/19 -- hyperdynamic left ventricle, EF >=70%, no wma, b orderline LVH, mild TR * CXR without significant change from imaging 08/24/19. Bibasilar interstitial prominence * Supplemental O2 as needed -- 94% on RA * Albuterol nebs prn * Flu swab negative * Patient denies any further episodes overnight and into this morning --> continue to monitor with ambulation/activity. May need 2 step to evaluate o2 sat with ambulation, although patient has not required O2 and is 94% on RA currently (3) Metastatic adenocarcinoma: * Likely from lung primary with metastatsis to liver (CT Jun 2019 without significant change in 4.3 x 4.0 cm inferior right hepatic lobe mass since CT 04/21/19) * Had been on Pemetrexed and Keytruda --> Keytruda held after 4 cycles secondary to pneumonitis * On steroid taper per pulm --> currently on 10mg every other day, continued * Supposed to have received chemo today -- contacted them --> instructed that patient likely to have chemo in 1 week following discharge per conversation with cancer center (4) Mycobacterium avium intracellulare colonization: * Follows locally with Dr. Pascal * Continue home medications --> Ethambutol, Rifampin, Azithromycin --> As azithromycin currently not available amidst COVID-19 epidemic, spoke with pulmonary service and instructed to give patient clarithromycin for now in place of the azithromycin (5) Hypokalemia: * 3.4 on admit - given 40meq PO. Mag added to labs, wnl at 1.9 * RESOLVED -- K 3.7 (6) Depression: * Patient recently reduced dosing to 5mg daily of her celexa -- continue (7) Prediabetes: * Last A1c 5.28 March 2019 at 5.8 * A1c 5.4 (8) Acid reflux: * On prilosec 20mg BID outpatient -- will place on protonix 40mg BID (9) DVT prophylaxis: * Patient with hx PE/DVT on Xarelto in past. Had been switched to warfarin and developed rectus sheath hematoma requiring reversal with kycentra. * Currently on Lovenox SQ outpatient -- continued while inpatient Possible discharge later this evening vs tomorrow pending how telemetry looks/symptoms throughout the day today Admission and Anticipated Discharge Date Admission Date: September 12, 2019 Supervising Physician Co-Signing Physician Notes Attending Attestation and Admit Note: Chart reviewed, care plan d/w SABI Flaherty. I agree w/ the laureano components of her documentation. SVT - antiarrhythmic therapy was desired by cardiology but due to QTc prolongation concerns from macrolide/multaq use we will not use such moving forward. Ablation procedure was discussed with patient, and plans for EP study/ablation procedure will be performed tomorrow. NICK - cont triple-antibiotics; using bioxin in jass of azithromycin due to restriction on azithromycin. cont prednisone. h/o DVT / PE - lovenox. Will this need to be held for procedure? Cosme Hercules MD Subjective Patient evaluated at bedside. Reports no further episodes of nausea or vomiting, and denies any further episodes of palpitations or increased shortness of breath. Discussed continuing diltiazem 240mg in lieu of the multaq due to concerns for drug interactions and QT prolongation. Patient does have chronic lower extremity edema, and states her son brought in her home stockings to use. Plan for her to get up and walk the halls so that we may observe her on telemetry to see if palpitations/SVT correlate with her dyspnea or if possible it could be underlying pulmonary progression. Possible discharge this evening pending how she does throughout the day vs tomorrow. Patient agreeable at this time. Denies fevers, chills, chest pain, abdominal pain (outside of lovenox shot injection sites), dysuria, n/v/d. This afternoon, patient re-evaluated. Multiple episodes of SVT/atrial tachycardia. Discussed that I will reach out to Dr. Schofield about increasing current medication vs different medication vs ablation and that we will continue to monitor overnight. Review of Systems Review of Systems: All systems reviewed & are unremarkable except as noted in HPI & below Physical Exam Constitutional: well developed and well nourished; no acute distress Eyes: + anicteric sclerae and PERRL ENMT: external ear and nose normal, oropharynx normal Respiratory: normal respiratory effort and able to speak in complete sentences; no respiratory distress and no labored breathing Auscultation: + diminished lung sounds (throughout) and + crackles (bibasilar); no rales and no wheezes Cardiovascular: Rate/Rhythm: regular rate and regular rhythm Heart Sounds: normal S1 and normal S2; no murmur Extremities: + edema (1+ pitting b/l LE) Chest (Breasts): Additional Comments: A port present Gastrointestinal (Abdomen): normal bowel sounds, soft, nontender, no hepatosplenomegaly Musculoskeletal: no cyanosis or clubbing, extremities motor strength 5/5 Skin: no rashes, warm and dry Neurologic: PERRL, EOMI, accommodation nl, no face palsy, no dysarthria Psychiatric: A+Ox3, euthymic affect Lymphatic: no cervical or axillary lymphadenopathy PG Care Time/CCT Total # of Minutes Spent Total Time Spent with Patient: Total time spent is greater than 50% in coordination of care (as documented) at patient's floor/unit and/or counseling patient: Coding Level of Care Code 37927 Subseq Hosp Care Lvl 3 Diagnoses SVT (supraventricular tachycardia) I47.1 Dyspnea R06.02 Dyspnea type: shortness of breath Metastatic adenocarcinoma C79.9 Mycobacterium avium intracellulare colonization Z22.39 Hypokalemia E87.6 Depression F32.9 Prediabetes R73.03 Acid reflux K21.9 DVT prophylaxis Z29.9 (1) Dyspnea Dyspnea type: shortness of breath Qualified Code(s): R06.02 - Shortness of breath
--- NOTE | 2019-09-13 13:46 | Cardiology Progress Note ---
Date of Service September 13, 2019 Assessment & Plan (1) SVT (supraventricular tachycardia): She continues to have episodes of SVT. I do not believe her SVT is the etiology of her dyspnea. Watched her walk around the mata several times while she does have very brief bursts of SVT lasting 1-2 seconds, she generally develops a sinus tachycardia and dyspnea with activity. Believe that her dyspnea is more related to her underlying lung illness rather than arrhythmia. However, she did have symptoms with SVT this morning as well. She had a very high heart rate in SVT. We did discuss options for management to include increasing her dose of diltiazem, the use of antiarrhythmic medications or catheter based therapy. I am not confident that more diltiazem will be effective. I am also concerned about drug interactions with antiarrhythmics and her current medical therapy for MAC. I think there is a reasonable chance of success with catheter based therapy at this point. We discussed the options and risks of the procedure and she is willing to proceed. Admission and Anticipated Discharge Date Admission Date: September 12, 2019 Subjective This morning patient claimed feeling well. She states she had a good evening was a per rest. She was ambulatory around the mata a few times this morning. She did have an element of dyspnea but no significant dizziness or lightheadedness. She also had an episode of SVT while resting and noted a sense of both palpitation and chest pressure. Review of Systems Review of Systems: Per HPI Physical Exam Physical Exam: She is alert and oriented x3. Mood affect appear normal. She answered all questions appropriately. HEENT: Sclerae are anicteric. Pupils are equal and reactive to light and accommodation. Extraocular movements were intact. Neuro: Cranial nerves intact Lungs: Lungs are clear to auscultation bilaterally. There are no rales wheezes or rhonchi. She has normal respiratory effort without use of accessory muscles. There is normal pulmonary excursion. Cardiac: The rhythm was regular. S1 and S2 were normal. Crescendo systolic murmur. The PMI was not markedly displaced on palpation. Abdomen: The abdomen was soft and nontender. Extremities: Patient has bilateral radial pulses that are equal in intensity. There is no evidence cyanosis or clubbing. Moderate lower extremity edema bilaterally. Skin: There are no rashes noted on examination today. Results & Data ([facility]) Vital Signs (Past 12 Hours) Vital Signs Temp Pulse Resp BP Pulse Ox 09/13/19 11:47 37.0 C 93 H 18 135/69 09/13/19 07:51 36.7 C 79 20 109/72 94 09/13/19 04:06 36.6 C 82 17 118/74 94 Laboratory Results Abnormal Lab Results 09/12/19 09/12/19 09/12/19 12:57 12:57 12:57 WBC RBC Hgb Hct MCV MCH MCHC RDW Std Deviation RDW Coeff of Mary Beth Plt Count MPV Macrocytosis Present Sodium 136 Potassium 3.3 L Chloride 106 Carbon Dioxide 24 Anion Gap 6.0 BUN 14 Creatinine 0.90 Est Cr Clr Drug Dosing 53.3 Est GFR ( Amer) 70.5 Est GFR (Non-Af Amer) 60.8 BUN/Creatinine Ratio 15.3 Glucose 126 H Estimat Average Glucose Hemoglobin A1c Calcium 9.7 Magnesium 1.9 Total Bilirubin 0.6 AST 35 ALT 27 Alkaline Phosphatase 85 Troponin I < 0.015 Total Protein 7.4 Albumin 3.2 L Globulin 4.1 H Albumin/Globulin Ratio 0.8 L Procalcitonin < 0.05 TSH 3.040 Influenza Type A (PCR) Influenza Type B (PCR) 09/12/19 09/13/19 09/13/19 16:55 05:50 05:50 WBC 5.00 RBC 2.69 L Hgb 9.7 L Hct 30.0 L MCV 111.5 H MCH 36.1 H MCHC 32.3 RDW Std Deviation 59.5 H RDW Coeff of Mary Beth 14.6 H Plt Count 201 MPV 8.7 Macrocytosis Sodium Potassium Chloride Carbon Dioxide Anion Gap BUN Creatinine Est Cr Clr Drug Dosing Est GFR ( Amer) Est GFR (Non-Af Amer) BUN/Creatinine Ratio Glucose Estimat Average Glucose 108 Hemoglobin A1c 5.4 Calcium Magnesium Total Bilirubin AST ALT Alkaline Phosphatase Troponin I Total Protein Albumin Globulin Albumin/Globulin Ratio Procalcitonin TSH Influenza Type A (PCR) Neg for Influ A Influenza Type B (PCR) Neg for Influ B 09/13/19 05:50 WBC RBC Hgb Hct MCV MCH MCHC RDW Std Deviation RDW Coeff of Mary Beth Plt Count MPV Macrocytosis Sodium 140 Potassium 3.7 Chloride 109 H Carbon Dioxide 28 Anion Gap 3.0 BUN 11 Creatinine 0.75 Est Cr Clr Drug Dosing 63.3 Est GFR ( Amer) 87.9 Est GFR (Non-Af Amer) 75.8 BUN/Creatinine Ratio 14.4 Glucose 88 Estimat Average Glucose Hemoglobin A1c Calcium 9.6 Magnesium 1.9 Total Bilirubin AST ALT Alkaline Phosphatase Troponin I Total Protein Albumin Globulin Albumin/Globulin Ratio Procalcitonin TSH Influenza Type A (PCR) Influenza Type B (PCR) PG Care Time/CCT Total # of Minutes Spent Total Time Spent with Patient: Total time spent is greater than 50% in coordination of care (as documented) at patient's floor/unit and/or counseling patient: Coding Level of Care Code 22139 Subseq Hosp Care Lvl 3 Diagnoses SVT (supraventricular tachycardia) I47.1
--- NOTE | 2019-09-13 13:58 | Electrocardiogram Report ---
Test Reason : Blood Pressure : / mmHG Vent. Rate : 078 BPM Atrial Rate : 078 BPM P-R Int : 208 ms QRS Dur : 082 ms QT Int : 370 ms P-R-T Axes : 076 001 012 degrees QTc Int : 421 ms Normal sinus rhythm possible Inferior infarct , age undetermined Abnormal ECG When compared with ECG of 12-SEP-2019 13:16, Inferior infarct is now Present Confirmed by Waldemar Schofield ([id number]) on 09/13/2019 1:58:19 PM Referred By: REFERRED SELF Confirmed By:Kael Schofield
[2019-09-14 06:21] LABS: Basophils # (auto) 0.02 K/uL (0-0.2); Basophils % (auto) 0.4 %; Eosinophils # (auto) 0.11 K/uL (0-0.5); Eosinophils % (auto) 1.9 %; Hematocrit (blood only) 31.9 % (37-47); Immature Granulocytes # (auto) 0.04 K/uL (0.00-0.02); Immature Granulocytes % (auto) 0.7 %; Lymphocytes # (auto) 1.76 K/uL (1.2-3.4); Lymphocytes % (auto) 31.2 %; Mean Corpuscular Hemoglobin 35.3 pg (25-34); Mean Corpuscular Hgb Conc 31.3 g/dL (32-36); Mean Corpuscular Volume 112.7 fL (80-100); Mean Platelet Volume 8.7 fL (7.4-10.4); Monocytes # (auto) 0.95 K/uL (0.11-0.59); Monocytes % (auto) 16.8 %; Neutrophils # (auto) 2.77 K/uL (1.4-6.5); Platelet Count 230 K/uL (130-400); RDW Coefficient of Variation 14.4 % (11.5-14.5); Red Blood Count 2.83 M/uL (4.2-5.4); White Blood Count 5.65 K/uL (4.8-10.8)
[2019-09-14 06:48] LABS: BUN Creatinine Ratio 17.1 (10-20); Calcium 9.4 mg/dl (8.5-10.1); Creatinine Clr Calc Pharmacy 63.4 ml/min; Est GFR (African American) 89.3; Est GFR (Non-African American) 77.1; Potassium 3.5 mmol/L (3.5-5.1)
[2019-09-14] MEDS ORDERED: fentaNYL citrate 100 MCG/2 ML VIAL ONE ×3 (07:06→09:22)
[2019-09-14] MEDS ORDERED: MIDAZOLAM HCL 5 MG/ML 1 ML VIAL ONE ×2 (07:06→08:19)
[2019-09-14] MEDS ORDERED: HEPARIN (PORCINE) 1000 UNIT/ML 10 ML (CATH LAB USE ONLY) ONE (07:10)
[2019-09-14] MEDS ORDERED: LIDOCAINE HCL 1% 20 ML VIAL ONE (07:20)
[2019-09-14 07:21] LABS: Macrocytosis Present
--- NOTE | 2019-09-14 07:28 | Pre Anesthesia Assessment ---
Date of Service September 14, 2019 Pre Sedation Assessment Vital Signs Temp Pulse Pulse Resp BP Pulse Ox 09/14/19 07:03 71 14 127/75 93 09/14/19 04:17 36.9 C 82 20 102/63 93 09/13/19 22:58 36.8 C 79 18 115/78 93 09/13/19 19:04 36.6 C 83 20 111/73 92 09/13/19 15:31 36.8 C 86 18 112/70 94 09/13/19 11:47 37.0 C 93 H 18 135/69 09/13/19 07:51 36.7 C 79 20 109/72 94 Cardiovascular + regular rate Respiratory + respiratory effort normal Pre-Sedation Airway Assessment Smoking Status: Never smoker Hx Sleep Apnea: No Hx Difficult Intubation: No Short, Thick Neck: No Thyromental Distance: > or= 3.5 Finger Breadths Oral Cavity: + WNL Mallampati Class: III ASA: ASA3 NPO Status Date of Last Intake of Fluids: 09/13/19 Time of Last Intake of Fluids: 22:00 Date of Last Intake of Solid Food: 09/14/19 Time of Last Intake of Solid Foods: 22:00 Procedure Planning Contraindications for Sedation: none Current Medications Reviewed: Yes Notes The planned sedation has been discussed with the patient. Informed Consent was obtained. I have identified the patient, determined the appropriateness of sedation and have assessed the patient immediately prior to the procedure. All medicine(s) and interventions are by my order.
[2019-09-14] MEDS ORDERED: ISOPROTERENOL HCL 0.2 MG/ML 5 ML AMP IV ONE (07:44)
[2019-09-14] MEDS ORDERED: rifAMPin 300 MG CAPSULE PO SCH (09:00)
[2019-09-14] MEDS ORDERED: ETHAMBUTOL HCL 400 MG TAB PO SCH (09:00)
[2019-09-14] MEDS ORDERED: predniSONE 10 MG TABLET PO SCH (09:00)
--- NOTE | 2019-09-14 09:37 | Electrophysiology Report ---
Date of Service September 14, 2019 Electrophysiology Procedure Electrophysiology Procedure Report Procedures performed: Complete electrophysiologic testing when pacing from the left atrium via the coronary sinus, arrhythmia induction using programmed stimulation on or off isoproterenol. Ultrasound-guided vascular access Staff clinical laboratory technologist: Waldemar Schofield MD Indication: The patient is a 79-year-old woman previously admitted with an SVT. The patient was readmitted to the hospital after suffering an episode of syncope. She describes dyspnea on exertion which has a dubious correlation with her SVT. However, she does have symptoms associated with her arrhythmia and was advised to consider electrophysiologic testing and possible ablation. Procedure detail: Patient was informed of the risks benefits and alternatives to the intended procedure. She understood which proceed. Was taken to the electrophysiology suite in a fasting state. Conscious sedation was administered per protocol the patient was monitored electrocardiographically throughout today's procedure. Th e right internal jugular area and right femoral areas were prepped and draped in usual sterile fashion. These areas were anesthetized using subcutaneous menstruation lidocaine solution. Right internal jugular area was subsequently access using modified Seldinger technique under ultrasound guidance. A 6 Sudanese venous sheath was placed at this site over guidewire. The right femoral vein was subsequently accessed 3 times using modified Seldinger technique. Sheath were placed over guidewires at this site used to facilitate passage of the EP catheters to the respective chambers under fluoroscopic guidance. This included coronary sinus, his bundle and right ventricular catheters. Patient's baseline conduction system was characterize. Isoproterenol was then infused and standard pacing maneuvers were employed in order to induce the tachycardia. The elements the tachycardia were also characterized prior to discontinuation of the isoproterenol. Repeat electrophysiologic testing was also performed prior to removal of the catheters and sheaths. Hemostasis was achieved at the access sites using manual pressure. Patient tolerated procedure well. There were no immediate complications. Findings: Baseline intracardiac intervals Cycle length in the atrium: 914 ms Cycle length in the ventricle: 916 ms FL interval: 247 ms QRS duration: 73 ms QT interval: 348 ms AH interval 161 milliseconds HV interval 39 milliseconds In the baseline sedated state AV Wenckebach occurred at 430 milliseconds Retrograde AV node refractory period was 420 milliseconds AV node effective refractory period was 270 milliseconds Tachycardia: With both programmed stimulation and burst atrial pacing at tachycardia could be induced. Patient also had brief episodes of spontaneous tachycardia The tachycardia cycle length varied considerably and even during episodes of tachycardia the atrial cycle length varied. There was AV block noted during tachycardia with occasional 2-1 or higher degrees of block. On isoproterenol one-to-one conduction was seen Atrial activation during the tachycardia was generally concentric but there was some variability and occasional beats were noted to be eccentric in nature The VA interval was not constant The PATEL interval was not constant No maneuvers could be performed as the tachycardia only lasted a few seconds at a time Impression: AV node conduction curve appeared to be continuous Prolonged FL and AH intervals at baseline Tachycardia consistent with ectopic atrial tachycardia [facility] Electrophysiology codes EP Procedure 1: Electrophysiology: 62914-47 Comp EPS w/LA pacing Procedure 2: Electrophysiology: 86872 Arrhythmia induction Procedure 3: Electrophysiology: 49777 Drug Stimulation PG Moderate Sedation Codes Moderate Sedation Codes Procedure 1: Sedation/Anesthesia: 07882 Mod Sedation by the same physician;Init15 Min Child Age 5 & Up Procedure 2: Sedation/Anesthesia: 58171 Mod Sedation by the same physician; Ea [id number] Minutes
[2019-09-14] MEDS ORDERED: ACETAMINOPHEN 325 MG TAB PO PRN (09:38)
--- NOTE | 2019-09-14 09:38 | Post Anesthesia Assessment ---
Date of Service September 14, 2019 Post Sedation Assessment Vital Signs Temp Pulse Pulse Resp BP Pulse Ox 09/14/19 07:03 71 14 127/75 93 09/14/19 04:17 36.9 C 82 20 102/63 93 09/13/19 22:58 36.8 C 79 18 115/78 93 09/13/19 19:04 36.6 C 83 20 111/73 92 09/13/19 15:31 36.8 C 86 18 112/70 94 09/13/19 11:47 37.0 C 93 H 18 135/69 Recovery Score Activity: Moves 4 extremities Respiration: Deep Breath/Cough Circulation: +/-20% PreAnes Value Consciousness: Fully Awake Oxygen Saturation: > 92% On Room Air Discharge Sedation Level of Care: Fast Track Phase II Post Sedation Plan On clinical assessment, the patient appears to have tolerated the sedation without complications. Patient is recovering as anticipated. Patient will continue to be monitored by nursing and may be discharged when sedation discharge criteria are met per below protocol. Upon Completions of procedure up to 15 minutes continue every 5 minute vital signs and the P.A.R. score; then discharge to a Phase I or Fast Track to Phase II per the following guidelines: * Discharge Patient to appropriate Phase II area if PAR is 8 or greater or return to pre- procedure baseline. The post - procedure orders will be as directed. * If PAR score is less than 8 or not return to pre-procedure baseline then patient will follow Phase I monitoring till PAR is reached for Phase II. The Phase I may be done in procedure room or may call to secure a Phase I area. * If naloxone or flumazenil are used for reversal, hold in Phase I for continued monitoring from when last reversal dose was given for a minimum of 6 0 minutes or longer pending the nurse and/or physician discretion of patient condition before discharge to Phase II. Please call the Sedation Physician to re-evaluate and complete post-note for discharge to Phase II area. Do NOT discharge from procedure sedation or Phase 1 until post- sedation evaluation note is complete by procedure /sedation MD Sedation Discharge Instructions to be given to the patient at discharge to home.
[2019-09-14] MEDS: RESTASIS-ORDER AWAITING ACTION SCH ×2 (10:00→16:43)
[2019-09-14] MEDS: ESCITALOPRAM OXALATE 10 MG TAB PO SCH (10:21)
[2019-09-14] MEDS: FOLIC ACID 1 MG TAB PO SCH (10:21)
[2019-09-14] MEDS: PANTOprazole 40 MG TAB PO SCH ×2 (10:22→20:24)
[2019-09-14] MEDS: ACETAMINOPHEN 325 MG TAB PO SCH ×2 (10:22→20:23)
--- NOTE | 2019-09-14 11:36 | Hospitalist Progress Note ---
Date of Service September 14, 2019 Assessment & Plan (1) Atrial tachycardia: * Initially thought to be possibly an AVNRT * Cardiology consult -- appreciate input --> originally placed on Multaq 400mg BID, however given concerns with interactions with abx for NICK, patient placed back on diltiazem 240mg morning of 09/12 * 12 seconds atrial tachycardia/SVT morning of 09/12. Associated dyspnea, however not solely occurring with this feature. * Discussed with cardiology --> patient may benefit from ablation if SVT --> Patient went to EP lab this morning. Patient with ectopic atrial tachycardia and not AVNRT. Benefit best from amiodarone, however given underlying lung issues, I discussed this with her Securities Settlement Processor, Dr. Pascal, and he would strongly advise against this medication choice, and rather sotalol vs multaq. He stated that we may discontinue triple therapy for NICK at this time, decrease prednisone to 5mg QOD for the next two weeks and discontinue, and to follow up with him following discharge to discuss further treatment given that her primary concern/symptom is dyspnea and seems to be related to elevated HR. * Resumed lovenox SQ. Discontinued triple therapy as instructed. D/c cardizem. Initiate multaq 400mg BID. Continue to monitor on telemetry -- has been running 60-80s currently (2) SVT (supraventricular tachycardia): * Cardiology consult -- appreciate input --> originally placed on Multaq 400mg BID, however given concerns with interactions with abx for NICK, patient placed back on diltiazem 240mg this morning. Per discussion with cardiology, we are going to monitor on telemetry as patient up and about today to see if c orrelation between SVT and symptoms. May need to increase dose of diltiazem vs different agent vs ablation (patient would prefer against ablation if possible) * Supplemental O2 as needed -- currently 94% on RA * 12 seconds atrial tachycardia/SVT morning of 09/12. Associated dyspnea, however not solely occurring with this feature. * Discussed with cardiology --> patient may benefit from ablation if SVT Patient went to EP lab this morning. Patient with ectopic atrial tachycardia and not AVNRT. Benefit best from amiodarone, however given underlying lung issues, I discussed this with her Securities Settlement Processor, Dr. Pascal, and he would strongly advise against this medication choice, and rather sotalol vs multaq. He stated that we may discontinue triple therapy for NICK at this time, decrease prednisone to 5mg QOD for the next two weeks and discontinue, and to follow up with him following discharge to discuss further treatment given that her primary concern/symptom is dyspnea and seems to be related to elevated HR. * Resumed lovenox SQ. Discontinued triple therapy as instructed. D/c cardizem. Initiate multaq 400mg BID starting this evening Continue to monitor on telemetry -- has been running 60-80s currently (3) Dyspnea: * Unclear whether related to #1 or if from underlying lung disease * Most recent ECHO 08/25/19 -- hyperdynamic left ventricle, EF >=70%, no wma, borderline LVH, mild TR * CXR without significant change from imaging 08/24/19. Bibasilar interstitial prominence * Albuterol nebs prn * Flu swab negative * Patient denies any further episodes overnight and into this morning --> continue to monitor with ambulation/activity. * Will d/c triple therapy for NICK. Decrease prednisone to 5mg QOD at discretion of Dr. Pascal and follow up as outpatient. * Continue to monitor symptoms with medication change * 94% on RA cucrently (4) Metastatic adenocarcinoma: * Likely from lung primary with metastatsis to liver (CT Jun 2019 without significant change in 4.3 x 4.0 cm inferior right hepatic lobe mass since CT 04/21/19) * Had been on Pemetrexed and Keytruda --> Keytruda held after 4 cycles secondary to pneumonitis * On steroid taper per pulm --> currently on 10mg every other day, continued * Supposed to have received chemo 2 days ago --> instructed that patient likely to have chemo in 1 week following discharge per conversation with cancer center (5) Mycobacterium avium intracellulare colonization: * Follows locally with Dr. Pascal * Continue home medications --> Ethambutol, Rifampin, Azithromycin --> As azithromycin currently not available amidst COVID-19 epidemic, spoke with pulmonary service and instructed to give patient clarithromycin for now in place of the azithromycin * See above regarding d/c triple therapy and follow-up after discharge. Decrease prednisone (6) Hypokalemia: * 3.4 on admit - given 40meq PO. 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 Had been switched to warfarin and developed rectus sheath hematoma requiring reversal with kycentra. * Currently on Lovenox SQ outpatient -- resumed today Admission and Anticipated Discharge Date Admission Date: September 12, 2019 Subjective Patient evaluated this morning in bed following being taken down to EP lab. Patient unsuccessful with ablation due to cause being ectopic atrial tachycardia. Patient to consider different anti-arrhythmics, however I discussed that I will reach out to cardiology and her respiratory care assistant Dr. Pascal to see about viability of amiodarone vs other to help gain control of her symptoms. She states she was up walking yesterday evening and did not notice any further palpitations but she does still endorse some dyspnea with exertion, not better or worse than on admission. Patient also with concerns regarding resuming her Lovenox. Instructed that I will resume these. Return to the room to discuss conversation with Dr. Pascal to reduce her prednisone to 5mg every other day for two weeks then discontinue and that we can discontinue triple therapy at this time for NICK and schedule follow up with Dr. Pascal following discharge to see about different options or resuming therapy vs other. Patient denies any fevers, chills, chest pain, abdominal pain (outside of injection sites). Review of Systems Review of Systems: All systems reviewed & are unremarkable except as noted in HPI & below Physical Exam Physical Exam: Constitutional well developed and well nourished; no acute distress Eyes + anicteric sclerae and PERRL ENMT external ear and nose normal, oropharynx normal Respiratory normal respiratory effort and able to speak in complete sentences; no respiratory distress and no labored breathing Auscultation: + diminished lung sounds (throughout) and + crackles (bibasilar); no rales and no wheezes Cardiovascular Rate/Rhythm: regular rate and regular rhythm Heart Sounds: normal S1 and normal S2; systolic murmur RUSB Extremities: + edema (1+ b/l LE) Chest (Breasts) Additional Comments: A port present R chest wall Gastrointestinal (Abdomen) normal bowel sounds, soft, nontender Musculoskeletal no cyanosis or clubbing, extremities motor strength 5/5 Skin no rashes, warm and dry Neurologic PERRL, EOMI, accommodation nl, no face palsy, no dysarthria Psychiatric A+Ox3, euthymic affect Lymphatic no cervical or axillary lymphadenopathy Results & Data Results & Data ([facility]) Vital Signs (Past 12 Hours) Vital Signs Temp Pulse Pulse Resp BP Pulse Ox 09/14/19 10:16 36.5 C 74 20 132/60 94 09/14/19 10:00 73 18 113/76 92 09/14/19 09:45 78 18 124/84 90 09/14/19 07:03 71 14 127/75 93 09/14/19 04:17 36.9 C 82 20 102/63 93 Laboratory Results 09/14/19 09/14/19 Range/Units 05:58 05:58 WBC 5.65 (4.8-10.8) K/uL RBC 2.83 L (4.2-5.4) M/uL Hgb 10.0 L (12.0-16.0) g/dL Hct 31.9 L (37-47) % MCV 112.7 H (80-100) fL MCH 35.3 H (25-34) pg MCHC 31.3 L (32-36) g/dL RDW Std Deviation 59.0 H (36.4-46.3) fL RDW Coeff of Mary Beth 14.4 (11.5-14.5) % Plt Count 230 (130-400) K/uL MPV 8.7 (7.4-10.4) fL Immature Gran % (Auto) 0.7 % Neut % (Auto) 49.0 % Lymph % (Auto) 31.2 % [place] % (Auto) 16.8 % Eos % (Auto) 1.9 % Baso % (Auto) 0.4 % Immature Gran # (Auto) 0.04 H (0.00-0.02) K/uL Neut # (Auto) 2.77 (1.4-6.5) K/uL Lymph # (Auto) 1.76 (1.2-3.4) K/uL [place] # (Auto) 0.95 H (0.11-0.59) K/uL Eos # (Auto) 0.11 (0-0.5) K/uL Baso # (Auto) 0.02 (0-0.2) K/uL Macrocytosis Present Sodium 138 (136-145) mmol/L Potassium 3.5 (3.5-5.1) mmol/L Chloride 107 (98-107) mmol/L Carbon Dioxide 26 (21-32) mmol/L Anion Gap 5.0 (3-11) BUN 13 (7-18) mg/dl Creatinine 0.74 (0.6-1.2) mg/dl Est Cr Clr Drug Dosing 63.4 ml/min Est GFR ( Amer) 89.3 Est GFR (Non-Af Amer) 77.1 BUN/Creatinine Ratio 17.1 (10-20) Glucose 89 (70-99) mg/dl Calcium 9.4 (8.5-10.1) mg/dl PG Care Time/CCT Total # of Minutes Spent Total Time Spent with Patient: Total time spent is greater than 50% in coordination of care (as documented) at patient's floor/unit and/or counseling patient: Coding Level of Care Code 10124 Subseq Hosp Care Lvl 3 Diagnoses Atrial tachycardia I47.1 SVT (supraventricular tachycardia) I47.1 Dyspnea R06.02 Dyspnea type: shortness of breath Metastatic adenocarcinoma C79.9 Mycobacterium avium intracellulare colonization Z22.39 Hypokalemia E87.6 Depression F32.9 Prediabetes R73.03 Acid reflux K21.9 DVT prophylaxis Z29.9 (1) Dyspnea Dyspnea type: shortness of breath Qualified Code(s): R06.02 - Shortness of breath
--- NOTE | 2019-09-14 14:48 | Cardiology Progress Note ---
Date of Service September 14, 2019 Assessment & Plan (1) SVT (supraventricular tachycardia): Unfortunately, during electrophysiologic testing earlier today it was revealed that her SVT is not reentrant in nature. This seems to be an automatic tachycardia, more specifically an ectopic atrial tachycardia. The exact location of the ectopic focus could not be determined today due to the absence of advanced mapping availability. No ablation was performed. The episodes induced during her EP study were also very brief and diagnostic maneuvers could not be performed as result. I think this would make any catheter based therapy challenging for treatment of this arrhythmia. As result, it would seem that medical therapy will be the preferred option at least in the short term. As noted elsewhere in the chart her triple antibiotic regimen has recently been discontinued in this office an opportunity to try dronedarone. Do not believe she requires diltiazem in addition to dronedarone. The tachycardia itself appears to be adrenergic Diana mediated or at least responsive to higher adrenergic tone. If dronedarone is ineffective could consider propranolol. However, she does have some baseline conduction abnormalities and this could result in significant bradycardia or heart block. She certainly has some symptoms associated with the arrhythmia at times. However, I think the association between the arrhythmia and her dyspnea is not well established. In fact, she was able to walk around yesterday without SVT but still have dyspnea. Admission and Anticipated Discharge Date Admission Date: September 12, 2019 Subjective This afternoon she claims to be feeling well. She was somewhat tired of lying her back subsequent to her EP study earlier today. She did not report any current symptoms of palpitations or breathing difficulty. Review of Systems Review of Systems: Per HPI Physical Exam Physical Exam: She is alert and oriented x3. Mood affect appear normal. She answered all questions appropriately. HEENT: Sclerae are anicteric. Pupils are equal and reactive to light and accommodation. Extraocular movements were intact. Neck: Right IJ access site without bleeding or hematoma. Neuro: Cranial nerves intact Lungs: Lungs are clear to auscultation bilaterally. There are no rales wheezes or rhonchi. She has normal respiratory effort without use of accessory muscles. There is normal pulmonary excursion. Cardiac: The rhythm was regular. S1 and S2 were normal. Crescendo systolic murmur. The PMI was not markedly displaced on palpation. Right groin access site without bleeding or hematoma. Extremities: Patient has bilateral radial pulses that are equal in intensity. There is no evidence cyanosis or clubbing. Moderate lower extremity edema bilaterally. Skin: There are no rashes noted on examination today. Results & Data ([facility]) Vital Signs (Past 12 Hours) Vital Signs Temp Pulse Pulse Resp BP Pulse Ox 09/14/19 10:16 36.5 C 74 20 132/60 94 09/14/19 10:00 73 18 113/76 92 09/14/19 09:45 78 18 124/84 90 09/14/19 07:03 71 14 127/75 93 09/14/19 04:17 36.9 C 82 20 102/63 93 PG Care Time/CCT Total # of Minutes Spent Total Time Spent with Patient: Total time spent is greater than 50% in coordination of care (as documented) at patient's floor/unit and/or counseling patient: Coding Level of Care Code 59362 Subseq Hosp Care Lvl 3 Diagnoses SVT (supraventricular tachycardia) I47.1
[2019-09-14] MEDS: DRONEDARONE HCL 400 MG TAB PO SCH (20:23)
[2019-09-15] MEDS: RESTASIS-ORDER AWAITING ACTION SCH ×3 (01:15→15:12)
[2019-09-15] MEDS: ENOXAPARIN INJ 120 MG/0.8 ML SYR SQ SCH (08:01)
[2019-09-15] MEDS: ESCITALOPRAM OXALATE 10 MG TAB PO SCH (08:02)
[2019-09-15] MEDS: PANTOprazole 40 MG TAB PO SCH ×2 (08:02→20:42)
[2019-09-15] MEDS: ACETAMINOPHEN 325 MG TAB PO SCH ×2 (08:02→20:42)
[2019-09-15] MEDS: DRONEDARONE HCL 400 MG TAB PO SCH ×2 (08:03→20:41)
[2019-09-15] MEDS: FOLIC ACID 1 MG TAB PO SCH (08:03)
--- NOTE | 2019-09-15 10:18 | Hospitalist Progress Note ---
Date of Service September 15, 2019 Assessment & Plan (1) SVT (supraventricular tachycardia): * Cardiology consult -- appreciate input --> originally placed on Multaq 400mg BID, however given concerns with interactions with abx for NICK, patient placed back on diltiazem 240mg this morning. Per discussion with cardiology, we are going to monitor on telemetry as patient up and about today to see if correlation between SVT and symptoms. May need to increase dose of diltiazem vs different agent vs ablation (patient would prefer against ablation if possible) * Supplemental O2 as needed -- currently 94% on RA * 12 seconds atrial tachycardia/SVT morning of 09/12. Associated dyspnea, however not solely occurring with this feature. * Bursts up to 150s PAT. Sometimes patient unaware. --> Should utilize holter monitor at discharge and follow up for results to see if continues following medication changes as above * Discussed with cardiology --> Patient went to EP lab 09/13. Patient with ectopic atrial tachycardia and not AVNRT. Benefit best from amiodarone, however given underlying lung issues, I discussed this with her [employer], Dr. Pascal, and he would strongly advise against this medication choice, and rather sotalol vs multaq. He stated that we may discontinue triple therapy for NICK at this time, decrease prednisone to 5mg QOD for the next two weeks and discontinue, and to follow up with him following discharge to discuss further treatment given that her primary concern/symptom is dyspnea and seems to be related to elevated HR. * Resumed lovenox SQ. Discontinued triple therapy as instructed. Continue multaq 400mg BID -- started evening 09/13 Resumed cardizem 240mg daily * Continue to monitor (2) Dyspnea: * Unclear whether related to #1 or if from underlying lung disease * Most recent ECHO 08/25/19 -- hyperdynamic left ventricle, EF >=70%, no wma, borderline LVH, mild TR * CXR without significant change from imaging 08/24/19. Bibasilar interstitial prominence * Albuterol nebs prn * Flu swab negative * Continue to monitor with ambulation/activity. * D/c triple therapy for NICK following conversation with her pulmnonogist. Decrease prednisone to 5mg QOD at discretion of Dr. Pascal and follow up as outpatient. * Continue to monitor symptoms with medication change * 93% on RA (3) Metastatic adenocarcinoma: * Likely from lung primary with metastatsis to liver (CT Jun 2019 without significant change in 4.3 x 4.0 cm inferior right hepatic lobe mass since CT 04/21/19) * Had been on Pemetrexed and Keytruda --> Keytruda held after 4 cycles secondary to pneumonitis * On steroid taper per pulm --> currently on 10mg every other day, continued at 5mg PO QOD as instructed by pulmonary * Supposed to have received chemo 2 days ago --> instructed that patient likely to have chemo in 1 week following discharge per conversation with cancer center (4) Mycobacterium avium intracellulare colonization: * Follows locally with Dr. Pascal * Continued home medications until 09/13 as above --> Was on Ethambutol, Rifampin, Azithromycin --> As azithromycin currently not available amidst COVID-19 epidemic, spoke with pulmonary service and instructed to give patient clarithromycin in place of the azithromycin * See above regarding d/c triple therapy and follow-up after discharge. Decrease prednisone (5) Hypokalemia: * 3.4 on admit - given 40meq PO. 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 Had been switched to warfarin and developed rectus sheath hematoma requiring reversal with kycentra. * Currently on Lovenox SQ outpatient -- resumed 09/13 -- was on hold for possible ablation Dispo: possible discharge this evening although likely morning of 09/15 pending telemetry/symptoms Admission and Anticipated Discharge Date Admission Date: September 12, 2019 Subjective Patient evaluated this morning. Generally feeling well. Did have a period of elevated heart rate last night with associated dizziness lasting less than 60 seconds after she began to get up from laying down from her attempted EP procedure. No further experiencing of those symptoms. No further dyspnea, however patient has been in bed most of the time. She is agreeable to adding back on the cardizem and monitor her heart rate throughout the day with plans for discharge later tonight vs tomorrow morning with plans to wear holter monitor at home and follow up with cardiology as an outpatient. Denies any chest pain, headache, fever, chills, abdominal pain, n/v/d at this time. All questions/concerns addressed. Review of Systems Review of Systems: All systems reviewed & are unremarkable except as noted in HPI & below Physical Exam Physical Exam: Constitutional well developed and well nourished; no acute distress Eyes + anicteric sclerae and PERRL ENMT external ear and nose normal, oropharynx normal Respiratory normal respiratory effort and able to speak in complete sentences; no respiratory distress and no labored breathing Auscultation: + diminished lung sounds (throughout) and + crackles (bibasilar); no rales and no wheezes Cardiovascular Rate/Rhythm: regular rate and regular rhythm Heart Sounds: normal S1 and normal S2 Extremities: + edema (1+ b/l LE) Chest (Breasts) Additional Comments: port R chest wall Gastrointestinal (Abdomen) normal bowel sounds, soft, nontender Musculoskeletal no cyanosis or clubbing, extremities motor strength 5/5 Skin no rashes, warm and dry Neurologic PERRL, EOMI, accommodation nl, no face palsy, no dysarthria Psychiatric A+Ox3, anxious Lymphatic no cervical or axillary lymphadenopathy Results & Data Results & Data ([facility]) Vital Signs (Past 12 Hours) Vital Signs Temp Pulse Pulse Resp BP Pulse Ox 09/15/19 08:00 88 09/15/19 07:29 36.8 C 82 17 104/60 93 09/15/19 03:46 36.6 C 73 16 119/61 94 09/14/19 23:25 36.8 C 87 16 134/67 95 PG Care Time/CCT Total # of Minutes Spent Total Time Spent with Patient: Total time spent is greater than 50% in coordination of care (as documented) at patient's floor/unit and/or counseling patient: Coding Level of Care Code 26100 Subseq Hosp Care Lvl 2 Diagnoses SVT (supraventricular tachycardia) I47.1 Dyspnea R06.02 Dyspnea type: shortness of breath Metastatic adenocarcinoma C79.9 Mycobacterium avium intracellulare colonization Z22.39 Hypokalemia E87.6 Depression F32.9 Prediabetes R73.03 Acid reflux K21.9 DVT prophylaxis Z29.9 (1) Dyspnea Dyspnea type: shortness of breath Qualified Code(s): R06.02 - Shortness of breath
[2019-09-15] MEDS: dilTIAZem HCL 240 MG CAPCR PO SCH (11:06)
[2019-09-15] MEDS ORDERED: LORazepam 0.5 MG TAB PO STA (12:04)
--- NOTE | 2019-09-15 12:04 | Cardiology Progress Note ---
Date of Service September 15, 2019 Assessment & Plan (1) SVT (supraventricular tachycardia): The mechanism of her SVT appears to be an ectopic atrial tachycardia. Review of her telemetry reveals very brief and infrequent episodes of tachycardia. Generally speaking these episodes last 1-2 seconds in duration. However, she did have a more extended episode lasting 60 seconds yesterday evening which appear to correlate with her symptoms of dizziness and lightheadedness. I think we will continue our medical treatment with dronedarone and reinstitute diltiazem. Hopefully with a few more doses of these medicines we will see few episodes and symptoms. Will check her EKG today for QT prolongation. Overall this is a benign phenomenon. If she is ambulatory later today and otherwise feeling well I think she certainly could be discharged on this medical regimen. I think she should wear the home monitor that was center her earlier for correlation between any symptoms and arrhythmias that occur at home. Admission and Anticipated Discharge Date Admission Date: September 12, 2019 Subjective This morning the patient was feeling well. She did have an episode of tachy cardia and dizziness last evening. This is after being supine for an extended period subsequent to her EP study. She has not experienced similar symptoms this morning. She is not appear to be aware of very brief episodes of tachycardia. No dyspnea while in bed. She has not ambulated yet today. Review of Systems Review of Systems: Per HPI Physical Exam Physical Exam: She is alert and oriented x3. Mood affect appear normal. She answered all questions appropriately. HEENT: Sclerae are anicteric. Pupils are equal and reactive to light and accommodation. Extraocular movements were intact. Neuro: Cranial nerves intact Lungs: Crackles in the bases bilaterally. Normal respiratory effort. No expiratory wheezing. Cardiac: The rhythm was regular. S1 and S2 were normal. There are no murmurs on examination. The PMI was not markedly displaced on palpation. Abdomen: The abdomen was soft and nontender. Extremities: Patient has bilateral radial pulses that are equal in intensity. There is no evidence cyanosis or clubbing. There was no evidence of significant peripheral edema bilaterally. The right groin access site is without hematoma or bleeding. Skin: There are no rashes noted on examination today. Results & Data ([facility]) Vital Signs (Past 12 Hours) Vital Signs Temp Pulse Pulse Resp BP Pulse Ox 09/15/19 11:46 36.2 C L 99 H 17 139/71 92 03/27/20 08:00 88 09/15/19 07:29 36.8 C 82 17 104/60 93 09/15/19 03:46 36.6 C 73 16 119/61 94 PG Care Time/CCT Total # of Minutes Spent Total Time Spent with Patient: Total time spent is greater than 50% in coordination of care (as documented) at patient's floor/unit and/or counseling patient: Coding Level of Care Code 54429 Subseq Hosp Care Lvl 3 Diagnoses SVT (supraventricular tachycardia) I47.1
--- NOTE | 2019-09-15 15:48 | Electrocardiogram Report ---
Test Reason : Blood Pressure : / mmHG Vent. Rate : 081 BPM Atrial Rate : 081 BPM P-R Int : 210 ms QRS Dur : 074 ms QT Int : 362 ms P-R-T Axes : 076 014 072 degrees QTc Int : 420 ms Sinus rhythm with 1st degree A-V block Otherwise normal ECG No previous ECGs available Confirmed by Waldemar Schofield ([id number]) on 09/15/2019 3:47:41 PM Referred By: REFERRED SELF Confirmed By:Kael Schofield
--- NOTE | 2019-09-15 15:48 | Electrocardiogram Report ---
Test Reason : Blood Pressure : / mmHG Vent. Rate : 103 BPM Atrial Rate : 103 BPM P-R Int : 206 ms QRS Dur : 074 ms QT Int : 352 ms P-R-T Axes : 077 020 024 degrees QTc Int : 461 ms Sinus rhythm with beif run of SVT (ectopic atrial tachycardia) Otherwise normal ECG When compared with ECG of 14-SEP-2019 22:06, (unconfirmed) No significant change was found Confirmed by Waldemar Schofield ([id number]) on 09/15/2019 3:48:14 PM Referred By: REFERRED SELF Confirmed By:Kael Schofield
--- NOTE | 2019-09-15 15:57 | Electrocardiogram Report ---
Test Reason : Blood Pressure : / mmHG Vent. Rate : 098 BPM Atrial Rate : 098 BPM P-R Int : 206 ms QRS Dur : 078 ms QT Int : 342 ms P-R-T Axes : 072 003 024 degrees QTc Int : 436 ms Normal sinus rhythm When compared with ECG of 14-SEP-2019 22:14, (unconfirmed) No significant change was found Confirmed by Waldemar Schofield ([id number]) on 09/15/2019 3:57:12 PM Referred By: REFERRED SELF Confirmed By:Kael Schofield
[2019-09-16] MEDS: RESTASIS-ORDER AWAITING ACTION SCH ×3 (00:37→16:49)
[2019-09-16 06:02] LABS: Basophils # (auto) 0.03 K/uL (0-0.2); Basophils % (auto) 0.5 %; Eosinophils # (auto) 0.09 K/uL (0-0.5); Eosinophils % (auto) 1.5 %; Hematocrit (blood only) 31.6 % (37-47); Hemoglobin 10.2 g/dL (12.0-16.0); Immature Granulocytes # (auto) 0.02 K/uL (0.00-0.02); Immature Granulocytes % (auto) 0.3 %; Lymphocytes # (auto) 1.81 K/uL (1.2-3.4); Lymphocytes % (auto) 30.5 %; Mean Corpuscular Hemoglobin 35.9 pg (25-34); Mean Corpuscular Hgb Conc 32.3 g/dL (32-36); Mean Corpuscular Volume 111.3 fL (80-100); Mean Platelet Volume 8.7 fL (7.4-10.4); Monocytes # (auto) 0.88 K/uL (0.11-0.59); Monocytes % (auto) 14.8 %; Neutrophils % (auto) 52.4 %; Platelet Count 226 K/uL (130-400); RDW Coefficient of Variation 14.1 % (11.5-14.5); RDW Standard Deviation 56.6 fL (36.4-46.3); Red Blood Count 2.84 M/uL (4.2-5.4); White Blood Count 5.93 K/uL (4.8-10.8)
[2019-09-16 06:25] LABS: Macrocytosis Present
[2019-09-16 06:31] LABS: BUN Creatinine Ratio 19.8 (10-20); Calcium 9.6 mg/dl (8.5-10.1); Creatinine Clr Calc Pharmacy 64.4 ml/min; Est GFR (African American) 90.8; Est GFR (Non-African American) 78.3; Potassium 3.3 mmol/L (3.5-5.1)
[2019-09-16] MEDS: ENOXAPARIN INJ 120 MG/0.8 ML SYR SQ SCH (08:23)
[2019-09-16] MEDS: dilTIAZem HCL 240 MG CAPCR PO SCH (08:24)
[2019-09-16] MEDS: FOLIC ACID 1 MG TAB PO SCH (08:24)
[2019-09-16] MEDS: predniSONE 5 MG TAB PO SCH (08:24)
[2019-09-16] MEDS: PANTOprazole 40 MG TAB PO SCH ×2 (08:24→19:30)
[2019-09-16] MEDS: ACETAMINOPHEN 325 MG TAB PO SCH ×2 (08:25→19:31)
[2019-09-16] MEDS: ESCITALOPRAM OXALATE 10 MG TAB PO SCH (08:25)
[2019-09-16] MEDS: DRONEDARONE HCL 400 MG TAB PO SCH ×2 (08:25→19:30)
[2019-09-16] MEDS ORDERED: POTASSIUM CHLORIDE 20 MEQ TABCR PO STA (11:23)
--- NOTE | 2019-09-16 12:56 | Hospitalist Progress Note ---
Date of Service September 16, 2019 Assessment & Plan (1) SVT (supraventricular tachycardia): * Cardiology consult -- appreciate input --> originally placed on Multaq 400mg BID, however given concerns with interactions with abx for NICK, patient placed back on diltiazem 240mg this morning. Per discussion with cardiology, we are going to monitor on telemetry as patient up and about today to see if correlation between SVT and symptoms. May need to increase dose of diltiazem vs different agent vs ablation (patient would prefer against ablation if possible) * Supplemental O2 as needed -- currently 94% on RA * 12 seconds atrial tachycardia/SVT morning of 09/12. Associated dyspnea, however not solely occurring with this feature. * Bursts up to 150s PAT. Sometimes patient unaware. --> Should utilize holter monitor at discharge and follow up for results to see if continues following medication changes as above * Discussed with cardiology --> Patient went to EP lab 09/13. Patient with ectopic atrial tachycardia and not AVNRT. Benefit best from amiodarone, however given underlying lung issues, I discussed this with her [employer], Dr. Pascal, and he would strongly advise against this medication choice, and rather sotalol vs multaq. He stated that we may discontinue triple therapy for NICK at this time, decrease prednisone to 5mg QOD for the next two weeks and discontinue, and to follow up with him following discharge to discuss further treatment given that her primary concern/symptom is dyspnea and seems to be related to elevated HR. * Resumed lovenox SQ. Discontinued triple therapy as instructed. Continue multaq 400mg BID -- started evening 09/13 Increased cardizem 360mg daily * Continue to monitor Patient did not want to be discharged on 09/15 due to her episode of tachycardia. Will recommend that she continues to ambulate the halls. Will see how she tolerates the increase of her diltiazem. Had extensive conversation with patient on how these episodes are shortlived and she knows how to control them (by resting). D/W cardio, these are not dangerous and she is safe to be discharged. Hoping that she does not have any significant episodes in next 24 hours, and that she tolerates higher dose of diltiazem so she can be discharged (2) Dyspnea: * Unclear whether related to #1 or if from underlying lung disease * Most recent ECHO 08/25/19 -- hyperdynamic left ventricle, EF >=70%, no wma, borderline LVH, mild TR * CXR without significant change from imaging 08/24/19. Bibasilar interstitial prominence * Albuterol nebs prn * Flu swab negative * Continue to monitor with ambulation/activity. * D/c triple therapy for NICK following conversation with her pulmnonogist. Decrease prednisone to 5mg QOD at discretion of Dr. Pascal and follow up as outpatient. * Continue to monitor symptoms with medication change * 94% on RA (3) Metastatic adenocarcinoma: * Likely from lung primary with metastatsis to liver (CT Jun 2019 without significant change in 4.3 x 4.0 cm inferior right hepatic lobe mass since CT 04/21/19) * Had been on Pemetrexed and Keytruda --> Keytruda held after 4 cycles secondary to pneumonitis * On steroid taper per pulm --> currently on 10mg every other day, continued at 5mg PO QOD as instructed by pulmonary * Supposed to have received chemo days ago --> instructed that patient likely to have chemo in 1 week following discharge per conversation with cancer center (4) Mycobacterium avium intracellulare colonization: * Follows locally with Dr. Pascal * Continued home medications until 09/13 as above --> Was on Ethambutol, Rifampin, Azithromycin --> As azithromycin currently not available amidst COVID-19 epidemic, spoke with pulmonary service and instructed to give patient clarithromycin in place of the azithromycin * See above regarding d/c triple therapy and follow-up after discharge. Decrease prednisone (5) Hypokalemia: * 3.4 on admit - given 40meq PO. Mag added to labs, wnl at 1.9 * RESOLVED -- however needed replaceemnt today. * May neeed to monitor BMP as an outpatient. 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 Had been switched to warfarin and developed rectus sheath hematoma requiring reversal with kycentra. * Currently on Lovenox SQ outpatient -- resumed 09/13 -- was on hold for possible ablation Dispo: possible dischargeon 09/16 Admission and Anticipated Discharge Date Admission Date: September 12, 2019 Subjective Patient reports having another episode of short lived plalpitations. She reports that this occured while brushing her teeth. She did not feel dizzy but needed to sit down for the palpitations to go away. Patient is concerned about going home and having these episodes. Review of Systems Review of Systems: All systems reviewed & are unremarkable except as noted in HPI & below Physical Exam Physical Exam: Constitutional: well developed and well nourished; no acute d istress Eyes: + anicteric sclerae and PERRL ENMT: external ear and nose normal, oropharynx normal Respiratory: normal respiratory effort and able to speak in complete sentences; no respiratory distress and no labored breathing Auscultation: CTA B/L; no rales and no wheezes Cardiovascular: Rate/Rhythm: regular rate and regular rhythm Heart Sounds: normal S1 and normal S2 Extremities: + edema (1+ b/l LE) Chest (Breasts): Additional Comments: port R chest wall Gastrointestinal (Abdomen): normal bowel sounds, soft, nontender Musculoskeletal: no cyanosis or clubbing, extremities motor strength 5/5 Skin: no rashes, warm and dry Neurologic: PERRL, EOMI, accommodation nl, no face palsy, no dysarthria Psychiatric: A+Ox3, anxious Lymphatic: no cervical or axillary lymphadenopathy Results & Data Results & Data ([facility]) Vital Signs (Past 12 Hours) Vital Signs Temp Pulse Pulse Pulse Resp BP BP 09/16/19 12:40 36.9 C 71 87 18 114/78 09/16/19 11:34 87 18 114/78 09/16/19 11:11 82 09/16/19 07:21 36.9 C 72 15 103/69 09/16/19 03:21 36.7 C 81 16 111/72 09/16/19 01:47 82 Pulse Ox 09/16/19 12:40 94 09/16/19 11:34 94 09/16/19 11:11 09/16/19 07:21 94 09/16/19 03:21 96 09/16/19 01:47 PG Care Time/CCT Total # of Minutes Spent Total Time Spent with Patient: Total time spent is greater than 50% in coordination of care (as documented) at patient's floor/unit and/or counseling patient: Coding Level of Care Code 01037 Subseq Hosp Care Lvl 3 Diagnoses SVT (supraventricular tachycardia) I47.1 Dyspnea R06.02 Dyspnea type: shortness of breath Metastatic adenocarcinoma C79.9 Mycobacterium avium intracellulare colonization Z22.39 Hypokalemia E87.6 Depression F32.9 Prediabetes R73.03 Acid reflux K21.9 DVT prophylaxis Z29.9 Time Spent (min) 35 (1) Dyspnea Dyspnea type: shortness of breath Qualified Code(s): R06.02 - Shortness of b reath
[2019-09-16] MEDS ORDERED: dilTIAZem HCL 120 MG CAPCR PO ONE (13:00)
[2019-09-17] MEDS: RESTASIS-ORDER AWAITING ACTION SCH ×3 (01:22→16:57)
[2019-09-17] MEDS: ENOXAPARIN INJ 120 MG/0.8 ML SYR SQ SCH (08:32)
[2019-09-17] MEDS: ESCITALOPRAM OXALATE 10 MG TAB PO SCH (08:33)
[2019-09-17] MEDS: FOLIC ACID 1 MG TAB PO SCH (08:33)
[2019-09-17] MEDS: PANTOprazole 40 MG TAB PO SCH ×2 (08:33→19:59)
[2019-09-17] MEDS: DRONEDARONE HCL 400 MG TAB PO SCH ×2 (08:33→20:00)
[2019-09-17] MEDS: dilTIAZem HCL 180 MG CAPCR PO SCH (08:33)
[2019-09-17] MEDS: ACETAMINOPHEN 325 MG TAB PO SCH ×2 (08:35→19:59)
[2019-09-17 09:24] LABS: BUN Creatinine Ratio 20.5 (10-20); Calcium 9.5 mg/dl (8.5-10.1); Creatinine Clr Calc Pharmacy 63.5 ml/min; Est GFR (African American) 89.3; Est GFR (Non-African American) 77.1; Magnesium 1.7 mg/dl (1.8-2.4); Potassium 3.2 mmol/L (3.5-5.1)
[2019-09-17 09:49] LABS: Basophils # (auto) 0.01 K/uL (0-0.2); Basophils % (auto) 0.2 %; Eosinophils # (auto) 0.09 K/uL (0-0.5); Eosinophils % (auto) 1.9 %; Hematocrit (blood only) 32.2 % (37-47); Hemoglobin 10.3 g/dL (12.0-16.0); Immature Granulocytes # (auto) 0.02 K/uL (0.00-0.02); Immature Granulocytes % (auto) 0.4 %; Lymphocytes # (auto) 1.59 K/uL (1.2-3.4); Lymphocytes % (auto) 33.8 %; Mean Corpuscular Hemoglobin 35.5 pg (25-34); Mean Platelet Volume 8.8 fL (7.4-10.4); Monocytes # (auto) 0.64 K/uL (0.11-0.59); Monocytes % (auto) 13.6 %; Neutrophils # (auto) 2.36 K/uL (1.4-6.5); Neutrophils % (auto) 50.1 %; Platelet Count 246 K/uL (130-400); RDW Coefficient of Variation 14.1 % (11.5-14.5); RDW Standard Deviation 56.2 fL (36.4-46.3); White Blood Count 4.71 K/uL (4.8-10.8)
[2019-09-17 10:14] LABS: Macrocytosis Present; Polychromasia 1+
[2019-09-17] MEDS ORDERED: POTASSIUM CHLORIDE 20 MEQ TABCR PO STA (12:16)
--- NOTE | 2019-09-17 12:39 | Hospitalist Progress Note ---
Date of Service September 17, 2019 Assessment & Plan (1) SVT (supraventricular tachycardia): * Cardiology consult -- appreciate input --> had episode of related syncope at home * started Multaq 400mg BID * given concerns with interactions with abx for NICK, all NICK antibiotics were temporarily held * continues to have episodes to the 150-170s, symptomatic when goes on for more than a few seconds * diltiazem increased to 360mg daily on 09/15 Patient went to EP lab 09/13. Patient with ectopic atrial tachycardia and not AVNRT. Benefit best from amiodarone, however given underlying lung issues, was discussed with her Past Due Accounts Clerk, Dr. Pascal, and he would strongly advise against this medication choice, and rather sotalol or multaq. He stated that we may discontinue triple therapy for NICK at this time, decrease prednisone to 5mg QOD for the next two weeks and discontinue, and to follow up with him following discharge to discuss further treatment given that her primary concern/symptom is dyspnea and seems to be related to elevated HR. * Continue to monitor overnight given pt fears she will have recurrent syncope given episode to the 170s that was symptomatic on 09/16 * Cardiology/EP to follow on Wednesday to see if any additional meds could be used (2) Dyspnea: * Unclear whether related to #1 or if from underlying lung disease * Most recent ECHO 08/25/19 -- hyperdynamic left ventricle, EF >=70%, no wma, borderline LVH, mild TR * CXR without significant change from imaging 08/24/19. Bibasilar interstitial prominence * Albuterol nebs prn * Flu swab negative * Continue to monitor with ambulation/activity. * D/c triple therapy for NICK following conversation with her pulmnonogist. Decrease prednisone to 5mg QOD at discretion of Dr. Pascal and follow up as outpatient. * Continue to monitor symptoms with medication change * 94% on RA (3) Metastatic adenocarcinoma: * Likely from lung primary with metastatsis to liver (CT Jun 2019 without significant change in 4.3 x 4.0 cm inferior right hepatic lobe mass since CT 04/21/19) * Had been on Pemetrexed and Keytruda --> Keytruda held after 4 cycles secondary to pneumonitis * On steroid taper per pulm --> currently on 10mg every other day, continued at 5mg PO QOD as instructed by pulmonary * Supposed to have received chemo days ago --> instructed that patient likely to have chemo in 1 week following discharge per conversation with cancer center (4) Mycobacterium avium intracellulare colonization: * Follows locally with Dr. Pascal * Continued home medications until 09/13 as above --> Was on Ethambutol, Rifampin, Azithromycin --> As azithromycin currently not available amidst COVID-19 epidemic, spoke with pulmonary service and instructed to give patient clarithromycin in place of the azithromycin * See above regarding d/c triple therapy and follow-up after discharge. 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 Had been switched to warfarin and developed rectus sheath hematoma requiring reversal with kycentra. * Currently on Lovenox SQ outpatient -- resumed 09/13 -- was on hold for possible ablation Dispo: possible discharge on Sunday 09/17 if no further symptomatic SVT episodes Admission and Anticipated Discharge Date Admission Date: September 12, 2019 Anticipated date of discharge: 09/18/19 Subjective Pt had a 5 min long episode of SVT to the 170s this AM while brushing her teeth which was symptomatic. Did not pass out but felt palpitations, denied chest pain or SOB. She sat down and eventually went away. Is fearful about going home until episodes are controlled in case she passes out again and lives alone. Tele with NSR, 1st deg AVB, PACs, rates in the 60s, 5 min SVT to the 170s. Review of Systems Review of Systems: All systems reviewed & are unremarkable except as noted in HPI & below Physical Exam Constitutional: WD/WN, vitals as above Eyes: + anicteric sclerae Neck: trachea midline, no thyromegaly Respiratory: normal respiratory effort, lungs clear to auscultation Cardiovascular: RRR, no murmur, no edema Chest (Breasts): Chest: normal inspection of chest Gastrointestinal (Abdomen): normal bowel sounds, soft, nontender, no hepatosplenomegaly Musculoskeletal: Extremities: extremities normal to inspection; no cyanosis and no clubbing Skin: no rashes, warm and dry Neurologic: moves all extremities and awake; no focal motor deficits Psychiatric: A+Ox3, euthymic affect Lymphatic: no lymphedema Results & Data Results & Data ([facility]) Vital Signs (Past 12 Hours) Vital Signs Temp Pulse Pulse Resp BP Pulse Ox 09/17/19 11:43 36.9 C 77 18 120/77 95 09/17/19 11:35 62 09/17/19 07:37 36.9 C 65 18 124/62 95 09/17/19 03:57 36.5 C 65 18 105/57 L 94 Laboratory Results 09/17/19 09/17/19 Range/Units 08:52 08:52 WBC 4.71 L (4.8-10.8) K/uL RBC 2.90 L (4.2-5.4) M/uL Hgb 10.3 L (12.0-16.0) g/dL Hct 32.2 L (37-47) % MCV 111.0 H (80-100) fL MCH 35.5 H (25-34) pg MCHC 32.0 (32-36) g/dL RDW Std Deviation 56.2 H (36.4-46.3) fL RDW Coeff of Mary Beth 14.1 (11.5-14.5) % Plt Count 246 (130-400) K/uL MPV 8.8 (7.4-10.4) fL Immature Gran % (Auto) 0.4 % Neut % (Auto) 50.1 % Lymph % (Auto) 33.8 % Jennings % (Auto) 13.6 % Eos % (Auto) 1.9 % Baso % (Auto) 0.2 % Immature Gran # (Auto) 0.02 (0.00-0.02) K/uL Neut # (Auto) 2.36 (1.4-6.5) K/uL Lymph # (Auto) 1.59 (1.2-3.4) K/uL Jennings # (Auto) 0.64 H (0.11-0.59) K/uL Eos # (Auto) 0.09 (0-0.5) K/uL Baso # (Auto) 0.01 (0-0.2) K/uL Polychromasia 1+ Macrocytosis Present Sodium 138 (136-145) mmol/L Potassium 3.2 L (3.5-5.1) mmol/L Chloride 107 (98-107) mmol/L Carbon Dioxide 27 (21-32) mmol/L Anion Gap 5.0 (3-11) BUN 15 (7-18) mg/dl Creatinine 0.74 (0.6-1.2) mg/dl Est Cr Clr Drug Dosing 63.5 ml/min Est GFR ( Amer) 89.3 Est GFR (Non-Af Amer) 77.1 BUN/Creatinine Ratio 20.5 H (10-20) Glucose 113 H (70-99) mg/dl Calcium 9.5 (8.5-10.1) mg/dl Magnesium 1.7 L (1.8-2.4) mg/dl PG Care Time/CCT Total # of Minutes Spent Total Time Spent with Patient: Total time spent is greater than 50% in coordination of care (as documented) at patient's floor/unit and/or counseling patient: Coding Level of Care Code 22017 Subseq Hosp Care Lvl 2 Diagnoses SVT (supraventricular tachycardia) I47.1 Dyspnea R06.02 Dyspnea type: shortness of breath Metastatic adenocarcinoma C79.9 Mycobacterium avium intracellulare colonization Z22.39 Hypokalemia E87.6 Depression F32.9 Prediabetes R73.03 Acid reflux K21.9 DVT prophylaxis Z29.9 (1) Dyspnea Dyspnea type: shortness of breath Qualified Code(s): R06.02 - Shortness of breath
[2019-09-18] MEDS ORDERED: DRONEDARONE HCL 400 MG TAB PO SCH
[2019-09-18] MEDS: RESTASIS-ORDER AWAITING ACTION SCH ×2 (01:52→08:41)
[2019-09-18 07:04] LABS: BUN Creatinine Ratio 22.1 (10-20); Calcium 9.6 mg/dl (8.5-10.1); Creatinine Clr Calc Pharmacy 66.3 ml/min; Est GFR (African American) 93.9; Magnesium 1.8 mg/dl (1.8-2.4); Potassium 3.6 mmol/L (3.5-5.1)
[2019-09-18] MEDS: DRONEDARONE HCL 400 MG TAB PO SCH (08:24)
[2019-09-18] MEDS: ESCITALOPRAM OXALATE 10 MG TAB PO SCH (08:24)
[2019-09-18] MEDS: ACETAMINOPHEN 325 MG TAB PO SCH (08:24)
[2019-09-18] MEDS: ENOXAPARIN INJ 120 MG/0.8 ML SYR SQ SCH (08:24)
[2019-09-18] MEDS: predniSONE 5 MG TAB PO SCH (08:25)
[2019-09-18] MEDS: dilTIAZem HCL 180 MG CAPCR PO SCH (08:25)
[2019-09-18] MEDS: PANTOprazole 40 MG TAB PO SCH (08:25)
[2019-09-18] MEDS: FOLIC ACID 1 MG TAB PO SCH (08:25)
--- NOTE | 2019-09-18 12:17 | Cardiology Progress Note ---
Date of Service September 18, 2019 Assessment & Plan (1) SVT (supraventricular tachycardia): The patient's dysrhythmia is an ectopic atrial tachycardia. She is tolerating Multaq and long-acting diltiazem without difficulty. She was hypokalemic yesterday when she had an episode of her tachycardia. She has a prescription for potassium 10 mEq waiting at her pharmacy. She also has a 7 day event monitor at home which she will apply after discharge. She will follow up with Dr. Sidhu. (2) Hypokalemia: As above, she will be started on potassium supplements. Admission and Anticipated Discharge Date Admission Date: September 12, 2019 Anticipated date of discharge: 09/18/19 Subjective The patient is resting comfortably at the bedside without complaints of chest pain or dyspnea. She did have a 5 minutes episode of her SVT yesterday. She noted significant palpitations concurrently. We discussed the fact that her potassium level was low at 3.2. Physical Exam Physical Exam: In general this is a well-developed well-nourished white female in no acute distress. HEENT exam is negative. Neck is supple with full carotid upstrokes. There are no carotid bruits. Jugular venous pressure is flat at 90. There is no thyromegaly. Cardiovascular exam reveals a regular rhythm with a normal S1 and S2. No S3, S4, or murmurs are noted. Lungs are clear without rales, rhonchi, or wheezes. Abdomen is soft and nontender without bruits. Extremities reveal intact radial artery and posterior tibial pulses bilaterally. There is no peripheral edema. Results & Data ([facility]) Vital Signs (Past 12 Hours) Vital Signs Temp Pulse Pulse Pulse Resp BP BP 09/18/19 10:52 36.7 C 71 68 18 114/59 L 111/69 09/18/19 10:51 58 L 09/18/19 07:41 36.7 C 68 18 111/69 09/18/19 03:36 36.6 C 65 18 109/58 L Pulse Ox 09/18/19 10:52 94 09/18/19 10:51 09/18/19 07:41 94 09/18/19 03:36 96 PG Care Time/CCT Total # of Minutes Spent Total Time Spent with Patient: Total time spent is greater than 50% in coordination of care (as documented) at patient's floor/unit and/or counseling patient: Coding Level of Care Code 89610 Subseq Hosp Care Lvl 3 Diagnoses SVT (supraventricular tachycardia) I47.1 Hypokalemia E87.6
--- NOTE | 2019-09-18 15:45 | Discharge Summary ---
Date of Service September 18, 2019 Admission HPI Per Admitting Provider 79 year old white female with significant PMHx for metastatic adenocarcinoma (on chemo), HTN, Myocobacterium Avium Compex (follows with pulm, rotating abx), SVT, hx PE/DVT, depression presented to the emergency department with worsening shortness of breath and palpitations that occurred starting around 10am this morning. The patient states that she has had intermittent shortness of breath and palpitations since being discharged earlier this month, but states both the shortness of breath and palpitations have gotten worse recently. She states they were occurring approximately twice daily and lasting approximately 5-10 minutes in duration. She states sometimes she has associated chest pain, and sometimes this pain is more of a burning like sensation, located in her epigastric region, without radiation. No aggravating or alleviating factors, per the patient, although she notes that she is now unable to walk across her kitchen without becoming extremely short of breath. Denies PND or orthopnea. She states these attacks typically occur in the morning hours before lunch and she is usually fine by 4-5 in the afternoon. She states when she was previously discharged from the hospital she was sent with 2 120mg tablets of cardizem to take and took the 240mg dose the next morning as instructed. This morning, she states she did notice some associated nausea and vomited x 1. Denies hematochezia or coffee ground emesis. She states that following vomiting she passed out for approximately 30 seconds. She denies fevers and chills, although given her immunocompromised state, she does not typically have fever. She denies recent sick contacts and says she has been doing well to keep herself safe. She was scheduled to receive chemo today, follows with Dr. Riley. Of note, recent cardiology notes suggest trialing Multaq if cardizem unsuccessful. Patient would not like ablation at this time if possible. She follows with pulmonary locally for her MAC and is currently on azithromycin, rifampin and ethambutol. She is currently on 10mg of prednisone every other day. ER Course: 500cc NSS bolus x 1. CBC with WBC 8.5k, h/h 11/34, Plt 241. BMP with Na 136. K 3.3. INR 1.1. TSH 3.040. EKG with SR 1st degree AV block, 89bpm Principal Diagnosis Supraventricular tachycardia Discharge Exam Constitutional WD/WN, vitals as above Eyes PERRL, conjunctivae normal, anicteric sclerae ENMT external ear and nose normal, oropharynx normal Neck trachea midline, no thyromegaly Respiratory normal respiratory effort, lungs clear to auscultation Cardiovascular RRR, no murmur, no edema Gastrointestinal (Abdomen) normal bowel sounds, soft, nontender, no hepatosplenomegaly Musculoskeletal no cyanosis or clubbing, extremities motor strength 5/5 Skin no rashes, warm and dry Neurologic patellar DTR's 2+ bilat, sensation intact and PERRL, EOMI, accommodation nl, no face palsy, no dysarthria Psychiatric A+Ox3, euthymic affect Lymphatic no cervical or axillary lymphadenopathy Discharge Data Allergies Allergy/AdvReac Type Severity Reaction Status Date / Time Tetracyclines Allergy Intermediate GI Verified 09/12/19 15:10 SYMPTOMS, RASH, SUN SENSITIVITY tomato Allergy Unknown TOMATOES, Verified 09/12/19 15:10 CITRUS FRUIT ACIDIC FOOD--ITCHY L EAR, HEAD levofloxacin AdvReac Intermediate tendonitis Verified 09/12/19 15:10 Macrolide Antibiotics AdvReac Intermediate GI SYMPTOMS Verified 09/12/19 15:10 Penicillins AdvReac Intermediate GI SYMPTOMS Verified 09/12/19 15:10 amoxicillin AdvReac Mild Gastrointestinal Verified 09/12/19 15:10 Upset ciprofloxacin AdvReac Mild GI UPSET Verified 09/12/19 15:10 clindamycin AdvReac Mild GI UPSET Verified 09/12/19 15:10 erythromycin base AdvReac Mild Gastrointestinal Verified 09/12/19 15:10 Upset Cipro AdvReac Unknown GI UPSET Verified 01/31/18 06:42 Consultations 09/12/19 16:49 ED Decision to Admit Stat 09/12/19 17:20 Consult Cardiology Routine Consult Case Management - Discharge Planning Routine Procedures Performed Operation Date: 09/14/19 10:00 Actual Procedures p EPS with Induction (RA,HIS, RV) - Guzman Schofield MD s LA Pacing (Add-On) - Guzman Schofield MD s Ultrasound Vascular Access - Guzman Schofield MD s Drug Stimulation - Guzman Schofield MD Ordered Studies 09/14/19 07:15 EP Lab Images for PACS ONCE Hospital Course (1) SVT (supraventricular tachycardia): * Cardiology consult -- appreciate input --> had episode of related syncope at home * started Multaq 400mg BID, will continue on discharge * given concerns with interactions with abx for NICK, all NICK antibiotics will be held * diltiazem increased to 360mg daily on 09/15 Patient went to EP lab 09/13. Patient with ectopic atrial tachycardia and not AVNRT. Benefit best from amiodarone, however given underlying lung issues, was discussed with her Surgical Specialist, Dr. Pascal, and he would strongly advise against this medication choice, and rather sotalol or multaq. He stated that we may discontinue triple therapy for NICK at this time, decrease prednisone to 5mg QOD for the next two weeks and discontinue, and to follow up with him following discharge to discuss further treatment given that her primary concern/symptom is dyspnea and seems to be related to elevated HR. can follow up with cardiology in a few weeks (2) Dyspnea: * Unclear whether related to #1 or if from underlying lung disease * Most recent ECHO 08/25/19 -- hyperdynamic left ventricle, EF >=70%, no wma, borderline LVH, mild TR * CXR without significant change from imaging 08/24/19. Bibasilar interstitial prominence * Albuterol nebs prn * Flu swab negative * Continue to monitor with ambulation/activity. * D/c triple therapy for NICK following conversation with her pulmnonogist. Decrease prednisone to 5mg QOD at discretion of Dr. Pascal and follow up as outpatient. * Continue to monitor symptoms with medication change * 94% on RA (3) Metastatic adenocarcinoma: * Likely from lung primary with metastatsis to liver (CT Jun 2019 without significant change in 4.3 x 4.0 cm inferior right hepatic lobe mass since CT 04/21/19) * Had been on Pemetrexed and Keytruda --> Keytruda held after 4 cycles secondary to pneumonitis * On steroid taper per pulm --> currently on 10mg every other day, continued at 5mg PO QOD as instructed by pulmonary * Supposed to have received chemo days ago --> instructed that patient likely to have chemo in 1 week following discharge per conversation with cancer center (4) Mycobacterium avium intracellulare colonization: * Follows locally with Dr. Pascal * Continued home medications until 09/13 as above --> Was on Ethambutol, Rifampin, Azithromycin --> As azithromycin currently not available amidst COVID-19 epidemic, spoke with pulmonary service and instructed to give patient clarithromycin in place of the azithromycin * See above regarding d/c triple therapy and follow-up after discharge. 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 Had been switched to warfarin and developed rectus sheath hematoma requiring reversal with kycentra. * Currently on Lovenox SQ outpatient -- resumed 09/13 -- was on hold for possible ablation Dispo: d/c to home Total Time Total Time Spent Total Time Spent (In Minutes): 36 minutes Total Time Includes: Examination of the Patient, Discharge Planning, Medication Reconciliation and Communication With Other Providers Discharge Plan Discharge Items Patient Disposition: Home - Self-Care Reason For Visit: TACHYCARDIA Discharge Diagnosis: Dyspnea, Atrial Tachycardia Condition on Discharge: Good Goals: You have been hospitalized for an acute medical problem. During your stay at [facility], we have made an effort to correct the problem that brought you to the hospital while keeping you as comfortable as possible. Medications were used to bring your condition under control and your discharge instructions will include directions for any medications you should take after leaving the hospital. Please make sure you see your Primary Care Provider as part of your follow up plan. Activity: Resume your previous activity Non-emergency contact: Primary Care Provider and Surgical Specialist Call non-emergency contact if: you have any medication questions, your symptoms worsen and you have a fever Follow-up/Referrals: Guillermo Berkowitz MD [Primary Care Provider] - (one week DR Eveline RICARDO OFFICE WILL CALL YOU WITH A FOLLOW UP APT.) Guzman Schofield MD [Physician] - (3-[address] CASANOVA OFFICE WILL CALL YOU WITH A FOLLOW UP APT.) Jaydon Pascal MD [Physician] - (2-[address] LERMA OFFICE WILL CALL YOU WITH A FOLLOW UP APT.) Diet: Heart Healthy Addtl Attending Provider Instructions: You have been hospitalized for shortness of breath and elevated heart rate. It was determined while trying to perform your ablation that it is not an ar rhythmia that is treated with ablation. For this reason you were given a medication called Multaq (dronedarone) 400mg by mouth TWICE daily to gain better control on your heart rate in attempts to dec rease your symptoms. * A prescription for this medication will be sent to your pharmacy, to take in addition to your Cardizem 360mg by mouth once daily. Per cardiology, these short burst of elevated heart rate are not considered dangerous, however it is recommended that you use your Holter monitor once you get home and follow up with your primary care provider to review these results. As your antibiotics for NICK were discontinued (Azithromycin, Ethambutol, Rifampin) after discussion with Dr. Pascal to gain better control of your heart rate and symptoms, it is recommended that you follow up with Dr. Pascal in the next 2-3 weeks to discuss next best steps in treatment regarding that. * It was also recommended that you continue prednisone every other day at a dose of 5mg for a total of two weeks, and then this should be discontinued. A prescription will be provided for this. * You received a dose of 5mg today (09/15) and your next dose will be on 09/17. --> You will have another You have an additional 7 doses to complete this course. Please follow up with your primary care provider in the next week to monitor your progress. You received a dose of ativan to help with anxiety symptoms d uring your admission. You may want to discuss this with your PCP as an option to utilize as needed as an outpatient. Please contact the cancer center regarding receiving your next round of chemotherapy. As discussed, they stated that it will likely be approximately one week after discharge before you receive the next dose. It has been a pleasure being a part of the medical team providing for you during this admission. Take care! Pending Studies at Discharge: No Stand-Alone Forms: My [facility] [place] Down, Smoking Cessation Medications and DC Order Prescriptions: New prednisone 5 mg Tablet 5 mg PO Q2D@0900 Qty: 7 RF: 0 Multaq 400 mg Tablet 400 mg PO BID 30 Days Qty: 60 RF: 0 potassium citrate 10 mEq (1,080 mg) tablet extended release 10 meq PO DAILY Qty: 7 RF: 0 diltiazem HCl 180 mg Capsule,Extended Release 24hr 360 mg PO QAM 30 Days Qty: 60 RF: 1 Continued triamcinolone acetonide 0.1 % cream 1 appln topical BID PRN (Reason: PRN) RF: 0 folic acid 1 mg tablet 1 mg PO QAM RF: 0 cholecalciferol (vitamin D3) [Vitamin D3] 5,000 unit Tablet 5,000 unit PO QAM RF: 0 omega 0-[id number]-[id number]-fish oil [Fish Oil] 1,000 mg (120 mg-180 mg) Capsule 2 cap PO BID RF: 0 vitamin B complex Tablet 1 tab PO QDD RF: 0 multivitamin Tablet 1 tab PO Q OTHER DAY RF: 0 biotin 5 mg Capsule 5 mg PO QDD RF: 0 docusate sodium 100 mg Capsule 100 mg PO HS PRN (Reason: Constipation) RF: 0 magnesium 250 mg Tablet 250 mg PO QDD RF: 0 hydrocortisone butyrate 0.1 % Cream 1 applic TOPICAL DAILY PRN (Reason: Skin Irritation) RF: 0 glucosamine-chondroitin 500-400 mg Tablet 1 tab PO BID RF: 0 Restasis 0.05 % Dropperette 1 drp OPB Q12H RF: 0 Lotemax 0.5 % ointment 1 applic OPB HS RF: 0 calcium carb and citrate-vitD3 600 mg calcium- 500 unit Tablet Extended Release 600 mg PO BID RF: 0 Probiotic 3 billion cell Capsule 0 mmu cells PO QAM RF: 0 Metamucil 3.4 gram/5.4 gram Powder 1 dose PO HS PRN (Reason: Constipation) RF: 0 clobetasol 0.025 % Cream 1 applic TOPICAL BID PRN (Reason: dermatitis) RF: 0 fexofenadine [Milagros Allergy] 180 mg tablet 180 mg PO QAM PRN (Reason: Allergy Symptoms) RF: 0 Prilosec OTC 20 mg Tablet,Delayed Release (Dr/Ec) 20 mg PO BID RF: 0 enoxaparin 120 mg/0.8 mL syringe 120 mg SQ DAILY@0800 RF: 0 escitalopram oxalate 10 mg tablet 5 mg PO QAM RF: 0 acetaminophen [Tylenol Arthritis Pain] 650 mg Tablet Extended Release 1,300 mg PO Q12H RF: 0 Discontinued azithromycin 500 mg tablet 500 mg PO MOWEFR 90 Days Qty: 18 RF: 3 rifampin 300 mg capsule 600 mg PO TUTHSA RF: 0 ethambutol 400 mg tablet 1,200 mg PO TUTHSA RF: 0 diltiazem HCl [Cardizem CD] 240 mg capsule,extended release 24hr 240 mg PO DAILY Qty: 30 RF: 0 prednisone 10 mg tablet 10 mg PO Q2D RF: 0 Discharge Orders: Discharge Order (Routine); Ordered 09/18/19 Ordered By: Michele Polanco Admission Data Admit Date/Time: 09/12/19 16:53 Attending Provider: Michele Polanco Admit Provider: Cosme Hercules Primary Care Provider: Guillermo Berkowitz Other Providers: Cosme Hercules ; Guzman Schofield. Other Interventions: Discharge Summary Assessment (RN) Last Done: 09/18/19 10:52 DC Date/Time DO NOT enter until pt leaves facility: 09/18/19 11:52 Coding Level of Care Code D/C Day Management >30 mins Diagnoses SVT (supraventricular tachycardia) I47.1 Dyspnea R06.02 Dyspnea type: shortness of breath Metastatic adenocarcinoma C79.9 Mycobacterium avium intracellulare colonization Z22.39 Hypokalemia E87.6 Depression F32.9 Prediabetes R73.03 Acid reflux K21.9 DVT prophylaxis Z29.9
== END 2019-09-18 11:52 | disposition home or self-care (01) | DRG 309 ==
LOC: ED 12:48 → 2E 12:48 → SUATTDRO 16:53 → 2E 16:56

== ENCOUNTER 2020-06-25 18:41 | Inpatient (IN) ==
[2020-06-25] MEDS ORDERED: ONDANSETRON INJ 2 MG/ML 2 ML VIAL IV STA (19:08)
[2020-06-25] MEDS ORDERED: SODIUM CHLORIDE 0.9% 1000ML 1,000 ML IV ONE (19:08)
--- NOTE | 2020-06-25 19:14 | Emergency Department Note ---
Impression & Plan Hyponatremia, Near syncope, Dehydration, Acute UTI ED Provider Note Provider: Dylan Cole MD DATE OF SERVICE:06/25/2020 CHIEF COMPLAINT: Weakness, near syncope HISTORY OF PRESENT ILLNESS: Patient is a 80-year-old female unfortunate history of metastatic adenocarcinoma, DVT currently on Bactrim, atrial fibrillation as well as PE on Lovenox presenting via ambulance today due to worsening weakness and a near syncopal episode. States she has been doing somewhat weaker over the last several days. States has had less eating and drinking feels more nauseous. Patient states her energy level is low. Denies any significant pain. Denies falls. Patient states she went to try to stand up from a chair today and felt like she was going to pass out and did not fall only because her son caught her. EMS sent her report that her pulse ox was low, EMS reports in the 60s, when her son took her pulse ox at this time. Patient currently states she is not on active treatment for her cancer. Has seen palliative care over the last month or so. Patient was seen here 3 days ago was found to be in A. fib RVR treated and went home. REVIEW OF SYSTEMS: A total of 10 review of systems was obtained and negative except as stated above in the HPI. PAST MEDICAL HISTORY: As noted above MEDICATIONS: Reviewed home medication list SOCIAL HISTORY: Lives at home by herself in a two-level home PHYSICAL EXAM: GENERAL: alert and oriented in no acute distress on stretcher Head: normocephalic and atraumatic, bald EYES: No injection, discharge or icterus. NECK: Trachea midline. Supple. ENT: Mucous membranes pink and moist. LUNGS: Airway patent. No retractions. Breath sounds clear with good air entry bilaterally. HEART: Regular rate and rhythm. Right upper chest wall port ABDOMEN: Soft and non-tender, without guarding or rebound. SKIN: Acyanotic, warm, dry, without rashes EXTREMITIES: Without swelling, tenderness or deformity NEUROLOGICAL: No focal deficits. No aphasia. No facial droop or slurred speech. EK bpm appears to be sinus rhythm normal QRS and QTc. No acute ST segment elevation or depression. CONTINUOUS CARDIAC MONITORING: was ordered and showed a heart rate of 70 bpm in normal sinus rhythm Patient's laboratory studies and imaging reviewed. Differential includes Infection, dehydration, metabolic abnormality, hypo/hyperglycemia, electrolyte disturbance, anemia, hypoxia, cardiac sources, intracerebral event, toxicologic, neurologic, as well as other pathologies. IMPRESSION/MEDICAL DECISION MAKING: Patient presents complaining of near syncopal episode today weakness some transient hypoxia and is initially hypotensive upon arrival. Has chronically b een on steroids. Is unfortunately dealing with metastatic adenocarcinoma not currently on treatment. Patient with worsening weakness. There is likely causing slight reactive leukocytosis which is actually improving. Slight anemia today 11.2. Not reporting any active bleeding. Some slight hyperkalemia 5.5, worsening hyponatremia of 123, elevated BUN of 46 is noted with a slight lactate elevation of 2.3 again is concerning for some dehydrational state and possible cause for her weakness. Patient has a multiple medications for rate control of her A. fib likely not causing response of tachycardia. Is anticoagulated lowering suspicion for PE. Blood pressure is improving with hydration here. No troponin. EKG without significant ischemic changes. Covid test was sent and was negative. Chest x-ray stable. Lower suspicion this is acutely infectious pneumonia given her reported history. Some component of this could be related to Bactrim usage for UTI currently as well however I doubt she is septic. Discussed with the patient and her son who is present options. Son is feeling quite overwhelmed with all the care his mother is requiring and in discussion she wishes to further investigate and likely proceed with home hospice but wishes to feel stronger before she goes home as the services are not set up tonight. Will discuss with the hospitalist team. Urinalysis later returned somewhat concerning for continued infection given a dose ceftriaxone in the ER. DIAGNOSIS: Dehydration, weakness, near syncope, hyponatremia, acute UTI DISPOSITION: Hospitalist will evaluate Patient was agreeable with this plan. Patient son was agreeable as well. Past Med/Surg History Medical History Anemia Atypical squamous cells of undetermined significance (ASC-US) on cervical Pap smear Deep vein thrombosis Deep venous thrombosis of left popliteal vein Depression Drug-induced pneumonitis Hearing deficit History of ascites History of lymphoma History of malignant neoplasm breast Metastatic adenocarcinoma On anticoagulant therapy Osteoarthritis Pneumonia Pneumonia due to Pseudomonas Pulmonary embolism Seasonal affective disorder Thrombocytopenia Urinary tract infection Vaginal pessary present Surgical History H/O tubal ligation History of bronchoscopy History of cholecystectomy History of colonoscopy History of cystoscopy Hx of oral surgery S/P breast biopsy S/P bunionectomy S/P cholecystectomy Family History Daughter Breast cancer metastatic, diagnosed in 1993 and now is stage IV with salvage chemotherapy Daughter Breast cancer, Onset Age: 27 metastatic breast cancer at age 27 Brother , age 53 MVA MVA Family/Other Essential familial hypercholesterolemia Glaucoma Heart disease Macular degeneration Stroke Mother , age 85 Hypertension Hyperlipidemia Meningioma Father , "old age" 95 Hypertension Son Kidney stones Other Cancer Stroke syndrome Denies family history of Ovarian cancer Prostate cancer Diabetes Social History Smoking Status: Former smoker Second Hand Exposure: No; Hx Alcohol Use: No Hx Substance Use: No Preferred Language: Telugu Communication Ability: Effective Visual Impairment: No Limitations Hearing Ability: Use of Hearing Aid Carroting Machine Offbearer Required: No Beliefs That Will Affect Care: None marital status: Current Living Situation: Alone current occupational status: retired Feels Safe at Home: Yes Childhood Exposure to Second-Hand Smoke: Yes caffeine: Yes Dental Care, Regularly: Yes Physical Activity Frequency: 1-2 Times per Week Seatbelt Use: always Sunscreen Use: Yes Assistive Devices: Glasses Allergies Allergies Allergy/AdvReac Type Severity Reaction Status Date / Time Tetracyclines Allergy Intermediate GI Verified 06/25/20 21:05 SYMPTOMS, RASH, SUN SENSITIVITY tomato Allergy Unknown TOMATOES, Verified 06/25/20 21:05 CITRUS FRUIT ACIDIC FOOD--ITCHY L EAR, HEAD levofloxacin AdvReac Intermediate tendonitis Verified 06/25/20 21:05 Macrolide Antibiotics AdvReac Intermediate GI SYMPTOMS Verified 06/25/20 21:05 nitrofurantoin AdvReac Intermediate PULMONARY Verified 06/25/20 21:05 [From Macrobid] ISSUES Penicillins AdvReac Intermediate GI SYMPTOMS Verified 06/25/20 21:05 amoxicillin AdvReac Mild Gastrointestinal Verified 06/25/20 21:05 Upset ciprofloxacin AdvReac Mild GI UPSET Verified 06/25/20 21:05 clindamycin AdvReac Mild GI UPSET Verified 06/25/20 21:05 erythromycin base AdvReac Mild Gastrointestinal Verified 06/25/20 21:05 Upset Home Meds Home Medications Medication Instructions Recorded Confirmed Probiotic 0 mmu cells PO QAM 06/03/18 06/25/20 Restasis 1 drp OPB Q12H 06/03/18 06/25/20 acetaminophen [Tylenol Arthritis 1,300 mg PO Q12H PRN 09/12/19 06/25/20 Pain] famotidine 20 mg tablet 40 mg PO DAILY tab 04/02/20 06/25/20 dronedarone [Multaq] 400 mg PO BID 04/08/20 06/25/20 diphenoxylate-atropine 2.5 1 tab PO BID PRN 05/14/20 06/25/20 mg-0.025 mg tablet dexamethasone 4 mg PO QAM 06/22/20 06/25/20 sulfamethoxazole-trimethoprim 1 tab PO BID 06/22/20 06/25/20 Previous Rx's Medication Instructions Recorded diltiazem HCl 180 mg 180 mg PO QAM #90 cap 12/19/19 capsule,extended release 24 hr bupropion HCl 100 mg tablet,12 hr 100 mg PO BID #60 ea 03/14/20 sustained-release benzonatate 100 mg capsule 100 mg PO TID PRN #60 cap 03/22/20 enoxaparin 100 mg/mL subcutaneous 100 mg SUBCUT Q24H #30 syr 04/25/20 syringe Results & Data (ED) Vital Signs Vital Signs - 24 hr 06/25/20 18:15 06/25/20 18:58 06/25/20 18:59 Temperature 36.9 C Temperature Source Oral Pulse Rate 67 61 61 Pulse Rate from SpO2 Sensor 62 60 Respiratory Rate 18 22 22 Respiratory Depth Normal Blood Pressure 87/61 L 73/54 L Blood Pressure [Right Arm] 73/54 L Blood Pressure Mean 69 57 Blood Pressure Mean [Right Arm] 60 Blood Pressure Position Sitting Pulse Oximetry 97 97 97 Oxygen Delivery Method Room Air Oxygen Flow Rate Sepsis Recent Fever Within 48 Hours No Sepsis New/Unexplained Change in Mental Status No Sepsis Action Taken by Nursing No Action Required 06/25/20 19:00 06/25/20 19:08 06/25/20 19:15 Temperature Temperature Source Pulse Rate 66 75 70 Pulse Rate from SpO2 Sensor 69 Respiratory Rate 22 21 Respiratory Depth Blood Pressure Blood Pressure [Right Arm] Blood Pressure Mean Blood Pressure Mean [Right Arm] Blood Pressure Position Pulse Oximetry 97 97 Oxygen Delivery Method Room Air Oxygen Flow Rate Sepsis Recent Fever Within 48 Hours Sepsis New/Unexplained Change in Mental Status Sepsis Action Taken by Nursing 06/25/20 19:28 06/25/20 19:30 06/25/20 19:31 Temperature Temperature Source Pulse Rate 63 66 66 Pulse Rate from SpO2 Sensor 62 63 65 Respiratory Rate 20 23 22 Respiratory Depth Blood Pressure 93/66 L 97/66 L Blood Pressure [Right Arm] Blood Pressure Mean 80 71 Blood Pressure Mean [Right Arm] Blood Pressure Position Pulse Oximetry 99 100 99 Oxygen Delivery Method Oxygen Flow Rate Sepsis Recent Fever Within 48 Hours Sepsis New/Unexplained Change in Mental Status Sepsis Action Taken by Nursing 06/25/20 19:46 06/25/20 20:45 06/25/20 21:00 Temperature Temperature Source Pulse Rate 76 78 76 Pulse Rate from SpO2 Sensor 77 78 75 Respiratory Rate 22 23 24 Respiratory Depth Blood Pressure 137/87 117/73 118/75 Blood Pressure [Right Arm] Blood Pressure Mean 99 86 86 Blood Pressure Mean [Right Arm] Blood Pressure Position Pulse Oximetry 100 95 96 Oxygen Delivery Method Nasal Cannula Oxygen Flow Rate 2 Sepsis Recent Fever Within 48 Hours Sepsis New/Unexplained Change in Mental Status Sepsis Action Taken by Nursing 06/25/20 21:19 06/25/20 21:20 06/25/20 21:30 Temperature Temperature Source Pulse Rate 78 76 77 Pulse Rate from SpO2 Sensor 77 75 77 Respiratory Rate 20 26 H 18 Respiratory Depth Blood Pressure 142/83 H 121/76 Blood Pressure [Right Arm] Blood Pressure Mean 95 81 Blood Pressure Mean [Right Arm] Blood Pressure Position Pulse Oximetry 97 97 97 Oxygen Delivery Method Nasal Cannula Oxygen Flow Rate 2 Sepsis Recent Fever Within 48 Hours Sepsis New/Unexplained Change in Mental Status Sepsis Action Taken by Nursing 06/25/20 21:31 06/25/20 21:45 Temperature Temperature Source Pulse Rate 80 75 Pulse Rate from SpO2 Sensor 79 77 Respiratory Rate 21 14 Respiratory Depth Blood Pressure 129/80 Blood Pressure [Right Arm] Blood Pressure Mean 87 Blood Pressure Mean [Right Arm] Blood Pressure Position Pulse Oximetry 96 96 Oxygen Delivery Method Oxygen Flow Rate Sepsis Recent Fever Within 48 Hours Sepsis New/Unexplained Change in Mental Status Sepsis Action Taken by Nursing Laboratory Data Result diagrams: 06/25/20 19:24 06/25/20 19:24 Lab Results 06/25/20 06/25/20 06/25/20 Range/Units 19:24 19:24 19:24 WBC 14.66 H (4.8-10.8) K/uL RBC 3.54 L (4.2-5.4) M/uL Hgb 11.2 L (12.0-16.0) g/dL Hct 32.3 L (37-47) % MCV 91.2 (80-100) fL MCH 31.6 (25-34) pg MCHC 34.7 (32-36) g/dL RDW Std Deviation 52.7 H (36.4-46.3) fL RDW Coeff of Mary Beth 15.5 H (11.5-14.5) % Plt Count 231 (130-400) K/uL MPV 8.7 (7.4-10.4) fL Immature Gran % (Auto) 0.9 % Neut % (Auto) 74.2 % Lymph % (Auto) 15.2 % [place] % (Auto) 9.5 % Eos % (Auto) 0.1 % Baso % (Auto) 0.1 % Neut # (Auto) 10.88 H (1.4-6.5) K/uL Lymph # (Auto) 2.23 (1.2-3.4) K/uL [place]ander # (Auto) 1.39 H (0.11-0.59) K/uL Eos # (Auto) 0.02 (0-0.5) K/uL Baso # (Auto) 0.01 (0-0.2) K/uL Immature Gran # (Auto) 0.13 H (0.00-0.02) K/uL PT 11.6 (9.0-12.0) Seconds INR 1.1 (0.9-1.1) Sodium 123 L (136-145) mmol/L Potassium 5.5 H (3.5-5.1) mmol/L Chloride 95 L (98-107) mmol/L Carbon Dioxide 20 L (21-32) mmol/L Anion Gap 8.0 (3-11) BUN 46 H (7-18) mg/dl Creatinine 1.11 (0.6-1.2) mg/dl Est Cr Clr Drug Dosing 37.8 ml/min Est GFR ( Amer) 54.3 Est GFR (Non-Af Amer) 46.9 BUN/Creatinine Ratio 41.4 H (10-20) Glucose 71 (70-99) mg/dl Osmolality (280-300) mOsm/kg Lactate (0.4-2.0) mmol/L Calcium 9.0 (8.5-10.1) mg/dl Magnesium 2.1 (1.8-2.4) mg/dl Total Bilirubin 0.4 (0.2-1) mg/dl AST 31 (15-37) U/L ALT 27 (12-78) U/L Alkaline Phosphatase 168 H (45-117) U/L Troponin I < 0.015 (0-0.045) ng/ml Total Protein 7.3 (6.4-8.2) gm/dl Albumin 2.5 L (3.4-5.0) gm/dl Globulin 4.8 H (2.5-4.0) gm/dl Albumin/Globulin Ratio 0.5 L (0.9-2) TSH 4.800 H (0.300-4.500) uIu/ml Free T4 1.36 (0.8-1.6) ng/dl Urine Color Urine Appearance (Clear) Urine pH (4.5-7.5) Ur Specific [place] (1.000-1.030) Urine Protein (Negative) Urine Glucose (UA) (Negative) Urine Ketones (Negative) Urine Blood (Negative) Urine Nitrite (Negative) Urine Bilirubin (Negative) Urine Urobilinogen (Negative) Ur Leukocyte Esterase (Negative) Urine WBC (Auto) (0-5) /hpf Urine RBC (Auto) (0-4) /hpf U Hyaline Cast (Auto) (0-5) /lpf U Epithel Cells (Auto) (0-5) /lpf Urine Bacteria (Auto) (Negative) Urine Yeast Urine Osmolality (500-800) mOsm/kg Ur Random Sodium mmol/L COVID-19 Eval Order SARS-CoV-2, RNA, NAAT (NEGATIVE) 06/25/20 06/25/20 06/25/20 Range/Units 19:24 19:24 19:30 WBC (4.8-10.8) K/uL RBC (4.2-5.4) M/uL Hgb (12.0-16.0) g/dL Hct (37-47) % MCV (80-100) fL MCH (25-34) pg MCHC (32-36) g/dL RDW Std Deviation (36.4-46.3) fL RDW Coeff of Mary Beth (11.5-14.5) % Plt Count (130-400) K/uL MPV (7.4-10.4) fL Immature Gran % (Auto) % Neut % (Auto) % Lymph % (Auto) % Lander % (Auto) % Eos % (Auto) % Baso % (Auto) % Neut # (Auto) (1.4-6.5) K/uL Lymph # (Auto) (1.2-3.4) K/uL Lander # (Auto) (0.11-0.59) K/uL Eos # (Auto) (0-0.5) K/uL Baso # (Auto) (0-0.2) K/uL Immature Gran # (Auto) (0.00-0.02) K/uL PT (9.0-12.0) Seconds INR (0.9-1.1) Sodium (136-145) mmol/L Potassium (3.5-5.1) mmol/L Chloride (98-107) mmol/L Carbon Dioxide (21-32) mmol/L Anion Gap (3-11) BUN (7-18) mg/dl Creatinine (0.6-1.2) mg/dl Est Cr Clr Drug Dosing ml/min Est GFR ( Amer) Est GFR (Non-Af Amer) BUN/Creatinine Ratio (10-20) Glucose (70-99) mg/dl Osmolality 271 L (280-300) mOsm/kg Lactate 2.3 H* (0.4-2.0) mmol/L Calcium (8.5-10.1) mg/dl Magnesium (1.8-2.4) mg/dl Total Bilirubin (0.2-1) mg/dl AST (15-37) U/L ALT (12-78) U/L Alkaline Phosphatase (45-117) U/L Troponin I (0-0.045) ng/ml Total Protein (6.4-8.2) gm/dl Albumin (3.4-5.0) gm/dl Globulin (2.5-4.0) gm/dl Albumin/Globulin Ratio (0.9-2) TSH (0.300-4.500) uIu/ml Free T4 (0.8-1.6) ng/dl Urine Color Urine Appearance (Clear) Urine pH (4.5-7.5) Ur Specific [place] (1.000-1.030) Urine Protein (Negative) Urine Glucose (UA) (Negative) Urine Ketones (Negative) Urine Blood (Negative) Urine Nitrite (Negative) Urine Bilirubin (Negative) Urine Urobilinogen (Negative) Ur Leukocyte Esterase (Negative) Urine WBC (Auto) (0-5) /hpf Urine RBC (Auto) (0-4) /hpf U Hyaline Cast (Auto) (0-5) /lpf U Epithel Cells (Auto) (0-5) /lpf Urine Bacteria (Auto) (Negative) Urine Yeast Urine Osmolality (500-800) mOsm/kg Ur Random Sodium mmol/L COVID-19 Eval Order Covid19 IDNow at[facility]AC SARS-CoV-2, RNA, NAAT (NEGATIVE) 06/25/20 06/25/20 06/25/20 Range/Units 19:30 21:19 21:19 WBC (4.8-10.8) K/uL RBC (4.2-5.4) M/uL Hgb (12.0-16.0) g/dL Hct (37-47) % MCV (80-100) fL MCH (25-34) pg MCHC (32-36) g/dL RDW Std Deviation (36.4-46.3) fL RDW Coeff of Mary Beth (11.5-14.5) % Plt Count (130-400) K/uL MPV (7.4-10.4) fL Immature Gran % (Auto) % Neut % (Auto) % Lymph % (Auto) % Lander % (Auto) % Eos % (Auto) % Baso % (Auto) % Neut # (Auto) (1.4-6.5) K/uL Lymph # (Auto) (1.2-3.4) K/uL [place] # (Auto) (0.11-0.59) K/uL Eos # (Auto) (0-0.5) K/uL Baso # (Auto) (0-0.2) K/uL Immature Gran # (Auto) (0.00-0.02) K/uL PT (9.0-12.0) Seconds INR (0.9-1.1) Sodium (136-145) mmol/L Potassium (3.5-5.1) mmol/L Chloride (98-107) mmol/L Carbon Dioxide (21-32) mmol/L Anion Gap (3-11) BUN (7-18) mg/dl Creatinine (0.6-1.2) mg/dl Est Cr Clr Drug Dosing ml/min Est GFR ( Amer) Est GFR (Non-Af Amer) BUN/Creatinine Ratio (10-20) Glucose (70-99) mg/dl Osmolality (280-300) mOsm/kg Lactate (0.4-2.0) mmol/L Calcium (8.5-10.1) mg/dl Magnesium (1.8-2.4) mg/dl Total Bilirubin (0.2-1) mg/dl AST (15-37) U/L ALT (12-78) U/L Alkaline Phosphatase (45-117) U/L Troponin I (0-0.045) ng/ml Total Protein (6.4-8.2) gm/dl Albumin (3.4-5.0) gm/dl Globulin (2.5-4.0) gm/dl Albumin/Globulin Ratio (0.9-2) TSH (0.300-4.500) uIu/ml Free T4 (0.8-1.6) ng/dl Urine Color Yellow Urine Appearance Cloudy A (Clear) Urine pH 6.5 (4.5-7.5) Ur Specific [place] 1.016 (1.000-1.030) Urine Protein 1+ H (Negative) Urine Glucose (UA) Negative (Negative) Urine Ketones Negative (Negative) Urine Blood 2+ H (Negative) Urine Nitrite Positive A (Negative) Urine Bilirubin Negative (Negative) Urine Urobilinogen Negative (Negative) Ur Leukocyte Esterase 3+ H (Negative) Urine WBC (Auto) >30 H (0-5) /hpf Urine RBC (Auto) 10-30 H (0-4) /hpf U Hyaline Cast (Auto) 1-5 (0-5) /lpf U Epithel Cells (Auto) 5-10 H (0-5) /lpf Urine Bacteria (Auto) 4+ H (Negative) Urine Yeast Not Reportable Urine Osmolality 490 L (500-800) mOsm/kg Ur Random Sodium mmol/L COVID-19 Eval Order SARS-CoV-2, RNA, NAAT NEGATIVE (NEGATIVE) 06/25/20 Range/Units 21:19 WBC (4.8-10.8) K/uL RBC (4.2-5.4) M/uL Hgb (12.0-16.0) g/dL Hct (37-47) % MCV (80-100) fL MCH (25-34) pg MCHC (32-36) g/dL RDW Std Deviation (36.4-46.3) fL RDW Coeff of Mary Beth (11.5-14.5) % Plt Count (130-400) K/uL MPV (7.4-10.4) fL Immature Gran % (Auto) % Neut % (Auto) % Lymph % (Auto) % [place] % (Auto) % Eos % (Auto) % Baso % (Auto) % Neut # (Auto) (1.4-6.5) K/uL Lymph # (Auto) (1.2-3.4) K/uL [place] # (Auto) (0.11-0.59) K/uL Eos # (Auto) (0-0.5) K/uL Baso # (Auto) (0-0.2) K/uL Immature Gran # (Auto) (0.00-0.02) K/uL PT (9.0-12.0) Seconds INR (0.9-1.1) Sodium (136-145) mmol/L Potassium (3.5-5.1) mmol/L Chloride (98-107) mmol/L Carbon Dioxide (21-32) mmol/L Anion Gap (3-11) BUN (7-18) mg/dl Creatinine (0.6-1.2) mg/dl Est Cr Clr Drug Dosing ml/min Est GFR ( Amer) Est GFR (Non-Af Amer) BUN/Creatinine Ratio (10-20) Glucose (70-99) mg/dl Osmolality (280-300) mOsm/kg Lactate (0.4-2.0) mmol/L Calcium (8.5-10.1) mg/dl Magnesium (1.8-2.4) mg/dl Total Bilirubin (0.2-1) mg/dl AST (15-37) U/L ALT (12-78) U/L Alkaline Phosphatase (45-117) U/L Troponin I (0-0.045) ng/ml Total Protein (6.4-8.2) gm/dl Albumin (3.4-5.0) gm/dl Globulin (2.5-4.0) gm/dl Albumin/Globulin Ratio (0.9-2) TSH (0.300-4.500) uIu/ml Free T4 (0.8-1.6) ng/dl Urine Color Urine Appearance (Clear) Urine pH (4.5-7.5) Ur Specific [place] (1.000-1.030) Urine Protein (Negative) Urine Glucose (UA) (Negative) Urine Ketones (Negative) Urine Blood (Negative) Urine Nitrite (Negative) Urine Bilirubin (Negative) Urine Urobilinogen (Negative) Ur Leukocyte Esterase (Negative) Urine WBC (Auto) (0-5) /hpf Urine RBC (Auto) (0-4) /hpf U Hyaline Cast (Auto) (0-5) /lpf U Epithel Cells (Auto) (0-5) /lpf Urine Bacteria (Auto) (Negative) Urine Yeast Urine Osmolality (500-800) mOsm/kg Ur Random Sodium 126 mmol/L COVID-19 Eval Order SARS-CoV-2, RNA, NAAT (NEGATIVE) Administered Medications Albumin Human (Albumin 25%) 12.5 gm in 50 mls @ 50 mls/hr IV Q1H CHANO Stop: 06/26/20 00:14 Last Admin: 06/25/20 22:38 Dose: 50 mls/hr Documented by: [id number] Discontinued Medications Dexamethasone (Dexamethasone Sod Inj 10 Mg/Ml Vial) 10 mg IV NOW ONE Stop: 06/25/20 22:04 Last Admin: 06/25/20 22:37 Dose: 10 mg Documented by: [id number] Sodium Chloride (Nss 1000ml) 1,000 mls @ 999 mls/hr IV .Q1H1M ONE Stop: 06/25/20 20:08 Last Infusion: 06/25/20 20:09 Dose: 0 mls/hr Documented by: [id number] Admin: 06/25/20 19:08 Dose: 999 mls/hr Documented by: [id number] Ceftriaxone Sodium (Rocephin) 1,000 mg in 50 mls @ 100 mls/hr IV NOW STA Stop: 06/25/20 22:31 Last Admin: 06/25/20 22:38 Dose: 100 mls/hr Documented by: [id number] Ondansetron HCl (Ondansetron Inj 2 Mg/Ml 2 Ml Vial) 4 mg IV NOW STA Stop: 06/25/20 19:09 Last Admin: 06/25/20 19:28 Dose: 4 mg Documented by: [id number] Discharge Plan Visit Data Chief Complaint: Hypotension Stated Complaint: SOB, WEAKNESS ED Provider: Dylan Cole Discharge Problem: Hyponatremia, Near syncope, Dehydration, Acute UTI Patient Disposition: Being Evaluated by Hospitalist Discharge Instructions Interventions: ED Discharge Assessment Last Done: 06/25/20 22:32
[2020-06-25 19:36] LABS: Basophils # (auto) 0.01 K/uL (0-0.2); Basophils % (auto) 0.1 %; Eosinophils # (auto) 0.02 K/uL (0-0.5); Eosinophils % (auto) 0.1 %; Hematocrit (blood only) 32.3 % (37-47); Hemoglobin 11.2 g/dL (12.0-16.0); Immature Granulocytes # (auto) 0.13 K/uL (0.00-0.02); Immature Granulocytes % (auto) 0.9 %; Lymphocytes # (auto) 2.23 K/uL (1.2-3.4); Lymphocytes % (auto) 15.2 %; Mean Corpuscular Hemoglobin 31.6 pg (25-34); Mean Corpuscular Hgb Conc 34.7 g/dL (32-36); Mean Corpuscular Volume 91.2 fL (80-100); Mean Platelet Volume 8.7 fL (7.4-10.4); Monocytes # (auto) 1.39 K/uL (0.11-0.59); Monocytes % (auto) 9.5 %; Neutrophils # (auto) 10.88 K/uL (1.4-6.5); Neutrophils % (auto) 74.2 %; Platelet Count 231 K/uL (130-400); RDW Coefficient of Variation 15.5 % (11.5-14.5); RDW Standard Deviation 52.7 fL (36.4-46.3); Red Blood Count 3.54 M/uL (4.2-5.4); White Blood Count 14.66 K/uL (4.8-10.8)
--- NOTE | 2020-06-25 19:42 | XRay Report ---
XR chest 1V portable CLINICAL HISTORY: Weakness. History of lung cancer. COMPARISON STUDY: Chest radiograph and chest CT June 22, 2020. FINDINGS: Right subclavian [id number] remains in place. Cardiomediastinal silhouette is unremarkab le. There is no pneumothorax or pleural effusion. There is no evidence for pulmonary edema. Lower sarah g predominant reticulonodular interstitial thickening and nodular opacities is noted. This has slight ly decreased since prior exam. IMPRESSION: Persistent, but slightly decreased, nonspecific lower lung predominant reticulonodular in terstitial thickening and nodular opacities. ACT 112: Negative or not required by law. Electronically signed by: Bonilla Blair M.D. 06/25/2020 7:41 PM
[2020-06-25 19:44] LABS: INR 1.1 (0.9-1.1); Prothrombin Time 11.6 Seconds (9.0-12.0)
[2020-06-25 19:52] LABS: Alanine Aminotransferase 27 U/L (12-78); Albumin Level 2.5 gm/dl (3.4-5.0); Aspartate Aminotransferase 31 U/L (15-37); BUN Creatinine Ratio 41.4 (10-20); Blood Urea Nitrogen 46 mg/dl (7-18); Carbon Dioxide 20 mmol/L (21-32); Chloride 95 mmol/L (98-107); Creatinine Clr Calc Pharmacy 37.8 ml/min; Est GFR (African American) 54.3; Est GFR (Non-African American) 46.9; Glucose 71 mg/dl (70-99); Magnesium 2.1 mg/dl (1.8-2.4); Potassium 5.5 mmol/L (3.5-5.1); Sodium 123 mmol/L (136-145)
[2020-06-25 20:03] LABS: Albumin Globulin Ratio 0.5 (0.9-2); Alkaline Phosphatase 168 U/L (45-117); Bilirubin,Total 0.4 mg/dl (0.2-1); Globulin 4.8 gm/dl (2.5-4.0); Total Protein 7.3 gm/dl (6.4-8.2); Troponin I < 0.015 ng/ml (0-0.045)
[2020-06-25 20:16] LABS: T4 Free Thyroxine 1.36 ng/dl (0.8-1.6)
[2020-06-25 21:41] LABS: Appearance Urine Cloudy (Clear); Bacteria Urine Automated 4+ (Negative); Bilirubin Urine Negative (Negative); Blood Urine 2+ (Negative); Color Urine Yellow; Glucose Urine UA Negative (Negative); Ketones Urine Negative (Negative); Leukocyte Esterase Urine 3+ (Negative); Nitrite Urine Positive (Negative); Protein Urine 1+ (Negative); Specific Gravity Urine 1.016 (1.000-1.030); Urobilinogen Urine Negative (Negative); WBC Urine Automated >30 /hpf (0-5); pH Urine 6.5 (4.5-7.5)
[2020-06-25] MEDS ORDERED: cefTRIAXone SODIUM 1,000 MG/50 ML BAG IV STA (22:02)
[2020-06-25] MEDS ORDERED: DEXAMETHASONE SOD INJ 10 MG/ML VIAL IV ONE (22:03)
--- NOTE | 2020-06-25 22:29 | History & Physical Report ---
Date of Service June 25, 2020 Assessment & Plan (1) Hyponatremia: -this may be related to her underlying lung cancer -she does not have any neurologic sequel noted at this time -will repeat lab in am (2) Hypotension: -likely due to dehydration as she has responded to IVF given by the ED physician -will administer 25g of albumin for further hydration -as she takes decadron as outpt., adrenal insufficiency may be at play, so will administer stress dose decadron and monitor her response (3) Metastatic adenocarcinoma: -the pt. notes her cancer is from a lung primary -she currently does not wish to pursue further treatment (4) Pulmonary embolism: -maintain home dose of lovenox History of Present Illness Chief Complaint: I feel dehydrated Primary Care Provider: Guillermo Berkowitz MD This is an 80 year old female with metastatic lung adenocarcinoma. She has stopped treatment for this condition back in March,. She is no longer planning any further treatment. She presented to the ED as she has felt very weak over the past few days. She denies N/V, but has a poor apatite and has not been eating or drinking very much. She notes she has fallen a few times at home but did not injure herself. No fevers, shakes, chills, noted. In the ED, a COVID test was (-). She was hypotensive. Her BP responded to IVF that was administered by the ED. At the time of my exam she was in no distress. I discussed CODE status with her and she notes in the event of arrest she wishes to be a level 5 DNR. Allergies Allergy/AdvReac Type Severity Reaction Status Date / Time Tetracyclines Allergy Intermediate GI Verified 06/25/20 21:05 SYMPTOMS, RASH, SUN SENSITIVITY tomato Allergy Unknown TOMATOES, Verified 06/25/20 21:05 CITRUS FRUIT ACIDIC FOOD--ITCHY L EAR, HEAD levofloxacin AdvReac Intermediate tendonitis Verified 06/25/20 21:05 Macrolide Antibiotics AdvReac Intermediate GI SYMPTOMS Verified 06/25/20 21:05 nitrofurantoin AdvReac Intermediate PULMONARY Verified 06/25/20 21:05 [From Macrobid] ISSUES Penicillins AdvReac Intermediate GI SYMPTOMS Verified 06/25/20 21:05 amoxicillin AdvReac Mild Gastrointestinal Verified 06/25/20 21:05 Upset ciprofloxacin AdvReac Mild GI UPSET Verified 06/25/20 21:05 clindamycin AdvReac Mild GI UPSET Verified 06/25/20 21:05 erythromycin base AdvReac Mild Gastrointestinal Verified 06/25/20 21:05 Upset Home Medications Medication Instructions Recorded Confirmed Type Probiotic 0 mmu cells PO QAM 06/03/18 06/25/20 History Restasis 1 drp OPB Q12H 06/03/18 06/25/20 History acetaminophen [Tylenol Arthritis 1,300 mg PO Q12H PRN 09/12/19 06/25/20 History Pain] diltiazem HCl 180 mg 180 mg PO QAM #90 cap 12/19/19 06/25/20 Rx capsule,extended release 24 hr bupropion HCl 100 mg tablet,12 hr 100 mg PO BID #60 ea 03/14/20 06/25/20 Rx sustained-release benzonatate 100 mg capsule 100 mg PO TID PRN #60 cap 03/22/20 06/25/20 Rx famotidine 20 mg tablet 40 mg PO DAILY tab 04/02/20 06/25/20 History dronedarone [Multaq] 400 mg PO BID 04/08/20 06/25/20 History enoxaparin 100 mg/mL subcutaneous 100 mg SUBCUT Q24H #30 syr 04/25/20 06/25/20 Rx syringe diphenoxylate-atropine 2.5 1 tab PO BID PRN 05/14/20 06/25/20 History mg-0.025 mg tablet dexamethasone 4 mg PO QAM 06/22/20 06/25/20 History sulfamethoxazole-trimethoprim 1 tab PO BID 06/22/20 06/25/20 History Past Med/Surg History Medical History Anemia Atypical squamous cells of undetermined significance (ASC-US) on cervical Pap sm ear Deep vein thrombosis Deep venous thrombosis of left popliteal vein Depression Drug-induced pneumonitis Hearing deficit History of ascites History of lymphoma History of malignant neoplasm breast Metastatic adenocarcinoma On anticoagulant therapy Osteoarthritis Pneumonia Pneumonia due to Pseudomonas Pulmonary embolism Seasonal affective disorder Thrombocytopenia Urinary tract infection Vaginal pessary present Surgical History H/O tubal ligation History of bronchoscopy History of cholecystectomy History of colonoscopy History of cystoscopy Hx of oral surgery S/P breast biopsy S/P bunionectomy S/P cholecystectomy Family History Daughter Breast cancer metastatic, diagnosed in 1993 and now is stage IV with salvage chemotherapy Daughter Breast cancer, Onset Age: 27 metastatic breast cancer at age 27 Brother , age 53 MVA MVA Family/Other Essential familial hypercholesterolemia Glaucoma Heart disease Macular degeneration Stroke Mother , age 85 Hypertension Hyperlipidemia Meningioma Father , "old age" 95 Hypertension Son Kidney stones Other Cancer Stroke syndrome Denies family history of Ovarian cancer Prostate cancer Diabetes Social History Smoking Status: Never smoker Second Hand Exposure: No; Do You Dip or Chew Tobacco: No; Tobacco Cessation Education Requested by Patient: No Hx Alcohol Use: Yes Alcohol type: wine Alcohol Intake Frequency Comment: monthly Hx Substance Use: No Preferred Language: Peruvian Communication Ability: Effective Visual Impairment: No Limitations Hearing Ability: Use of Hearing Aid 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: No Beliefs That Will Affect Care: None marital status: Current Living Situation: Family Current Living Situation Comment: Lives at home with son Nuno current occupational status: retired Other Information That Helps Us Care for You: No Feels Safe at Home: Yes Safety Concerns: Feels Safe At This Time Childhood Exposure to Second-Hand Smoke: Yes caffeine: Yes Dental Care, Regularly: Yes Physical Activity Frequency: 1-2 Times per Week Seatbelt Use: always Sunscreen Use: Yes Assistive Devices: Glasses, Hearing Aid - Bilateral and Walker Assistive Devices Comment: Does not use walker at home - will use in hospital Review of Systems Constitutional: + fatigue; no fever and no chills Eyes: no diplopia Ear, Nose, Mouth, Throat: no ear pain Respiratory: + dyspnea on exertion; no cough Cardiovascular: no chest pain and no palpitations Gastrointestinal: no abdominal pain, no nausea and no vomiting poor apatite Genitourinary: no dysuria Musculoskeletal: no back pain Integumentary: no rash Neurologic: + generalized weakness; no localized weakness Physical Exam Constitutional: well developed and well nourished; no acute distress Eyes: no conjunctival abnormality ENMT: Ears: no hearing impairment Mouth: no oral mucosal abnormality Neck: trachea midline Respiratory: normal respiratory effort; no respiratory distress and no labored breathing Cardiovascular: Rate/Rhythm: regular rate and regular rhythm Gastrointestinal (Abdomen): Percussion/Palpation: abdomen soft; abdomen non tender Musculoskeletal: no calf pain Skin: + turgor decreased Neurologic: moves all extremities Psychiatric: A+Ox3, euthymic affect Results & Data Results & Data ([facility]) Vital Signs (Past 12 Hours) Vital Signs Temp Pulse Resp BP BP Pulse Ox 06/25/20 21:19 78 20 142/83 H 97 06/25/20 21:00 76 24 118/75 96 06/25/20 20:45 78 23 117/73 95 06/25/20 19:46 76 22 137/87 100 06/25/20 19:31 66 22 99 06/25/20 19:30 66 23 97/66 L 100 06/25/20 19:28 63 20 93/66 L 99 06/25/20 19:15 70 21 06/25/20 19:08 75 97 06/25/20 19:00 66 22 97 06/25/20 18:59 61 22 73/54 L 97 06/25/20 18:58 61 22 73/54 L 97 06/25/20 18:15 36.9 C 67 18 87/61 L 97 Code Status & VTE Plan VTE Prophylaxis Plan VTE Prophylaxis will be ordered: No Supervising Physician Co-Signing Physician Notes Attending addendum: I have physically seen this patient, have supervised the KAMALJIT's activities, and agree with the H&P unless as otherwise noted. Assessment and Plan: Hyponatremia- Sodium 123, serum osmolality 271, with urine osmolality pending. Can gently hydrate for now with NSS, which should help with the mild hy perkalemia 5.5, until urine osmolality results. If SIADH picture, will add sodium chloride tablets, and gentle rehydration. Metastatic adenocarcinoma- CTA chest on 06/22/2020 suggests increasing lymphangitic spread of tumor and increased lymphadenopathy, with worsening adrenal metastases. Pulmonary embolism history- Continue home dosing of Lovenox. Remaining orders and notations as noted PG Care Time/CCT Total # of Minutes Spent Total Time Spent with Patient: Total time spent is greater than 50% in coordination of care (as documented) at patient's floor/unit and/or counseling patient: Coding Level of Care Code 26547 Initial Inpt Care Lvl 3 Diagnoses Hyponatremia E87.1 Hypotension I95.9 Metastatic adenocarcinoma C79.9 Pulmonary embolism I26.99
[2020-06-25] MEDS: ALBUMIN 25% 12.5 GM/50 ML VIAL IV SCH (22:38)
[2020-06-25] MEDS ORDERED: NON-FORMULARY MEDICATION (Cyclosporine [Restasis] 0.05 % Dropperette) OPB SCH (23:18)
[2020-06-25] MEDS ORDERED: DIPHENOXYLATE/ATROPINE 2.5/0.025MG TAB PO PRN (23:18)
[2020-06-26] MEDS: FAMOTIDINE 40 MG TABLET PO SCH ×3 (00:26→20:44)
[2020-06-26] MEDS: buPROPion SR 100 MG TABCR PO SCH ×3 (00:26→20:45)
[2020-06-26] MEDS: SULFAMETHOXAZOLE/TRIMETHOPRIM DS 800/160MG TAB PO SCH ×2 (00:26→09:50)
[2020-06-26] MEDS: DRONEDARONE HCL 400 MG TAB PO SCH ×3 (00:27→20:44)
[2020-06-26] MEDS: BENZONATATE 100 MG CAPSULE PO PRN ×2 (00:30→20:50)
[2020-06-26] MEDS: ACETAMINOPHEN 325 MG TAB PO PRN (00:30)
[2020-06-26] MEDS: ALBUMIN 25% 12.5 GM/50 ML VIAL IV SCH (00:31)
[2020-06-26] MEDS ORDERED: HEPARIN 100 UNIT/ML 5ML FLUSH FLUSH PRN (00:58)
[2020-06-26] MEDS: ONDANSETRON 4 MG OD TAB PO PRN ×2 (01:52→20:50)
[2020-06-26] MEDS: DEXAMETHASONE SOD PHOSPHATE 6 MG in SYRINGE 0 ML IV SCH ×2 (06:19→13:05)
[2020-06-26] MEDS ORDERED: FAMOTIDINE 40 MG TABLET PO SCH (09:00)
[2020-06-26] MEDS ORDERED: DRONEDARONE HCL 400 MG TAB PO SCH (09:00)
[2020-06-26] MEDS ORDERED: dexAMETHasone 4 MG TAB PO SCH (09:00)
[2020-06-26] MEDS ORDERED: buPROPion SR 100 MG TABCR PO SCH (09:00)
[2020-06-26] MEDS ORDERED: SULFAMETHOXAZOLE/TRIMETHOPRIM DS 800/160MG TAB PO SCH (09:00)
[2020-06-26] MEDS: RESTASIS~ORDER AWAITING ACTION SCH ×3 (09:44→23:55)
[2020-06-26] MEDS: ENOXAPARIN 100 MG/1ML SYR SQ SCH (09:46)
[2020-06-26] MEDS: dilTIAZem HCL 180 MG CAPCR PO SCH (09:46)
[2020-06-26] MEDS: ADVANCED PROBIOTIC 1250 MG CAPSULE PO SCH (09:50)
[2020-06-26 11:10] VITALS: O2SAT 95
--- NOTE | 2020-06-26 15:05 | Hospitalist Progress Note ---
Date of Service June 26, 2020 Assessment & Plan (1) Metastatic adenocarcinoma: Patient wishes to go home on hospice tomorrow. Discussed with CM. Will move to comfort care. - No further labs, minimal vitals, etc. - No present pain, so no pain meds right now. - CM working with hospice agence and private caregivers. - Plan to discharge tomorrow on home hospice. Admission and Anticipated Discharge Date Admission Date: June 25, 2020 Subjective Feeling weak, but less shortness of breath. Reports no fevers/chills, chest pain, abdominal pain, nausea, or vomiting. Physical Exam Constitutional: WD/WN, vitals as above Eyes: EOM intact bilaterally; no conjunctival abnormality ENMT: external ear and nose normal, oropharynx normal Neck: trachea midline, no thyromegaly normal visual inspection Respiratory: normal respiratory effort, lungs clear to auscultation no respiratory distress Cardiovascular: RRR, no murmur, no edema Gastrointestinal (Abdomen): Inspection/Auscultation: abdomen normal to inspection; abdomen not distended Musculoskeletal: no cyanosis or clubbing, extremities motor strength 5/5 Skin: no rashes, warm and dry Neurologic: moves all extremities and awake Psychiatric: Orientation: alert, oriented to person and cooperative Results & Data Results & Data ([facility]) Vital Signs (Past 12 Hours) Vital Signs Temp Pulse Resp BP Pulse Ox 06/26/20 14:54 36.3 C L 80 20 114/73 95 06/26/20 07:40 95 06/26/20 07:00 36.5 C 76 20 115/68 96 PG Care Time/CCT Total # of Minutes Spent Total Time Spent with Patient: Total time spent is greater than 50% in coordination of care (as documented) at patient's floor/unit and/or counseling patient: Coding Level of Care Code 65421 Subseq Hosp Care Lvl 2 Diagnoses Metastatic adenocarcinoma C79.9
[2020-06-27] MEDS: RESTASIS~ORDER AWAITING ACTION SCH ×3 (09:13→23:37)
[2020-06-27] MEDS: ACETAMINOPHEN 325 MG TAB PO PRN ×2 (09:37→20:06)
[2020-06-27] MEDS: buPROPion SR 100 MG TABCR PO SCH ×2 (09:38→20:05)
[2020-06-27] MEDS: ADVANCED PROBIOTIC 1250 MG CAPSULE PO SCH (09:38)
[2020-06-27] MEDS: dilTIAZem HCL 180 MG CAPCR PO SCH (09:39)
[2020-06-27] MEDS: FAMOTIDINE 40 MG TABLET PO SCH ×2 (09:39→20:05)
[2020-06-27] MEDS: DRONEDARONE HCL 400 MG TAB PO SCH ×2 (09:40→20:05)
[2020-06-27] MEDS: ENOXAPARIN 100 MG/1ML SYR SQ SCH (09:40)
--- NOTE | 2020-06-27 10:51 | XRay Report ---
XR KUB/Abdomen 1 view CLINICAL HISTORY: abdominal pain COMPARISON STUDY: January 2007 FINDINGS: There are surgical clips in the right upper quadrant consistent with a prior cholecystectom y. There is a lumbar scoliosis. There are gas-filled transverse colon and descending colonic bowel lo ops. There are no transition zones indicate bowel obstruction. No definite urinary tract calculi are visualized. IMPRESSION: Nonobstructive bowel gas pattern ACT 112: Negative or not required by law. Electronically signed by: Jass Jensen M.D. 06/27/2020 10:49 AM
[2020-06-27] MEDS: DOCUSATE SODIUM/SENNA 50/8.6MG TAB PO SCH (11:04)
[2020-06-27] MEDS: POLYETHYLENE (MIRALAX) 17 GM PACK PO SCH (11:04)
[2020-06-27] MEDS ORDERED: POLYETHYLENE (MIRALAX) 17 GM PACK PO ONE (13:43)
--- NOTE | 2020-06-27 13:44 | Hospitalist Progress Note ---
Date of Service June 27, 2020 Assessment & Plan (1) Metastatic adenocarcinoma: Patient wishes to go home on hospice tomorrow. Discussed with CM. Will move to comfort care. - No further labs, minimal vitals, etc. - No present pain, so no pain meds right now. - CM working with hospice agence and private caregivers. -Discharge held due to constipation - Plan to discharge tomorrow on home hospice. (2) Hyponatremia: was 123, patient being transitioned to hospice. no further workup. (3) Pulmonary embolism: continue on home lovenox Admission and Anticipated Discharge Date Admission Date: June 25, 2020 Subjective Patient reports not havign a BM while here and feeling bloated and constipated. She does not feel ready for discharge. Review of Systems Review of Systems: All systems reviewed & are unremarkable except as noted in HPI & below Physical Exam Physical Exam: Constitutional: WD/WN, vitals as above Eyes: EOM intact bilaterally; no conjunctival abnormality ENMT: external ear and nose normal, oropharynx normal Neck: trachea midline, no thyromegaly normal visual inspection Respiratory: normal respiratory effort, lungs clear to auscultation no respiratory distress Cardiovascular: RRR, no murmur, no edema Gastrointestinal (Abdomen): Inspection/Auscultation: abdomen normal to inspection; abdomen not distended Musculoskeletal: no cyanosis or clubbing, extremities motor strength 5/5 Skin: no rashes, warm and dry Neurologic: moves all extremities and awake Psychiatric: Orientation: alert, oriented to person and cooperative PG Care Time/CCT Total # of Minutes Spent Total Time Spent with Patient: Total time spent is greater than 50% in coordination of care (as documented) at patient's floor/unit and/or counseling patient: Coding Level of Care Code 57284 Subseq Hosp Care Lvl 3 Diagnoses Metastatic adenocarcinoma C79.9 Hyponatremia E87.1 Pulmonary embolism I26.99 Time Spent (min) 35
[2020-06-27 23:15] VITALS: BP 122/79; PULSE 76; TEMP 97.5
[2020-06-27] MEDS: ONDANSETRON 4 MG OD TAB PO PRN (23:43)
[2020-06-28] MEDS: RESTASIS~ORDER AWAITING ACTION SCH ×3 (08:36→23:37)
[2020-06-28] MEDS: ACETAMINOPHEN 325 MG TAB PO PRN ×2 (08:40→20:46)
[2020-06-28] MEDS: DRONEDARONE HCL 400 MG TAB PO SCH ×2 (08:41→21:30)
[2020-06-28] MEDS: dilTIAZem HCL 180 MG CAPCR PO SCH (08:41)
[2020-06-28] MEDS: POLYETHYLENE (MIRALAX) 17 GM PACK PO SCH (08:41)
[2020-06-28] MEDS: ENOXAPARIN 100 MG/1ML SYR SQ SCH (08:41)
[2020-06-28] MEDS: ADVANCED PROBIOTIC 1250 MG CAPSULE PO SCH (08:42)
[2020-06-28] MEDS: FAMOTIDINE 40 MG TABLET PO SCH ×2 (08:42→21:31)
[2020-06-28] MEDS: buPROPion SR 100 MG TABCR PO SCH ×2 (08:43→21:30)
[2020-06-28] MEDS: DOCUSATE SODIUM/SENNA 50/8.6MG TAB PO SCH (08:43)
[2020-06-28] MEDS ORDERED: GLYCERIN ADULT 12 SUPP/BOX SUPP PR ONE (10:17)
--- NOTE | 2020-06-28 22:41 | Hospitalist Progress Note ---
Date of Service June 28, 2020 Assessment & Plan (1) Metastatic adenocarcinoma: Patient wishes to go home on hospice tomorrow. Discussed with CM. Will move to comfort care. - No further labs, minimal vitals, etc. - No present pain, so no pain meds right now. - CM working with hospice agency and private caregivers. -Discharge held due to constipation - Plan to discharge tomorrow on home hospice. Ordered more miralax and suppository. will monitor. (2) Hyponatremia: was 123, patient being transitioned to hospice. no further workup. (3) Pulmonary embolism: continue on home lovenox Admission and Anticipated Discharge Date Admission Date: June 25, 2020 Subjective She reports did have a bowel movement, but is concerned about having diarrhea. She does not feel well enough to go home yet, Review of Systems Review of Systems: All systems reviewed & are unremarkable except as noted in HPI & below Physical Exam Physical Exam: Constitutional: WD/WN, vitals as above Eyes: EOM intact bilaterally; no conjunctival abnormality ENMT: external ear and nose normal, oropharynx normal Neck: trachea midline, no thyromegaly normal visual inspection Respiratory: normal respiratory effort, lungs clear to auscultation no respiratory distress Cardiovascular: RRR, no murmur, no edema Gastrointestinal (Abdomen): Inspection/Auscultation: abdomen normal to inspection; abdomen not distended Musculoskeletal: no cyanosis or clubbing, extremities motor strength 5/5 Skin: no rashes, warm and dry Neurologic: moves all extremities and awake Psychiatric: Orientation: alert, oriented to person and cooperative PG Care Time/CCT Total # of Minutes Spent Total Time Spent with Patient: Total time spent is greater than 50% in coordination of care (as documented) at patient's floor/unit and/or counseling patient: Coding Level of Care Code 50821 Subseq Hosp Care Lvl 2 Diagnoses Metastatic adenocarcinoma C79.9 Hyponatremia E87.1 Pulmonary embolism I26.99 Time Spent (min) 25
[2020-06-29] MEDS ORDERED: HEPARIN 100 UNIT/ML 5ML FLUSH FLUSH PRN (08:53)
[2020-06-29] MEDS: buPROPion SR 100 MG TABCR PO SCH (10:08)
[2020-06-29] MEDS: FAMOTIDINE 40 MG TABLET PO SCH (10:08)
[2020-06-29] MEDS: DRONEDARONE HCL 400 MG TAB PO SCH (10:09)
[2020-06-29] MEDS: DOCUSATE SODIUM/SENNA 50/8.6MG TAB PO SCH (10:09)
[2020-06-29] MEDS: RESTASIS~ORDER AWAITING ACTION SCH (10:12)
[2020-06-29] MEDS: POLYETHYLENE (MIRALAX) 17 GM PACK PO SCH (10:14)
[2020-06-29] MEDS: ACETAMINOPHEN 325 MG TAB PO PRN (10:19)
[2020-06-29] MEDS: dilTIAZem HCL 180 MG CAPCR PO SCH (10:28)
[2020-06-29] MEDS: ENOXAPARIN 100 MG/1ML SYR SQ SCH (10:29)
[2020-06-29] MEDS: ADVANCED PROBIOTIC 1250 MG CAPSULE PO SCH (10:29)
--- NOTE | 2020-07-06 08:28 | Discharge Summary ---
Date of Service June 29, 2020 Admission HPI Per Admitting Provider This is an 80 year old female with metastatic lung adenocarcinoma. She has stopped treatment for this condition back in March,. She is no longer planning any further treatment. She presented to the ED as she has felt very weak over the past few days. She denies N/V, but has a poor apatite and has not been eating or drinking very much. She notes she has fallen a few times at home but did not injure herself. No fevers, shakes, chills, noted. In the ED, a COVID test was (-). She was hypotensive. Her BP responded to IVF that was administered by the ED. At the time of my exam she was in no distress. I discussed CODE status with her and she notes in the event of arrest she wishes to be a level 5 DNR. Principal Diagnosis metastatic adenocarcinoma Discharge Exam Constitutional: WD/WN, vitals as above Eyes: EOM intact bilaterally; no conjunctival abnormality ENMT: external ear and nose normal, oropharynx normal Neck: trachea midline, no thyromegaly normal visual inspection Respiratory: normal respiratory effort, lungs clear to auscultation no respiratory distress Cardiovascular: RRR, no murmur, no edema Gastrointestinal (Abdomen): Inspection/Auscultation: abdomen normal to inspection; abdomen not distended Musculoskeletal: no cyanosis or clubbing, extremities motor strength 5/5 Skin: no rashes, warm and dry Neurologic: moves all extremities and awake Psychiatric: Orientation: alert, oriented to person and cooperative Discharge Data Allergies Allergy/AdvReac Type Severity Reaction Status Date / Time Tetracyclines Allergy Intermediate GI Verified 06/25/20 21:05 SYMPTOMS, RASH, SUN SENSITIVITY tomato Allergy Unknown TOMATOES, Verified 06/25/20 21:05 CITRUS FRUIT ACIDIC FOOD--ITCHY L EAR, HEAD levofloxacin AdvReac Intermediate tendonitis Verified 06/25/20 21:05 Macrolide Antibiotics AdvReac Intermediate GI SYMPTOMS Verified 06/25/20 21:05 nitrofurantoin AdvReac Intermediate PULMONARY Verified 06/25/20 21:05 [From Macrobid] ISSUES Penicillins AdvReac Intermediate GI SYMPTOMS Verified 06/25/20 21:05 amoxicillin AdvReac Mild Gastrointestinal Verified 06/25/20 21:05 Upset ciprofloxacin AdvReac Mild GI UPSET Verified 06/25/20 21:05 clindamycin AdvReac Mild GI UPSET Verified 06/25/20 21:05 erythromycin base AdvReac Mild Gastrointestinal Verified 06/25/20 21:05 Upset Consultations 06/25/20 21:47 ED Decision to Admit Stat 06/25/20 23:18 Consult Case Management - Discharge Planning Stat Hospital Course (1) Metastatic adenocarcinoma: Patient wishes to go home on hospice tomorrow. Discussed with CM. Will move to comfort care. - No further labs, minimal vitals, etc. - No present pain, so no pain meds right now. - CM working with hospice agency and private caregivers. -Constipation improved, recommended over the counter regimens to help: daily mi ralax PRN. - Will discharge on home hospice. (2) Hyponatremia: was 123, patient being transitioned to hospice. no further workup. (3) Pulmonary embolism: continue on home lovenox Total Time Total Time Spent Total Time Spent (In Minutes): 32 Total Time Includes: Examination of the Patient, Discharge Planning and Medication Reconciliation Discharge Plan Discharge Items Patient Disposition: Hospice - Home Reason For Visit: DEHYDRATION Discharge Diagnosis: Dehydration Activity: Resume your previous activity Non-emergency contact: Primary Care Provider Call non-emergency contact if: you have any medication questions Follow-up/Referrals: Guillermo Berkowitz MD [Primary Care Provider] - Diet: Regular Addtl Attending Provider Instructions: You will be discharged on Home hospice. Pending Studies at Discharge: No Stand-Alone Forms: My [facility] Medications and DC Order Prescriptions: New sennosides-docusate sodium [Senokot-S] 8.6-50 mg Tablet 1 tab PO QAM Qty: 30 RF: 0 Continued diltiazem HCl 180 mg capsule,extended release 24hr 180 mg PO QAM Qty: 90 RF: 3 bupropion HCl [Wellbutrin SR] 100 mg tablet sustained-release 12 hr 100 mg PO BID Qty: 60 RF: 3 enoxaparin 100 mg/mL syringe 100 mg subcut Q24H Qty: 30 RF: 2 famotidine 20 mg tablet 40 mg PO DAILY RF: 0 Restasis 0.05 % Dropperette 1 drp OPB Q12H RF: 0 Probiotic 3 billion cell Capsule 0 mmu cells PO QAM RF: 0 acetaminophen [Tylenol Arthritis Pain] 650 mg Tablet Extended Release 1,300 mg PO Q12H PRN (Reason: Pain) RF: 0 Multaq 400 mg tablet 400 mg PO BID RF: 0 diphenoxylate-atropine 2.5-0.025 mg tablet 1 tab PO BID PRN (Reason: Diarrhea) RF: 0 dexamethasone 4 mg tablet 4 mg PO QAM RF: 0 Discontinued sulfamethoxazole-trimethoprim 800-160 mg tablet 1 tab PO BID RF: 0 No Action polyethylene glycol 3350 [Miralax] 17 gram powder in packet 17 g PO DAILY PRN (Reason: Constipation) RF: 0 benzonatate [Tessalon Perles] 100 mg capsule 100 mg PO TID PRN (Reason: Cough) RF: 0 Discharge Orders: Discharge Order (Routine); Ordered 06/29/20 Ordered By: Andres Albright Admission Data Admit Date/Time: 06/25/20 22:00 Attending Provider: Andres Albright Admit Provider: Jeanmarie Kamara Primary Care Provider: Guillermo Berkowitz Other Providers: Fly Mathews ; [facility],Home [facility] Other Interventions: Discharge Summary Assessment (RN) Last Done: 06/29/20 12:06 Coding Level of Care Code D/C Day Management >30 mins Diagnoses Metastatic adenocarcinoma C79.9 Hyponatremia E87.1 Pulmonary embolism I26.99
== END 2020-06-29 14:02 | disposition hospice, home (50) | DRG 641 ==
LOC: ED 18:41 → 3W 22:00 → SUATTDRO 22:00 → 3W 22:32